=== PATIENT | female | born 1955 | race Caucasian/White ===

== ENCOUNTER → 2016-12-17 | Outpatient (CLI) | payer OTHER ==
[~2016-12-17] MED LIST: ARIP15TA; CLON1TAB3; LMC/150; PARO1TAB9; PSEU30TA20 PO; REVEIWED; RISP1TAB68; TRZUNK
--- NOTE | 2016-12-17 12:57 | MAMMOGRAPHY REPORT ---
BILATERAL DIGITAL SCREENING MAMMOGRAM WITH CAD: 12/17/2016 CLINICAL HISTORY: Routine screening. Patient has no complaints. TECHNIQUE: Current study was also evaluated with a Computer Aided Detection (CAD) system. Bilateral CC and MLO views were obtained. Note that the left MLO view is somewhat suboptimal as the pectorali s muscle is not visualized, as the patient could not tolerate proper positioning due to shoulder issu es. COMPARISON: Comparison is made to exams dated: 12/17/2015 mammogram, 12/13/2014 mammogram, 12/11/2013 m ammogram, 11/29/2012 mammogram, 11/23/2011 mammogram, and 11/17/2010 mammogram - [facility] nter. BREAST COMPOSITION: There are scattered areas of fibroglandular density in both breasts. FINDINGS: No suspicious masses, calcifications, or areas of architectural distortion are noted in ei ther breast. There has been no significant interval change compared to prior exams. Scattered bilater al benign-appearing calcifications are not significantly changed. IMPRESSION: ACR BI-RADS CATEGORY 2: BENIGN There is no mammographic evidence of malignancy. A 1 year screening mammogram is recommended. The pa tient will receive written notification of the results. Approximately 10% of breast cancers are not detected with mammography. A negative mammographic report should not delay biopsy if a clinically suggestive mass is present. Shahnaz Morales M.D. /:12/17/2016 12:03:52 Soldering Machine Setter: Manasa Lee, [facility] letter sent: Normal 1/2 BI-RADS Code: ACR BI-RADS Category 2: Benign
== END | disposition home or self-care (01) ==
LOC: C.MAMM 10:59
PROVIDERS: ATTEND Physician Assistant
DX: Z12.31 Encounter for screening mammogram for malignant neoplasm of breast (principal)

== ENCOUNTER → 2018-01-12 | Outpatient (CLI) | payer OTHER ==
[~2018-01-12] MED LIST changes: +CLON1TAB10; -CLON1TAB3
--- NOTE | 2018-01-13 14:30 | MAMMOGRAPHY REPORT ---
BILATERAL DIGITAL SCREENING MAMMOGRAM TOMOSYNTHESIS WITH CAD: 01/12/2018 CLINICAL HISTORY: Routine screening. TECHNIQUE: Breast tomosynthesis in addition to standard 2D mammography was performed. Current study w as also evaluated with a Computer Aided Detection (CAD) system. COMPARISON: Comparison is made to exams dated: 12/17/2016 mammogram, 12/17/2015 mammogram, 12/13/2014 m ammogram, 12/11/2013 mammogram, 11/29/2012 mammogram, and 11/23/2011 mammogram - [facility] nter. BREAST COMPOSITION: There are scattered areas of fibroglandular density in both breasts. FINDINGS: No suspicious masses, calcifications, or areas of architectural distortion are noted in either breast . There has been no significant interval change compared to prior exams. Bilateral benign-appearing calcifications are not significantly changed. Small nodular asymmetry in the left lateral breast on the cc view is stable compared to prior exams including the 2010 exam. IMPRESSION: ACR BI-RADS CATEGORY 2: BENIGN There is no mammographic evidence of malignancy. A 1 year screening mammogram is recommended.( [id number]) The patient will receive written notification of the results. Some breast cancers are not detected with mammography. A negative mammographic report should not geni y biopsy if a clinically suggestive mass is present. Shahnaz Morales M.D. /:01/12/2018 15:07:02 Short Order Cook: RT Doretha(Mark)(M), [facility] letter sent: Normal 1/2 BI-RADS Code: ACR BI-RADS Category 2: Benign
== END | disposition home or self-care (01) ==
LOC: C.MAMM 13:15
PROVIDERS: ATTEND Physician Assistant
DX: Z12.31 Encounter for screening mammogram for malignant neoplasm of breast (principal)

== ENCOUNTER 2023-10-28 15:10 | Observation (INO) ==
--- NOTE | 2023-10-28 16:29 | Emergency Department Note ---
Impression & Plan Metabolic acidosis, CKD (chronic kidney disease) stage 4, GFR 15-29 ml/min, Blurry vision, bilateral, Weakness ED Provider Note NAME: OLVIN DANGELO AGE: 68 SEX: F : 1955 ARRIVES VIA: Ambulance INFORMANT: Patient, ED PROVIDER(S): Zeb Daniels MD CHIEF COMPLAINT: Blurry vision, back pain MEDICAL DECISION MAKING: Patient presents due to concern for blurry vision and weakness. IV was established and blood work was obtained. Patient did have a CT of the head completed the patient was ordered IV fluids. Blood work shows a normal white count hemoglobin and platelet count. The patient's kidney function shows a creatinine 2.3. No priors for comparison. The patient does have a low bicarb and increased chloride but normal gap. VBG was ordered given her tiredness and pH is 7.17. Patient reportedly takes sodium bicarb based on her medication list but given this an ABG was ordered. ABG confirms acidosis with a pH of 7.2. Lactate is normal. Urinalysis negative for blood or infection. CT head negative. Upon reassessment the patient was looking and feeling improved after fluids and the patient ate and drank. I did speak to the on-call hospital service given the patient's acidosis without prior knowledge of cause and the patient was admitted by Dr. Mckenzie. Discussion w/ other healthcare providers: Dr. Mckenzie inpatient medicine service Prior /Outside records reviewed: None Differential diagnosis: Infection, dehydration, metabolic abnormality, hypo/hyperglycemia, electrolyte imbalance, anemia, UTI, pneumonia, thyroid dysfunction among others were considered. Diagnostics, as interpreted by me: ECG: None Cardiac monitoring: An order was placed for continuous cardiac monitoring. The monitor shows a rate of 88 with sinus rhythm. Patient was placed on pulse oximetry Medical decision rules: None Imaging studies: I informally interpreted the patient's CT head does not show obvious ICH with formal report to follow. HPI: Patient presents due to concern for weakness and fatigue as well as increasing tiredness and sleepiness. Patient also reports blurry vision which started today. Patient was recently discharged from [facility] for UTI. Patient denies any current urinary symptoms no abdominal pain. Patient is accompanied by family member who is one of her caregivers. He states that she seemed to be relatively well this morning but the patient did call home health and when evaluated was referred here for further evaluation and treatment. Patient does wear glasses. Patient has not seen an eye doctor in some time. Patient reports that she does have some low back pain that has been a chronic issue. Triage reported the patient had headache all the patient denies any headache at this time. No nausea or vomiting. Patient denies any urinary symptoms. No recent falls or trauma. The patient denies any recent heavy lifting twisting or turning. No trauma PAST MEDICAL HISTORY: See Below PAST SURGICAL HISTORY: See Below SOCIAL HISTORY: See Below HOME MEDICATIONS: See Below ALLERGIES: See Below VITALS: See Below PHYSICAL EXAMINATION: GENERAL: NAD, non-toxic. Wearing glasses EYE EXAM: Normal conjunctiva. PERRL, no anisocoria and EOM's grossly intact w/o pain. No vision loss, able to finger count. No evidence of entrapment or periorbital edema no hyphema or hypopyon. OROPHARYNX: Moist mucus membranes, grossly normal dentition. NECK: Trachea midline, no stridor. LUNGS: Clear to auscultation. Normal chest wall mechanics. HEART: NSR, no MRG. ABDOMEN: Abdomen soft, non-tender, no masses, no rebound or guarding. BACK: No CVA TTP. SKIN: No rashes and no bruising. UPPER EXTREMITIES: Upper extremities are grossly normal. LOWER EXTREMITIES: Grossly normal, no edema. NEURO EXAM: A&O x3, cranial nerves II-XII grossly intact, normal speech, moves all 4 extremities. Good [id number], no drift and no sensory deficits Past Med/Surg History Problem List (Updated 10/30/23 @ 13:07 by Zeb Daniels MD) Weakness (Acute) Blurry vision, bilateral (Acute) Metabolic acidosis (Acute) CKD (chronic kidney disease) stage 4, GFR 15-29 ml/min (Acute) Headache Social History Smoking Status: Current every day smoker Tobacco Type: Cigarettes Cigarettes Per Day: 20; Second Hand Exposure: No; Do You Dip or Chew Tobacco: No; Tobacco Cessation Education Requested by Patient: No Hx Alcohol Use: No Hx Substance Use: No Preferred Language: Hungarian Communication Ability: Impaired [employer] Required: No Beliefs That Will Affect Care: None Current Living Situation: Family Current Living Situation Comment: grandson lives with patient Other Information That Helps Us Care for You: No Feels Safe at Home: Yes Safety Concerns: Feels Safe At This Time Assistive Devices: None and Glasses Allergies Allergies Allergy/AdvReac Type Severity Reaction Status Date / Time No Known Allergies Allergy Mild Unverified 07/13/11 21:17 Home Meds Home Medications Medication Instructions Recorded Confirmed albuterol sulfate 90 mcg/actuation 2 puff inhalation Q4 PRN Wheezing 10/28/23 10/28/23 aerosol inhaler aripiprazole 20 mg tablet 20 mg PO HS 10/28/23 10/28/23 aripiprazole 5 mg tablet 5 mg PO HS 10/28/23 10/28/23 atorvastatin 40 mg tablet 40 mg PO DAILY 10/28/23 10/28/23 budesonide-formoterol HFA 160 2 puff inhalation BID 10/28/23 10/28/23 mcg-4.5 mcg/actuation aerosol inhaler (Breyna) cetirizine 5 mg tablet 5 mg PO DAILY 10/28/23 10/28/23 clonazepam 0.5 mg tablet 0.5 mg PO HS 10/28/23 10/28/23 gabapentin 600 mg tablet 600 mg PO TID 10/28/23 10/28/23 hydroxyzine pamoate 50 mg capsule 50 mg PO UD 10/28/23 10/28/23 lamotrigine 100 mg tablet 100 mg PO QAM 10/28/23 10/28/23 linaclotide 145 mcg capsule 145 mcg PO DAILYBB 10/28/23 10/28/23 (Linzess) magnesium oxide 400 mg (241.3 mg 400 mg PO DAILY 10/28/23 10/28/23 magnesium) tablet nystatin 100,000 unit/gram topical 1 applic topical BID 10/28/23 10/28/23 powder omeprazole 40 mg capsule,delayed 40 mg PO DAILYBB 10/28/23 10/28/23 release potassium chloride 10 mEq 20 meq PO BID 10/28/23 10/28/23 tablet,extended release pregabalin 50 mg capsule 50 mg PO BID 10/28/23 10/28/23 risperidone 1 mg tablet 1 mg PO HS 10/28/23 10/28/23 sertraline 50 mg tablet 50 mg PO QAM 10/28/23 10/28/23 sodium bicarbonate 650 mg tablet 650 mg PO AMHS 10/28/23 10/28/23 trazodone 100 mg tablet 200 mg PO HS 10/28/23 10/28/23 Results & Data (ED) Vital Signs Vital Signs - 24 hr 10/28/23 15:28 10/28/23 15:43 Temperature 36.7 C Temperature Source Oral Pulse Rate 72 70 Respiratory Rate 16 Blood Pressure 120/86 Blood Pressure Mean 97 Pulse Oximetry 99 Oxygen Delivery Method Room Air Sepsis Recent Fever Within 48 Hours No Sepsis New/Unexplained Change in Mental Status No Sepsis Action Taken by Nursing No Action Required Home Medications Current Medication List: was personally reviewed by me Laboratory Data Attestation: I reviewed the patient's lab results. 10/30/23 10:09 10/30/23 09:10 Lab Results 10/28/23 10/28/23 10/28/23 Range/Units 16:44 16:54 17:53 WBC 9.51 (4.8-10.8) K/ul RBC 4.05 L (4.20-5.40) M/uL Hgb 12.4 (12.0-16.0) g/dl Hct 38.7 (37.0-47.0) % MCV 95.6 (80.0-100.0) fL MCH 30.6 (25.0-34.0) pg MCHC 32.0 (32.0-36.0) g/dL RDW Std Deviation 51.8 H (36.4-46.3) fL RDW Coeff of David 14.8 H (11.5-14.5) % Plt Count 220 (130-400) K/uL MPV 9.2 L (9.4-12.4) fL Immature Gran % (Auto) 0.8 % Neut % (Auto) 58.2 % Lymph % (Auto) 32.0 % [place] % (Auto) 5.6 % Eos % (Auto) 2.7 % Baso % (Auto) 0.7 % Neut # (Auto) 5.53 (1.40-6.50) K/uL Lymph # (Auto) 3.04 (1.20-3.40) K/uL [place] # (Auto) 0.53 (0.11-0.59) K/uL Eos # (Auto) 0.26 (0.00-0.50) K/uL Baso # (Auto) 0.07 (0.00-0.20) K/uL Immature Gran # (Auto) 0.08 (0.01-0.20) K/uL ABG pH (7.35-7.45) ABG pCO2 (35-46) mmHg ABG pO2 (80-95) mmHg ABG HCO3 (19-24) mmol/L ABG O2 Saturation (90-95) % ABG Base Excess (-9-1.8) mEq/L Da Test (Pos) VBG pH 7.17 L (7.36-7.41) VBG pCO2 44 (38-50) mmHg VBG pO2 33 mmHg VBG HCO3 16 mmol/L VBG O2 Saturation 62.2 % VBG Base Excess -12.2 mEq/L Oxygen Given Sodium 142 (136-145) mmol/L Potassium 3.6 (3.5-5.1) mmol/L Chloride 116 H (98-107) mmol/L Carbon Dioxide 18 L (21-32) mmol/L Anion Gap 8 (3-11) BUN 26 H (6-23) mg/dl Creatinine 2.37 H (0.6-1.2) mg/dl Est Cr Clr Drug Dosing 23.6 ml/min Est GFR ( Amer) 23.8 ml/min Est GFR (Non-Af Amer) 20.5 ml/min BUN/Creatinine Ratio 11.0 (10-20) Glucose 89 (70-99(Fasting)) mg/dl POC Glucose 87 (70-99) mg/dl Lactate (0.4-2.0) mmol/L Calcium 10.1 (8.6-10.3) mg/dl Total Bilirubin 0.4 (0.2-1.0) mg/dl AST 35 (13-39) U/L ALT 19 (7-52) U/L Alkaline Phosphatase 167 H (34-104) U/L Total Protein 8.2 (6.0-8.3) gm/dl Albumin 4.7 (3.4-5.0) gm/dl Globulin 3.5 (2.5-4.0) gm/dl Albumin/Globulin Ratio 1.3 (0.9-2) Procalcitonin 0.04 (0-0.5) ng/ml Urine Color Urine Appearance (Clear) Urine pH (4.5-7.5) Ur Specific Cade (1.000-1.030) Urine Protein (Negative) Urine Glucose (UA) (Negative) Urine Ketones (Negative) Urine Blood (Negative) Urine Nitrite (Negative) Urine Bilirubin (Negative) Urine Urobilinogen (Negative) Ur Leukocyte Esterase (Negative) Urine WBC (Auto) (0-5) /hpf Urine RBC (Auto) (0-2) /hpf U Hyaline Cast (Auto) (0-2) /lpf U Epithel Cells (Auto) (0-2) /hpf Urine Bacteria (Auto) (None Seen) SARS-CoV-2 (PCR) NEGATIVE (Negative) Influenza Type A (PCR) Negative (Neg) Influenza Type B (PCR) Negative (Neg) RSV (RT-PCR) Negative (Neg) 10/28/23 10/28/23 10/28/23 Range/Units 18:32 18:55 18:56 WBC (4.8-10.8) K/ul RBC (4.20-5.40) M/uL Hgb (12.0-16.0) g/dl Hct (37.0-47.0) % MCV (80.0-100.0) fL MCH (25.0-34.0) pg MCHC (32.0-36.0) g/dL RDW Std Deviation (36.4-46.3) fL RDW Coeff of David (11.5-14.5) % Plt Count (130-400) K/uL MPV (9.4-12.4) fL Immature Gran % (Auto) % Neut % (Auto) % Lymph % (Auto) % [place] % (Auto) % Eos % (Auto) % Baso % (Auto) % Neut # (Auto) (1.40-6.50) K/uL Lymph # (Auto) (1.20-3.40) K/uL [place] # (Auto) (0.11-0.59) K/uL Eos # (Auto) (0.00-0.50) K/uL Baso # (Auto) (0.00-0.20) K/uL Immature Gran # (Auto) (0.01-0.20) K/uL ABG pH 7.21 L (7.35-7.45) ABG pCO2 29 L (35-46) mmHg ABG pO2 138 H (80-95) mmHg ABG HCO3 12 L (19-24) mmol/L ABG O2 Saturation 99.2 H (90-95) % ABG Base Excess -14.9 L (-9-1.8) mEq/L Da Test Pos (Pos) VBG pH (7.36-7.41) VBG pCO2 (38-50) mmHg VBG pO2 mmHg VBG HCO3 mmol/L VBG O2 Saturation % VBG Base Excess mEq/L Oxygen Given ROOM AIR Sodium (136-145) mmol/L Potassium (3.5-5.1) mmol/L Chloride (98-107) mmol/L Carbon Dioxide (21-32) mmol/L Anion Gap (3-11) BUN (6-23) mg/dl Creatinine (0.6-1.2) mg/dl Est Cr Clr Drug Dosing ml/min Est GFR ( Amer) ml/min Est GFR (Non-Af Amer) ml/min BUN/Creatinine Ratio (10-20) Glucose (70-99(Fasting)) mg/dl POC Glucose (70-99) mg/dl Lactate 1.6 (0.4-2.0) mmol/L Calcium (8.6-10.3) mg/dl Total Bilirubin (0.2-1.0) mg/dl AST (13-39) U/L ALT (7-52) U/L Alkaline Phosphatase (34-104) U/L Total Protein (6.0-8.3) gm/dl Albumin (3.4-5.0) gm/dl Globulin (2.5-4.0) gm/dl Albumin/Globulin Ratio (0.9-2) Procalcitonin (0-0.5) ng/ml Urine Color Yellow Urine Appearance Clear (Clear) Urine pH 7.0 (4.5-7.5) Ur Specific Cade 1.007 (1.000-1.030) Urine Protein 1+ H (Negative) Urine Glucose (UA) Negative (Negative) Urine Ketones Negative (Negative) Urine Blood Negative (Negative) Urine Nitrite Negative (Negative) Urine Bilirubin Negative (Negative) Urine Urobilinogen Negative (Negative) Ur Leukocyte Esterase Trace H (Negative) Urine WBC (Auto) 0-5 (0-5) /hpf Urine RBC (Auto) 0-2 (0-2) /hpf U Hyaline Cast (Auto) 0-2 (0-2) /lpf U Epithel Cells (Auto) 0-2 (0-2) /hpf Urine Bacteria (Auto) None Seen (None Seen) SARS-CoV-2 (PCR) (Negative) Influenza Type A (PCR) (Neg) Influenza Type B (PCR) (Neg) RSV (RT-PCR) (Neg) 10/28/23 Range/Units 20:47 WBC (4.8-10.8) K/ul RBC (4.20-5.40) M/uL Hgb (12.0-16.0) g/dl Hct (37.0-47.0) % MCV (80.0-100.0) fL MCH (25.0-34.0) pg MCHC (32.0-36.0) g/dL RDW Std Deviation (36.4-46.3) fL RDW Coeff of David (11.5-14.5) % Plt Count (130-400) K/uL MPV (9.4-12.4) fL Immature Gran % (Auto) % Neut % (Auto) % Lymph % (Auto) % [place] % (Auto) % Eos % (Auto) % Baso % (Auto) % Neut # (Auto) (1.40-6.50) K/uL Lymph # (Auto) (1.20-3.40) K/uL [place] # (Auto) (0.11-0.59) K/uL Eos # (Auto) (0.00-0.50) K/uL Baso # (Auto) (0.00-0.20) K/uL Immature Gran # (Auto) (0.01-0.20) K/uL ABG pH (7.35-7.45) ABG pCO2 (35-46) mmHg ABG pO2 (80-95) mmHg ABG HCO3 (19-24) mmol/L ABG O2 Saturation (90-95) % ABG Base Excess (-9-1.8) mEq/L Da Test (Pos) VBG pH (7.36-7.41) VBG pCO2 (38-50) mmHg VBG pO2 mmHg VBG HCO3 mmol/L VBG O2 Saturation % VBG Base Excess mEq/L Oxygen Given Sodium (136-145) mmol/L Potassium (3.5-5.1) mmol/L Chloride (98-107) mmol/L Carbon Dioxide (21-32) mmol/L Anion Gap (3-11) BUN (6-23) mg/dl Creatinine (0.6-1.2) mg/dl Est Cr Clr Drug Dosing ml/min Est GFR ( Amer) ml/min Est GFR (Non-Af Amer) ml/min BUN/Creatinine Ratio (10-20) Glucose (70-99(Fasting)) mg/dl POC Glucose 109 H (70-99) mg/dl Lactate (0.4-2.0) mmol/L Calcium (8.6-10.3) mg/dl Total Bilirubin (0.2-1.0) mg/dl AST (13-39) U/L ALT (7-52) U/L Alkaline Phosphatase (34-104) U/L Total Protein (6.0-8.3) gm/dl Albumin (3.4-5.0) gm/dl Globulin (2.5-4.0) gm/dl Albumin/Globulin Ratio (0.9-2) Procalcitonin (0-0.5) ng/ml Urine Color Urine Appearance (Clear) Urine pH (4.5-7.5) Ur Specific Cade (1.000-1.030) Urine Protein (Negative) Urine Glucose (UA) (Negative) Urine Ketones (Negative) Urine Blood (Negative) Urine Nitrite (Negative) Urine Bilirubin (Negative) Urine Urobilinogen (Negative) Ur Leukocyte Esterase (Negative) Urine WBC (Auto) (0-5) /hpf Urine RBC (Auto) (0-2) /hpf U Hyaline Cast (Auto) (0-2) /lpf U Epithel Cells (Auto) (0-2) /hpf Urine Bacteria (Auto) (None Seen) SARS-CoV-2 (PCR) (Negative) Influenza Type A (PCR) (Neg) Influenza Type B (PCR) (Neg) RSV (RT-PCR) (Neg) Administered Medications Acetaminophen (Acetaminophen 325 Mg Tab) 650 mg PO Q4H PRN PRN Reason: Pain or Fever Stop: 11/27/23 23:29 Last Admin: 10/29/23 05:46 Dose: 650 mg Documented By: LL Aripiprazole (Aripiprazole 10 Mg Tab) 20 mg PO HS [facility] Stop: 11/28/23 20:59 Last Admin: 10/29/23 21:04 Dose: 20 mg Documented By: SHEA Aripiprazole (Aripiprazole 5 Mg Tab) 5 mg PO HS [facility] Stop: 11/28/23 20:59 Last Admin: 10/29/23 21:07 Dose: 5 mg Documented By: SHEA Atorvastatin Calcium (Atorvastatin 40 Mg Tab) 40 mg PO DAILY [facility] Stop: 11/28/23 08:59 Last Admin: 10/30/23 08:47 Dose: 40 mg Documented By: Admin: 10/29/23 09:05 Dose: 40 mg Documented By: SIDNEY Cetirizine HCl (Cetirizine Hcl 10 Mg Tablet) 5 mg PO DAILY [facility] Stop: 11/28/23 08:59 Last Admin: 10/30/23 08:47 Dose: 5 mg Documented By: Admin: 10/29/23 09:05 Dose: 5 mg Documented By: SIDNEY Clonazepam (Clonazepam 0.5 Mg Tab) 0.5 mg PO [facility] Stop: 11/28/23 20:59 Last Admin: 10/29/23 21:03 Dose: 0.5 mg Documented By: SHEA Famotidine (Famotidine 20 Mg Tab) 20 mg PO BID [facility] Stop: 11/28/23 08:59 Last Admin: 10/30/23 08:46 Dose: 20 mg Documented By: Admin: 10/29/23 21:05 Dose: 20 mg Documented By: Admin: 10/29/23 09:06 Dose: 20 mg Documented By: SIDNEY Fluticasone/Vilanterol (Fluticasone/Vilanterol 200/25mcg 14 Puffs/Inhaler) 1 puffs INH DAILY [facility] Stop: 11/28/23 08:59 Last Admin: 10/30/23 08:48 Dose: 1 puffs Documented By: Admin: 10/29/23 09:06 Dose: 1 puffs Documented By: SIDNEY Gabapentin (Gabapentin 600 Mg Tab) 600 mg PO TID [facility] Stop: 11/28/23 08:59 Last Admin: 10/30/23 08:46 Dose: 600 mg Documented By: Admin: 10/29/23 21:05 Dose: 600 mg Documented By: Admin: 10/29/23 14:22 Dose: 600 mg Documented By: Admin: 10/29/23 09:06 Dose: 600 mg Documented By: SIDNEY Heparin Sodium (Porcine) (Heparin Sod 5,000 Unit/0.5 Ml Vial) 5,000 units SQ Q12 [facility] Stop: 11/28/23 08:59 Last Admin: 10/29/23 09:07 Dose: Not Given Documented By: SIDNEY Hydroxyzine HCl (Hydroxyzine Hcl 25 Mg Tab) 50 mg PO AMHS [facility] Stop: 11/28/23 08:59 Last Admin: 10/30/23 08:47 Dose: 50 mg Documented By: Admin: 10/29/23 21:04 Dose: 50 mg Documented By: Admin: 10/29/23 09:07 Dose: 50 mg Documented By: SIDNEY [facility]otrigine ([facility] 100 Mg Tab) [facility] [place] Stop: 11/28/23 08:59 Last Admin: 10/30/23 08:47 Dose: 100 mg Documented By: Admin: 10/29/23 09:07 Dose: 100 mg Documented By: SIDNEY Linaclotide (Linaclotide 145 Mcg Capsule) 145 mcg PO DAILYBB [facility] Stop: 11/28/23 06:29 Last Admin: 10/29/23 21:03 Dose: 145 mcg Documented By: Admin: 10/29/23 05:47 Dose: 145 mcg Documented By: SABIHA Magnesium Oxide (Magnesium Oxide 400 Mg Tab) 400 mg PO BID [facility] Stop: 11/28/23 08:59 Last Admin: 10/30/23 08:46 Dose: 400 mg Documented By: Admin: 10/29/23 21:06 Dose: 400 mg Documented By: Admin: 10/29/23 09:05 Dose: 400 mg Documented By: SIDNEY Nystatin (Nystatin Powder 15gm Btl) 1 appln EXT BID [facility] Stop: 11/28/23 08:59 Last Admin: 10/30/23 08:46 Dose: 1 appln Documented By: Admin: 10/29/23 21:07 Dose: 1 appln Documented By: Admin: 10/29/23 09:08 Dose: 1 appln Documented By: SIDNEY Polyethylene Glycol (Polyethylene (Miralax) 17 Gm Pack) 17 gm PO DAILY [facility] Stop: 11/29/23 08:59 Last Admin: 10/30/23 08:48 Dose: 17 gm Documented By: SIDNEY Potassium Chloride (Potassium Chloride Crtab 20 Meq Tabcr) 20 meq PO BID [facility] Stop: 11/28/23 08:59 Last Admin: 10/30/23 08:48 Dose: 20 meq Documented By: Admin: 10/29/23 21:06 Dose: 20 meq Documented By: Admin: 10/29/23 09:05 Dose: 20 meq Documented By: SIDNEY Pregabalin (Pregabalin 50 Mg Cap) 50 mg PO BID [facility] Stop: 11/28/23 08:59 Last Admin: 10/30/23 08:55 Dose: 50 mg Documented By: Admin: 10/29/23 21:03 Dose: 50 mg Documented By: Admin: 10/29/23 09:09 Dose: 50 mg Documented By: SIDNEY Risperidone (Risperidone 1 Mg Tablet) 1 mg PO [facility] Stop: 11/27/23 23:29 Last Admin: 10/29/23 21:08 Dose: 1 mg Documented By: Admin: 10/28/23 23:59 Dose: 1 mg Documented By: SABIHA Sennosides (Senna 8.6 Mg Tab) [facility] [place]: 11/28/23 12:29 Last Admin: 10/30/23 08:47 Dose: 8.6 mg Documented By: Admin: 10/29/23 13:36 Dose: Not Given Documented By: SIDNEY Sertraline HCl (Sertraline Hcl 50 Mg Tablet) 50 mg PO QAM [facility] Stop: 11/28/23 08:59 Last Admin: 10/30/23 08:47 Dose: 50 mg Documented By: Admin: 10/29/23 09:05 Dose: 50 mg Documented By: SIDNEY Sodium Bicarbonate (Sodium Bicarbonate 650 Mg Tab) 650 mg PO TID [facility] Stop: 11/28/23 13:59 Last Admin: 10/30/23 08:46 Dose: 650 mg Documented By: Admin: 10/29/23 21:07 Dose: 650 mg Documented By: Admin: 10/29/23 14:22 Dose: 650 mg Documented By: SIDNEY Trazodone HCl (Trazodone Hcl 100 Mg Tab) 200 mg PO [facility] Stop: 11/28/23 20:59 Last Admin: 10/29/23 21:05 Dose: 200 mg Documented By: SHEA Discontinued Medications Acetaminophen (Acetaminophen 500 Mg Tab) 1,000 mg PO NOW STA Stop: 10/28/23 19:40 Last Admin: 10/28/23 19:57 Dose: 1,000 mg Documented By: LAY Bisacodyl (Bisacodyl 10 Mg Supp) 10 mg MO NOW STA Stop: 10/30/23 11:00 Last Admin: 10/30/23 11:44 Dose: Not Given Documented By: SIDNEY Sodium Chloride (Nss) 1,000 mls @ 999 mls/hr IV .Q1H1M ONE Stop: 10/28/23 19:32 Last Infusion: 10/28/23 22:13 Dose: Infused Documented By: Admin: 10/28/23 19:00 Dose: 999 mls/hr Documented By: LAY Sodium Chloride (Nss) 1,000 mls @ 75 mls/hr IV .[id number] [facility] Last Infusion: 10/29/23 08:05 Dose: Infused Documented By: Infusion: 10/29/23 08:05 Dose: 0 mls/hr Documented By: Admin: 10/28/23 23:59 Dose: 75 mls/hr Documented By: SABIHA Sodium Bicarbonate 75 meq/ (Sodium Chloride) 1,075 mls @ 125 mls/hr IV .[id number] [facility] Stop: 11/28/23 13:59 Last Infusion: 10/30/23 11:14 Dose: Infused Documented By: Infusion: 10/30/23 07:48 Dose: 125 mls/hr Documented By: Admin: 10/30/23 07:48 Dose: 180 mls/hr Documented By: Infusion: 10/30/23 05:22 Dose: Infused Documented By: Admin: 10/29/23 23:23 Dose: 180 mls/hr Documented By: Infusion: 10/29/23 21:29 Dose: Infused Documented By: Infusion: 10/29/23 17:46 Dose: 180 mls/hr Documented By: Admin: 10/29/23 14:31 Dose: 125 mls/hr Documented By: SIDNEY Ioversol (Optiray 320 150ml) 120 ml IV ONCE ONE Stop: 10/29/23 20:16 Last Admin: 10/29/23 20:16 Dose: 120 ml Documented By: OBDULIA Lidocaine (Lidocaine 5% 1 Patch) 1 patch TD NOW STA Stop: 10/28/23 19:40 Last Admin: 10/28/23 19:57 Dose: 1 patch Documented By: LAY Lorazepam (Lorazepam 0.5 Mg Tab) 0.5 mg PO NOW STA Stop: 10/29/23 10:01 Last Admin: 10/29/23 10:11 Dose: 0.5 mg Documented By: CM Miscellaneous (Remove Lidoderm Patch) 1 each N/A ONE ONE Stop: 10/29/23 08:01 Last Admin: 10/29/23 09:04 Dose: 1 each Documented By: CM Potassium Chloride (Potassium Chloride Crtab 20 Meq Tabcr) 20 meq PO NOW STA Stop: 10/29/23 07:07 Last Admin: 10/29/23 09:05 Dose: 20 meq Documented By: CM Potassium Chloride (Potassium Chloride Crtab 20 Meq Tabcr) 20 meq PO NOW STA Stop: 10/30/23 10:35 Last Admin: 10/30/23 11:28 Dose: 20 meq Documented By: CM Sodium Bicarbonate (Sodium Bicarb 8.4% Inj 50 Meq/50 Ml Syr) 50 meq IV NOW STA Stop: 10/28/23 23:31 Last Admin: 10/28/23 23:59 Dose: 50 meq Documented By: LL Sodium Bicarbonate (Sodium Bicarbonate 650 Mg Tab) 650 mg PO AMHS [facility] Stop: 11/28/23 08:59 Last Admin: 10/29/23 09:05 Dose: 650 mg Documented By: CM Imaging Data Radiologist's Impression: Head CT 10/28/23 17:[address] DOSE: 547.75 mGy.cm HISTORY: lethargy TECHNIQUE: Multiaxial CT images of the head were performed without the use of intravenous contrast. Automated exposure control was utilized for this study. A dose lowering technique was utilized adhering to the principles of ALARA. Comparison: None. Findings: The paranasal sinuses and mastoid air cells are clear. The calvarium and skull base are intact. The ventricles and sulci are within normal limits. There is no mass, hematoma, midline shift, or acute infarct. Impression: No acute intracranial abnormality. ACT 112: Negative or not required by law. Electronically signed by: Anthony Dotson M.D. 10/28/2023 6:00 PM Discharge Plan Visit Data Chief Complaint: Head Pain ED Provider: Zeb Daniels Discharge Problem: Metabolic acidosis, CKD (chronic kidney disease) stage 4, GFR 15-29 ml/min, Blurry vision, bilateral, Weakness Patient Disposition: Admitted As Inpatient Discharge Instructions Interventions: ED Discharge Assessment Last Done: 10/28/23 23:31
[2023-10-28 17:02] LABS: Basophils # (auto) 0.07 K/uL (0.00-0.20); Basophils % (auto) 0.7 %; Eosinophils # (auto) 0.26 K/uL (0.00-0.50); Eosinophils % (auto) 2.7 %; Hematocrit (blood only) 38.7 % (37.0-47.0); Hemoglobin 12.4 g/dl (12.0-16.0); Immature Granulocytes # (auto) 0.08 K/uL (0.01-0.20); Immature Granulocytes % (auto) 0.8 %; Lymphocytes # (auto) 3.04 K/uL (1.20-3.40); Mean Corpuscular Hemoglobin 30.6 pg (25.0-34.0); Mean Corpuscular Volume 95.6 fL (80.0-100.0); Mean Platelet Volume 9.2 fL (9.4-12.4); Monocytes # (auto) 0.53 K/uL (0.11-0.59); Monocytes % (auto) 5.6 %; Neutrophils # (auto) 5.53 K/uL (1.40-6.50); Neutrophils % (auto) 58.2 %; Platelet Count 220 K/uL (130-400); RDW Coefficient of Variation 14.8 % (11.5-14.5); RDW Standard Deviation 51.8 fL (36.4-46.3); Red Blood Count 4.05 M/uL (4.20-5.40); White Blood Count 9.51 K/ul (4.8-10.8)
[2023-10-28 17:18] LABS: Albumin Globulin Ratio 1.3 (0.9-2); Albumin Level 4.7 gm/dl (3.4-5.0); Bilirubin,Total 0.4 mg/dl (0.2-1.0); Calcium 10.1 mg/dl (8.6-10.3); Creatinine Clr Calc Pharmacy 23.6 ml/min; Est GFR (African American) 23.8 ml/min; Est GFR (Non-African American) 20.5 ml/min; Globulin 3.5 gm/dl (2.5-4.0); Potassium 3.6 mmol/L (3.5-5.1); Total Protein 8.2 gm/dl (6.0-8.3)
[2023-10-28 17:53] LABS: Influenza A virus by PCR Negative (Neg); Influenza B virus by PCR Negative (Neg); RSV by PCR Negative (Neg); SARS CoV2 RNA(COVID-19) Ceph NEGATIVE (Negative)
[2023-10-28 18:01] LABS: Base Excess VBG -12.2 mEq/L; HCO3 VBG 16 mmol/L; Oxygen Saturation VBG 62.2 %; PCO2 VBG 44 mmHg (38-50); PO2 VBG 33 mmHg; pH VBG 7.17 (7.36-7.41)
--- NOTE | 2023-10-28 18:02 | CT Scan Report ---
HEAD CT NONCONTRAST CT DOSE: 547.75 mGy.cm HISTORY: lethargy TECHNIQUE: Multiaxial CT images of the head were performed without the use of intravenous contrast. A utomated exposure control was utilized for this study. A dose lowering technique was utilized adheri ng to the principles of ALARA. Comparison: None. Findings: The paranasal sinuses and mastoid air cells are clear. The calvarium and skull base are int act. The ventricles and sulci are within normal limits. There is no mass, hematoma, midline shift, or acute infarct. Impression: No acute intracranial abnormality. ACT 112: Negative or not required by law. Electronically signed by: Anthony Dotson M.D. 10/28/2023 6:00 PM
[2023-10-28 18:46] LABS: Appearance Urine Clear (Clear); Bacteria Urine Automated None Seen (None Seen); Bilirubin Urine Negative (Negative); Blood Urine Negative (Negative); Cast Urine Automated 0-2 /lpf (0-2); Color Urine Yellow; Epithelial Cell Urine Auto 0-2 /hpf (0-2); Glucose Urine UA Negative (Negative); Ketones Urine Negative (Negative); Leukocyte Esterase Urine Trace (Negative); Nitrite Urine Negative (Negative); Protein Urine 1+ (Negative); RBC Urine Automated 0-2 /hpf (0-2); Specific Gravity Urine 1.007 (1.000-1.030); Urobilinogen Urine Negative (Negative); WBC Urine Automated 0-5 /hpf (0-5)
[2023-10-28] MEDS: SODIUM CHLORIDE 0.9% 1,000 ML IV ONE (19:00)
[2023-10-28 19:07] LABS: Base Excess ABG -14.9 mEq/L (-9-1.8); HCO3 ABG 12 mmol/L (19-24); Oxygen Saturation ABG 99.2 % (90-95); PCO2 ABG 29 mmHg (35-46); PO2 ABG 138 mmHg (80-95); pH ABG 7.21 (7.35-7.45)
[2023-10-28 19:17] LABS: Allen Test Pos (Pos)
[2023-10-28] MEDS: LIDOCAINE 5% 1 PATCH TD STA (19:57)
[2023-10-28] MEDS: ACETAMINOPHEN 500 MG TAB PO STA (19:57)
--- NOTE | 2023-10-28 22:15 | History & Physical Report ---
Date of Service October 28, 2023 Assessment & Plan (1) Headache: Plan: 68-year-old female with past medical history significant for COPD, granulomatous lung disease, nocturnal hypoxemia on home oxygen, history of dysphagia, history of TONY, CKD stage IIIb, lumbosacral disc disease, bipolar affective disorder, anxiety state, mixed incontinence, tobacco use disorder presents with headache and blurred vision starting today. Patient still has a headache all over the head and also blurred vision. She has chronic back pain radiating to both legs. She says can ambulate without support. She lives with her grandson. She states she can eat regular food. States recently she was [facility] looks like she was admitted on September 27. States stayed in the hospital for 3 weeks. As per discharge paperwork she was admitted for acute UTI and back pain and weakness and TONY. Patient hemodynamics currently okay. Denies any runny nose or sore throat. Denies chest pain. She says she is always short of breath because of COPD. No nausea. No abdominal pain. Did not move bowels for last 4 days. Micturating okay. She is following with nephrology for chronic renal disease. Looks like in May 2023 Lasix metformin Neurontin stop because of worsening GFR. Chronic kidney disease was thought from possible use of [place] in the past and possible NSAIDs. nephrology advised to stop omeprazole and take Pepcid twice daily. In July 2023 patient was started on sodium bicarbonate 650 mg 1 tab twice daily as her bicarb was low and also to slow down the kidney function decline. Headache blurred vision CT head is okay pain control will follow MRI scan recent UTI and was admitted in [facility] UA shows trace leukocyte esterase but negative for bacteria TONY on CKD stage III/IV and metabolic acidosis outpatient labs shows baseline creatinine around 2.4 and CO2 13-15 range was started on bicarb tabs today's creatinine is 2.3 and CO2 is 18 ABG shows pH of .7.21 and bicarb of 12 will do 1 amp of sodium bicarb continue home bicarb tablets gentle fluids follow repeat labs and ABG nephro consult in a.m. nocturnal hypoxemia on oxygen 4 L during nighttime history of COPD continue home inhalers bipolar affective disorder anxiety continue home medications constipation on Linzess GERD placed on Pepcid DVT prophylaxis heparin subcu disposition telemetry full code Addendum: Am labs showing hb 9.0. Ordered stool hemeoccult History of Present Illness Chief Complaint: Headache and blurred vision Primary Care Provider: Milli Martin PA-C 68-year-old female with past medical history significant for COPD, granulomatous lung disease, nocturnal hypoxemia on home oxygen, history of dysphagia, history of TONY, CKD stage IIIb, lumbosacral disc disease, bipolar affective disorder, anxiety state, mixed incontinence, tobacco use disorder presents with headache and blurred vision starting today. Patient still has a headache all over the head and also blurred vision. She has chronic back pain radiating to both legs. She says can ambulate without support. She lives with her grandson. She states she can eat regular food. States recently she was [facility] looks like she was admitted on September 27. [facility] stayed in the hospital for 3 weeks. As per discharge paperwork she was admitted for acute UTI and back pain and weakness and TONY. Patient hemodynamics currently okay. Denies any runny nose or sore throat. Denies chest pain. She says she is always short of breath because of COPD. No nausea. No abdominal pain. Did not move bowels for last 4 days. Micturating okay. She is following with neph rology for chronic renal disease. Looks like in May 2023 Lasix metformin Neurontin stop because of worsening GFR. Chronic kidney disease was thought from possible use of [place] in the past and possible NSAIDs. nephrology advised to stop omeprazole and take Pepcid twice daily. In July 2023 patient was started on sodium bicarbonate 650 mg 1 tab twice daily as her bicarb was low and also to slow down the kidney function decline. Past medical history. As mentioned above Past surgical history. Left total knee replacement. Cystoscopy. EGD. Injection of lumbosacral spine. [place] appendectomy. Removal of ovaries. Cholecystectomy. Right revision of ulnar nerve at elbow. Total hysterectomy. Social history. . Smokes 1 pack a day For 47 years. No alcohol use. No drug use. Family history. Father has alcoholism. Lung cancer. Mother had stomach cancer. Maternal grandmother had bone cancer. Sister had dementia. Allergies Allergy/AdvReac Type Severity Reaction Status Date / Time No Known Allergies Allergy Mild Unverified 07/13/11 21:17 Home Medications Medication Instructions Recorded Confirmed Type albuterol sulfate 90 mcg/actuation 2 puff inhalation Q4 PRN Wheezing 10/28/23 10/28/23 History aerosol inhaler aripiprazole 20 mg tablet 20 mg PO HS 10/28/23 10/28/23 History aripiprazole 5 mg tablet 5 mg PO HS 10/28/23 10/28/23 History atorvastatin 40 mg tablet 40 mg PO DAILY 10/28/23 10/28/23 History budesonide-formoterol HFA 160 2 puff inhalation BID 10/28/23 10/28/23 History mcg-4.5 mcg/actuation aerosol inhaler (Breyna) cetirizine 5 mg tablet 5 mg PO DAILY 10/28/23 10/28/23 History clonazepam 0.5 mg tablet 0.5 mg PO HS 10/28/23 10/28/23 History gabapentin 600 mg tablet 600 mg PO TID 10/28/23 10/28/23 History hydroxyzine pamoate 50 mg capsule 50 mg PO UD 10/28/23 10/28/23 History lamotrigine 100 mg tablet 100 mg PO QAM 10/28/23 10/28/23 History linaclotide 145 mcg capsule 145 mcg PO DAILYBB 10/28/23 10/28/23 History (Linzess) magnesium oxide 400 mg (241.3 mg 400 mg PO DAILY 10/28/23 10/28/23 History magnesium) tablet nystatin 100,000 unit/gram topical 1 applic topical BID 10/28/23 10/28/23 History powder omeprazole 40 mg capsule,delayed 40 mg PO DAILYBB 10/28/23 10/28/23 History release potassium chloride 10 mEq 20 meq PO BID 10/28/23 10/28/23 History tablet,extended release pregabalin 50 mg capsule 50 mg PO BID 10/28/23 10/28/23 History risperidone 1 mg tablet 1 mg PO HS 10/28/23 10/28/23 History sertraline 50 mg tablet 50 mg PO QAM 10/28/23 10/28/23 History sodium bicarbonate 650 mg tablet 650 mg PO AMHS 10/28/23 10/28/23 History trazodone 100 mg tablet 200 mg PO HS 10/28/23 10/28/23 History Past Med/Surg History Problem List (Updated 10/28/23 @ 22:23 by Marino Mckenzie MD) Headache Social History Smoking Status: Current every day smoker Tobacco Type: Cigarettes Cigarettes Per Day: 20; Second Hand Exposure: No; Do You Dip or Chew Tobacco: No; Tobacco Cessation Education Requested by Patient: No Hx Alcohol Use: No Hx Substance Use: No Preferred Language: Mongolian Communication Ability: Impaired Television News Reporter Required: No Beliefs That Will Affect Care: None Current Living Situation: Family Current Living Situation Comment: grandson lives with patient Other Information That Helps Us Care for You: No Feels Safe at Home: Yes Safety Concerns: Feels Safe At This Time Assistive Devices: None and Glasses Review of Systems Review of Systems: All systems reviewed & are unremarkable except as noted in HPI & below Physical Exam Physical Exam: General- Not in distress Head- atraumatic Eyes- PERRL. ENT- oropharynx clear Neck- supple, no JVD. Lungs- clear to auscultation no wheezing or crackles. Heart- regular rhythm; no murmur, no gallop. Abdomen- normal bowel sounds, soft, nontender, no distension Extremities- no pretibial edema, no erythema seen Neuro- alert, oriented PERRL, no facial palsy; no dysarthria; motor 3/5 bilaterally; obeys simple commands Results & Data Results & Data Vital Signs (Past 12 Hours) Vital Signs Temp Pulse Resp BP Pulse Ox O2 Del Method 10/28/23 19:30 73 26 H 104/55 L 94 10/28/23 19:16 77 10/28/23 18:09 79 14 92 Room Air 10/28/23 17:54 72 18 117/65 97 10/28/23 17:06 75 22 98 10/28/23 16:39 71 13 99 10/28/23 16:12 69 15 106/54 L 96 10/28/23 15:43 70 10/28/23 15:33 69 18 10/28/23 15:28 36.7 C 72 16 120/86 99 Room Air Diagnostic Findings Laboratory Results WBC 9.51 K/ul (4.8-10.8) 10/28/23 16:44 RBC 4.05 M/uL (4.20-5.40) L 10/28/23 16:44 Hgb 12.4 g/dl (12.0-16.0) 10/28/23 16:44 Hct 38.7 % (37.0-47.0) 10/28/23 16:44 MCV 95.6 fL (80.0-100.0) 10/28/23 16:44 MCH 30.6 pg (25.0-34.0) 10/28/23 16:44 MCHC 32.0 g/dL (32.0-36.0) 10/28/23 16:44 RDW Std Deviation 51.8 fL (36.4-46.3) H 10/28/23 16:44 RDW Coeff of David 14.8 % (11.5-14.5) H 10/28/23 16:44 Plt Count 220 K/uL (130-400) 10/28/23 16:44 MPV 9.2 fL (9.4-12.4) L 10/28/23 16:44 Immature Gran % (Auto) 0.8 % 10/28/23 16:44 Neut % (Auto) 58.2 % 10/28/23 16:44 Lymph % (Auto) 32.0 % 10/28/23 16:44 [place] % (Auto) 5.6 % 10/28/23 16:44 Eos % (Auto) 2.7 % 10/28/23 16:44 Baso % (Auto) 0.7 % 10/28/23 16:44 Neut # (Auto) 5.53 K/uL (1.40-6.50) 10/28/23 16:44 Lymph # (Auto) 3.04 K/uL (1.20-3.40) 10/28/23 16:44 [place] # (Auto) 0.53 K/uL (0.11-0.59) 10/28/23 16:44 Eos # (Auto) 0.26 K/uL (0.00-0.50) 10/28/23 16:44 Baso # (Auto) 0.07 K/uL (0.00-0.20) 10/28/23 16:44 Immature Gran # (Auto) 0.08 K/uL (0.01-0.20) 10/28/23 16:44 ABG pH 7.21 (7.35-7.45) L 10/28/23 18:55 ABG pCO2 29 mmHg (35-46) L 10/28/23 18:55 ABG pO2 138 mmHg (80-95) H 10/28/23 18:55 ABG HCO3 12 mmol/L (19-24) L 10/28/23 18:55 ABG O2 Saturation 99.2 % (90-95) H 10/28/23 18:55 ABG Base Excess -14.9 mEq/L (-9-1.8) L 10/28/23 18:55 Da Test Pos (Pos) 10/28/23 18:55 VBG pH 7.17 (7.36-7.41) L 10/28/23 17:53 VBG pCO2 44 mmHg (38-50) 10/28/23 17:53 VBG pO2 33 mmHg 10/28/23 17:53 VBG HCO3 16 mmol/L 10/28/23 17:53 VBG O2 Saturation 62.2 % 10/28/23 17:53 VBG Base Excess -12.2 mEq/L 10/28/23 17:53 Oxygen Given ROOM AIR 10/28/23 18:55 Sodium 142 mmol/L (136-145) 10/28/23 16:44 Potassium 3.6 mmol/L (3.5-5.1) 10/28/23 16:44 Chloride 116 mmol/L (98-107) H 10/28/23 16:44 Carbon Dioxide 18 mmol/L (21-32) L 10/28/23 16:44 Anion Gap 8 (3-11) 10/28/23 16:44 BUN 26 mg/dl (6-23) H 10/28/23 16:44 Creatinine 2.37 mg/dl (0.6-1.2) H 10/28/23 16:44 Est Cr Clr Drug Dosing 23.6 ml/min 10/28/23 16:44 Est GFR ( Amer) 23.8 ml/min 10/28/23 16:44 Est GFR (Non-Af Amer) 20.5 ml/min 10/28/23 16:44 BUN/Creatinine Ratio 11.0 (10-20) 10/28/23 16:44 Glucose 89 mg/dl (70-99(Fasting)) 10/28/23 16:44 POC Glucose 109 mg/dl (70-99) H 10/28/23 20:47 Lactate 1.6 mmol/L (0.4-2.0) 10/28/23 18:56 Calcium 10.1 mg/dl (8.6-10.3) 10/28/23 16:44 Total Bilirubin 0.4 mg/dl (0.2-1.0) 10/28/23 16:44 AST 35 U/L (13-39) 10/28/23 16:44 ALT 19 U/L (7-52) 10/28/23 16:44 Alkaline Phosphatase 167 U/L (34-104) H 10/28/23 16:44 Total Protein 8.2 gm/dl (6.0-8.3) 10/28/23 16:44 Albumin 4.7 gm/dl (3.4-5.0) 10/28/23 16:44 Globulin 3.5 gm/dl (2.5-4.0) 10/28/23 16:44 Albumin/Globulin Ratio 1.3 (0.9-2) 10/28/23 16:44 Procalcitonin 0.04 ng/ml (0-0.5) 10/28/23 16:44 Urine Color Yellow 10/28/23 18:32 Urine Appearance Clear (Clear) 10/28/23 18:32 Urine pH 7.0 (4.5-7.5) 10/28/23 18:32 Ur Specific [place] 1.007 (1.000-1.030) 10/28/23 18:32 Urine Protein 1+ (Negative) H 10/28/23 18:32 Urine Glucose (UA) Negative (Negative) 10/28/23 18:32 Urine Ketones Negative (Negative) 10/28/23 18:32 Urine Blood Negative (Negative) 10/28/23 18:32 Urine Nitrite Negative (Negative) 10/28/23 18:32 Urine Bilirubin Negative (Negative) 10/28/23 18:32 Urine Urobilinogen Negative (Negative) 10/28/23 18:32 Ur Leukocyte Esterase Trace (Negative) H 10/28/23 18:32 Urine WBC (Auto) 0-5 /hpf (0-5) 10/28/23 18:32 Urine RBC (Auto) 0-2 /hpf (0-2) 10/28/23 18:32 U Hyaline Cast (Auto) 0-2 /lpf (0-2) 10/28/23 18:32 U Epithel Cells (Auto) 0-2 /hpf (0-2) 10/28/23 18:32 Urine Bacteria (Auto) None Seen (None Seen) 10/28/23 18:32 SARS-CoV-2 (PCR) NEGATIVE (Negative) 10/28/23 16:44 Influenza Type A (PCR) Negative (Neg) 10/28/23 16:44 Influenza Type B (PCR) Negative (Neg) 10/28/23 16:44 RSV (RT-PCR) Negative (Neg) 10/28/23 16:[address] 10/28/23 17:[address] DOSE: 547.75 mGy.cm HISTORY: lethargy TECHNIQUE: Multiaxial CT images of the head were performed without the use of intravenous contrast. Automated exposure control was utilized for this study. A dose lowering technique was utilized adhering to the principles of ALARA. Comparison: None. Findings: The paranasal sinuses and mastoid air cells are clear. The calvarium and skull base are intact. The ventricles and sulci are within normal limits. There is no mass, hematoma, midline shift, or acute infarct. Impression: No acute intracranial abnormality. ACT 112: Negative or not required by law. Electronically signed by: Anthony Dotson M.D. 10/28/2023 6:00 PM Code Status & VTE Plan VTE Prophylaxis Plan VTE Prophylaxis will be ordered: Yes
[2023-10-28] MEDS ORDERED: ALBUTEROL HFA 8 GM INHALER INH PRN (23:30)
[2023-10-28] MEDS ORDERED: POLYETHYLENE (MIRALAX) 17 GM PACK PO PRN (23:30)
[2023-10-28] MEDS ORDERED: NITROGLYCERIN SL 0.4 MG/TAB TAB SL PRN (23:30)
[2023-10-28] MEDS: risperiDONE 1 MG TABLET PO SCH (23:59)
[2023-10-28] MEDS: SODIUM CHLORIDE 0.9% 1,000 ML IV SCH (23:59)
[2023-10-28] MEDS: SODIUM BICARB 8.4% INJ 50 MEQ/50 ML SYR IV STA (23:59)
[2023-10-29 05:37] LABS: Base Excess ABG -9.8 mEq/L (-9-1.8); HCO3 ABG 17 mmol/L (19-24); Oxygen Saturation ABG 98.5 % (90-95); PCO2 ABG 40 mmHg (35-46); PO2 ABG 104 mmHg (80-95); pH ABG 7.24 (7.35-7.45)
[2023-10-29] MEDS: ACETAMINOPHEN 325 MG TAB PO PRN (05:46)
[2023-10-29] MEDS: LINACLOTIDE 145 MCG CAPSULE PO SCH (05:47)
[2023-10-29 05:52] LABS: Allen Test Pos (Pos)
[2023-10-29 05:58] LABS: Anion Gap 7 (3-11); BUN Creatinine Ratio 11.3 (10-20); Blood Urea Nitrogen 26 mg/dl (6-23); Calcium 8.3 mg/dl (8.6-10.3); Carbon Dioxide 17 mmol/L (21-32); Chloride 121 mmol/L (98-107); Creatinine Clr Calc Pharmacy 22.9 ml/min; Est GFR (African American) 24.5 ml/min; Est GFR (Non-African American) 21.2 ml/min; Glucose 122 mg/dl (70-99(Fasting)); Magnesium 2.2 mg/dl (1.7-2.4); Potassium 3.3 mmol/L (3.5-5.1); Sodium 145 mmol/L (136-145)
[2023-10-29 06:47] LABS: Basophils # (auto) 0.08 K/uL (0.00-0.20); Basophils % (auto) 1.1 %; Eosinophils # (auto) 0.24 K/uL (0.00-0.50); Eosinophils % (auto) 3.3 %; Hematocrit (blood only) 28.4 % (37.0-47.0); Immature Granulocytes # (auto) 0.04 K/uL (0.01-0.20); Immature Granulocytes % (auto) 0.6 %; Lymphocytes # (auto) 3.05 K/uL (1.20-3.40); Lymphocytes % (auto) 42.2 %; Mean Corpuscular Hemoglobin 30.3 pg (25.0-34.0); Mean Corpuscular Hgb Conc 31.7 g/dL (32.0-36.0); Mean Corpuscular Volume 95.6 fL (80.0-100.0); Mean Platelet Volume 9.5 fL (9.4-12.4); Monocytes # (auto) 0.49 K/uL (0.11-0.59); Monocytes % (auto) 6.8 %; Neutrophils # (auto) 3.32 K/uL (1.40-6.50); Nucleated RBC # (auto) 0.03 K/uL (0.00-0.12); Nucleated RBC % (auto) 0.4 %; Platelet Count 176 K/uL (130-400); RDW Coefficient of Variation 14.8 % (11.5-14.5); RDW Standard Deviation 52.1 fL (36.4-46.3); Red Blood Count 2.97 M/uL (4.20-5.40); White Blood Count 7.22 K/ul (4.8-10.8)
[2023-10-29 07:05] LABS: Estimated Average Glucose 111 mg/dl; Hemoglobin A1C 5.5 % (4.5-5.6)
[2023-10-29] MEDS ORDERED: POTASSIUM CHLORIDE CRTAB 20 MEQ TABCR PO STA (07:40)
--- NOTE | 2023-10-29 07:42 | Hospitalist Progress Note ---
Date of Service October 29, 2023 Assessment & Plan (1) Headache: Plan: 68 yo F COPD, granulomatous lung disease, nocturnal hypoxemia on home oxygen, history of dysphagia, history of TONY, CKD stage IIIb, lumbosacral disc disease, bipolar affective disorder, anxiety state, mixed incontinence, tobacco use disorder presents with headache and blurred vision. Patient still has a headache and also blurred vision. She has chronic back pain radiating to both legs. She says can ambulate without support. She lives with her grandson. She states she can eat regular food. States recently she was [facility] looks like she was admitted on September 27. States stayed in the hospital for 3 weeks. As per discharge paperwork she was admitted for acute UTI and back pain and weakness and TONY. Patient hemodynamics currently okay. Denies any runny nose or sore throat. Denies chest pain. She says she is always short of breath because of COPD. No nausea. No abdominal pain. Did not move bowels for last 4 days. Micturating okay. She is following with nephrology for chronic renal disease. Looks like in May 2023 Lasix metformin Neurontin stop because of worsening GFR. Chronic kidney disease was thought from possible use of [place] in the past and possible NSAIDs. nephrology advised to stop omeprazole and take Pepcid twice daily. In July 2023 patient was started on sodium bicarbonate 650 mg 1 tab twice daily as her bicarb was low and also to slow down the kidney function decline. Headache blurred vision CT head - negative pain control MRI brain - No acute intracranial abnormality. Pt reports hx of migraine PICHARDO w/ blurry vision in the past - but not recently Will consult w/ neurology Recent UTI and was admitted in [facility] UA shows trace leukocyte esterase but negative for bacteria TONY on CKD stage III/IV and metabolic acidosis outpatient labs shows baseline creatinine around 2.4 and CO2 13-15 range was started on bicarb tabs creatinine on admission is 2.3 and CO2 is 18 ABG shows pH of .7.21 and bicarb of 12 received 1 amp of sodium bicarb on admission continue home bicarb tablets gentle fluids follow repeat labs and ABG Nephrology consulted - appreciate their input Nocturnal hypoxemia on oxygen 4 L during nighttime Hx of COPD continue home inhalers Anemia - AM labs showing Hgb 9.0. Ordered stool hemeoccult - Repeat H&H 9.8 - cont. to closely monitor - no signs of bleeding Bipolar affective disorder anxiety continue home medications constipation on Linzess GERD placed on Pepcid DVT prophylaxis - SCDs Disposition - telemetry Full code Admission and Anticipated Discharge Date Admission Date: October 28, 2023 Subjective Pt seen in follow up of PICHARDO, blurry vision Recent hospitalization MRI brain ordered H&H repeat Nephrology consulted Pt currently sitting up in chair, in no acute distress, waiting for brain MRI. Says she still has a headache, and blurry vision. Reports history of migraine headaches, with some blurry vision in the past but not for a very long time. Currently does not follow with neurology. Denies fevers chills chest pain shortness of breath, denies abdominal pain nausea vomiting. Review of Systems Review of Systems: All systems reviewed & are unremarkable except as noted in Subjective Physical Exam Physical Exam: General- WD/WN F in NAD Neck - soft collar applied Head- atraumatic Eyes- PERRL. Lungs- clear to auscultation no wheezing or crackles. Heart- regular rhythm; no murmur Abdomen- normal bowel sounds, soft, nontender, no distension Extremities- no pretibial edema, no erythema seen, moves extremities Neuro- alert, oriented PERRL, no facial palsy; no dysarthria; motor 3/5 bilaterally; moves extremities Results & Data Results & Data Vital Signs (Past 12 Hours) Vital Signs Temp Pulse Pulse Resp BP BP Pulse Ox 10/29/23 07:33 36.5 C 83 18 103/65 96 10/29/23 07:28 85 10/29/23 07:28 10/29/23 03:03 36.8 C 69 18 106/63 95 10/29/23 00:23 69 10/28/23 23:48 10/28/23 23:38 36.4 C L 76 18 121/76 96 10/28/23 21:45 76 18 113/62 96 10/28/23 20:30 66 13 106/73 92 10/28/23 20:06 69 16 93 O2 Del Method O2 Flow Rate 10/29/23 07:33 Nasal Cannula 2 10/29/23 07:28 10/29/23 07:28 Nasal Cannula 2 10/29/23 03:03 Nasal Cannula 2 10/29/23 00:23 10/28/23 23:48 Nasal Cannula 2 10/28/23 23:38 Room Air 10/28/23 21:45 10/28/23 20:30 10/28/23 20:06 Laboratory Results 10/29/23 10/28/23 10/28/23 Range/Units 05:26 20:47 18:56 WBC 7.22 (4.8-10.8) K/ul RBC 2.97 L (4.20-5.40) M/uL Hgb 9.0 L D (12.0-16.0) g/dl Hct 28.4 L (37.0-47.0) % MCV 95.6 (80.0-100.0) fL MCH 30.3 (25.0-34.0) pg MCHC 31.7 L (32.0-36.0) g/dL RDW Std Deviation 52.1 H (36.4-46.3) fL RDW Coeff of David 14.8 H (11.5-14.5) % Plt Count 176 (130-400) K/uL MPV 9.5 (9.4-12.4) fL Immature Gran % (Auto) 0.6 % Neut % (Auto) 46.0 % Lymph % (Auto) 42.2 % [place] % (Auto) 6.8 % Eos % (Auto) 3.3 % Baso % (Auto) 1.1 % Neut # (Auto) 3.32 (1.40-6.50) K/uL Lymph # (Auto) 3.05 (1.20-3.40) K/uL [place] # (Auto) 0.49 (0.11-0.59) K/uL Eos # (Auto) 0.24 (0.00-0.50) K/uL Baso # (Auto) 0.08 (0.00-0.20) K/uL Immature Gran # (Auto) 0.04 (0.01-0.20) K/uL Absolute Nucleated RBC 0.03 (0.00-0.12) K/uL Nucleated RBC % (auto) 0.4 % ABG pH 7.24 L (7.35-7.45) ABG pCO2 40 (35-46) mmHg ABG pO2 104 H (80-95) mmHg ABG HCO3 17 L (19-24) mmol/L ABG O2 Saturation 98.5 H (90-95) % ABG Base Excess -9.8 L (-9-1.8) mEq/L Da Test Pos (Pos) VBG pH (7.36-7.41) VBG pCO2 (38-50) mmHg VBG pO2 mmHg VBG HCO3 mmol/L VBG O2 Saturation % VBG Base Excess mEq/L Oxygen Given 2L Sodium 145 (136-145) mmol/L Potassium 3.3 L (3.5-5.1) mmol/L Chloride 121 H (98-107) mmol/L Carbon Dioxide 17 L (21-32) mmol/L Anion Gap 7 (3-11) BUN 26 H (6-23) mg/dl Creatinine 2.31 H (0.6-1.2) mg/dl Est Cr Clr Drug Dosing 22.9 ml/min Est GFR ( Amer) 24.5 ml/min Est GFR (Non-Af Amer) 21.2 ml/min BUN/Creatinine Ratio 11.3 (10-20) Glucose 122 H (70-99(Fasting)) mg/dl POC Glucose 109 H (70-99) mg/dl Estimat Average Glucose 111 mg/dl Hemoglobin A1c 5.5 (4.5-5.6) % Lactate 1.6 (0.4-2.0) mmol/L Calcium 8.3 L (8.6-10.3) mg/dl Magnesium 2.2 (1.7-2.4) mg/dl Total Bilirubin (0.2-1.0) mg/dl AST (13-39) U/L ALT (7-52) U/L Alkaline Phosphatase (34-104) U/L Total Protein (6.0-8.3) gm/dl Albumin (3.4-5.0) gm/dl Globulin (2.5-4.0) gm/dl Albumin/Globulin Ratio (0.9-2) Procalcitonin (0-0.5) ng/ml Urine Color Urine Appearance (Clear) Urine pH (4.5-7.5) Ur Specific [place] (1.000-1.030) Urine Protein (Negative) Urine Glucose (UA) (Negative) Urine Ketones (Negative) Urine Blood (Negative) Urine Nitrite (Negative) Urine Bilirubin (Negative) Urine Urobilinogen (Negative) Ur Leukocyte Esterase (Negative) Urine WBC (Auto) (0-5) /hpf Urine RBC (Auto) (0-2) /hpf U Hyaline Cast (Auto) (0-2) /lpf U Epithel Cells (Auto) (0-2) /hpf Urine Bacteria (Auto) (None Seen) SARS-CoV-2 (PCR) (Negative) Influenza Type A (PCR) (Neg) Influenza Type B (PCR) (Neg) RSV (RT-PCR) (Neg) 10/28/23 10/28/23 10/28/23 Range/Units 18:55 18:32 17:53 WBC (4.8-10.8) K/ul RBC (4.20-5.40) M/uL Hgb (12.0-16.0) g/dl Hct (37.0-47.0) % MCV (80.0-100.0) fL MCH (25.0-34.0) pg MCHC (32.0-36.0) g/dL RDW Std Deviation (36.4-46.3) fL RDW Coeff of David (11.5-14.5) % Plt Count (130-400) K/uL MPV (9.4-12.4) fL Immature Gran % (Auto) % Neut % (Auto) % Lymph % (Auto) % [place] % (Auto) % Eos % (Auto) % Baso % (Auto) % Neut # (Auto) (1.40-6.50) K/uL Lymph # (Auto) (1.20-3.40) K/uL [place] # (Auto) (0.11-0.59) K/uL Eos # (Auto) (0.00-0.50) K/uL Baso # (Auto) (0.00-0.20) K/uL Immature Gran # (Auto) (0.01-0.20) K/uL Absolute Nucleated RBC (0.00-0.12) K/uL Nucleated RBC % (auto) % ABG pH 7.21 L (7.35-7.45) ABG pCO2 29 L (35-46) mmHg ABG pO2 138 H (80-95) mmHg ABG HCO3 12 L (19-24) mmol/L ABG O2 Saturation 99.2 H (90-95) % ABG Base Excess -14.9 L (-9-1.8) mEq/L Da Test Pos (Pos) VBG pH 7.17 L (7.36-7.41) VBG pCO2 44 (38-50) mmHg VBG pO2 33 mmHg VBG HCO3 16 mmol/L VBG O2 Saturation 62.2 % VBG Base Excess -12.2 mEq/L Oxygen Given ROOM AIR Sodium (136-145) mmol/L Potassium (3.5-5.1) mmol/L Chloride (98-107) mmol/L Carbon Dioxide (21-32) mmol/L Anion Gap (3-11) BUN (6-23) mg/dl Creatinine (0.6-1.2) mg/dl Est Cr Clr Drug Dosing ml/min Est GFR ( Amer) ml/min Est GFR (Non-Af Amer) ml/min BUN/Creatinine Ratio (10-20) Glucose (70-99(Fasting)) mg/dl POC Glucose (70-99) mg/dl Estimat Average Glucose mg/dl Hemoglobin A1c (4.5-5.6) % Lactate (0.4-2.0) mmol/L Calcium (8.6-10.3) mg/dl Magnesium (1.7-2.4) mg/dl Total Bilirubin (0.2-1.0) mg/dl AST (13-39) U/L ALT (7-52) U/L Alkaline Phosphatase (34-104) U/L Total Protein (6.0-8.3) gm/dl Albumin (3.4-5.0) gm/dl Globulin (2.5-4.0) gm/dl Albumin/Globulin Ratio (0.9-2) Procalcitonin (0-0.5) ng/ml Urine Color Yellow Urine Appearance Clear (Clear) Urine pH 7.0 (4.5-7.5) Ur Specific [place] 1.007 (1.000-1.030) Urine Protein 1+ H (Negative) Urine Glucose (UA) Negative (Negative) Urine Ketones Negative (Negative) Urine Blood Negative (Negative) Urine Nitrite Negative (Negative) Urine Bilirubin Negative (Negative) Urine Urobilinogen Negative (Negative) Ur Leukocyte Esterase Trace H (Negative) Urine WBC (Auto) 0-5 (0-5) /hpf Urine RBC (Auto) 0-2 (0-2) /hpf U Hyaline Cast (Auto) 0-2 (0-2) /lpf U Epithel Cells (Auto) 0-2 (0-2) /hpf Urine Bacteria (Auto) None Seen (None Seen) SARS-CoV-2 (PCR) (Negative) Influenza Type A (PCR) (Neg) Influenza Type B (PCR) (Neg) RSV (RT-PCR) (Neg) 10/28/23 10/28/23 Range/Units 16:54 16:44 WBC 9.51 (4.8-10.8) K/ul RBC 4.05 L (4.20-5.40) M/uL Hgb 12.4 (12.0-16.0) g/dl Hct 38.7 (37.0-47.0) % MCV 95.6 (80.0-100.0) fL MCH 30.6 (25.0-34.0) pg MCHC 32.0 (32.0-36.0) g/dL RDW Std Deviation 51.8 H (36.4-46.3) fL RDW Coeff of David 14.8 H (11.5-14.5) % Plt Count 220 (130-400) K/uL MPV 9.2 L (9.4-12.4) fL Immature Gran % (Auto) 0.8 % Neut % (Auto) 58.2 % Lymph % (Auto) 32.0 % [place] % (Auto) 5.6 % Eos % (Auto) 2.7 % Baso % (Auto) 0.7 % Neut # (Auto) 5.53 (1.40-6.50) K/uL Lymph # (Auto) 3.04 (1.20-3.40) K/uL [place] # (Auto) 0.53 (0.11-0.59) K/uL Eos # (Auto) 0.26 (0.00-0.50) K/uL Baso # (Auto) 0.07 (0.00-0.20) K/uL Immature Gran # (Auto) 0.08 (0.01-0.20) K/uL Absolute Nucleated RBC (0.00-0.12) K/uL Nucleated RBC % (auto) % ABG pH (7.35-7.45) ABG pCO2 (35-46) mmHg ABG pO2 (80-95) mmHg ABG HCO3 (19-24) mmol/L ABG O2 Saturation (90-95) % ABG Base Excess (-9-1.8) mEq/L Da Test (Pos) VBG pH (7.36-7.41) VBG pCO2 (38-50) mmHg VBG pO2 mmHg VBG HCO3 mmol/L VBG O2 Saturation % VBG Base Excess mEq/L Oxygen Given Sodium 142 (136-145) mmol/L Potassium 3.6 (3.5-5.1) mmol/L Chloride 116 H (98-107) mmol/L Carbon Dioxide 18 L (21-32) mmol/L Anion Gap 8 (3-11) BUN 26 H (6-23) mg/dl Creatinine 2.37 H (0.6-1.2) mg/dl Est Cr Clr Drug Dosing 23.6 ml/min Est GFR ( Amer) 23.8 ml/min Est GFR (Non-Af Amer) 20.5 ml/min BUN/Creatinine Ratio 11.0 (10-20) Glucose 89 (70-99(Fasting)) mg/dl POC Glucose 87 (70-99) mg/dl Estimat Average Glucose mg/dl Hemoglobin A1c (4.5-5.6) % Lactate (0.4-2.0) mmol/L Calcium 10.1 (8.6-10.3) mg/dl Magnesium (1.7-2.4) mg/dl Total Bilirubin 0.4 (0.2-1.0) mg/dl AST 35 (13-39) U/L ALT 19 (7-52) U/L Alkaline Phosphatase 167 H (34-104) U/L Total Protein 8.2 (6.0-8.3) gm/dl Albumin 4.7 (3.4-5.0) gm/dl Globulin 3.5 (2.5-4.0) gm/dl Albumin/Globulin Ratio 1.3 (0.9-2) Procalcitonin 0.04 (0-0.5) ng/ml Urine Color Urine Appearance (Clear) Urine pH (4.5-7.5) Ur Specific [place] (1.000-1.030) Urine Protein (Negative) Urine Glucose (UA) (Negative) Urine Ketones (Negative) Urine Blood (Negative) Urine Nitrite (Negative) Urine Bilirubin (Negative) Urine Urobilinogen (Negative) Ur Leukocyte Esterase (Negative) Urine WBC (Auto) (0-5) /hpf Urine RBC (Auto) (0-2) /hpf U Hyaline Cast (Auto) (0-2) /lpf U Epithel Cells (Auto) (0-2) /hpf Urine Bacteria (Auto) (None Seen) SARS-CoV-2 (PCR) NEGATIVE (Negative) Influenza Type A (PCR) Negative (Neg) Influenza Type B (PCR) Negative (Neg) RSV (RT-PCR) Negative (Neg) Medications Administered Current Inpatient Medications Acetaminophen (Acetaminophen 325 Mg Tab) 650 mg PO Q4H PRN PRN Reason: Pain or Fever Stop: 11/27/23 23:29 Last Admin: 10/29/23 05:46 Dose: 650 mg Albuterol (Albuterol Hfa 8 Gm Inhaler) 2 puffs INH Q4 PRN PRN Reason: Wheezing Stop: 11/27/23 23:29 Aripiprazole (Aripiprazole 10 Mg Tab) 20 mg PO HS [facility] Stop: 11/28/23 20:59 Aripiprazole (Aripiprazole 5 Mg Tab) 5 mg PO HS [facility] Stop: 11/28/23 20:59 Atorvastatin Calcium (Atorvastatin 40 Mg Tab) 40 mg PO DAILY [facility] Stop: 11/28/23 08:59 Cetirizine HCl (Cetirizine Hcl 10 Mg Tablet) 5 mg PO DAILY [facility] Stop: 11/28/23 08:59 Clonazepam (Clonazepam 0.5 Mg Tab) 0.5 mg PO HS [facility] Stop: 11/28/23 20:59 Fluticasone/Vilanterol (Fluticasone/Vilanterol 200/25mcg 14 Puffs/Inhaler) 1 puffs INH DAILY [facility] Stop: 11/28/23 08:59 Gabapentin (Gabapentin 600 Mg Tab) 600 mg PO TID [facility] Stop: 11/28/23 08:59 Heparin Sodium (Porcine) (Heparin Sod 5,000 Unit/0.5 Ml Vial) 5,000 units SQ Q12 [facility] Stop: 11/28/23 08:59 Hydroxyzine HCl (Hydroxyzine Hcl 25 Mg Tab) 50 mg PO AMHS [facility] Stop: 11/28/23 08:59 Sodium Chloride (Nss) 1,000 mls @ 75 mls/hr IV .[id number] [facility] Last Admin: 10/28/23 23:59 Dose: 75 mls/hr Lamotrigine (Lamotrigine 100 Mg Tab) 100 mg PO QAM [facility]; Protocol Stop: 11/28/23 08:59 Linaclotide (Linaclotide 145 Mcg Capsule) 145 mcg PO DAILYBB [facility] Stop: 11/28/23 06:29 Last Admin: 10/29/23 05:47 Dose: 145 mcg Magnesium Oxide (Magnesium Oxide 400 Mg Tab) 400 mg PO BID [facility] Stop: 11/28/23 08:59 Miscellaneous (Remove Lidoderm Patch) 1 each N/A ONE ONE Stop: 10/29/23 08:01 Nitroglycerin (Nitroglycerin Sl 0.4 Mg/Tab Tab) 0.4 mg SL Q5M PRN PRN Reason: Chest Pain Stop: 11/27/23 23:29 Nystatin (Nystatin Powder 15gm Btl) 1 appln EXT BID [facility] Stop: 11/28/23 08:59 Pneumococcal 20-Valent Conj Vacc (Pneumococcal Vaccine (Pcv20) 20-Alida Conj-Dip Crm/Pf 0.5 Ml Syr) 0.5 ml IM .ONCE ONE Stop: 10/29/23 09:01 Polyethylene Glycol (Polyethylene (Miralax) 17 Gm Pack) 17 gm PO DAILY PRN PRN Reason: Constipation Stop: 11/27/23 23:29 Potassium Chloride (Potassium Chloride Crtab 20 Meq Tabcr) 20 meq PO BID [facility] Stop: 11/28/23 08:59 Potassium Chloride (Potassium Chloride Crtab 20 Meq Tabcr) 20 meq PO NOW STA Stop: 10/29/23 07:41 Pregabalin (Pregabalin 50 Mg Cap) 50 mg PO BID [facility] Stop: 11/28/23 08:59 Risperidone (Risperidone 1 Mg Tablet) 1 mg PO HS [facility] Stop: 11/27/23 23:29 Last Admin: 10/28/23 23:59 Dose: 1 mg Sertraline HCl (Sertraline Hcl 50 Mg Tablet) 50 mg PO QAM [facility] Stop: 11/28/23 08:59 Sodium Bicarbonate (Sodium Bicarbonate 650 Mg Tab) 650 mg PO AMHS [facility] Stop: 11/28/23 08:59 Trazodone HCl (Trazodone Hcl 100 Mg Tab) 200 mg PO HS [facility] Stop: 11/28/23 20:59
[2023-10-29 08:23] LABS: Hematocrit (blood only) 30.4 % (37.0-47.0); Hemoglobin 9.8 g/dl (12.0-16.0)
[2023-10-29] MEDS: POTASSIUM CHLORIDE CRTAB 20 MEQ TABCR PO STA (09:05)
[2023-10-29] MEDS: POTASSIUM CHLORIDE CRTAB 20 MEQ TABCR PO SCH (09:05)
[2023-10-29] MEDS: CETIRIZINE HCL 10 MG TABLET PO SCH (09:05)
[2023-10-29] MEDS: MAGNESIUM OXIDE 400 MG TAB PO SCH (09:05)
[2023-10-29] MEDS: SODIUM BICARBONATE 650 MG TAB PO SCH ×2 (09:05→14:22)
[2023-10-29] MEDS: SERTRALINE HCL 50 MG TABLET PO SCH (09:05)
[2023-10-29] MEDS: ATORVASTATIN 40 MG TAB PO SCH (09:05)
[2023-10-29] MEDS: FLUTICASONE/VILANTEROL 200/25MCG 14 PUFFS/INHALER INH SCH (09:06)
[2023-10-29] MEDS: FAMOTIDINE 20 MG TAB PO SCH (09:06)
[2023-10-29] MEDS: GABAPENTIN 600 MG TAB PO SCH (09:06)
[2023-10-29] MEDS: HEPARIN SOD 5,000 UNIT/0.5 ML VIAL SQ SCH (09:07)
[2023-10-29] MEDS: hydrOXYzine HCl 25 MG TAB PO SCH (09:07)
[2023-10-29] MEDS: lamoTRIgine 100 MG TAB PO SCH (09:07)
[2023-10-29] MEDS: NYSTATIN POWDER 15GM BTL EXT SCH (09:08)
[2023-10-29] MEDS: PREGABALIN 50 MG CAP PO SCH (09:09)
[2023-10-29] MEDS: LORazepam 0.5 MG TAB PO STA (10:11)
--- NOTE | 2023-10-29 11:12 | Magnetic Resonance Report ---
MRI OF THE BRAIN WITHOUT IV CONTRAST CLINICAL HISTORY: Headache. Blurry vision. COMPARISON STUDY: CT of the brain dated 10/28/2023. TECHNIQUE: MRI of the brain was performed utilizing various T1 and T2-weighted sequences in the axial , sagittal, and coronal planes. IV contrast was not administered for this examination. FINDINGS: Brain parenchyma: There is minimal microangiopathic change. There is no hemorrhage or mass effect. Th ere is no restricted diffusion to suggest acute ischemia. Montaño-white matter differentiation is preser alis. No extra-axial fluid collection is seen. The cerebellar tonsils are normal in configuration. Ventricles, sulci, and cisterns: Normal in configuration. Pituitary and sella: Unremarkable. Intracranial vasculature: Normal flow voids are maintained at the skull base. Orbits: The bony orbits are grossly intact. Orbital contents are normal in appearance. Sinuses and mastoids: Clear. Calvarium: Unremarkable. Cervical cord: Partially visualized cervical spinal cord is normal in morphology and signal intensity . IMPRESSION: No acute intracranial abnormality. ACT 112: Negative or not required by law. Electronically signed by: Adonay Eng M.D. 10/29/2023 11:10 AM
--- NOTE | 2023-10-29 12:35 | Nephrology Consultation ---
Date of Consultation October 29, 2023 Assessment & Plan (1) CKD (chronic kidney disease) stage 4, GFR 15-29 ml/min: Current creat is similar to her baseline for last 6 months. ( baseline creat got worse Abruptly in after Acute Pyelonephritis and has not improved since then and running in the 2.1 to 2.7 range since then). Cause of CKD attributed to combination of lithium use in the 1970s, Chronic NSAID/Celebrex as well as partial recovery of ATN ( after Acute Pyelonephritis). urine Looks bland. No UTI. Normal Vital signs. No need of iv fluids. No e/o Obstruction. (2) Headache: As per primary team (3) Metabolic acidosis: Current Anion gap is normal. Slightly low Bicarb is related with CKD 4. Also partially related with giving NS making Cl go higher.. Continue Bicarb tabs. raise it to 650 tid No need of Bicarb drip. Acidosis with pH of 7.2 in someone with Advanced COPD as well as CKD 4 is to be expected. Cannot and should not try to make the pH normal. History of Present Illness Reason for Consultation: CKD 4 and met acidosis Attending Physician: Pierre Padilla MD History of Present Illness 68/F with CKD 4 ( baseline creat got worse Abruptly in after Acute Pyelnopnehirits and has not improved since then and running in the 2.1 to 2.7 range since then). Cause of CKD attributed to combination of lithium use in the 1970s, Chronic NSAID/celberex as well as partial recovery of ATN ( after Acute Pyelonephritis). She Has h/o Bipolar disorder, COPD with active Smoking. She was admitted yesterday after she presents with headache and blurred vision x 1 day. very poor historian. She has chronic back pain radiating to both legs. She says can ambulate without support. She lives with her grandson. States recently she was [facility] looks like she was admitted on September 27. States stayed in the hospital for 3 weeks. As per discharge paperwork she was admitted for acute UTI and back pain and weakness and TONY. Denies any runny nose or sore throat. Denies chest pain. She says she is always short of breath because of COPD. No nausea. No abdominal pain. Current creat is about 2.3 which is her baseline for the last 6 months. ROS---hard to obtain. See HPI. 12 systems reviewed and negative. Physical Exam Physical Exam: General- Not in distress Head- atraumatic Neck- supple, no JVD. Lungs- clear to auscultation no wheezing or crackles. Heart- regular rhythm; no murmur, no gallop. Abdomen- normal bowel sounds, soft, nontender, no distension Extremities- no pretibial edema, no erythema seen Neuro- alert, oriented Allergies Allergy/AdvReac Type Severity Reaction Status Date / Time No Known Allergies Allergy Mild Unverified 07/13/11 21:17 Home Medications Medication Instructions Recorded Confirmed Type albuterol sulfate 90 mcg/actuation 2 puff inhalation Q4 PRN Wheezing 10/28/23 10/28/23 History aerosol inhaler aripiprazole 20 mg tablet 20 mg PO HS 10/28/23 10/28/23 History aripiprazole 5 mg tablet 5 mg PO HS 10/28/23 10/28/23 History atorvastatin 40 mg tablet 40 mg PO DAILY 10/28/23 10/28/23 History budesonide-formoterol HFA 160 2 puff inhalation BID 10/28/23 10/28/23 History mcg-4.5 mcg/actuation aerosol inhaler (Breyna) cetirizine 5 mg tablet 5 mg PO DAILY 10/28/23 10/28/23 History clonazepam 0.5 mg tablet 0.5 mg PO HS 10/28/23 10/28/23 History gabapentin 600 mg tablet 600 mg PO TID 10/28/23 10/28/23 History hydroxyzine pamoate 50 mg capsule 50 mg PO UD 10/28/23 10/28/23 History lamotrigine 100 mg tablet 100 mg PO QAM 10/28/23 10/28/23 History linaclotide 145 mcg capsule 145 mcg PO DAILYBB 10/28/23 10/28/23 History (Linzess) magnesium oxide 400 mg (241.3 mg 400 mg PO DAILY 10/28/23 10/28/23 History magnesium) tablet nystatin 100,000 unit/gram topical 1 applic topical BID 10/28/23 10/28/23 History powder omeprazole 40 mg capsule,delayed 40 mg PO DAILYBB 10/28/23 10/28/23 History release potassium chloride 10 mEq 20 meq PO BID 10/28/23 10/28/23 History tablet,extended release pregabalin 50 mg capsule 50 mg PO BID 10/28/23 10/28/23 History risperidone 1 mg tablet 1 mg PO HS 10/28/23 10/28/23 History sertraline 50 mg tablet 50 mg PO QAM 10/28/23 10/28/23 History sodium bicarbonate 650 mg tablet 650 mg PO AMHS 10/28/23 10/28/23 History trazodone 100 mg tablet 200 mg PO HS 10/28/23 10/28/23 History Patient History Social History Smoking Status: Current every day smoker Tobacco Type: Cigarettes Cigarettes Per Day: 20; Second Hand Exposure: No; Do You Dip or Chew Tobacco: No; Tobacco Cessation Education Requested by Patient: No Hx Alcohol Use: No Hx Substance Use: No Preferred Language: Green[place]ic Communication Ability: Impaired Senior Scrum Master Required: No Beliefs That Will Affect Care: None Current Living Situation: Family Current Living Situation Comment: grandson lives with patient Other Information That Helps Us Care for You: No Feels Safe at Home: Yes Safety Concerns: Feels Safe At This Time Assistive Devices: None and Glasses Results & Data Vital Signs (Past 12 Hours) Vital Signs Temp Pulse Pulse Resp BP Pulse Ox O2 Del Method 10/29/23 11:55 36.3 C L 78 18 123/72 99 Nasal Cannula 10/29/23 07:33 36.5 C 83 18 103/65 96 Nasal Cannula 10/29/23 07:28 85 10/29/23 07:28 Nasal Cannula 10/29/23 03:03 36.8 C 69 18 106/63 95 Nasal Cannula O2 Flow Rate 10/29/23 11:55 2 10/29/23 07:33 2 10/29/23 07:28 10/29/23 07:28 2 10/29/23 03:03 2 Laboratory Results Reviewed Diagnostic Findings reviewed
--- OUTSIDE RECORDS SUMMARY | 2023-10-29 13:11 | External Medical Summary ---
Author Name Unknown Address Unknown Organization [id number]:[facility] [place] [address] [place] [address] Laboratory Report Ordering Provider Test Date Status PHUONG HAYES 08/24/2023 11:57:08 Final Observation Date Value Abnormality Reference (Units ) Status BUN 08/24/2023 11:57:08 17 6-20 (mg/dL) Final Creatinine 08/24/2023 11:57:08 2.1 Above high normal 0.5-1.0 (mg/dL) Final Glomerular filtration rate/1.73 sq M.predicted [Volume Rate/Area] in Serum, Plasma or Blood by Creatinine-based formula (CKD-EPI) 08/24/2023 11:57:08 25 Below low normal >=60 (mL/min) Final eGFR is calculated based on the CKD-EPI 2020 equation Sodium 08/24/2023 11:57:08 142 135-146 (m mol/L) Final Potassium 08/24/2023 11:57:08 4.2 3.5-5.1 (m mol/L) Final Cl 08/24/2023 11:57:08 114 Above high normal 98 -107 (mmol/L) Final CO2 08/24/2023 11:57:08 15 Below low normal 22- 32 (mmol/L) Final Anion gap 08/24/2023 11:57:08 13 7-15 (mmol /L) Final Glucose 08/24/2023 11:57:08 136 Above high normal 70 -120 (mg/dL) Final Calcium 08/24/2023 11:57:08 9.3 8.4-10.2 ( mg/dL) Final Albumin 08/24/2023 11:57:08 4.4 3.8-5.0 (g /dL) Final Phosphate 08/24/2023 11:57:08 3.7 2.5-4.8 (m g/dL) Final Performing Location [facility] - [address] [place] [address]
--- OUTSIDE RECORDS SUMMARY | 2023-10-29 13:11 | External Medical Summary | Summary of Care ---
Author Name Unknown Organization [facility] Address [address] [place] [address] Phone [phone] Care Team Providers Care Diesel Truck Driver Name Role Phone Milli Martin PA-C Primary Care Pro vider Reason for Referral * Precert (Within 10 days (routine)) - Pending Review Specialty Diagnoses / Procedures Referred By Contac t Referred To Contact Radiology Diagnoses Dyspnea on exertion COPD, severity to be determined (HCC) Procedures CT CHEST WO CONTRAST Milli Martin PA-C [address] [facility] [address] [place] [address] Referral ID Status Reason Start Date Expiration Date V isits Requested Visits Authorized [id number] Pending Review 08/17/[phone] Encounter Details Date Type Department Care Team (Late st Contact Info) Description 08/17/2023 Orders Only Access [facility] [address] [place] [address] Requisition, External Radiology [address] [place] [address] Dyspnea on exertion*; COPD, severity to be determined (HCC) Allergies Active Allergy Reactions Criticality Noted Date Comments Dust 08/11/2018 Gramineae Pollens 08/11/2018 Adhesive Tape Rash 09/22/2018 Paper tape and bandaids documented as of this encounter (statuses as of 08/17/2023) Medications Medication Sig Dispensed Refills Start Date End Date Status RISPERDAL 1 MG PO TABS Take 1 Tablet by mouth in the morning. 0 Active PAROXETINE HCL 40 MG PO TABS Take 1 Tablet by mouth in the morning. 0 Active ABILIFY 20 MG PO TABS Take 1 Tablet by mouth in the morning. 0 Active LAMOTRIGINE 100 MG PO TABS Take 1 Tablet by mouth at bedtime. 0 Active traZODone (DESYREL) 150 MG Tablet Take 1 Tablet by mouth at bedtime. 0 11/03/2018 Active clonazePAM (KLONOPIN) 0.5 MG Tablet Take 1 Tablet by mouth in the morning. 0 03/02/2019 Active Atorvastatin Calcium 20 MG Oral Tablet (Lipitor)Indications :Dyslipidemia, goal LDL below 100 Take 1 Tab by mouth daily. 90 Tab 3 10/16/2020 Active Cetirizine HCl 5 MG Oral TabletIndications:Se asonal allergies Take 1 Tab by mouth daily. 90 Tab 3 10/16/2020 Active Omeprazole 20 MG Oral Capsule Delayed Release (PriLOSEC)Indication s:Periumbilical abdominal pain Take 1 Cap by mouth daily. 1 hour before the first meal of the day 90 Cap 3 10/16/2020 Active hydrOXYzine Pamoate 50 MG Oral Capsule (Vistaril) Take 1 Capsule by mouth in the morning. 0 10/11/2020 Active Ondansetron HCl 4 MG Oral Tablet (Zofran) Take 1 Tab by mouth every 8 hours as needed for Nausea. 15 Tab 3 11/19/2020 Active Linzess 145 MCG Oral Capsule (linaCLOtide)Indicat ions:Chronic idiopathic constipation Take 1 Cap by mouth daily before breakfast. 30 Cap 2 12/12/2020 Active Albuterol Sulfate HFA 108 (90 Base) MCG/ACT Inhalation Aerosol SolutionIndications: COPD, 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 18 g 3 10/21/2021 Active Ipratropium [place] HFA 17 MCG/ACT Inhalation Aerosol Solution (Atrovent Hfa) Inhale by mouth 2 Puffs every 6 hours . 12.9 g 12 10/23/2021 Active oxygen IN GASIndications:Noctu rnal hypoxemia Use as directed 4 L/min(Oxygen) at bedtime . 1 Each 0 10/30/2021 Active Sodium Bicarbonate 650 MG Oral Tablet Take 1 Tablet by mouth in the morning and 1 Tablet before bedtime. 180 Tablet 3 08/02/2023 Active documented as of this encounter (statuses as of 08/17/2023) Active Problems Problem Noted Date Diagnosed Date Granulomatous lung disease 10/21/2021 Nocturnal hypoxemia 10/21/2021 Acute renal failure (ARF) 11/10/2020 Chronic kidney disease, stage 3b 11/04/2020 Overview: Per CKD protocol Tobacco use disorder 11/19/2019 COPD, group B, by GOLD 2017 classification 09/02 Overview: Per COPD GOLD Classification Other dysphagia 06/18/2019 Overview: ICD-10 update of inactive term COPD, severity to be determined 01/09/2019 Overview: 03/20/19 In Check dial performed to assess inhaler technique: Name of inhalers Combivent and Albuterol Pass: Yes at 45L/min and Advair Pass: Yes at 40L/min. Encourage to take nice deep breaths, use aero chamber and rinse mouth after steroid inhaler. Test performed by Fátima GLASS CLEANING MACHINE TENDER CPFT Bipolar affective disorder, currently depressed, moderate 01/09/2019 Degeneration of lumbar or lumbosacral interverte bral disc 07/03/2014 Thoracic or lumbosacral neur itis or radiculitis, unspecified 07/03/2014 Lumbago 07/03/2014 MIXED INCONTINENCE, URGE AND STRESS 02/10/2001 Anxiety state DIFFUS CYSTIC MASTOPATHY documented as of this encounter (statuses as of 08/17/2023) Resolved Problems Problem Noted Date Diagnosed Date Resolved Date Chronic kidney disease, stage 3 unspecified 06/30/2020 10/02/2020 Stage 3a chronic kidney disease 03/31/2020 11/06/2020 Overview: Per CKD protocol Prediabetes 03/03/2020 12/04/2020 Overview: Per Prediabetes protocol Other specified disease of esophagus 06/18/2019 10/21/2021 Overview: ICD-10 update of inactive term Kidney disease, chronic, sta ge III (GFR 30-59 ml/min) 07/31/2018 04/03/2020 Overview: Per CKD protocol #1 Patulous eustachian tube 07/22/2011 Asthma with severity to be determined 11/17/2009 01/09/2019 Overview: Per Asthma Taxonomy ICD-10 update of inactive term Premature menopause 03/11/2006 01/10/20 19 ABDOMINAL PAIN, RIGHT LOWER QUADRANT 02/10/2001 05/19/2004 EMPHYSEMA (SUBCUTANEOUS) RES ULTING FROM PROCEDURE 02/10/2001 05/19/2004 Major depressive disorder 02/10/2001 Overview: ICD-10 update of inactive term COPD exacerbation 04/20/2018 Asthma, allergic 11/17/2009 MANIC-DEPRESSIVE NOS 019 documented as of this encounter (statuses as of 08/17/2023) Immunizations Name Administration Dates Next Due COVID-19 mRNA, LNP-s, No Pre serve, 2-Dose Series (Moderna) 06/15/2021,11/10/2020,09/22/2020 H1N1 2009 Influenza, IM 04/23/2009 Pneumococcal Polysaccharide PPV23 (Pneumovax) 07/20/2018 Seasonal Influenza, PF, 6 M & above, IM , (FluLaval or Fluzone) 01/31/2020,02/28/2019,03/07/2018 TDAP (age 10 and older)(Boostrix) 04/20/2018 Zoster Vaccine Recombinant (Shingrix) 02/29/2020 ,06/18/2019 documented as of this encounter Social History Tobacco Use Types Packs/Day Years Used Date Smoking Tobacco: Every Day Cigarettes 1 47 Smokeless Tobacco: Never Alcohol Use Standard Drinks/Week Comments No 0 (1 standard drink = 0.6 oz pur e alcohol) PHQ-2 Answer Date Recorded PHQ Adult Total Score 0 09/15/2020 Hunger Vital Sign Answer Date Recorded Worried About Running Out of Food in the Last Ye ar Never true 11/19/2019 Ran Out of Food in the Last Year Never true 11/19/2019 Sex and Gender Information Value Date Recorded Sex Assigned at Female 06/20/2020 9:49 AM EST Gender Identity Female 06/20/2020 9:49 AM EST Sexual Orientation Straight 06/20/2020 9: 49 AM EST Job Start Date Occupation Industry Not on file Not on file Not on file documented as of this encounter Functional Status Functional Status Response Date of Assess ment Are you deaf or do you have serious difficulty h earing? No 11/10/2020 Are you blind or do you have serious difficulty seeing, even when wearing glasses? No 11/10/2020 Do you have serious difficul ty walking or climbing stairs? (5 years old or older) No 11/11/2020 Do you have difficulty dress ing or bathing? (5 years old or older) No 11/10/2020 Because of a physical, menta l, or emotional condition, do you have difficulty doing errands alone such as visiting a doctor s office or shopping? (15 years old or older) No 11/11/19 Cognitive Status Response Date of Assessm ent Because of a physical, menta l, or emotional condition, do you have serious difficulty concentrating, remembering, or making decisions? (5 years old or older) No 11/10/2020 documented as of this encounter Plan of Treatment Upcoming Encounters Date Type Department Care Team (Late st Contact Info) Description 08/24/2023 12:00 PM EDT Imaging Radiology [address] [facility] [place] [address] 01/30/2024 10:00 AM EDT Office Visit Nephrology [address] [place] [phone] [facility] [address] Scheduled Orders Name Type Priority Associated Diagnoses Orde r Schedule CT CHEST WO CONTRAST Medical Imaging Routine Dyspnea on exertion COPD, severity to be determined (HCC) Expected: 08/17/2023, Expires: 09/16/2024 Health Maintenance Due Date Last Done Comments Cologuard 2001 Fecal Occult Blood Test 2001 Sigmoidoscopy 2001 Pneumococcal Vaccine: 65+ Years (2 of 2 - PCV) 07/20/2019 07/20/2018 Colonoscopy 08/20/2019 08/19/2009 Colorectal Cancer Screening 08/20/2019 Depression Screening 09/15/2021 09/15/2020 DISCUSS TOBACCO CESSATION (REFER TO SMARTSET #3291) 10/21/2022 10/21/2021 COVID-19 Vaccine ( season) 2023 06/15/2021, 11/10/2020, 09/22/2020 Influenza Vaccine (FLU shot) (#1) 2023 01/31/2020, 02/28/2019, 03/07/2018, Additional history exists GFR 02/01/2024 08/01/2023, 06/24, 06/22/2023, Additional history exists Mammogram 06/07/2024 06/07/2023, 06/24, 04/10/2020, Additional history exists Albumin/Creatinine Ratio 06/16/2024 024, 08/12/2020, 09/11/2018 CKD HGB USE SMARTSET 15674 07/13/202407/13, 07/13/2023, 06/22/2023, Additional history exists O2 ASSESSMENT COMPLETED IN PAST YEAR FOR COPD 07/13/2024 07/13/2023 CKD PHOS USE SMARTSET 40150 07/31/202407/21, 07/13/2023, 06/22/2023, Additional history exists Diabetes Screening 07/31/2026 08/01/2023, 0 07/13/2023, 06/22/2023, Additional history exists Lipid Panel 06/23/2027 06/23/2022, 10/21, 10/14/2020, Additional history exists DTaP,Tdap,and Td Vaccines (2 - Td or Tdap) 04/20/2028 04/20/2018 DXA Scan 06/15/2030 06/15/2023, 03/23, 08/14/2003 Zoster Vaccines Completed 02/29/2020, 06/18/2019 Alpha-1 Antitrypsin Completed 10/21/2021 LUNG CANCER SCREENING - USE SMARTSET 83912 Completed 11/18/2021, 07/22/2021, 01/22/2021, Additional history exists GARDASIL-HPV IMMUNIZATION SERIES Aged Out No longer eligible based on patient's age to complete this topic Hepatitis B Aged Out No longer eligi ble based on patient's age to complete this topic MENINGOCOCCAL (MENACTRA/MENVEO) Aged Out No longer eligible based on patient's age to complete this topic documented as of this encounter Medical Devices Not on filedocumented as of this encounter Visit Diagnoses Diagnosis Dyspnea on exertion- Primary Other dyspnea and respiratory abnormality COPD, severity to be determined (HCC) Chronic airway obstruction, not elsewhere classified documented in this encounter Advance Directives Latest Code Status on File Code Status Date Activated Date Inactivated Comments Full Code 11/10/2020 6:16 PM 11/12/2020 5:12 PM This order reflects the patients wishes and were consensually agreed upon. Question Answer Comments Discussion of Advance Directives occurred with: Patient Does the patient have a Living Will? No Does the patient have Health Care Power of Soap Worker? No Code Status History Code Status Date Activated Date Inactivated Comments Full Code 10/19/2018 10:42 AM 10/19/2018 5:02 PM This order reflects the patients wishes and were consensually agreed upon. Care Teams Diesel Truck Driver Relationship Specialty Start Date End Date Milli Martin PA-C [address] [place] [address] PCP - General Physician Non Destructive Evaluation Specialist 07/04/23 documented as of this encounter
--- OUTSIDE RECORDS SUMMARY | 2023-10-29 13:11 | External Medical Summary ---
Author Name Unknown Address Unknown Organization [id number]:LAB[facility]ATORY [facility] [place] - [address] [facility] [place] [address] Laboratory Report Ordering Provider Test Date Status CHELY ALVARADO 10/25/2023 15:33:18 Final Observation Date Value Abnormality Reference (Units ) Status SYNC LEUKOCYTES IN BLOOD BY AUTOMATED COUNT 10/25/2023 15:33:18 9.03 4.00-10.80 (K/uL) Final Segs 10/25/2023 15:33:18 60.1 40.0-75.0 (%) Final Lymphs % 10/25/2023 15:33:18 29.7 18.0-42.0 (%) Final Monos 10/25/2023 15:33:18 6.0 1.0-11.0 (%) Final Eosinophils 10/25/2023 15:33:18 2.4 0.0-6.0 (%) Final Basos 10/25/2023 15:33:18 1.0 0.0-2.0 (%) Final Immature Granulocyte, Percent 10/25/2023 15:33:18 0.8 0.0-2.0 (%) Final Absolute Segs 10/25/2023 15:33:18 5.43 1.80-7.70 (K/uL) Final Lymphs, absolute 10/25/2023 15:33:18 2.68 1.00-4.80 (K/ul) Final Monos, Abs 10/25/2023 15:33:18 0.54 0.00-1.10 (K/uL) Final Eos, Abs 10/25/2023 15:33:18 0.22 0.00-0.70 (K/uL) Final Basos, Abs 10/25/2023 15:33:18 0.09 0.00-0.20 (K/uL) Final Immature Granulocytes, Number 10/25/2023 15:33:18 0.07 0.00-0.20 (K/uL) Final Performing Location LABORATORY [facility] - [address] [facility] [address]
--- OUTSIDE RECORDS SUMMARY | 2023-10-29 13:11 | External Medical Summary ---
Author Name Unknown Address Unknown Organization [id number]:[facility] [place] [address] [facility] [place] [address] Laboratory Report Ordering Provider Test Date Status CHELY ALVARADO 10/25/2023 15:33:18 Final Observation Date Value Abnormality Reference (Units ) Status BUN 10/25/2023 15:33:18 19 6-20 (mg/dL) Final Creatinine 10/25/2023 15:33:18 2.4 Above high normal 0.5-1.0 (mg/dL) Final Glomerular filtration rate/1.73 sq M.predicted [Volume Rate/Area] in Serum, Plasma or Blood by Creatinine-based formula (CKD-EPI) 10/25/2023 15:33:18 21 Below low normal >=60 (mL/min) Final eGFR is calculated based on the CKD-EPI 2020 equation Sodium 10/25/2023 15:33:18 142 135-146 (m mol/L) Final Potassium 10/25/2023 15:33:18 4.0 3.5-5.1 (m mol/L) Final Cl 10/25/2023 15:33:18 116 Above high normal 98 -107 (mmol/L) Final CO2 10/25/2023 15:33:18 13 Below low normal 22- 32 (mmol/L) Final Anion gap 10/25/2023 15:33:18 13 7-15 (mmol /L) Final Glucose 10/25/2023 15:33:18 77 70-120 (mg /dL) Final Albumin 10/25/2023 15:33:18 4.5 3.8-5.0 (g /dL) Final AST (Aspartate aminotransferase) 10/25/2023 15:33:18 28 10-35 (U/L) Fin al Alk Phos 10/25/2023 15:33:18 169 Above high normal 35 -130 (U/L) Final Bilirubin, Total 10/25/2023 15:33:18 0.2 <=1 .2 (mg/dL) Final Calcium 10/25/2023 15:33:18 9.6 8.4-10.2 ( mg/dL) Final Protein 10/25/2023 15:33:18 6.4 6.0-8.3 (g /dL) Final ALT (Alanine aminotransferase) 10/25/2023 15:33:18 19 10-35 (U/L) Obinna bess Performing Location [facility] - [address] [facility] [address]
--- OUTSIDE RECORDS SUMMARY | 2023-10-29 13:11 | External Medical Summary | Summary of Care ---
Author Name Unknown Organization [facility] Address [address] [facility] [place] [address] Phone [phone] Care Team Providers Care Beef Splitter Name Role Phone Milli Martin PA-C Primary Care Pro vider Encounter Details Date Type Department Care Team (Late st Contact Info) Description 10/25/2023 Orders Only Laboratory Patient Service [address] [place] [phone] Milli Martin PA-C [address] [facility] [address] [place] [address] Uremic pericarditis*; DM type 2, not at goal (HCC); Urinary tract infection Allergies Active Allergy Reactions Criticality Noted Date Comments Dust 08/11/2018 Gramineae Pollens 08/11/2018 Adhesive Tape Rash 09/22/2018 Paper tape and bandaids documented as of this encounter (statuses as of 10/25/2023) Medications Medication Sig Dispensed Refills Start Date End Date Status RISPERDAL 1 MG PO TABS Take 1 Tablet by mouth in the morning. Active PAROXETINE HCL 40 MG PO TABS Take 1 Tablet by mouth in the morning. Active ABILIFY 20 MG PO TABS Take 1 Tablet by mouth in the morning. Active LAMOTRIGINE 100 MG PO TABS Take 1 Tablet by mouth at bedtime. Active traZODone (DESYREL) 150 MG Tablet Take 1 Tablet by mouth at bedtime. 11/03/2018 Active clonazePAM (KLONOPIN) 0.5 MG Tablet Take 1 Tablet by mouth in the morning. 03/02/2019 Active Atorvastatin Calcium 20 MG Oral [...] 1 Capsule by mouth in the morning. 10/11/2020 Active Ondansetron HCl 4 MG Oral [...] Wheezing. 18 g 3 10/21/2021 Active Ipratropium [place] HFA 17 MCG/ACT Inhalation Aerosol Solution (Atrovent Hfa) Inhale by mouth 2 Puffs every 6 hours . 12.9 g 12 10/23/2021 Active oxygen IN GASIndications:Noctu rnal hypoxemia Use as directed 4 L/min(Oxygen) at bedtime . 1 Each 10/30/2021 Active Sodium Bicarbonate 650 MG Oral Tablet Take 1 Tablet by mouth in the morning and 1 Tablet before bedtime. 180 Tablet 3 08/02/2023 Active documented as of this encounter (statuses as of 10/25/2023) Active Problems Problem Noted Date Diagnosed Date [...] after steroid inhaler. Test performed by Fátima ROLLER PRESSER OPERATOR CPFT Bipolar affective disorder, currently depressed, moderate 01/09/2019 Degeneration of lumbar or lumbosacral interverte bral disc 07/03/2014 Thoracic or lumbosacral neur itis or radiculitis, unspecified 07/03/2014 Lumbago 07/03/2014 MIXED INCONTINENCE, URGE AND STRESS 02/10/2001 Anxiety state DIFFUS CYSTIC MASTOPATHY documented as of this encounter (statuses as of 10/25/2023) Resolved Problems Problem Noted Date Diagnosed Date [...] as of this encounter (statuses as of 10/25/2023) Immunizations Name Administration Dates Next Due COVID-19 [...] Upcoming Encounters Date Type Department Care Team ([facility] Contact Info) Description 01/19/2024 11:30 AM EDT Office Visit Nephrology [address] [place] [phone] Claudia Vincent PA-C [address] [place] [address] Pending Results Name Type Priority Associated Diagnoses Date /Time CBC WITH WBC DIFFERENTIAL Lab Routine DM type 2, not at goal ([facility]) Urinary tract infection Uremic pericarditis 10/25/2023 3:33 PM EDT COMPREHENSIVE METABOLIC PANEL Lab STAT DM type 2, not at goal ([facility]) Urinary tract infection Uremic pericarditis 10/25/2023 3:33 PM EDT CULTURE, URINE, QUANTITATIVE Lab Routine DM type 2, not at goal ([facility]) Urinary tract infection Uremic pericarditis 10/25/2023 3:33 PM EDT Scheduled Orders Name Type Priority Associated Diagnoses Orde r Schedule CBC WITH WBC DIFFERENTIAL Lab Routine DM type 2, not at goal (HCC) Urinary tract infection Uremic pericarditis Expected: 10/25/2023, Expires: 10/24/2024 COMPREHENSIVE METABOLIC PANEL Lab STAT DM type 2, not at goal (HCC) Urinary tract infection Uremic pericarditis Expected: 10/25/2023, Expires: 10/24/2024 CULTURE, URINE, QUANTITATIVE Lab Routine DM type 2, not at goal (HCC) Urinary tract infection Uremic pericarditis Expected: 10/25/2023, Expires: 10/24/2024 Health Maintenance Due Date Last Done Comments Cologuard 2001 Fecal Occult Blood Test 2001 Sigmoidoscopy 2001 Pneumococcal Vaccine: 65+ Years (2 of 2 - PCV) 07/20/2019 07/20/2018 Colonoscopy 08/20/2019 08/19/2009 Colorectal Cancer Screening 08/20/2019 DISCUSS TOBACCO CESSATION (REFER TO SMARTSET #3291) 10/21/2022 10/21/2021 COVID-19 Vaccine ( season) 2023 06/15/2021, 11/10/2020, 09/22/2020 Influenza Vaccine (FLU shot) (Season Ended) 2024 01/31/2020, 02/28/2019, 03/07/2018, Additional history exists GFR 02/23/2024 08/24/2023, 07/21, 07/13/2023, Additional history exists Mammogram 06/07/2024 06/07/2023, 06/24, 04/10/2020, Additional history exists CKD HGB USE SMARTSET 46180 07/13/202407/13, 07/13/2023, 06/22/2023, Additional history exists O2 ASSESSMENT COMPLETED IN PAST YEAR FOR COPD 07/13/2024 07/13/2023 Albumin/Creatinine Ratio 08/23/2024 024, 06/16/2023, 08/12/2020, Additional history exists CKD PHOS USE SMARTSET 12242 08/23/2024 04/0 07/2023, 08/01/2023, 07/13/2023, Additional history exists Diabetes Screening 08/23/2026 08/24/2023, 0 08/01/2023, 07/13/2023, Additional history exists Lipid Panel 06/23/2027 06/23/2022, 10/21, 10/14/2020, Additional history exists DTaP,Tdap,and Td Vaccines (2 - Td or Tdap) 04/20/2028 04/20/2018 DXA Scan 06/15/2030 06/15/2023, 03/23, 08/14/2003 Zoster Vaccines Completed 02/29/2020, 06/18/2019 Alpha-1 Antitrypsin Completed 10/21/2021 Lung Cancer Screening Completed 08/24/2023 , 11/18/2021, 07/22/2021, Additional history exists GARDASIL-HPV IMMUNIZATION SERIES Aged [...] as of this encounter Visit Diagnoses Diagnosis Uremic pericarditis- Primary Chronic kidney disease, unspecified DM type 2, not at goal (HCC) Type II or unspecified type diabetes mellitus without mention of complication, not stated as uncontrolled Urinary tract infection Urinary tract infection, site not specified documented in this encounter Advance Directives * Full Code (Latest Code Status on File) Date Activated Date Inactivated Comments 11/10/2020 6:16 PM 11/12/2020 5:12 PM This order r eflects the patients wishes and were consensually agreed upon. Question Answer Comments Discussion of Advance Directives occurred with: Patient Does the patient have a Living Will? No Does the patient have Health Care Power of Attor ej? No * Full Code Date Activated Date Inactivated Comments 10/19/2018 10:42 AM 10/19/2018 5:02 PM This order reflects the patients wishes and were consensually agreed upon. Care Teams Beef Splitter Relationship Specialty Start Date End Date Milli Martin PA-C [address] [facility] [address] [place] [address] PCP - General Physician Entry Driver Operator 07/04/23 documented as of this encounter
--- OUTSIDE RECORDS SUMMARY | 2023-10-29 13:11 | External Medical Summary ---
Author Name Unknown Address Unknown Organization K01:[facility]ORY [facility] [place] - [address] [place] [address] Laboratory Report Ordering Provider Test Date Status CHELY ALVARADO 08/24/2023 12:01:58 Final Normal: <30 mg/g creatinine< br/>High: 30-300 mg/g creatinine
Very High: >300 mg/g creatinine
Nephrotic: >2200 mg/g creatinine Observation Date Value Abnormality Reference (Units ) Status Albumin, Urine 08/24/2023 12:01:58 <1.20 (mg/dL) Final Creatinine, Urine 08/24/2023 12:01:58 45 (mg/dL) Final Albumin/Creatinine [Mass Ratio] in Urine 08/24/2023 12:01:58 <27 <30 (mg/g Creat) Final Performing Location [facility] [place] - [address] [place] [address]
--- OUTSIDE RECORDS SUMMARY | 2023-10-29 13:11 | External Medical Summary ---
Author Name Unknown Address Unknown Organization [id number][place] [place] [address] [facility] [address] Laboratory Report Ordering Provider Test Date Status CHELY ALVARADO 10/25/2023 15:33:18 Final Observation Date Value Abnormality Reference (Units) Status Bacteria identified in Specimen by Culture 10/25/2023 15:33:18 No significant growth Final Test: Culture, Urine, Quanti tative
Specimen Source: Urine, Clean Catch
Specimen Type: Urine
Specimen Date: 10/25/2023 1533
Result Date: 10/26/2023 1657
Result Status: Final result
Resulting Lab: [facility]
[address]
[place] [address]

CULTURE

No significant growth

null Performing Location [facility] [address] [facility] [address]
--- OUTSIDE RECORDS SUMMARY | 2023-10-29 13:11 | External Medical Summary | Summary of Care ---
Author Name Unknown Organization [facility] Address [address] [place] [address] Phone [phone] Care Team Providers Care Small Offset Printer Name Role Phone Milli Martin PA-C Primary Care Pro vider Reason for Visit * Reason Onset Date Comments Advice 09/23/2023 Encounter Details Date Type Department Care Team (Late st Contact Info) Description 09/23/2023 Telephone Endocrinology [facility], Lorie Martell [address] [place] [address] [place] [address] Services, Scheduling [address] [place] [address] Advice Allergies Active Allergy Reactions Criticality Noted Date Comments Dust 08/11/2018 Gramineae Pollens 08/11/2018 Adhesive Tape Rash 09/22/2018 Paper tape and bandaids documented as of this encounter (statuses as of 09/23/2023) Medications Medication Sig Dispensed Refills Start Date [...] Wheezing. 18 g 3 10/21/2021 Active Ipratropium [place] HFA 17 MCG/ACT Inhalation Aerosol Solution (Atrovent [...] as of this encounter (statuses as of 09/23/2023) Active Problems Problem Noted Date Diagnosed Date [...] after steroid inhaler. Test performed by Fátima TELEPHONE CLAIMS REPRESENTATIVE CPFT Bipolar affective disorder, currently depressed, moderate 01/09/2019 Degeneration of lumbar or lumbosacral interverte bral disc 07/03/2014 Thoracic or lumbosacral neur itis or radiculitis, unspecified 07/03/2014 Lumbago 07/03/2014 MIXED INCONTINENCE, URGE AND STRESS 02/10/2001 Anxiety state DIFFUS CYSTIC MASTOPATHY documented as of this encounter (statuses as of 09/23/2023) Resolved Problems Problem Noted Date Diagnosed Date [...] as of this encounter (statuses as of 09/23/2023) Immunizations Name Administration Dates Next Due COVID-19 mRNA, LNP-s, No Pre serve, 2-Dose Series (Moderna) 06/15/2021,11/10/2020,09/22/2020 H1N1 2009 Influenza, IM 04/23/2009 Pneumococcal Polysaccharide PPV23 (Pneumovax) 07/20/2018 Seasonal Influenza, PF, 6 M & above, IM , (FluLaval or Fluzone) 01/31/2020,02/28/2019,03/07/2018 Seasonal Influenza, Split, I IV3, With Preserve, Inj 05/19/2004,03/13/2003,03/28/2002,04/18 TDAP (age 10 and older)(Boostrix) 04/20/2018 Zoster [...] No 11/10/2020 documented as of this encounter Miscellaneous Notes * Telephone Encounter - Tae Baird MD - 09/23/2023 2:46 PM EDT Not sure what she meant by kidney pain. If she is having UTI symptoms will do UA and urine culture. She had ultrasound done in May 2023 and was completely unremarkable. What she thinks is kidney pain is most likely musculoskeletal pain in the back/flank area. Would get advice from her PCP. * Telephone Encounter - Heike Talley OSA - 09/23/2023 11:46 AM EDT Pt called she is having kidney discomfort and is asking for advise [phone] documented in this encounter Plan of Treatment Upcoming Encounters Date Type Department Care Team ([facility] st Contact Info) Description 01/19/2024 11:30 AM EDT Office Visit Nephrology [facility], [address] [place] [address] Claudia Vincent PA-C 200 [facility], [place] [address] Health Maintenance Due Date Last Done Comments [...] Additional history exists CKD HGB USE SMARTSET 77987 07/13/202407/13, 07/13/2023, 06/22/2023, Additional history exists O2 ASSESSMENT COMPLETED IN PAST YEAR FOR COPD 07/13/2024 07/13/2023 Albumin/Creatinine Ratio 08/23/2024 024, 06/16/2023, 08/12/2020, Additional history exists CKD PHOS USE SMARTSET 02891 08/23/2024 04/0 07/2023, 08/01/2023, 07/13/2023, Additional history [...] Not on filedocumented as of this encounter Advance Directives Latest Code Status on File Code Status Date Activated Date Inactivated Comments Full Code 11/10/2020 6:16 PM 11/12/2020 5:12 PM This order reflects the patients wishes and were consensually agreed upon. Question Answer Comments Discussion of Advance Directives occurred with: Patient Does the patient have a Living Will? No Does the patient have Health Care Power of Marketing [employer]? No Code Status History Code Status Date Activated Date Inactivated Comments Full Code 10/19/2018 10:42 AM 10/19/2018 5:02 PM This order reflects the patients wishes and were consensually agreed upon. Care Teams Small Offset Printer Relationship Specialty Start Date End Date Milli Martin PA-C [address] [facility] [address] [place] [address] PCP - General Physician Bevel Operator 07/04/23 documented as of this encounter
--- OUTSIDE RECORDS SUMMARY | 2023-10-29 13:11 | External Medical Summary | Summary of Care ---
Author Name Unknown Organization [facility] Address [address] [place] [address] Phone [phone] Care Team Providers Care Agricultural Engineering Technician Name Role Phone Milli Martin PA-C Primary Care Pro vider Reason for Visit * Reason Onset Date Comments Advice 09/23/2023 Encounter Details Date Type Department Care Team (Late st Contact Info) Description 09/23/2023 Telephone Endocrinology [facility], Lorie Martell [address] [place] [address] [place] [address] Services, Scheduling [address] [place] [address] Advice Allergies Active Allergy Reactions Criticality Noted [...] Wheezing. 18 g 3 10/21/2021 Active Ipratropium [place] HFA 17 MCG/ACT Inhalation Aerosol Solution (Atrovent [...] after steroid inhaler. Test performed by Fátima ECOLOGICAL RISK ASSESSOR CPFT Bipolar affective disorder, currently depressed, moderate [...] encounter Miscellaneous Notes * Telephone Encounter - Heike Talley OSA - 09/23/2023 11:46 AM EDT Pt called she is having kidney discomfort and is asking for advise [phone] documented in this encounter Plan of Treatment Upcoming Encounters Date Type Department Care Team ([facility] st Contact Info) Description 01/19/2024 11:30 AM EDT Office Visit Nephrology [facility], [address] [place] [address] Claudia Vincent PA-C [address] [place] [address] Health Maintenance Due Date Last Done Comments [...] Additional history exists CKD HGB USE SMARTSET 77901 07/13/202407/13, 07/13/2023, 06/22/2023, Additional history exists O2 ASSESSMENT COMPLETED IN PAST YEAR FOR COPD 07/13/2024 07/13/2023 Albumin/Creatinine Ratio 08/23/2024 024, 06/16/2023, 08/12/2020, Additional history exists CKD PHOS USE SMARTSET 23486 08/23/2024 04/0 07/2023, 08/01/2023, 07/13/2023, Additional history [...] the patient have Health Care Power of Elevator Pilot? No Code Status History Code Status Date Activated Date Inactivated Comments Full Code 10/19/2018 10:42 AM 10/19/2018 5:02 PM This order reflects the patients wishes and were consensually agreed upon. Care Teams Agricultural Engineering Technician Relationship Specialty Start Date End Date Milli Martin PA-C [address] [facility] [address] [place] [address] PCP - General Physician Retail Loss Prevention Investigator 07/04/23 documented as of this encounter
--- OUTSIDE RECORDS SUMMARY | 2023-10-29 13:11 | External Medical Summary | Summary of Care ---
Author Name Unknown Organization [facility] Address [address] [facility] [place] [address] Phone [phone] Care Team Providers Care Blacktop Spreader Name Role Phone Milli Martin PA-C Primary Care Pro vider Reason for Visit * Reason Onset Date Comments Test Results 08/02/2023 Encounter Details Date Type Department Care Team (Late st Contact Info) Description 08/02/2023 Telephone Nephrology, [facility] [address] [place] [address] Tae Baird MD 200 [facility] [place] [address] Test Results Allergies Active Allergy Reactions Criticality Noted Date Comments Dust 08/11/2018 Gramineae Pollens 08/11/2018 Adhesive Tape Rash 09/22/2018 Paper tape and bandaids documented as of this encounter (statuses as of 08/02/2023) Medications Medication Sig Dispensed Refills Start Date [...] Wheezing. 18 g 3 10/21/2021 Active Ipratropium [place] HFA 17 MCG/ACT Inhalation Aerosol Solution (Atrovent [...] as of this encounter (statuses as of 08/02/2023) Active Problems Problem Noted Date Diagnosed Date [...] after steroid inhaler. Test performed by Fátima OIL WINTERIZER CPFT Bipolar affective disorder, currently depressed, moderate 01/09/2019 Degeneration of lumbar or lumbosacral interverte bral disc 07/03/2014 Thoracic or lumbosacral neur itis or radiculitis, unspecified 07/03/2014 Lumbago 07/03/2014 MIXED INCONTINENCE, URGE AND STRESS 02/10/2001 Anxiety state DIFFUS CYSTIC MASTOPATHY documented as of this encounter (statuses as of 08/02/2023) Resolved Problems Problem Noted Date Diagnosed Date [...] as of this encounter (statuses as of 08/02/2023) Immunizations Name Administration Dates Next Due COVID-19 [...] encounter Miscellaneous Notes * Telephone Encounter - Chuyita Chavez LPN - 08/02/2023 3:21 PM EDT Pt aware States has been vomiting X [address] Baird is made aware of this change Per PO order pt to have Blood work rechecked in 10 days instead of 1 month Pt requests RX to [facility] Lab order placed in [facility] Rx pended sent to for approval * Telephone Encounter - Chuyita Chavez LPN - 08/02/2023 3:21 PM EDT ----- Message from Tae Baird MD sent at 08/02/2023 2:12 PM EDT ----- Kidney function abnormal but slightly better than the previous blood work. Her serum bicarb is low so we will start her on sodium bicarbonate 650 mg 1 tablet twice daily---this slows down the kidney function decline. Ask if she is having any diarrhea. Make sure she has not taking any type of NSAIDs. Repeat renal panel in 1 month. documented in this encounter Plan of Treatment Upcoming Encounters Date Type Department Care Team ([facility] Contact Info) Description 01/30/2024 10:00 AM EDT Office Visit Nephrology [facility] [address] [place] [phone] Claudia Vincent PA-C 200 [facility] [place], [place] [address] Scheduled Orders Name Type Priority Associated Diagnoses Orde r Schedule RENAL FUNCTION PANEL Lab Routine Chronic kidney disease, stage 3b (HCC) Expected: 08/02/2023 (Approximate), Expires: 08/01/2024 Health Maintenance Due Date Last Done Comments [...] 024, 08/12/2020, 09/11/2018 CKD HGB USE SMARTSET 04428 07/13/202407/13, 07/13/2023, 06/22/2023, Additional history exists O2 ASSESSMENT COMPLETED IN PAST YEAR FOR COPD 07/13/2024 07/13/2023 CKD PHOS USE SMARTSET 58075 07/31/2024 0305/2023, 07/13/2023, 06/22/2023, Additional history exists Diabetes Screening 07/31/2026 08/01/2023, 0 07/13/2023, 06/22/2023, Additional history exists Lipid Panel 06/23/2027 06/23/2022, 10/21, 10/14/2020, Additional history exists DTaP,Tdap,and Td Vaccines (2 - Td or Tdap) 04/20/2028 04/20/2018 DXA Scan 06/15/2030 06/15/2023, 03/23, 08/14/2003 Zoster Vaccines Completed 02/29/2020, 06/18/2019 Alpha-1 Antitrypsin Completed 10/21/2021 LUNG CANCER SCREENING - USE SMARTSET 26021 Completed 11/18/2021, 07/22/2021, 01/22/2021, Additional history exists [...] as of this encounter Visit Diagnoses Diagnosis Chronic kidney disease, stage 3b (HCC)- Primary documented in this encounter Advance Directives Latest Code Status on File Code Status Date Activated Date Inactivated Comments Full Code 11/10/2020 6:16 PM 11/12/2020 5:12 PM This order reflects the patients wishes and were consensually agreed upon. Question Answer Comments Discussion of Advance Directives occurred with: Patient Does the patient have a Living Will? No Does the patient have Health Care Power of Coin Machine Operator? No Code Status History Code Status Date Activated Date Inactivated Comments Full Code 10/19/2018 10:42 AM 10/19/2018 5:02 PM This order reflects the patients wishes and were consensually agreed upon. Care Teams Blacktop Spreader Relationship Specialty Start Date End Date Milli Martin PA-C [address] [place] [address] [place] [address] PCP - General Physician Acetylene Plant Operator 07/04/23 documented as of this encounter
--- OUTSIDE RECORDS SUMMARY | 2023-10-29 13:11 | External Medical Summary | Summary of Care ---
Author Name Unknown Organization [facility] Address [address] [facility] [place] [address] Phone [phone] Care Team Providers Care Supervisor Small Appliance Assembly Name Role Phone Milli Martin PA-C Primary Care Pro vider Reason for Visit * Reason Comments Outpatient Testing Encounter Details Date Type Department Care Team (Late st Contact Info) Description 08/24/2023 12:20 PM EDT Laboratory Laboratory, [facility] [address] [facility] [place] [phone] [facility] [address] [place] [address] Chronic kidney disease, stage 3b ([facility]); DM type 2, not at goal ([facility]); Uremic pericarditis; Vitamin D deficiency; Gout; Urinary tract infection Allergies Active Allergy Reactions Criticality Noted Date Comments Dust 08/11/2018 Gramineae Pollens 08/11/2018 Adhesive Tape Rash 09/22/2018 Paper tape and bandaids documented as of this encounter (statuses as of 08/24/2023) Medications Medication Sig Dispensed Refills Start Date [...] Wheezing. 18 g 3 10/21/2021 Active Ipratropium [place] HFA 17 MCG/ACT Inhalation Aerosol Solution (Atrovent [...] as of this encounter (statuses as of 08/24/2023) Active Problems Problem Noted Date Diagnosed Date [...] after steroid inhaler. Test performed by Fátima HAND ICER CPFT Bipolar affective disorder, currently depressed, moderate 01/09/2019 Degeneration of lumbar or lumbosacral interverte bral disc 07/03/2014 Thoracic or lumbosacral neur itis or radiculitis, unspecified 07/03/2014 Lumbago 07/03/2014 MIXED INCONTINENCE, URGE AND STRESS 02/10/2001 Anxiety state DIFFUS CYSTIC MASTOPATHY documented as of this encounter (statuses as of 08/24/2023) Resolved Problems Problem Noted Date Diagnosed Date [...] as of this encounter (statuses as of 08/24/2023) Immunizations Name Administration Dates Next Due COVID-19 [...] Upcoming Encounters Date Type Department Care Team ([facility] st Contact Info) Description 01/30/2024 10:00 AM EDT Office Visit Nephrology [facility], [address] [place] [address] Claudia Vincent PA-C [address] [facility] [address] Pending Results Name Type Priority Associated Diagnoses Date /Time RENAL FUNCTION PANEL Lab Routine Chronic kidney disease, stage 3b (HCC) 08/24/2023 11:57 AM EDT URINALYSIS, REFLEX TO CULTURE (NOT FOR NEUTROPENIC PATIENTS) Lab Routine DM type 2, not at goal (HCC) Uremic pericarditis Vitamin D deficiency Gout Urinary tract infection 08/24/2023 12:01 PM EDT ALBUMIN / CREATININE RATIO, URINE Lab Routine DM type 2, not at goal (HCC) Uremic pericarditis Vitamin D deficiency Gout Urinary tract infection 08/24/2023 12:01 PM EDT URINALYSIS, REFLEX TO CULTURE (CUP ONLY) Lab Routine DM type 2, not at goal (HCC) Uremic pericarditis Vitamin D deficiency Gout Urinary tract infection 08/24/2023 12:01 PM EDT URINALYSIS, REFLEX TO CULTURE Lab Routine DM type 2, not at goal (HCC) Uremic pericarditis Vitamin D deficiency Gout Urinary tract infection 08/24/2023 12:01 PM EDT Health Maintenance Due Date Last Done Comments [...] 024, 08/12/2020, 09/11/2018 CKD HGB USE SMARTSET 53520 07/13/202407/13, 07/13/2023, 06/22/2023, Additional history exists O2 ASSESSMENT COMPLETED IN PAST YEAR FOR COPD 07/13/2024 07/13/2023 CKD PHOS USE SMARTSET 10307 07/31/202407/21, 07/13/2023, 06/22/2023, Additional history exists Diabetes Screening 07/31/2026 08/01/2023, 0 07/13/2023, 06/22/2023, Additional history exists Lipid Panel 06/23/2027 06/23/2022, 10/21, 10/14/2020, Additional history exists DTaP,Tdap,and Td Vaccines (2 - Td or Tdap) 04/20/2028 04/20/2018 DXA Scan 06/15/2030 06/15/2023, 03/23, 08/14/2003 Zoster Vaccines Completed 02/29/2020, 06/18/2019 Alpha-1 Antitrypsin Completed 10/21/2021 LUNG CANCER SCREENING - USE SMARTSET 91393 Completed 11/18/2021, 07/22/2021, 01/22/2021, Additional history exists [...] Diagnoses Diagnosis Chronic kidney disease, stage 3b (HCC) DM type 2, not at goal (HCC) Type II or unspecified type diabetes mellitus without mention of complication, not stated as uncontrolled Uremic pericarditis Chronic kidney disease, unspecified Vitamin D deficiency Unspecified vitamin D deficiency Gout Gout, unspecified Urinary tract infection Urinary tract infection, site not specified documented in this encounter Advance Directives Latest Code Status on File Code Status Date Activated Date Inactivated Comments Full Code 11/10/2020 6:16 PM 11/12/2020 5:12 PM This order reflects the patients wishes and were consensually agreed upon. Question Answer Comments Discussion of Advance Directives occurred with: Patient Does the patient have a Living Will? No Does the patient have Health Care Power of Engineer? No Code Status History Code Status Date Activated Date Inactivated Comments Full Code 10/19/2018 10:42 AM 10/19/2018 5:02 PM This order reflects the patients wishes and were consensually agreed upon. Care Teams Supervisor Small Appliance Assembly Relationship Specialty Start Date End Date Milli Martin PA-C [address] [facility] [address] [place] [address] PCP - General Physician Internal Specialist 07/04/23 documented as of this encounter
--- OUTSIDE RECORDS SUMMARY | 2023-10-29 13:11 | External Medical Summary | Summary of Care ---
Author Name Unknown Organization [facility] Address [address] [place] [address] Phone [phone] Care Team Providers Care Conference Services Manager Name Role Phone Milli Martin PA-C Primary Care Pro vider Reason for Visit * Reason Onset Date Comments Test Results 08/02/2023 Encounter Details Date Type Department Care Team (Late st Contact Info) Description 08/02/2023 Telephone Nephrology, [place] [address] [place] [address] Services, [facility], [facility] [address] [place] [address] Test Results Allergies Active Allergy Reactions Criticality [...] Active Atorvastatin Calcium 20 MG Oral Tablet (Lipitor)Indications:D yslipidemia, goal LDL below 100 Take 1 Tab by mouth daily. 90 Tab 3 10/16/2020 Active Cetirizine HCl 5 MG Oral TabletIndications:Seas onal allergies Take 1 Tab by mouth daily. 90 Tab 3 10/16/2020 Active Omeprazole 20 MG Oral Capsule Delayed Release (PriLOSEC)Indications: Periumbilical abdominal pain Take 1 Cap by mouth [...] 11/19/2020 Active Linzess 145 MCG Oral Capsule (linaCLOtide)Indicatio ns:Chronic idiopathic constipation Take 1 Cap by mouth daily before breakfast. 30 Cap 2 12/12/2020 Active Albuterol Sulfate HFA 108 (90 Base) MCG/ACT Inhalation Aerosol SolutionIndications:CO PD, 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 18 g 3 10/21/2021 Active Ipratropium [place] HFA 17 MCG/ACT Inhalation Aerosol Solution (Atrovent Hfa) Inhale by mouth 2 Puffs every 6 hours . 12.9 g 12 10/23/2021 Active oxygen IN GASIndications:Nocturn al hypoxemia Use as directed 4 L/min(Oxygen) at bedtime . 1 Each 0 10/30/2021 Active documented as of this encounter (statuses [...] after steroid inhaler. Test performed by Fátima MACHINE SETTER CPFT Bipolar affective disorder, currently depressed, moderate [...] Encounter - Chuyita Chavez LPN - 08/02/2023 10:46 AM EDT Will await Dr Baird's review * Telephone Encounter - Heike Talley OSA - 08/02/2023 9:14 AM EDT Please call pt with lab results once they are read [phone] documented in this encounter Plan of Treatment Upcoming Encounters Date Type Department Care Team ([facility] Contact Info) Description 01/30/2024 10:00 AM EDT Office Visit Nephrology [address] [place] [address] Claudia Vincent PA-C 200 [facility] [place] [address] Health Maintenance Due Date Last Done Comments [...] 024, 08/12/2020, 09/11/2018 CKD HGB USE SMARTSET 02384 07/13/202407/13, 07/13/2023, 06/22/2023, Additional history exists O2 ASSESSMENT COMPLETED IN PAST YEAR FOR COPD 07/13/2024 07/13/2023 CKD PHOS USE SMARTSET 80844 07/31/202407/21, 07/13/2023, 06/22/2023, Additional history exists Diabetes Screening 07/31/2026 08/01/2023, 0 07/13/2023, 06/22/2023, Additional history exists Lipid Panel 06/23/2027 06/23/2022, 10/21, 10/14/2020, Additional history exists DTaP,Tdap,and Td Vaccines (2 - Td or Tdap) 04/20/2028 04/20/2018 DXA Scan 06/15/2030 06/15/2023, 03/23, 08/14/2003 Zoster Vaccines Completed 02/29/2020, 06/18/2019 Alpha-1 Antitrypsin Completed 10/21/2021 LUNG CANCER SCREENING - USE SMARTSET 33212 Completed 11/18/2021, 07/22/2021, 01/22/2021, Additional history exists [...] the patient have Health Care Power of Rn Corrections? No Code Status History Code Status Date Activated Date Inactivated Comments Full Code 10/19/2018 10:42 AM 10/19/2018 5:02 PM This order reflects the patients wishes and were consensually agreed upon. Care Teams Conference Services Manager Relationship Specialty Start Date End Date Milli Martin PA-C [address] [facility] [address] [place] [address] PCP - General Physician Broadcast Checker 07/04/23 documented as of this encounter
--- OUTSIDE RECORDS SUMMARY | 2023-10-29 13:11 | External Medical Summary | Summary of Care ---
Author Name Unknown Organization [facility] Address [address] [place] [address] Phone [phone] Care Team Providers Care Park Interpretive Specialist Name Role Phone Milli Martin PA-C Primary Care Pro vider Reason for Visit * Reason Onset Date Comments Advice 09/23/2023 Encounter Details Date Type Department Care Team (Late st Contact Info) Description 09/23/2023 Telephone Endocrinology [facility], Lorie Martell [address] [place] [address] [place] [address] Services, Scheduling [address] [place] [address] Advice Allergies Active Allergy Reactions Criticality Noted [...] Wheezing. 18 g 3 10/21/2021 Active Ipratropium [place] HFA 17 MCG/ACT Inhalation Aerosol Solution (Atrovent [...] after steroid inhaler. Test performed by Fátima MEDICAL HEALTH RESEARCHER CPFT Bipolar affective disorder, currently depressed, moderate [...] encounter Miscellaneous Notes * Telephone Encounter - Marta Garcia RN - 09/23/2023 2:52 PM EDT Pt is not complaining of pain but is requesting that a letter be sent to her with next appointment for Nephrology. This has already been completed. No symptoms voiced with any symptoms of UTI. * Telephone Encounter - Tae Baird MD [...] kidney discomfort and is asking for advise [phone] documented in this encounter Plan of Treatment Upcoming Encounters Date Type Department Care Team ([facility] st Contact Info) Description 01/19/2024 11:30 AM EDT Office Visit Nephrology [facility] [place] [address] [place] [address] [address] [place] [phone] Claudia Vincent PA-C 200 [facility], [place] [address] Health Maintenance Due Date Last Done Comments [...] Additional history exists CKD HGB USE SMARTSET 19757 07/13/202407/13, 07/13/2023, 06/22/2023, Additional history exists O2 ASSESSMENT COMPLETED IN PAST YEAR FOR COPD 07/13/2024 07/13/2023 Albumin/Creatinine Ratio 08/23/20242 024, 06/16/2023, 08/12/2020, Additional history exists CKD PHOS USE SMARTSET 28633 08/23/2024 04/0 07/2023, 08/01/2023, 07/13/2023, Additional history [...] the patient have Health Care Power of Endoscopic Technician? No Code Status History Code Status Date Activated Date Inactivated Comments Full Code 10/19/2018 10:42 AM 10/19/2018 5:02 PM This order reflects the patients wishes and were consensually agreed upon. Care Teams Park Interpretive Specialist Relationship Specialty Start Date End Date Milli Martin PA-C [address] [place] [address] [place] [address] PCP - General Physician Electronic Video Games Servicer 07/04/23 documented as of this encounter
--- OUTSIDE RECORDS SUMMARY | 2023-10-29 13:11 | External Medical Summary | Summary of Care ---
Author Name Unknown Organization [facility] Address [address] [facility] [place] [address] Phone [phone] Care Team Providers Care Museum Assistant Name Role Phone Milli Martin PA-C Primary Care Pro vider Reason for Visit * Reason Onset Date Comments Test Results 08/25/2023 Encounter Details Date Type Department Care Team (Late st Contact Info) Description 08/25/2023 Telephone Nephrology, [facility] [place] [address] [place] [address] Tae Baird MD 200 [facility] [place] [address] Test Results Allergies Active Allergy Reactions Criticality Noted Date Comments Dust 08/11/2018 Gramineae Pollens 08/11/2018 Adhesive Tape Rash 09/22/2018 Paper tape and bandaids documented as of this encounter (statuses as of 10/27/2023) Medications Medication Sig Dispensed Refills Start Date [...] Wheezing. 18 g 3 10/21/2021 Active Ipratropium [place] HFA 17 MCG/ACT Inhalation Aerosol Solution (Atrovent [...] as of this encounter (statuses as of 10/27/2023) Active Problems Problem Noted Date Diagnosed Date [...] after steroid inhaler. Test performed by Fátima CUT OFF SAW OPERATOR CPFT Bipolar affective disorder, currently depressed, moderate 01/09/2019 Degeneration of lumbar or lumbosacral interverte bral disc 07/03/2014 Thoracic or lumbosacral neur itis or radiculitis, unspecified 07/03/2014 Lumbago 07/03/2014 MIXED INCONTINENCE, URGE AND STRESS 02/10/2001 Anxiety state DIFFUS CYSTIC MASTOPATHY documented as of this encounter (statuses as of 10/27/2023) Resolved Problems Problem Noted Date Diagnosed Date [...] as of this encounter (statuses as of 10/27/2023) Immunizations Name Administration Dates Next Due COVID-19 [...] encounter Miscellaneous Notes * Telephone Encounter - Abebe Kirby LPN - 08/29/2023 11:39 AM EDT Pt calling regarding lab results and wanting them faxed to her PCP. tx * Telephone Encounter - Chuyita Chavez LPN - 08/25/2023 12:11 PM EDT Attempted to contact at home phone number No answer without ability to LMM Attempted to contact on cell VM is full * Telephone Encounter - Chuyita Chavez LPN - 08/25/2023 12:10 PM EDT ----- Message from Tae Baird MD sent at 08/25/2023 11:47 AM EDT ----- Kidney function slightly better and Urine does not look like infection this time documented in this encounter Plan of Treatment Upcoming Encounters Date Type Department Care Team ([facility] Contact Info) Description 01/19/2024 11:30 AM EDT [facility] [address] [place] [address] [address] [place] [phone] Claudia Vincent PA-C [address] [facility], [place] [address] Health Maintenance Due Date Last Done Comments [...] 01/31/2020, 02/28/2019, 03/07/2018, Additional history exists GFR 04/25/2024 10/25/2023, 04/0 07/2023, 08/01/2023, Additional history exists Mammogram 06/07/2024 06/07/2023, 06/24, 04/10/2020, Additional history exists O2 ASSESSMENT COMPLETED IN PAST YEAR FOR COPD 07/13/2024 07/13/2023 Albumin/Creatinine Ratio 08/23/2024 024, 06/16/2023, 08/12/2020, Additional history exists CKD PHOS USE SMARTSET 79289 08/23/2024 04/0 07/2023, 08/01/2023, 07/13/2023, Additional history exists CKD HGB USE SMARTSET 29512 10/24/202410/24, 10/25/2023, 07/13/2023, Additional history exists Diabetes Screening 10/24/2026 10/25/2023, 0 08/24/2023, 08/01/2023, Additional history exists Lipid Panel 06/23/2027 06/23/2022, [...] filedocumented as of this encounter Advance Directives * Full Code [...] and were consensually agreed upon. Care Teams Museum Assistant Relationship Specialty Start Date End Date Milli Martin PA-C [address] [place] [address] PCP - General Physician Assistant Office Manager 07/04/23 documented as of this encounter
--- OUTSIDE RECORDS SUMMARY | 2023-10-29 13:11 | External Medical Summary ---
Author Name Unknown Address Unknown Organization K01:[facility] [place] [address] [facility] [place] [address] Laboratory Report Ordering Provider Test Date Status CHELY ALVARADO 08/24/2023 12:01:58 Final Observation Date Value Abnormality Reference (Units ) Status Color of Urine by Auto 08/24/2023 12:01:58 Colorless Colorless, Light Yellow, Yellow, Dark Yellow Final Clarity, Urine 08/24/2023 12:01:58 Clear Clear Final Glucose [Mass/volume] in Urine by Automated test strip 08/24/2023 12:01:58 Negative Negative (mg/dL) Final Bilirubin.total [Presence] in Urine by Automated test strip 08/24/2023 12:01:58 Negative Negative Final Ketones [Mass/volume] in Urine by Automated test strip 08/24/2023 12:01:58 Negative Negative (mg/dL) Final Specific gravity, Urine 08/24/2023 12:01:58 1.008 1.003-1.030 Final Hemoglobin [Presence] in Urine by Automated test strip 08/24/2023 12:01:58 Negative Negative Final pH, Urine 08/24/2023 12:01:58 6.5 5.0-7.5 (Units) Final Protein [Mass/volume] in Urine by Automated test strip 08/24/2023 12:01:58 Trace Abnormal Negative (mg/dL) Final Urobilinogen [Mass/volume] in Urine by Automated test strip 08/24/2023 12:01:58 Normal Normal (mg/dL) Final Nitrite [Presence] in Urine by Automated test strip 08/24/2023 12:01:58 Negative Negative Final Leukocyte esterase [Presence] in Urine by Automated test strip 08/24/2023 12:01:58 Negative Negative Final RBC, Urine 08/24/2023 12:01:58 0-2 0-2 (/HPF) Final WBC, Urine 08/24/2023 12:01:58 0-2 0-2 (/HPF) Final Bacteria [#/area] in Urine sediment by Microscopy high power field 08/24/2023 12:01:58 0-25 0-25 (/HPF) Final CULTURE, URINE - [facility] 08/24/2023 12:01:58 Final Culture not indicated by uri nalysis results\X09\ Performing Location [facility] [place] [facility] [address] [facility] [address]
--- OUTSIDE RECORDS SUMMARY | 2023-10-29 13:11 | External Medical Summary ---
Author Name UNSPECIFIED Address Unknown Organization [facility] History of Encounters Reason for Assessment: Start of care - f urther visits planned Inpatient discharge facility: Past 14 Da ys: Discharged From Short Stay Acute Hospital Most Recent Inpatient Discharge Date: Functional Assessment Patient Living Situation: Patient lives with other person(s) in the home: Regular nighttime When Dyspneic: With moderate exerti on (e.g., while dressing, using commode or bedpan, walking distances less than 20 feet) Bowel Incontinence Frequency: Very rarel y or never has bowel incontinence Cognitive Functioning: Requires promptin g (cueing, repetition, reminders) only under stressful or unfamiliar conditions. When Confused (Reported or Observed): In new or complex situations only Cognitive and Behavioral and Psychiatric Symptoms: None Current Ability: Bathing: able to partic ipate in bathing self in shower or tub, but requires presence of another person throughout the bath for assistance or supervision. Current Ability: Ambulation: Able to wal k only with the supervision or assistance of another person at all times. Current: Management Of Oral Medications: Able to take medication(s) at the correct times if: (a) individual dosages are prepared in advance by another person; OR (b) another person develops a drug diary or chart Procedures Treated for Urinary Tract Infection in P ast 14 Days: Yes Problems Primary Home Care Diagnosis ICD Code: G8 9.29, Other chronic pain Home Care Diagnosis 1: ICD Code: M54.50^ ^ Home Care Diagnosis 1: Severity Ratin Home Care Diagnosis 2: ICD Code: R26.2, Difficulty in walking, not elsewhere classified Home Care Diagnosis 2: Severity Ratin Home Care Diagnosis 3: ICD Code: E11.22, Type 2 diabetes mellitus w diabetic chronic kidney disease Home Care Diagnosis 3: Severity Ratin Home Care Diagnosis 4: ICD Code: N17.9, Acute kidney failure, unspecified Home Care Diagnosis 4: Severity Ratin Home Care Diagnosis 5: ICD Code: N18.30^ ^ Home Care Diagnosis 5: Severity Ratin
--- OUTSIDE RECORDS SUMMARY | 2023-10-29 13:11 | External Medical Summary | Summary of Care ---
Author Name Unknown Organization [facility] Address [address] [place] [address] Phone [phone] Care Team Providers Care Registered Dietician Name Role Phone Milli Martin PA-C Primary Care Pro vider Reason for Visit * Reason Onset Date Comments Test Results 08/02/2023 Encounter Details Date Type Department Care Team (Late st Contact Info) Description 08/02/2023 Telephone Nephrology, [place] [address] [place] [address] Services, [facility] [address] [place] [address] Test Results Allergies Active Allergy Reactions Criticality [...] Wheezing. 18 g 3 10/21/2021 Active Ipratropium [place] HFA 17 MCG/ACT Inhalation Aerosol Solution (Atrovent [...] after steroid inhaler. Test performed by Fátima TANK WAGON OPERATOR CPFT Bipolar affective disorder, currently depressed, [...] Encounter - Chuyita Chavez LPN - 08/02/2023 3:10 PM EDT SEE TE result note encounter * Telephone Encounter - Rosibel Gould OSA - 08/02/2023 2:03 PM EDT Patient calling in to check on the status of previous message. Patient Called within 48 hour timeframe. Reminded patient of 48 hour turn-around time. * Telephone Encounter - Chuyita Chavez LPN - 08/02/2023 10:46 AM EDT Will await Dr Baird's review * Telephone Encounter - Heike Talley OSA - 08/02/2023 9:14 AM EDT Please call pt with lab results once they are read [phone] documented in this encounter Plan of Treatment Upcoming Encounters Date Type Department Care Team ([facility] st Contact Info) Description 01/30/2024 10:00 AM EDT Office Visit Nephrology [address] [phone] Claudia Vincent PA-C 200 [facility] [place], [place] [address] Health Maintenance Due Date Last Done Comments [...] 024, 08/12/2020, 09/11/2018 CKD HGB USE SMARTSET 98407 07/13/202407/13, 07/13/2023, 06/22/2023, Additional history exists O2 ASSESSMENT COMPLETED IN PAST YEAR FOR COPD 07/13/2024 07/13/2023 CKD PHOS USE SMARTSET 08541 07/31/202407/21, 07/13/2023, 06/22/2023, Additional history exists Diabetes Screening 07/31/2026 08/01/2023, 0 07/13/2023, 06/22/2023, Additional history exists Lipid Panel 06/23/2027 06/23/2022, 10/21, 10/14/2020, Additional history exists DTaP,Tdap,and Td Vaccines (2 - Td or Tdap) 04/20/2028 04/20/2018 DXA Scan 06/15/2030 06/15/2023, 03/23, 08/14/2003 Zoster Vaccines Completed 02/29/2020, 06/18/2019 Alpha-1 Antitrypsin Completed 10/21/2021 LUNG CANCER SCREENING - USE SMARTSET 87796 Completed 11/18/2021, 07/22/2021, 01/22/2021, Additional history exists [...] the patient have Health Care Power of Chair Car Attendant? No Code Status History Code Status Date Activated Date Inactivated Comments Full Code 10/19/2018 10:42 AM 10/19/2018 5:02 PM This order reflects the patients wishes and were consensually agreed upon. Care Teams Registered Dietician Relationship Specialty Start Date End Date Milli Martin PA-C [address] [facility] [address] [place] [address] PCP - General Physician Plant Taxonomy Teacher 07/04/23 documented as of this encounter
--- OUTSIDE RECORDS SUMMARY | 2023-10-29 13:11 | External Medical Summary | Summary of Care ---
Author Name Unknown Organization [facility] Address [address] [place] [address] Phone [phone] Care Team Providers Care Kettle Tender Name Role Phone Milli Martin PA-C Primary Care Pro vider Reason for Visit * Reason Onset Date Comments Test Results 08/02/2023 Encounter Details Date Type Department Care Team (Late st Contact Info) Description 08/02/2023 Telephone Nephrology, [place] [address] [place] [address] Services, [facility] [address] [place] [address] Test Results Allergies Active Allergy Reactions Criticality [...] Wheezing. 18 g 3 10/21/2021 Active Ipratropium [place] HFA 17 MCG/ACT Inhalation Aerosol Solution (Atrovent [...] after steroid inhaler. Test performed by Fátima DELI DEPARTMENT MANAGER CPFT Bipolar affective disorder, currently depressed, moderate [...] encounter Miscellaneous Notes * Telephone Encounter - Rosibel Gould OSA [...] with lab results once they are read [phone] documented in this encounter Plan of Treatment Upcoming Encounters Date Type Department Care Team (Late st Contact Info) Description 01/30/2024 10:00 AM EDT Office Visit Nephrology [facility], [address] [place] [phone] Claudia Vincent PA-C [address] [place] [address] Health Maintenance Due Date Last Done Comments Mal[place] 2001 Fecal Occult Blood Test 2001 Sigmoidoscopy [...] 024, 08/12/2020, 09/11/2018 CKD HGB USE SMARTSET 96805 07/13/202407/13, 07/13/2023, 06/22/2023, Additional history exists O2 ASSESSMENT COMPLETED IN PAST YEAR FOR COPD 07/13/2024 07/13/2023 CKD PHOS USE SMARTSET 99080 07/31/202407/21, 07/13/2023, 06/22/2023, Additional history exists Diabetes Screening 07/31/2026 08/01/2023, 0 07/13/2023, 06/22/2023, Additional history exists Lipid Panel 06/23/2027 06/23/2022, 10/21, 10/14/2020, Additional history exists DTaP,Tdap,and Td Vaccines (2 - Td or Tdap) 04/20/2028 04/20/2018 DXA Scan 06/15/2030 06/15/2023, 03/23, 08/14/2003 Zoster Vaccines Completed 02/29/2020, 06/18/2019 Alpha-1 Antitrypsin Completed 10/21/2021 LUNG CANCER SCREENING - USE SMARTSET 62563 Completed 11/18/2021, 07/22/2021, 01/22/2021, Additional history exists [...] the patient have Health Care Power of Fiber Optics Technician? No Code Status History Code Status Date Activated Date Inactivated Comments Full Code 10/19/2018 10:42 AM 10/19/2018 5:02 PM This order reflects the patients wishes and were consensually agreed upon. Care Teams Kettle Tender Relationship Specialty Start Date End Date Milli Martin PA-C [address] [facility] [address] [place] [address] PCP - General Physician Ladle Operator 07/04/23 documented as of this encounter
--- OUTSIDE RECORDS SUMMARY | 2023-10-29 13:11 | External Medical Summary | Summary of Care ---
Author Name Unknown Organization [facility] Address [address] [facility] [place] [address] Phone [phone] Care Team Providers Care Surveillance Manager Name Role Phone Milli Martin PA-C Primary Care Pro vider Reason for Visit * Reason Onset Date Comments Test Results 08/02/2023 Encounter Details Date Type Department Care Team (Late st Contact Info) Description 08/02/2023 Telephone Nephrology, [place] [address] [place] [address] Tae Baird MD 200 [facility] [place] [address] Test Results Allergies Active Allergy Reactions Criticality Noted Date Comments Dust 08/11/2018 Gramineae Pollens 08/11/2018 Adhesive Tape Rash 09/22/2018 Paper tape and bandaids documented as of this encounter (statuses as of 08/05/2023) Medications Medication Sig Dispensed Refills Start Date [...] Wheezing. 18 g 3 10/21/2021 Active Ipratropium [place] HFA 17 MCG/ACT Inhalation Aerosol Solution (Atrovent [...] as of this encounter (statuses as of 08/05/2023) Active Problems Problem Noted Date Diagnosed Date [...] after steroid inhaler. Test performed by Fátima MOTION STUDY ENGINEER CPFT Bipolar affective disorder, currently depressed, moderate 01/09/2019 Degeneration of lumbar or lumbosacral interverte bral disc 07/03/2014 Thoracic or lumbosacral neur itis or radiculitis, unspecified 07/03/2014 Lumbago 07/03/2014 MIXED INCONTINENCE, URGE AND STRESS 02/10/2001 Anxiety state DIFFUS CYSTIC MASTOPATHY documented as of this encounter (statuses as of 08/05/2023) Resolved Problems Problem Noted Date Diagnosed Date [...] as of this encounter (statuses as of 08/05/2023) Immunizations Name Administration Dates Next Due COVID-19 [...] encounter Miscellaneous Notes * Telephone Encounter - Elida Jones OSA - 08/05/2023 9:47 AM EDT Pt calling again stating that she still needs the results from her urine test asking for a call back * Telephone Encounter - Chuyita Chavez LPN - 08/02/2023 3:21 PM EDT Pt aware States has been vomiting X [address] Baird is made aware of this change Per PO order pt to have Blood work rechecked in 10 days instead of 1 month Pt requests RX to [facility] Lab order placed in Like[facility] system Rx pended sent to for approval * [...] Upcoming Encounters Date Type Department Care Team ([facility] st Contact Info) Description 01/30/2024 10:00 AM EDT Office Visit Nephrology [address] [place] [phone] Claudia Vincent PA-C 200 [place] [address] Scheduled Orders Name Type Priority Associated Diagnoses [...] 024, 08/12/2020, 09/11/2018 CKD HGB USE SMARTSET 64546 07/13/202407/13, 07/13/2023, 06/22/2023, Additional history exists O2 ASSESSMENT COMPLETED IN PAST YEAR FOR COPD 07/13/2024 07/13/2023 CKD PHOS USE SMARTSET 07597 07/31/202407/21, 07/13/2023, 06/22/2023, Additional history exists Diabetes Screening 07/31/2026 08/01/2023, 0 07/13/2023, 06/22/2023, Additional history exists Lipid Panel 06/23/2027 06/23/2022, 10/21, 10/14/2020, Additional history exists DTaP,Tdap,and Td Vaccines (2 - Td or Tdap) 04/20/2028 04/20/2018 DXA Scan 06/15/2030 06/15/2023, 03/23, 08/14/2003 Zoster Vaccines Completed 02/29/2020, 06/18/2019 Alpha-1 Antitrypsin Completed 10/21/2021 LUNG CANCER SCREENING - USE SMARTSET 58252 Completed 11/18/2021, 07/22/2021, 01/22/2021, Additional history exists [...] the patient have Health Care Power of Chamber Walker? No Code Status History Code Status Date Activated Date Inactivated Comments Full Code 10/19/2018 10:42 AM 10/19/2018 5:02 PM This order reflects the patients wishes and were consensually agreed upon. Care Teams Surveillance Manager Relationship Specialty Start Date End Date Milli Martin PA-C [address] [facility] [address] [place] [phone] PCP - General Physician Master Sonar Technician 07/04/23 documented as of this encounter
--- OUTSIDE RECORDS SUMMARY | 2023-10-29 13:11 | External Medical Summary | Summary of Care ---
Author Name Unknown Organization [facility] Address [address] [facility] [place] [address] Phone [phone] Care Team Providers Care Data Center Manager Name Role Phone Milli Martin PA-C Primary Care Pro vider Reason for Visit * Reason Comments Outpatient Testing Encounter Details Date Type Department Care Team (Late st Contact Info) Description 10/25/2023 3:30 PM EDT [facility] [phone] Street, Specimen Drop Off [address] [phone] DM type 2, not at goal (HCC); Urinary tract infection; Uremic pericarditis Allergies Active Allergy Reactions Criticality Noted Date [...] Wheezing. 18 g 3 10/21/2021 Active Ipratropium [place] HFA 17 MCG/ACT Inhalation Aerosol Solution (Atrovent [...] after steroid inhaler. Test performed by Fátima CRAB MEAT PROCESSOR CPFT Bipolar affective disorder, currently depressed, moderate [...] Upcoming Encounters Date Type Department Care Team ([facility] Contact Info) Description 01/19/2024 11:30 AM EDT Office Visit Nephrology [address] [place] [phone] Claudia Vincent PA-C [address] [place] [address] Pending Results Name Type Priority Associated Diagnoses Date /Time CBC WITH WBC DIFFERENTIAL Lab Routine DM type 2, not at goal (HCC) Urinary tract infection Uremic pericarditis 10/25/2023 3:33 PM EDT COMPREHENSIVE METABOLIC PANEL Lab STAT DM type 2, not at goal (HCC) Urinary tract infection Uremic pericarditis 10/25/2023 3:33 PM EDT CULTURE, URINE, QUANTITATIVE Lab Routine DM type 2, not at goal (HCC) Urinary tract infection Uremic pericarditis 10/25/2023 3:33 PM EDT CBC Lab Routine DM type 2, not at goal (HCC) Urinary tract infection Uremic pericarditis 10/25/2023 3:33 PM EDT DIFFERENTIAL, AUTOMATED Lab Routine DM type 2, not at goal (HCC) Urinary tract infection Uremic pericarditis 10/25/2023 3:33 PM EDT Health Maintenance Due Date Last [...] Additional history exists CKD HGB USE SMARTSET 26644 07/13/202407/13, 07/13/2023, 06/22/2023, Additional history exists O2 ASSESSMENT COMPLETED IN PAST YEAR FOR COPD 07/13/2024 07/13/2023 Albumin/Creatinine Ratio 08/23/2024 024, 06/16/2023, 08/12/2020, Additional history exists CKD PHOS USE SMARTSET 10724 08/23/2024 04/0 07/2023, 08/01/2023, 07/13/2023, Additional history [...] as of this encounter Visit Diagnoses Diagnosis DM type 2, not at goal (HCC) Type II or unspecified type diabetes mellitus without mention of complication, not stated as uncontrolled Urinary tract infection Urinary tract infection, site not specified Uremic pericarditis Chronic kidney disease, unspecified documented in this encounter Advance Directives * [...] and were consensually agreed upon. Care Teams Data Center Manager Relationship Specialty Start Date End Date Milli Martin PA-C [address] [facility] [address] [place] [address] PCP - General Physician Hose Tender 07/04/23 documented as of this encounter
--- OUTSIDE RECORDS SUMMARY | 2023-10-29 13:12 | External Medical Summary | Summary of Care ---
Author Name Unknown Organization [facility] Address [address] [facility] [place] [address] Phone [phone] Care Team Providers Care Assayer Helper Name Role Phone Milli Martin PA-C Primary Care Pro vider Reason for Visit * Reason Comments Outpatient Testing Encounter Details Date Type Department Care Team (Late st Contact Info) Description 08/01/2023 12:40 PM EDT Laboratory Laboratory Patient Service [address] [phone] [address] [address] Chronic kidney disease, stage 3b (HCC) Allergies Active Allergy Reactions Criticality Noted Date Comments Dust 08/11/2018 Gramineae Pollens 08/11/2018 Adhesive Tape Rash 09/22/2018 Paper tape and bandaids documented as of this encounter (statuses as of 08/01/2023) Medications Medication Sig Dispensed Refills Start Date [...] Wheezing. 18 g 3 10/21/2021 Active Ipratropium [place] HFA 17 MCG/ACT Inhalation Aerosol Solution (Atrovent Hfa) Inhale by mouth 2 Puffs every 6 hours . 12.9 g 12 10/23/2021 Active oxygen IN GASIndications:Nocturn al hypoxemia Use as directed 4 L/min(Oxygen) at bedtime . 1 Each 0 10/30/2021 Active documented as of this encounter (statuses as of 08/01/2023) Active Problems Problem Noted Date Diagnosed Date [...] after steroid inhaler. Test performed by Fátima CORPORATE EVENT PLANNER CPFT Bipolar affective disorder, currently depressed, moderate 01/09/2019 Degeneration of lumbar or lumbosacral interverte bral disc 07/03/2014 Thoracic or lumbosacral neur itis or radiculitis, unspecified 07/03/2014 Lumbago 07/03/2014 MIXED INCONTINENCE, URGE AND STRESS 02/10/2001 Anxiety state DIFFUS CYSTIC MASTOPATHY documented as of this encounter (statuses as of 08/01/2023) Resolved Problems Problem Noted Date Diagnosed Date [...] as of this encounter (statuses as of 08/01/2023) Immunizations Name Administration Dates Next Due COVID-19 [...] Upcoming Encounters Date Type Department Care Team ([facility] st Contact Info) Description 01/30/2024 10:00 AM EDT Office Visit Nephrology [facility], [address] [place] [phone] Claudia Vincent PA-C 200 [place] [address] Pending Results Name Type Priority Associated Diagnoses Date /Time RENAL FUNCTION PANEL Lab Routine Chronic kidney disease, stage 3b (HCC) 08/01/2023 12:42 PM EDT URINALYSIS WITH MICROSCOPIC EXAM Lab Routine Chronic kidney disease, stage 3b (HCC) 08/01/2023 12:42 PM EDT PROTEIN/ CREATININE RATIO, URINE Lab Routine Chronic kidney disease, stage 3b (HCC) 08/01/2023 12:42 PM EDT Health Maintenance Due Date Last [...] 01/31/2020, 02/28/2019, 03/07/2018, Additional history exists GFR 01/11/2024 07/13/2023, 05/25, 06/16/2023, Additional history exists Mammogram 06/07/2024 06/07/2023, 06/24, 04/10/2020, Additional history exists Albumin/Creatinine Ratio 06/16/2024 024, 08/12/2020, 09/11/2018 CKD HGB USE SMARTSET 09556 07/13/202407/13, 07/13/2023, 06/22/2023, Additional history exists CKD PHOS USE SMARTSET 35877 07/13/202406/24, 06/22/2023, 11/10/2020, Additional history exists O2 ASSESSMENT COMPLETED IN PAST YEAR FOR COPD 07/13/2024 07/13/2023 Diabetes Screening 07/13/2026 07/13/2023, 0 06/22/2023, 06/16/2023, Additional history exists Lipid Panel 06/23/2027 06/23/2022, 10/21, 10/14/2020, Additional history exists DTaP,Tdap,and Td Vaccines (2 - Td or Tdap) 04/20/2028 04/20/2018 DXA Scan 06/15/2030 06/15/2023, 03/23, 08/14/2003 Zoster Vaccines Completed 02/29/2020, 06/18/2019 Alpha-1 Antitrypsin Completed 10/21/2021 LUNG CANCER SCREENING - USE SMARTSET 25725 Completed 11/18/2021, 07/22/2021, 01/22/2021, Additional history exists [...] Diagnosis Chronic kidney disease, stage 3b (HCC) documented in this encounter Advance Directives Latest Code Status on File Code Status Date Activated Date Inactivated Comments Full Code 11/10/2020 6:16 PM 11/12/2020 5:12 PM This order reflects the patients wishes and were consensually agreed upon. Question Answer Comments Discussion of Advance Directives occurred with: Patient Does the patient have a Living Will? No Does the patient have Health Care Power of Unionmelt Operator? No Code Status History Code Status Date Activated Date Inactivated Comments Full Code 10/19/2018 10:42 AM 10/19/2018 5:02 PM This order reflects the patients wishes and were consensually agreed upon. Care Teams Assayer Helper Relationship Specialty Start Date End Date Milli Martin PA-C [address] [facility] [address] [place] [address] PCP - General Physician Range Aide 07/04/23 documented as of this encounter
--- OUTSIDE RECORDS SUMMARY | 2023-10-29 13:12 | External Medical Summary ---
Author Name Unknown Address Unknown Organization [id number]:[facility] [address] [place] [address] Laboratory Report Ordering Provider Test Date Status HPUONG HAYES 07/14/2023 14:26:13 Final Normal: <150 mg/ g creatinine
High: 150-500 mg/g creatinine
Very High: >500 mg/g creatinine
Nephrotic: >3000 mg/g creatinine Observation Date Value Abnormality Reference (Units ) Status Protein/Creatinine [Ratio] in Urine 07/14/2023 14:26:13 255 Above high normal <150 (mg/g ) Final Protein, Urine 07/14/2023 14:26:13 12 (mg/dL) Final Creatinine, Urine 07/14/2023 14:26:13 47 (mg/dL) Final Performing Location [facility] [place] [address] [place] [address]
--- OUTSIDE RECORDS SUMMARY | 2023-10-29 13:12 | External Medical Summary | Summary of Care ---
Author Name Unknown Organization [facility] Address [address] [facility] [place] [address] Phone [phone] Care Team Providers Care Canvas Worker Apprentice Name Role Phone Milli Martin PA-C Primary Care Pro vider Reason for Visit * Reason Onset Date Comments Test Results 07/18/2023 Encounter Details Date Type Department Care Team (Late st Contact Info) Description 07/18/2023 Telephone Nephrology, [facility] [address] [place] [address] Tae Baird MD 200 [facility] [place] [address] Test Results Allergies Active Allergy Reactions Criticality Noted Date Comments Dust 08/11/2018 Gramineae Pollens 08/11/2018 Adhesive Tape Rash 09/22/2018 Paper tape and bandaids documented as of this encounter (statuses as of 07/18/2023) Medications Medication Sig Dispensed Refills Start Date [...] Wheezing. 18 g 3 10/21/2021 Active Ipratropium [place] HFA 17 MCG/ACT Inhalation Aerosol Solution (Atrovent Hfa) Inhale by mouth 2 Puffs every 6 hours . 12.9 g 12 10/23/2021 Active oxygen IN GASIndications:Nocturn al hypoxemia Use as directed 4 L/min(Oxygen) at bedtime . 1 Each 0 10/30/2021 Active documented as of this encounter (statuses as of 07/18/2023) Active Problems Problem Noted Date Diagnosed Date [...] after steroid inhaler. Test performed by Fátima ULTIMATE HOOPS TRAINER CPFT Bipolar affective disorder, currently depressed, moderate 01/09/2019 Degeneration of lumbar or lumbosacral interverte bral disc 07/03/2014 Thoracic or lumbosacral neur itis or radiculitis, unspecified 07/03/2014 Lumbago 07/03/2014 MIXED INCONTINENCE, URGE AND STRESS 02/10/2001 Anxiety state DIFFUS CYSTIC MASTOPATHY documented as of this encounter (statuses as of 07/18/2023) Resolved Problems Problem Noted Date Diagnosed Date [...] as of this encounter (statuses as of 07/18/2023) Immunizations Name Administration Dates Next Due COVID-19 [...] Telephone Encounter - Chuyita Chavez LPN - 07/18/2023 12:39 PM EST Pt is aware * Telephone Encounter - Chuyita Chavez LPN - 07/18/2023 12:37 PM EST ----- Message from Tae Baird MD sent at 07/18/2023 11:56 AM EST ----- Urine test unremarkable. No blood and mild proteinuria only . C/c to PCP documented in this encounter Plan of Treatment Upcoming Encounters Date Type Department Care Team ([facility] st Contact Info) Description 01/30/2024 10:00 AM EDT Office Visit Nephrology [address] [place] [address] Claudia Vincent PA-C 200 [place] [address] Health Maintenance Due Date Last Done Comments [...] 024, 08/12/2020, 09/11/2018 CKD HGB USE SMARTSET 72780 07/13/202407/13, 07/13/2023, 06/22/2023, Additional history exists CKD PHOS USE SMARTSET 79272 07/13/202406/24, 06/22/2023, 11/10/2020, Additional history exists O2 [...] 10/21/2021 LUNG CANCER SCREENING - USE SMARTSET 23762 Completed 11/18/2021, 07/22/2021, 01/22/2021, Additional history exists [...] the patient have Health Care Power of Fire Prevention Forester? No Code Status History Code Status Date Activated Date Inactivated Comments Full Code 10/19/2018 10:42 AM 10/19/2018 5:02 PM This order reflects the patients wishes and were consensually agreed upon. Care Teams Canvas Worker Apprentice Relationship Specialty Start Date End Date Milli Martin PA-C [address] [facility] [address] [place] [address] PCP - General Physician Courtesy Booth Cashier 07/04/23 documented as of this encounter
--- OUTSIDE RECORDS SUMMARY | 2023-10-29 13:12 | External Medical Summary | Summary of Care ---
Author Name Unknown Organization [facility] Address [address] [facility] [place] [address] Phone [phone] Care Team Providers Care Inspector Circuitry Negative Name Role Phone Milli Martin PA-C Primary Care Pro vider Reason for Visit * Reason Comments Outpatient Testing Encounter Details Date Type Department Care Team (Late st Contact Info) Description 07/13/2023 12:10 PM [facility] Laboratory Laboratory Patient Service [address] [phone] [address] [address] TONY (acute kidney injury) ([facility]); Stage 3b chronic kidney disease (HCC) Allergies Active Allergy Reactions Criticality Noted Date Comments Dust 08/11/2018 Gramineae Pollens 08/11/2018 Adhesive Tape Rash 09/22/2018 Paper tape and bandaids documented as of this encounter (statuses as of 07/13/2023) Medications Medication Sig Dispensed Refills Start Date [...] Wheezing. 18 g 3 10/21/2021 Active Ipratropium [place] HFA 17 MCG/ACT Inhalation Aerosol Solution (Atrovent Hfa) Inhale by mouth 2 Puffs every 6 hours . 12.9 g 12 10/23/2021 Active oxygen IN GASIndications:Nocturn al hypoxemia Use as directed 4 L/min(Oxygen) at bedtime . 1 Each 0 10/30/2021 Active documented as of this encounter (statuses as of 07/13/2023) Active Problems Problem Noted Date Diagnosed Date [...] after steroid inhaler. Test performed by Fátima WORK CAR OPERATOR CPFT Bipolar affective disorder, currently depressed, moderate 01/09/2019 Degeneration of lumbar or lumbosacral interverte bral disc 07/03/2014 Thoracic or lumbosacral neur itis or radiculitis, unspecified 07/03/2014 Lumbago 07/03/2014 MIXED INCONTINENCE, URGE AND STRESS 02/10/2001 Anxiety state DIFFUS CYSTIC MASTOPATHY documented as of this encounter (statuses as of 07/13/2023) Resolved Problems Problem Noted Date Diagnosed Date [...] as of this encounter (statuses as of 07/13/2023) Immunizations Name Administration Dates Next Due COVID-19 [...] Upcoming Encounters Date Type Department Care Team ([facility] st Contact Info) Description 01/30/2024 10:00 AM EDT Office Visit Nephrology [facility], [address] [place] [address] Claudia Vincent PA-C 200 [place] [address] Pending Results Name Type Priority Associated Diagnoses Date /Time CBC WITH WBC DIFFERENTIAL Lab Routine TONY (acute kidney injury) (HCC) Stage 3b chronic kidney disease (HCC) 07/13/2023 12:05 PM EST HEPATITIS C ANTIBODY SCREEN WITH PROGRESSION TO HEPATITIS C RNA QUANTITATIVE Lab Routine TONY (acute kidney injury) (HCC) Stage 3b chronic kidney disease (HCC) 07/13/2023 12:05 PM EST DOUBLE STRANDED DNA (DSDNA) ANTIBODY, IFA Lab Routine TONY (acute kidney injury) (HCC) Stage 3b chronic kidney disease (HCC) 07/13/2023 12:05 PM EST ANCA REFLEX PANEL Lab Routine TONY (acute kidney injury) (HCC) Stage 3b chronic kidney disease (HCC) 07/13/2023 12:05 PM EST ANTINUCLEAR ANTIBODY (DION) EIA SCREEN WITH REFLEX AB QUANT Lab Routine TONY (acute kidney injury) (HCC) Stage 3b chronic kidney disease (HCC) 07/13/2023 12:05 PM EST COMPLEMENT C3 Lab Routine TONY (acute kidney injury) (HCC) Stage 3b chronic kidney disease (HCC) 07/13/2023 12:05 PM EST COMPLEMENT C4 Lab Routine TONY (acute kidney injury) (HCC) Stage 3b chronic kidney disease (HCC) 07/13/2023 12:05 PM EST PTH Lab Routine TONY (acute kidney injury) (HCC) Stage 3b chronic kidney disease (HCC) 07/13/2023 12:05 PM EST RENAL FUNCTION PANEL Lab Routine TONY (acute kidney injury) (HCC) Stage 3b chronic kidney disease (HCC) 07/13/2023 12:05 PM EST 25-HYDROXY VITAMIN D Lab Routine TONY (acute kidney injury) (HCC) Stage 3b chronic kidney disease (HCC) 07/13/2023 12:05 PM EST MAGNESIUM Lab Routine TONY (acute kidney injury) (HCC) Stage 3b chronic kidney disease (HCC) 07/13/2023 12:05 PM EST IRON SCREEN, INCLUDING TIBC Lab Routine TONY (acute kidney injury) (HCC) Stage 3b chronic kidney disease (HCC) 07/13/2023 12:05 PM EST SERUM IMMUNOFIXATION Lab Routine TONY (acute kidney injury) (HCC) Stage 3b chronic kidney disease (HCC) 07/13/2023 12:05 PM EST CBC Lab Routine TONY (acute kidney injury) (HCC) Stage 3b chronic kidney disease (HCC) 07/13/2023 12:05 PM EST DIFFERENTIAL, AUTOMATED Lab Routine TONY (acute kidney injury) (HCC) Stage 3b chronic kidney disease (HCC) 07/13/2023 12:05 PM EST HEPATITIS C ANTIBODY Lab Routine TONY (acute kidney injury) (HCC) Stage 3b chronic kidney disease (HCC) 07/13/2023 12:05 PM EST HEPATITIS C RNA ADD ON Lab Routine TONY (acute kidney injury) (HCC) Stage 3b chronic kidney disease (HCC) 07/13/2023 12:05 PM EST ANCA, IFA Lab Routine TONY (acute kidney injury) (HCC) Stage 3b chronic kidney disease (HCC) 07/13/2023 12:05 PM EST ANTINUCLEAR ANTIBODY (DION) SCREEN, EVI Lab Routine TONY (acute kidney injury) (HCC) Stage 3b chronic kidney disease (HCC) 07/13/2023 12:05 PM EST ALKALINE PHOSPHATASE Lab Routine TONY (acute kidney injury) (HCC) Stage 3b chronic kidney disease (HCC) 07/13/2023 12:05 PM EST PROTEIN Lab Routine TONY (acute kidney injury) (HCC) Stage 3b chronic kidney disease (HCC) 07/13/2023 12:05 PM EST AST Lab Routine TONY (acute kidney injury) (HCC) Stage 3b chronic kidney disease (HCC) 07/13/2023 12:05 PM EST ALT Lab Routine TONY (acute kidney injury) (HCC) Stage 3b chronic kidney disease (HCC) 07/13/2023 12:05 PM EST BILIRUBIN, DIRECT Lab Routine TONY (acute kidney injury) (HCC) Stage 3b chronic kidney disease (HCC) 07/13/2023 12:05 PM EST BILIRUBIN, TOTAL Lab Routine TONY (acute kidney injury) (HCC) Stage 3b chronic kidney disease (HCC) 07/13/2023 12:05 PM EST Health Maintenance Due Date Last Done Comments [...] 01/31/2020, 02/28/2019, 03/07/2018, Additional history exists GFR 12/21/2023 06/22/2023, 05/24, 06/07/2023, Additional history exists Mammogram 06/07/2024 06/07/2023, 06/24, 04/10/2020, Additional history exists Albumin/Creatinine Ratio 06/16/2024 024, 08/12/2020, 09/11/2018 CKD HGB USE SMARTSET 88024 06/22/202406/22, 06/22/2023, 06/07/2023, Additional history exists CKD PHOS USE SMARTSET 28205 06/22/202405/25, 11/10/2020, 10/31/2020, Additional history exists O2 ASSESSMENT COMPLETED IN PAST YEAR FOR COPD 07/13/2024 07/13/2023 Diabetes Screening 06/22/2026 06/22/2023, 0 06/16/2023, 06/07/2023, Additional history exists Lipid Panel 06/23/2027 06/23/2022, 10/21, 10/14/2020, Additional history exists DTaP,Tdap,and Td Vaccines (2 - Td or Tdap) 04/20/2028 04/20/2018 DXA Scan 06/15/2030 06/15/2023, 03/23, 08/14/2003 Zoster Vaccines Completed 02/29/2020, 06/18/2019 Alpha-1 Antitrypsin Completed 10/21/2021 LUNG CANCER SCREENING - USE SMARTSET 75928 Completed 11/18/2021, 07/22/2021, 01/22/2021, Additional history exists [...] as of this encounter Visit Diagnoses Diagnosis TONY (acute kidney injury) (HCC) Acute kidney failure, unspecified Stage 3b chronic kidney disease (HCC) documented in this encounter Advance Directives [...] the patient have Health Care Power of Manager Nursing Home? No Code Status History Code Status Date Activated Date Inactivated Comments Full Code 10/19/2018 10:42 AM 10/19/2018 5:02 PM This order reflects the patients wishes and were consensually agreed upon. Care Teams Inspector Circuitry Negative Relationship Specialty Start Date End Date Milli Martin PA-C [address] [place] [address] PCP - General Physician Bicycle Rental Clerk 07/04/23 documented as of this encounter
--- OUTSIDE RECORDS SUMMARY | 2023-10-29 13:12 | External Medical Summary ---
Author Name Unknown Address Unknown Organization K01:[facility] [place] [address] [place] [address] Laboratory Report Ordering Provider Test Date Status PHUONG HAYES 08/01/2023 12:42:46 Final Normal: <150 mg/ g creatinine
High: 150-500 mg/g creatinine
Very High: >500 mg/g creatinine
Nephrotic: >3000 mg/g creatinine Observation Date Value Abnormality Reference (Units ) Status Protein/Creatinine [Ratio] in Urine 08/01/2023 12:42:46 229 Above high normal <150 (mg/g ) Final Protein, Urine 08/01/2023 12:42:46 11 (mg/dL) Final Creatinine, Urine 08/01/2023 12:42:46 48 (mg/dL) Final Performing Location [facility] [place] [address] [place] [address]
--- OUTSIDE RECORDS SUMMARY | 2023-10-29 13:12 | External Medical Summary ---
Author Name Unknown Address Unknown Organization K01:[facility] [place] - [address] [place] [address] Laboratory Report Ordering Provider Test Date Status PHUONG HAYES 07/14/2023 14:26:28 Final Observation Date Value Abnormality Reference (Units) Status PARAPROTEIN NORMAL/ABNORMAL 07/14/2023 14:26:28 Normal Normal Final Protein, Urine 07/14/2023 14:26:28 12 (mg/dL) Final Immunofixation for Urine Narrative 07/14/2023 14:26:28 No monoclonal free light chains present (Bence Lundberg protein). Final Performing Location [facility] [place] - [address] [place] [address]
--- OUTSIDE RECORDS SUMMARY | 2023-10-29 13:12 | External Medical Summary | Summary of Care ---
Author Name Unknown Organization [facility] Address [address] [place] [address] Phone [phone] Care Team Providers Care Shot Tube Machine Tender Name Role Phone Milli Martin PA-C Primary Care Pro vider Reason for Visit * Reason Onset Date Comments Test Results 08/02/2023 Encounter Details Date Type Department Care Team (Late st Contact Info) Description 08/02/2023 Telephone Nephrology, [place] [address] [place] [address] Services, [facility] [address] [place] [address] Test Results Allergies Active Allergy Reactions Criticality [...] Wheezing. 18 g 3 10/21/2021 Active Ipratropium [employer] HFA 17 MCG/ACT Inhalation Aerosol Solution (Atrovent [...] after steroid inhaler. Test performed by Fátima SHIRT LINE OPERATOR CPFT Bipolar affective disorder, currently depressed, [...] with lab results once they are read [phone] documented in this encounter Plan of Treatment Upcoming Encounters Date Type Department Care Team ([facility] Contact Info) Description 01/30/2024 10:00 AM EDT Office Visit Nephrology [address] [place] [address] Claudia Vincent PA-C 200 [facility] [place] [address] Health Maintenance Due Date Last Done Comments [...] 024, 08/12/2020, 09/11/2018 CKD HGB USE SMARTSET 74765 07/13/202407/13, 07/13/2023, 06/22/2023, Additional history exists O2 ASSESSMENT COMPLETED IN PAST YEAR FOR COPD 07/13/2024 07/13/2023 CKD PHOS USE SMARTSET 43146 07/31/202407/21, 07/13/2023, 06/22/2023, Additional history exists Diabetes Screening 07/31/2026 08/01/2023, 0 07/13/2023, 06/22/2023, Additional history exists Lipid Panel 06/23/2027 06/23/2022, 10/21, 10/14/2020, Additional history exists DTaP,Tdap,and Td Vaccines (2 - Td or Tdap) 04/20/2028 04/20/2018 DXA Scan 06/15/2030 06/15/2023, 03/23, 08/14/2003 Zoster Vaccines Completed 02/29/2020, 06/18/2019 Alpha-1 Antitrypsin Completed 10/21/2021 LUNG CANCER SCREENING - USE SMARTSET 39346 Completed 11/18/2021, 07/22/2021, 01/22/2021, Additional history exists [...] the patient have Health Care Power of Special Skills Officer? No Code Status History Code Status Date Activated Date Inactivated Comments Full Code 10/19/2018 10:42 AM 10/19/2018 5:02 PM This order reflects the patients wishes and were consensually agreed upon. Care Teams Shot Tube Machine Tender Relationship Specialty Start Date End Date Milli Martin PA-C [address] [facility] [address] [place] [address] PCP - General Physician Oracle R12 Developer 07/04/23 documented as of this encounter
--- OUTSIDE RECORDS SUMMARY | 2023-10-29 13:12 | External Medical Summary | Summary of Care ---
Author Name Unknown Organization [facility] Address [address] [place] [address] Phone [phone] Care Team Providers Care Early Education Teacher Name Role Phone Milli Martin PA-C Primary Care Pro vider Reason for Visit * Reason Onset Date Comments Test Results 07/14/2023 Encounter Details Date Type Department Care Team (Late st Contact Info) Description 07/14/2023 Telephone Nephrology, [place] [address] [place] [address] Services, [facility] [address] [place] [address] Test Results Allergies Active Allergy Reactions Criticality Noted Date Comments Dust 08/11/2018 Gramineae Pollens 08/11/2018 Adhesive Tape Rash 09/22/2018 Paper tape and bandaids documented as of this encounter (statuses as of 07/14/2023) Medications Medication Sig Dispensed Refills Start Date [...] Wheezing. 18 g 3 10/21/2021 Active Ipratropium [place] HFA 17 MCG/ACT Inhalation Aerosol Solution (Atrovent Hfa) Inhale by mouth 2 Puffs every 6 hours . 12.9 g 12 10/23/2021 Active oxygen IN GASIndications:Nocturn al hypoxemia Use as directed 4 L/min(Oxygen) at bedtime . 1 Each 0 10/30/2021 Active documented as of this encounter (statuses as of 07/14/2023) Active Problems Problem Noted Date Diagnosed Date [...] after steroid inhaler. Test performed by Fátima HEADER BOSS CPFT Bipolar affective disorder, currently depressed, moderate 01/09/2019 Degeneration of lumbar or lumbosacral interverte bral disc 07/03/2014 Thoracic or lumbosacral neur itis or radiculitis, unspecified 07/03/2014 Lumbago 07/03/2014 MIXED INCONTINENCE, URGE AND STRESS 02/10/2001 Anxiety state DIFFUS CYSTIC MASTOPATHY documented as of this encounter (statuses as of 07/14/2023) Resolved Problems Problem Noted Date Diagnosed Date [...] as of this encounter (statuses as of 07/14/2023) Immunizations Name Administration Dates Next Due COVID-19 [...] (15 years old or older) No 11/11/19 21 Cognitive Status Response Date of Assessm ent Because of a physical, menta l, or emotional condition, do you have serious difficulty concentrating, remembering, or making decisions? (5 years old or older) No 11/10/2020 documented as of this encounter Miscellaneous Notes * Telephone Encounter - Heike Talley OSA - 07/14/2023 9:02 AM EST Pt called she would like her lab results if someone can please call her [phone] documented in this encounter Plan of Treatment Upcoming Encounters Date Type Department Care Team ([facility] Contact Info) Description 01/30/2024 10:00 AM EDT Office Visit Nephrology [address] [place] [address] Claudia Vincent PA-C [address] [place] [address] Health Maintenance Due Date Last Done Comments [...] 024, 08/12/2020, 09/11/2018 CKD HGB USE SMARTSET 09653 07/13/202407/13, 07/13/2023, 06/22/2023, Additional history exists CKD PHOS USE SMARTSET 18946 07/13/202406/24, 06/22/2023, 11/10/2020, Additional history exists O2 [...] 10/21/2021 LUNG CANCER SCREENING - USE SMARTSET 87125 Completed 11/18/2021, 07/22/2021, 01/22/2021, Additional history exists [...] the patient have Health Care Power of Ply Splicer? No Code Status History Code Status Date Activated Date Inactivated Comments Full Code 10/19/2018 10:42 AM 10/19/2018 5:02 PM This order reflects the patients wishes and were consensually agreed upon. Care Teams Early Education Teacher Relationship Specialty Start Date End Date Milli Martin PA-C [address] [facility] [address] [place] [address] PCP - General Physician Carver Hand 07/04/23 documented as of this encounter
--- OUTSIDE RECORDS SUMMARY | 2023-10-29 13:12 | External Medical Summary ---
Author Name Unknown Address Unknown Organization K01:LABORATORY [facility] [place] - [address] [place] [address] Laboratory Report Ordering Provider Test Date Status PHUONG HAYES 08/01/2023 12:42:46 Final Observation Date Value Abnormality Reference (Units ) Status BUN 08/01/2023 12:42:46 11 6-20 (mg/dL) Final Creatinine 08/01/2023 12:42:46 2.4 Above high normal 0.5-1.0 (mg/dL) Final Glomerular filtration rate/1.73 sq M.predicted [Volume Rate/Area] in Serum, Plasma or Blood by Creatinine-based formula (CKD-EPI) 08/01/2023 12:42:46 22 Below low normal >=60 (mL/min) Final eGFR is calculated based on the CKD-EPI 2020 equation SODIUM 08/01/2023 12:42:46 142 135-146 (m mol/L) Final Potassium 08/01/2023 12:42:46 4.5 3.5-5.1 (m mol/L) Final Cl 08/01/2023 12:42:46 117 Above high normal 98 -107 (mmol/L) Final CO2 08/01/2023 12:42:46 14 Below low normal 22- 32 (mmol/L) Final Anion gap 08/01/2023 12:42:46 11 7-15 (mmol /L) Final Glucose 08/01/2023 12:42:46 102 70-120 (mg /dL) Final Calcium 08/01/2023 12:42:46 8.9 8.4-10.2 ( mg/dL) Final Albumin 08/01/2023 12:42:46 4.2 3.8-5.0 (g /dL) Final Phosphate 08/01/2023 12:42:46 3.7 2.5-4.8 (m g/dL) Final Performing Location LABORATORY C - [address] [place] [address]
--- OUTSIDE RECORDS SUMMARY | 2023-10-29 13:12 | External Medical Summary | Summary of Care ---
Author Name Unknown Organization [facility] Address [address] [facility] [place] [address] Phone [phone] Care Team Providers Care Public Speaker Name Role Phone Milli Martin PA-C Primary Care Pro vider Reason for Visit * Reason Onset Date Comments Other 07/14/2023 Encounter Details Date Type Department Care Team (Late st Contact Info) Description 07/14/2023 Telephone Nephrology, [facility] [address] [place] [address] Tae Baird MD 200 [facility] [place] [id number] Other Allergies Active Allergy Reactions Criticality Noted Date [...] Wheezing. 18 g 3 10/21/2021 Active Ipratropium [place] HFA 17 MCG/ACT Inhalation Aerosol Solution (Atrovent [...] after steroid inhaler. Test performed by Fátima HIGH SCHOOL COORDINATOR CPFT Bipolar affective disorder, currently depressed, moderate [...] Telephone Encounter - Chuyita Chavez LPN - 07/14/2023 10:37 AM EST This is duplicate call Message sent to Dr Lee Pt failed to provide UA specimen at time of lab drawn Pt will try to get done today * Telephone Encounter - Nusrat Serrano OSA - 07/14/2023 10:21 AM EST Pt called in again and was wondering if she can get a phone about her lab results please reach out to pt. * Telephone Encounter - Rosalina Vallecillo CPhT - 07/14/2023 8:43 AM EST Pt calling in asking office to call her regarding her test results Pt can be reached at [phone] Thank you, Rosalina Vallecillo CPhT II Dental Technology Advisor [facility] ([facility]) (Formerly Telepharmacy) 07/14/2023, 8:43 AM documented in this encounter Plan of Treatment Upcoming Encounters Date Type Department Care Team ([facility] Contact Info) Description 01/30/2024 10:00 AM EDT Office Visit Nephrology [address] [place] [address] Claudia Vincent PA-C [address] [facility], [place] [address] Health Maintenance Due Date Last Done Comments [...] 024, 08/12/2020, 09/11/2018 CKD HGB USE SMARTSET 07887 07/13/202407/13, 07/13/2023, 06/22/2023, Additional history exists CKD PHOS USE SMARTSET 88071 07/13/202406/24, 06/22/2023, 11/10/2020, Additional history exists O2 [...] 10/21/2021 LUNG CANCER SCREENING - USE SMARTSET 13183 Completed 11/18/2021, 07/22/2021, 01/22/2021, Additional history exists [...] the patient have Health Care Power of Remote Advisor? No Code Status History Code Status Date Activated Date Inactivated Comments Full Code 10/19/2018 10:42 AM 10/19/2018 5:02 PM This order reflects the patients wishes and were consensually agreed upon. Care Teams Public Speaker Relationship Specialty Start Date End Date Milli Martin PA-C [address] [facility] [address] [place] [address] PCP - General Physician Model Dresser 07/04/23 documented as of this encounter
--- OUTSIDE RECORDS SUMMARY | 2023-10-29 13:12 | External Medical Summary | Summary of Care ---
Author Name Unknown Organization [facility] Address [address] [place] [address] Phone [phone] Care Team Providers Care Welding Machine Operator Helper Gas Name Role Phone Milli Martin PA-C Primary Care Pro vider Reason for Visit * Reason Onset Date Comments Test Results 08/02/2023 Encounter Details Date Type Department Care Team (Late st Contact Info) Description 08/02/2023 Telephone Nephrology, [place] [address] [place] [address] Services, [facility] [address] [place] [address] Test Results Allergies Active Allergy Reactions Criticality [...] Wheezing. 18 g 3 10/21/2021 Active Ipratropium [place] HFA 17 MCG/ACT Inhalation Aerosol Solution (Atrovent [...] after steroid inhaler. Test performed by Fátima MIRROR FABRICATION SUPERVISOR CPFT Bipolar affective disorder, currently depressed, moderate [...] with lab results once they are read [phone] documented in this encounter Plan of Treatment Upcoming Encounters Date Type Department Care Team ([facility] Contact Info) Description 01/30/2024 10:00 AM EDT Office Visit Nephrology [address] [place] [address] Claudia Vincent PA-C [address] [place] [address] Health Maintenance Due Date Last Done Comments [...] 024, 08/12/2020, 09/11/2018 CKD HGB USE SMARTSET 69388 07/13/202407/13, 07/13/2023, 06/22/2023, Additional history exists O2 ASSESSMENT COMPLETED IN PAST YEAR FOR COPD 07/13/2024 07/13/2023 CKD PHOS USE SMARTSET 12701 07/31/202407/21, 07/13/2023, 06/22/2023, Additional history exists Diabetes Screening 07/31/2026 08/01/2023, 0 07/13/2023, 06/22/2023, Additional history exists Lipid Panel 06/23/2027 06/23/2022, 10/21, 10/14/2020, Additional history exists DTaP,Tdap,and Td Vaccines (2 - Td or Tdap) 04/20/2028 04/20/2018 DXA Scan 06/15/2030 06/15/2023, 03/23, 08/14/2003 Zoster Vaccines Completed 02/29/2020, 06/18/2019 Alpha-1 Antitrypsin Completed 10/21/2021 LUNG CANCER SCREENING - USE SMARTSET 71609 Completed 11/18/2021, 07/22/2021, 01/22/2021, Additional history exists [...] the patient have Health Care Power of Tool Maker Bench? No Code Status History Code Status Date Activated Date Inactivated Comments Full Code 10/19/2018 10:42 AM 10/19/2018 5:02 PM This order reflects the patients wishes and were consensually agreed upon. Care Teams Welding Machine Operator Helper Gas Relationship Specialty Start Date End Date Milli Martin PA-C [address] [facility] [address] [place] [address] PCP - General Physician Can Capper 07/04/23 documented as of this encounter
--- OUTSIDE RECORDS SUMMARY | 2023-10-29 13:12 | External Medical Summary ---
Author Name Unknown Address Unknown Organization K01:LABORATORY [facility] [place] [facility] - [address] [facility] [place] [address] Laboratory Report Ordering Provider Test Date Status PHUONG HAYES 08/01/2023 12:42:46 Final Observation Date Value Abnormality Reference (Units ) Status Color of Urine by Auto 08/01/2023 12:42:46 Colorless Colorless, Light Yellow, Yellow, Dark Yellow Final Clarity, Urine 08/01/2023 12:42:46 Clear Clear Final Glucose [Mass/volume] in Urine by Automated test strip 08/01/2023 12:42:46 Negative Negative (mg/dL) Final Bilirubin.total [Presence] in Urine by Automated test strip 08/01/2023 12:42:46 Negative Negative Final Ketones [Mass/volume] in Urine by Automated test strip 08/01/2023 12:42:46 Negative Negative (mg/dL) Final Specific gravity, Urine 08/01/2023 12:42:46 1.007 1.003-1.030 Final Hemoglobin [Presence] in Urine by Automated test strip 08/01/2023 12:42:46 Negative Negative Final pH, Urine 08/01/2023 12:42:46 6.5 5.0-7.5 (Units) Final Protein [Mass/volume] in Urine by Automated test strip 08/01/2023 12:42:46 Trace Abnormal Negative (mg/dL) Final Urobilinogen [Mass/volume] in Urine by Automated test strip 08/01/2023 12:42:46 Normal Normal (mg/dL) Final Nitrite [Presence] in Urine by Automated test strip 08/01/2023 12:42:46 Negative Negative Final Leukocyte esterase [Presence] in Urine by Automated test strip 08/01/2023 12:42:46 Negative Negative Final RBC, Urine 08/01/2023 12:42:46 0-2 0-2 (/HPF) Final WBC, Urine 08/01/2023 12:42:46 0-2 0-2 (/HPF) Final Bacteria [#/area] in Urine sediment by Microscopy high power field 08/01/2023 12:42:46 0-25 0-25 (/HPF) Final Performing Location LABORATORY [facility] - [facility] [address] [facility] [address]
--- OUTSIDE RECORDS SUMMARY | 2023-10-29 13:12 | External Medical Summary | Summary of Care ---
Author Name Unknown Organization [facility] Address [address] [facility] [place] [address] Phone [phone] Care Team Providers Care Filter Screen Cleaner Name Role Phone Milli Martin PA-C Primary Care Pro vider Reason for Visit * Reason Onset Date Comments Other 07/14/2023 Encounter Details Date Type Department Care Team (Late st Contact Info) Description 07/14/2023 Telephone Nephrology, [place] [address] [place] [address] [address] Tae Baird MD 200 [facility] [place] [address] Other Allergies Active Allergy Reactions Criticality Noted [...] Wheezing. 18 g 3 10/21/2021 Active Ipratropium [place] HFA 17 MCG/ACT Inhalation Aerosol Solution (Atrovent [...] after steroid inhaler. Test performed by Fátima DIRECTOR MEDICAL SCIENCE CPFT Bipolar affective disorder, currently depressed, moderate [...] test results Pt can be reached at [phone] Thank you, Rosalina Vallecillo CPhT II Performance Test Engineer [facility] ([facility]) (Formerly Telepharmacy) 07/14/2023, 8:43 AM documented in this encounter Plan of Treatment Upcoming Encounters Date Type Department Care Team ([facility] Contact Info) Description 01/30/2024 10:00 AM EDT Office Visit Nephrology [address] [place] [address] Claudia Vincent PA-C 200 [facility], [place] [address] Health Maintenance Due Date Last Done Comments [...] 024, 08/12/2020, 09/11/2018 CKD HGB USE SMARTSET 06208 07/13/202407/13, 07/13/2023, 06/22/2023, Additional history exists CKD PHOS USE SMARTSET 79087 07/13/202406/24, 06/22/2023, 11/10/2020, Additional history exists O2 [...] 10/21/2021 LUNG CANCER SCREENING - USE SMARTSET 13476 Completed 11/18/2021, 07/22/2021, 01/22/2021, Additional history exists [...] the patient have Health Care Power of Corrugated Sheet Material Sheeter? No Code Status History Code Status Date Activated Date Inactivated Comments Full Code 10/19/2018 10:42 AM 10/19/2018 5:02 PM This order reflects the patients wishes and were consensually agreed upon. Care Teams Filter Screen Cleaner Relationship Specialty Start Date End Date Milli Martin PA-C [address] [facility] [[email or web address] [address] [place] [address] PCP - General Physician 07/04/23 documented as of this encounter
--- OUTSIDE RECORDS SUMMARY | 2023-10-29 13:12 | External Medical Summary | Summary of Care ---
Author Name Unknown Organization [facility] Address [address] [facility] [place] [address] Phone [phone] Care Team Providers Care Finance Analyst Name Role Phone Milli Martin PA-C Primary Care Pro vider Reason for Visit * Reason Comments Chronic Kidney Disease (CKD) * Evaluate & Treat - Unlimited Visits (Within 10 days (routine)) - Pending Review Specialty Diagnoses / Procedures Referred By Denny lam Referred To Contact Nephrology Diagnoses Chronic kidney disease (CKD) Randall Malik MD [address] [facility] [address] [place] [address] Referral ID Status Reason Start Date Expiration Date Visits Requested Visits Authorized [id number] Pending Review Specialty Services Required 07/06/[phone] Encounter Details Date Type Department Care Team ([facility] Contact Info) Description 07/13/2023 11:40 AM EST Office Visit Nephrology [address] [place] [id number] Tae Baird MD [address] [facility] [place] [place] [address] TONY (acute kidney injury) (HCC)*; Stage 3b chronic kidney disease (HCC) Allergies [...] Wheezing. 18 g 3 10/21/2021 Active Ipratropium [place] HFA 17 MCG/ACT Inhalation Aerosol Solution (Atrovent Hfa) Inhale by mouth 2 Puffs every 6 hours . 12.9 g 12 10/23/2021 Active oxygen IN GASIndications:Noctu rnal hypoxemia Use as directed 4 L/min(Oxygen) at bedtime . 1 Each 0 10/30/2021 Active Gabapentin 600 MG Oral Tablet (Neurontin)Indicatio ns:Chronic midline low back pain, unspecified whether sciatica present,Degeneration of lumbar or lumbosacral intervertebral disc,Spinal stenosis of lumbar region with neurogenic claudication Take 1 Tab by mouth 2 times a day as needed for Pain. 90 Tab 5 10/16/2020 07/13/2023 Discontinue d(Patient preference/ discontinua tion) documented as of this encounter (statuses as [...] after steroid inhaler. Test performed by Fátima ASSISTANT PROFESSOR OF DIETETICS CPFT Bipolar affective disorder, currently depressed, moderate [...] on file documented as of this encounter Last Filed Vital Signs Vital Sign Reading Time Taken Comments Blood Pressure 115/70 07/13/2023 11:38 AM EST Pulse 88 07/13/2023 11:38 AM EST Temperature - - Respiratory Rate 18 07/13/2023 11:38 AM EST Oxygen Saturation 99% 07/13/2023 11:38 AM EST Inhaled Oxygen Concentration - - Weight 78.9 kg (174 lb) 07/13/2023 11:38 AM EST Height - - Body Mass Index 30.64 06/23/2022 10:12 AM EST documented in this encounter Functional Status Functional Status Response [...] No 11/10/2020 documented as of this encounter Progress Notes * Tae Baird MD - 07/13/2023 11:45 AM EST Chief Complaint Patient presents with Chronic Kidney Disease (CKD) HPI: 68/F with h/o Bipolar disorder, COPD with active Smoking. Here for CKD 3. And recent worsening. Feels fine. Was in ED and admitted for few days with Dx of UTi/Pyelonephritis. CT abd--kidneys looked fine. Still c/o rt Abd pain. No DM no Childhood renal Dz. Back after 3 years now---Recent worsening in GFR 1,224--Lasix, metformin and Neurontin stopped after that. Renal US done and is fine. She was sick with URI/Sinus/Bronchitis Symptoms and was on Abx in when labs got worse. Now back to baseline. NSAID Yes, celebrex daily in past but not now., Renal Stone No Herbal Medication No Urinary Complaints Yes, Has pessary for urge/Stress Incontinence Current Outpatient Medications Medication Sig Dispense Refill RISPERDAL 1 MG PO TABS Take 1 Tablet by mouth in the morning. PAROXETINE HCL 40 MG PO TABS Take 1 Tablet by mouth in the morning. ABILIFY 20 MG PO TABS Take 1 Tablet by mouth in the morning. LAMOTRIGINE 100 MG PO TABS Take 1 Tablet by mouth at bedtime. traZODone (DESYREL) 150 MG Tablet Take 1 Tablet by mouth at bedtime. clonazePAM (KLONOPIN) 0.5 MG Tablet Take 1 Tablet by mouth in the morning. Atorvastatin Calcium 20 MG Oral Tablet (Lipitor) Take 1 Tab by mouth daily. 90 Tab 3 Cetirizine HCl 5 MG Oral Tablet Take 1 Tab by mouth daily. 90 Tab 3 Omeprazole 20 MG Oral Capsule Delayed Release (PriLOSEC) Take 1 Cap by mouth daily. 1 hour before the first meal of the day 90 Cap 3 hydrOXYzine Pamoate 50 MG Oral Capsule (Vistaril) Take 1 Capsule by mouth in the morning. Ondansetron HCl 4 MG Oral Tablet (Zofran) Take 1 Tab by mouth every 8 hours as needed for Nausea. 15 Tab 3 Linzess 145 MCG Oral Capsule (linaCLOtide) Take 1 Cap by mouth daily before breakfast. 30 Cap 2 Ipratropium [place] HFA 17 MCG/ACT Inhalation Aerosol Solution (Atrovent Hfa) Inhale by mouth 2 Puffs every 6 hours . 12.9 g 12 oxygen IN GAS Use as directed 4 L/min(Oxygen) at bedtime . 1 Each 0 Albuterol Sulfate HFA 108 (90 Base) MCG/ACT Inhalation Aerosol Solution Inhale by mouth 2 Puffs every 4 hours as needed for Cough, Shortness of Breath or Wheezing. 18 g 3 No current facility-administered medications for this visit. Past Medical History: Diagnosis Date Anxiety state Asthma, allergic Bipolar affective disorder (HCC) COPD exacerbation (HCC) Diffuse cystic mastopathy MENOPAUSE 02/10/2001 MIXED INCONTINENCE, URGE AND STRESS 02/10/2001 Past Surgical History: Procedure Laterality Date ANESTH, TOTAL KNEE REPLACEMENT Left ARTHROCENT ASP &/OR INJ INTERMEDIATE JX/BURSA W/O US wrist sx L COLORECTAL CANCER SCREEN; NOT AT RISK 08/19/2009 wnl, repeat in 10 yrs CYSTOSCOPY 07/29/2009 EGD, FLEXIBLE, DIAGNOSTIC N/A 06/08/2018 ESOPHAGOGASTRODUODENOSCOPY (EGD), FLEXIBLE, TRANSORAL, DIAGNOSTIC performed by Troy Gould [facility] ENDOSCOPY [facility] EXPLORE PENETRATING WND, ABDMN/BACK HEMORRHOIDECTOMY, SIMPLE, 1 COLUMN INJECT DX/THER SUBSTANCE INTERLAMINAR LUMBAR/SACRAL W IMAGE GUIDE 03/31/2020 INJECTION SPINE LUMBAR OR SACRAL performed by Rafat Champagne DO at OR [facility] INJECT DX/THER SUBSTANCE INTERLAMINAR LUMBAR/SACRAL W IMAGE GUIDE 05/05/2020 INJECTION SPINE LUMBAR OR SACRAL performed by Rafat Champagne DO at OR [facility] APPENDECTOMY REMOVAL OF OVARY(S) REMOVE GALLBLADDER REVISION OF ULNAR NERVE AT ELBOW Right 10/19/2018 NEUROPLASTY AND OR TRANSPOSITION ULNAR NERVE ELBOW performed by Jose Hoff MD at OR [facility] TOTAL HYSTERECTOMY [address] Review of patient's allergies indicates: Allergen Reactions Dust Grass Extracts [Gramineae Pollens] Tape [Adhesive Tape] Rash Paper tape and bandaids Family History Problem Relation Age of Onset Cancer Mother Stomach, age 74 Lung cancer Father Alcohol and Other Disorders Associated Father Alcoholism Cancer Grandmother (Maternal) bone Dementia Sister Family History of Renal Disease No Social History Socioeconomic History Marital status: Spouse name: Not on file Number of children: 1 Years of education: Not on file Highest education level: Not on file Occupational History Occupation: retired vivi Social Needs Financial resource strain: Not on file Food insecurity Worry: Never true Inability: Never true Transportation needs Medical: Not on file Non-medical: Not on file Tobacco Use Smoking status: Current Every Day Smoker Packs/day: 1.00 Years: 30.00 Pack years: 30.00 Types: Cigarettes Smokeless tobacco: Never Used Substance and Sexual Activity Alcohol use: No Drug use: No Sexual activity: Not Currently Partners: Male control/protection: Surgical Comment: M x 33y, husb interest issues Lifestyle Physical activity Days per week: Not on file Minutes per session: Not on file Stress: Not on file Relationships Social connections Talks on phone: Not on file Gets together: Not on file Attends restoration service: Not on file Active member of club or organization: Not on file Attends meetings of clubs or organizations: Not on file Relationship status: Not on file Intimate partner violence Fear of current or ex partner: Not on file Emotionally abused: Not on file Physically abused: Not on file Forced sexual activity: Not on file Other Topics Concern Not on file Social History Narrative PE:05/09/01 05/31/02 LABS: 09/20 wbc 11.9 glu 89 tsh 0.94 07/21 chol 201 103 56 124 04/22 ast 21 alt 16 valp 78.5 CXR: EK PAP:07/21tah MAMMO:07/21 HEMMO: DEXA: COLONOSCOPY: SOCIAL HX: Marital status: _1_ time(s) in the past BM:1qd with softner Coffee: 1qd tea: occ soda:1 case a week Exercise:no BSE:+ Vaping/E-Cigarette Use Vaping/E-Cigarette Use Never User Vaping/E-Cigarette Substances Vaping/E-Cigarette Devices Ambulation: No assisted device Review of Systems: 12 systems reviewed and negative OBJECTIVE: PHYSICAL EXAM: BP 115/70 (BP Site: Left Arm) | Pulse 88 | Resp 18 | Wt 78.9 kg (174 lb) | SpO2 99% | BMI 30.64 kg/m | BSA 1.88 m General: alert, healthy and no distress Head: Normocephalic, No masses, lesions, tenderness or abnormalities Nose: no mucosal erythema Neck: supple, no JVD Heart: regular rate & rhythm, no murmurs and no gallops Lungs: normal respiratory rate and rhythm, lungs clear to auscultation Abdomen: abdomen soft and non-tender Back: no costovertebral angle tenderness Extremities: no edema Neuro Exam: alert & oriented x 3 with fluent speech, no focal motor/sensory deficits Skin: skin color, texture, turgor are normal, no rashes or significant lesions BP Readings from Last 4 Encounters: 07/13/23 115/70 11/18/21 110/64 10/21/21 112/64 07/16/21 114/68 Wt Readings from Last 4 Encounters: 07/13/23 78.9 kg (174 lb) 06/23/22 86.6 kg (190 lb 14.7 oz) 11/18/21 83.4 kg (183 lb 13.8 oz) 10/21/21 84 kg (185 lb 1.3 oz) Estimated body mass index is 30.64 kg/m as calculated from the following: Height as of 06/23/22: 1.605 m (5' 3.19"). Weight as of this encounter: 78.9 kg (174 lb). NEPH-FLOW Latest Ref Rng & Units 09/22/2018 01/09/2019 06/18/2019 Bun 6 - 20 mg/dL 8 11 23 (H) Cr 0.5 - 1.0 mg/dL 1.0 1.2 (H) 1.3 (H) eGFR >60 59.6 (L) 50.4 (L) 45.6 (L) K 3.5 - 5.1 mmol/L 3.4 (L) 4.2 3.6 POTASSIUM 3.5 - 5.1 mmol/L Hb 12.0 - 15.3 g/dL 13.7 14.3 14.9 Microalb/cr ratio <30 mg/g creat NEPH-FLOW Latest Ref Rng & Units 07/11/2019 11/19/2019 02/28/2020 Bun 6 - 20 mg/dL 18 10 13 Cr 0.5 - 1.0 mg/dL 1.3 (H) 1.1 (H) 1.2 (H) eGFR >60 44.5 (L) 52.2 (L) 49.0 (L) K 3.5 - 5.1 mmol/L 4.1 4.1 3.0 (L) POTASSIUM 3.5 - 5.1 mmol/L Hb 12.0 - 15.3 g/dL 14.2 14.2 14.3 Microalb/cr ratio <30 mg/g creat ASSESSMENT: Stage 3a chronic kidney disease (Primary) TONY (acute kidney injury) (HCC) (Primary) From baseline creat 1.4 went up suddenly to 2.6 -so does qualify as TONY and will also Investigate like that. Renal US done and normal. Nothing to suggest pre renal cause now but was sick last month when labs got worse. Since then lasix, metformin and Neurontin stopped. Was also on Abx last month Will do full workup today - CBC WITH WBC DIFFERENTIAL; Future; Expected date: 07/13/2023 - URINE IMMUNOFIXATION, BENCE LUNDBERG PROTEIN, RANDOM URINE; Future; Expected date: 07/13/2023 - HEPATIC FUNCTION PANEL; Future; Expected date: 07/13/2023 - HEPATITIS C ANTIBODY SCREEN WITH PROGRESSION TO HEPATITIS C RNA QUANTITATIVE; Future; Expected date: 07/13/2023 - DOUBLE STRANDED DNA (DSDNA) ANTIBODY, IFA; Future; Expected date: 07/13/2023 - ANCA REFLEX PANEL; Future; Expected date: 07/13/2023 - ANTINUCLEAR ANTIBODY (DION) EIA SCREEN WITH REFLEX AB QUANT; Future; Expected date: 07/13/2023 - COMPLEMENT C3; Future; Expected date: 07/13/2023 - COMPLEMENT C4; Future; Expected date: 07/13/2023 - PTH; Future; Expected date: 07/13/2023 - RENAL FUNCTION PANEL; Future; Expected date: 07/13/2023 - PROTEIN/ CREATININE RATIO, URINE; Future; Expected date: 07/13/2023 - URINALYSIS WITH MICROSCOPIC EXAM; Future; Expected date: 07/13/2023 - 25-HYDROXY VITAMIN D; Future; Expected date: 07/13/2023 - MAGNESIUM; Future; Expected date: 07/13/2023 - IRON SCREEN, INCLUDING TIBC; Future; Expected date: 07/13/2023 - SERUM IMMUNOFIXATION; Future; Expected date: 07/13/2023 Stage 3b chronic kidney disease (HCC) Even prior to recent worsening had CKD Creat 1,4 and GFR 41. CKD stage 3 A likely sec to prior use of lithium. She has been on Meds for bipolar since 1970s so definitely would have been on [place] at some point in the remote past. Was Also on daily celebrex but not now. Says no NSAIDS also. However I do havesome suspicion that maybe she is taking it. Labs as below today. - CBC WITH WBC DIFFERENTIAL; Future; Expected date: 07/13/2023 - URINE IMMUNOFIXATION, BENCE LUNDBERG PROTEIN, RANDOM URINE; Future; Expected date: 07/13/2023 - HEPATIC FUNCTION PANEL; Future; Expected date: 07/13/2023 - HEPATITIS C ANTIBODY SCREEN WITH PROGRESSION TO HEPATITIS C RNA QUANTITATIVE; Future; Expected date: 07/13/2023 - DOUBLE STRANDED DNA (DSDNA) ANTIBODY, IFA; Future; Expected date: 07/13/2023 - ANCA REFLEX PANEL; Future; Expected date: 07/13/2023 - ANTINUCLEAR ANTIBODY (DION) EIA SCREEN WITH REFLEX AB QUANT; Future; Expected date: 07/13/2023 - COMPLEMENT C3; Future; Expected date: 07/13/2023 - COMPLEMENT C4; Future; Expected date: 07/13/2023 - PTH; Future; Expected date: 07/13/2023 - RENAL FUNCTION PANEL; Future; Expected date: 07/13/2023 - PROTEIN/ CREATININE RATIO, URINE; Future; Expected date: 07/13/2023 - URINALYSIS WITH MICROSCOPIC EXAM; Future; Expected date: 07/13/2023 - 25-HYDROXY VITAMIN D; Future; Expected date: 07/13/2023 - MAGNESIUM; Future; Expected date: 07/13/2023 - IRON SCREEN, INCLUDING TIBC; Future; Expected date: 07/13/2023 - SERUM IMMUNOFIXATION; Future; Expected date: 07/13/2023 - IRON SCREEN, INCLUDING TIBC; Future; Expected date: 07/13/2023 - SERUM IMMUNOFIXATION; Future; Expected date: 07/13/2023 Follow Up: Return in about 4 months (around 11/11/2023) for Clinic Visit. | For: Clinic Visit Tae Baird MD documented in this encounter Nursing Notes * Marta Garcia RN - 07/13/2023 11:40 AM EST Follow up visit today. Friend with her for visit today. documented in this encounter Plan of Treatment Upcoming Encounters Date Type Department Care Team (Late st Contact Info) Description 01/30/2024 10:00 AM EDT Office Visit Nephrology [address] [place] [phone] Claudia Vincent PA-C [address] [place] [address] Pending Results Name Type Priority Associated Diagnoses [...] kidney disease (HCC) 07/13/2023 12:05 PM EST Scheduled Orders Name Type Priority Associated Diagnoses Orde r Schedule CBC WITH WBC DIFFERENTIAL Lab Routine TONY (acute kidney injury) (HCC) Stage 3b chronic kidney disease (HCC) Expected: 07/13/2023 (Approximate), Expires: 01/09/2024 URINE IMMUNOFIXATION, BENCE LUNDBERG PROTEIN, RANDOM URINE Lab Routine TONY (acute kidney injury) (HCC) Stage 3b chronic kidney disease (HCC) Expected: 07/13/2023 (Approximate), Expires: 01/09/2024 HEPATITIS C ANTIBODY SCREEN WITH PROGRESSION TO HEPATITIS C RNA QUANTITATIVE Lab Routine TONY (acute kidney injury) (HCC) Stage 3b chronic kidney disease (HCC) Expected: 07/13/2023 (Approximate), Expires: 01/09/2024 DOUBLE STRANDED DNA (DSDNA) ANTIBODY, IFA Lab Routine TONY (acute kidney injury) (HCC) Stage 3b chronic kidney disease (HCC) Expected: 07/13/2023 (Approximate), Expires: 01/09/2024 ANCA REFLEX PANEL Lab Routine TONY (acute kidney injury) (HCC) Stage 3b chronic kidney disease (HCC) Expected: 07/13/2023 (Approximate), Expires: 01/09/2024 ANTINUCLEAR ANTIBODY (DION) EIA SCREEN WITH REFLEX AB QUANT Lab Routine TONY (acute kidney injury) (HCC) Stage 3b chronic kidney disease (HCC) Expected: 07/13/2023 (Approximate), Expires: 01/09/2024 COMPLEMENT C3 Lab Routine TONY (acute kidney injury) (HCC) Stage 3b chronic kidney disease (HCC) Expected: 07/13/2023 (Approximate), Expires: 01/09/2024 COMPLEMENT C4 Lab Routine TONY (acute kidney injury) (HCC) Stage 3b chronic kidney disease (HCC) Expected: 07/13/2023 (Approximate), Expires: 01/09/2024 PTH Lab Routine TONY (acute kidney injury) (HCC) Stage 3b chronic kidney disease (HCC) Expected: 07/13/2023 (Approximate), Expires: 01/09/2024 RENAL FUNCTION PANEL Lab Routine TONY (acute kidney injury) (HCC) Stage 3b chronic kidney disease (HCC) Expected: 07/13/2023 (Approximate), Expires: 01/09/2024 PROTEIN/ CREATININE RATIO, URINE Lab Routine TONY (acute kidney injury) (HCC) Stage 3b chronic kidney disease (HCC) Expected: 07/13/2023 (Approximate), Expires: 01/09/2024 URINALYSIS WITH MICROSCOPIC EXAM Lab Routine TONY (acute kidney injury) (HCC) Stage 3b chronic kidney disease (HCC) Expected: 07/13/2023 (Approximate), Expires: 01/09/2024 25-HYDROXY VITAMIN D Lab Routine TONY (acute kidney injury) (HCC) Stage 3b chronic kidney disease (HCC) Expected: 07/13/2023 (Approximate), Expires: 01/09/2024 MAGNESIUM Lab Routine TONY (acute kidney injury) (HCC) Stage 3b chronic kidney disease (HCC) Expected: 07/13/2023 (Approximate), Expires: 01/09/2024 IRON SCREEN, INCLUDING TIBC Lab Routine TONY (acute kidney injury) (HCC) Stage 3b chronic kidney disease (HCC) Expected: 07/13/2023 (Approximate), Expires: 01/09/2024 SERUM IMMUNOFIXATION Lab Routine TONY (acute kidney injury) (HCC) Stage 3b chronic kidney disease (HCC) Expected: 07/13/2023 (Approximate), Expires: 01/09/2024 Health Maintenance Due Date Last Done Comments [...] 024, 08/12/2020, 09/11/2018 CKD HGB USE SMARTSET 10369 06/22/202406/22, 06/22/2023, 06/07/2023, Additional history exists CKD PHOS USE SMARTSET 95789 06/22/202405/25, 11/10/2020, 10/31/2020, Additional history exists O2 [...] 10/21/2021 LUNG CANCER SCREENING - USE SMARTSET 03177 Completed 11/18/2021, 07/22/2021, 01/22/2021, Additional history exists [...] Visit Diagnoses Diagnosis TONY (acute kidney injury) (HCC)- Primary Acute kidney failure, unspecified Stage 3b chronic [...] the patient have Health Care Power of Cut Out Marker? No Code Status History Code Status Date Activated Date Inactivated Comments Full Code 10/19/2018 10:42 AM 10/19/2018 5:02 PM This order reflects the patients wishes and were consensually agreed upon. Care Teams Finance Analyst Relationship Specialty Start Date End Date Milli Martin PA-C [address] [place] [address] PCP - General Physician Spanish Professor 07/04/23 documented as of this encounter
--- OUTSIDE RECORDS SUMMARY | 2023-10-29 13:12 | External Medical Summary ---
Author Name Unknown Address Unknown Organization [id number]:[facility] [place] [address] [facility] [place] [address] Laboratory Report Ordering Provider Test Date Status PHUONG HAYES 07/14/2023 14:26:00 Final Observation Date Value Abnormality Reference (Units ) Status Color of Urine by Auto 07/14/2023 14:26:00 Colorless Colorless, Light Yellow, Yellow, Dark Yellow Final Clarity, Urine 07/14/2023 14:26:00 Clear Clear Final Glucose [Mass/volume] in Urine by Automated test strip 07/14/2023 14:26:00 Negative Negative (mg/dL) Final Bilirubin.total [Presence] in Urine by Automated test strip 07/14/2023 14:26:00 Negative Negative Final Ketones [Mass/volume] in Urine by Automated test strip 07/14/2023 14:26:00 Negative Negative (mg/dL) Final Specific gravity, Urine 07/14/2023 14:26:00 1.009 1.003-1.030 Final Hemoglobin [Presence] in Urine by Automated test strip 07/14/2023 14:26:00 Negative Negative Final pH, Urine 07/14/2023 14:26:00 6.5 5.0-7.5 (Units) Final Protein [Mass/volume] in Urine by Automated test strip 07/14/2023 14:26:00 Trace Abnormal Negative (mg/dL) Final Urobilinogen [Mass/volume] in Urine by Automated test strip 07/14/2023 14:26:00 Normal Normal (mg/dL) Final Nitrite [Presence] in Urine by Automated test strip 07/14/2023 14:26:00 Negative Negative Final Leukocyte esterase [Presence] in Urine by Automated test strip 07/14/2023 14:26:00 Moderate Abnormal Negative Final RBC, Urine 07/14/2023 14:26:00 0-2 0-2 (/HPF) Final WBC, Urine 07/14/2023 14:26:00 0-2 0-2 (/HPF) Final Bacteria [#/area] in Urine sediment by Microscopy high power field 07/14/2023 14:26:00 0-25 0-25 (/HPF) Final Performing Location [facility] [place] [facility] [address] [facility] [address]
--- OUTSIDE RECORDS SUMMARY | 2023-10-29 13:12 | External Medical Summary | Summary of Care ---
Author Name Unknown Organization [facility] Address [address] [facility] [place] [address] Phone [phone] Care Team Providers Care Rock Wool Insulator Name Role Phone Milli Martin PA-C Primary Care Pro vider Reason for Visit * Reason Onset Date Comments Test Results 07/15/2023 Encounter Details Date Type Department Care Team (Late st Contact Info) Description 07/15/2023 Telephone Nephrology, [facility] [place] [place] [address] Tae Baird MD 200 [facility] [place] [address] Test Results Allergies Active Allergy Reactions Criticality Noted Date Comments Dust 08/11/2018 Gramineae Pollens 08/11/2018 Adhesive Tape Rash 09/22/2018 Paper tape and bandaids documented as of this encounter (statuses as of 07/15/2023) Medications Medication Sig Dispensed Refills Start Date [...] Wheezing. 18 g 3 10/21/2021 Active Ipratropium [place] HFA 17 MCG/ACT Inhalation Aerosol Solution (Atrovent Hfa) Inhale by mouth 2 Puffs every 6 hours . 12.9 g 12 10/23/2021 Active oxygen IN GASIndications:Nocturn al hypoxemia Use as directed 4 L/min(Oxygen) at bedtime . 1 Each 0 10/30/2021 Active documented as of this encounter (statuses as of 07/15/2023) Active Problems Problem Noted Date Diagnosed Date [...] steroid inhaler. Test performed by Fátima DIRECTOR NEWS CPFT Bipolar affective disorder, currently depressed, moderate 01/09/2019 Degeneration of lumbar or lumbosacral interverte bral disc 07/03/2014 Thoracic or lumbosacral neur itis or radiculitis, unspecified 07/03/2014 Lumbago 07/03/2014 MIXED INCONTINENCE, URGE AND STRESS 02/10/2001 Anxiety state DIFFUS CYSTIC MASTOPATHY documented as of this encounter (statuses as of 07/15/2023) Resolved Problems Problem Noted Date Diagnosed Date [...] as of this encounter (statuses as of 07/15/2023) Immunizations Name Administration Dates Next Due COVID-19 [...] Telephone Encounter - Marta Garcia RN - 07/15/2023 9:42 AM EST Letter sent out via [employer]. * Telephone Encounter - Marta Garcia RN - 07/15/2023 9:19 AM EST Te with pt regarding lab results. She is aware that she needs testing done again in 2 weeks. She requests that this information being sent via letter to her home so that her daughter can read the information and help her with understanding . * Telephone Encounter - Marta Garcia RN - 07/15/2023 9:03 AM EST ----- Message from Tae Baird MD sent at 07/15/2023 8:51 AM EST ----- Kidney function Slightly better than last tests. Urine test shows Mild proteinuria but not super high to need renal biopsy. Tests for rare renal Dz are all normal/negative. Make sure to drink plenty of water and avoid all NSAIDS. If currently taking any Supplements/herbal/exotic meds would stop those too. Also Stop Omeprazole and take pepcid twice daily instead. NO renal biopsy for now. Continue to hold meds currently on hold. Repeat renal panel and UA, prot/creat in 2 weeks to see the trend. C/c to PCP office * Telephone Encounter - Chuyita Chavez LPN - 07/15/2023 8:35 AM EST New results ready for review * Telephone Encounter - Rebecca Noel OSA - 07/15/2023 8:08 AM EST Sara called scheduling line on 07/15/23 at 8:09 AM. She would like a call back today from somebody to go over the results of her urine testing she had done yesterday (07/14/23). She said she was told to call today to find out what the results are. documented in this encounter Plan of Treatment Upcoming Encounters Date Type Department Care Team ([facility] Contact Info) Description 01/30/2024 10:00 AM EDT Office Visit Nephrology [address] [place] [phone] Claudia Vincent [facility]C [facility] [address] Scheduled Orders Name Type Priority Associated Diagnoses Orde r Schedule RENAL FUNCTION PANEL Lab Routine Chronic kidney disease, stage 3b (HCC) Expected: 07/25/2023 (Approximate), Expires: 07/15/2024 URINALYSIS WITH MICROSCOPIC EXAM Lab Routine Chronic kidney disease, stage 3b (HCC) Expected: 07/25/2023 (Approximate), Expires: 07/15/2024 PROTEIN/ CREATININE RATIO, URINE Lab Routine Chronic kidney disease, stage 3b (HCC) Expected: 07/25/2023 (Approximate), Expires: 07/15/2024 Health Maintenance Due Date Last Done Comments [...] 024, 08/12/2020, 09/11/2018 CKD HGB USE SMARTSET 95900 07/13/202407/13, 07/13/2023, 06/22/2023, Additional history exists CKD PHOS USE SMARTSET 74728 07/13/202406/24, 06/22/2023, 11/10/2020, Additional history exists O2 [...] 10/21/2021 LUNG CANCER SCREENING - USE SMARTSET 12154 Completed 11/18/2021, 07/22/2021, 01/22/2021, Additional history exists [...] patient have Health Care Power of Rn Trauma? No Code Status History Code Status Date Activated Date Inactivated Comments Full Code 10/19/2018 10:42 AM 10/19/2018 5:02 PM This order reflects the patients wishes and were consensually agreed upon. Care Teams Rock Wool Insulator Relationship Specialty Start Date End Date Milli Martin PA-C [address] [place] [address] PCP - General Physician Leather Goods Ii Assembler 07/04/23 documented as of this encounter
--- OUTSIDE RECORDS SUMMARY | 2023-10-29 13:12 | External Medical Summary | Summary of Care ---
Author Name Unknown Organization [facility] Address [address] [facility] [place] [address] Phone [phone] Care Team Providers Care Frame Opener Name Role Phone Milli Martin PA-C Primary Care Pro vider Encounter Details Date Type Department Care Team (Late st Contact Info) Description 07/14/2023 Orders Only PATIENT PORTAL DO NOT DELETE THIS DEPT USED BY [place] [id number] Allergies Active Allergy Reactions Criticality Noted Date [...] Wheezing. 18 g 3 10/21/2021 Active Ipratropium [place] HFA 17 MCG/ACT Inhalation Aerosol Solution (Atrovent [...] after steroid inhaler. Test performed by Fátima CRINKLING MACHINE OPERATOR CPFT Bipolar affective disorder, currently depressed, [...] Upcoming Encounters Date Type Department Care Team ([facility] st Contact Info) Description 01/30/2024 10:00 AM EDT [facility] [address] [place] [address] [address] [place] [phone] Claudia Vincent PA-C 200 [place] [address] Health Maintenance Due Date Last Done Comments [...] 024, 08/12/2020, 09/11/2018 CKD HGB USE SMARTSET 98538 07/13/202407/13, 07/13/2023, 06/22/2023, Additional history exists CKD PHOS USE SMARTSET 21434 07/13/202405/2023, 06/22/2023, 11/10/2020, Additional history exists O2 ASSESSMENT [...] 10/21/2021 LUNG CANCER SCREENING - USE SMARTSET 70841 Completed 11/18/2021, 07/22/2021, 01/22/2021, Additional history exists [...] patient have Health Care Power of Elevator Installer? No Code Status History Code Status Date Activated Date Inactivated Comments Full Code 10/19/2018 10:42 AM 10/19/2018 5:02 PM This order reflects the patients wishes and were consensually agreed upon. Care Teams Frame Opener Relationship Specialty Start Date End Date Milli Martin PA-C [address] [facility] [address] [place] [address] PCP - General Physician Professor Of Biochemistry 07/04/23 documented as of this encounter
--- OUTSIDE RECORDS SUMMARY | 2023-10-29 13:12 | External Medical Summary | Summary of Care ---
Author Name Unknown Organization [facility] Address [address] [place] [address] Phone [phone] Care Team Providers Care Tomato Pulper Operator Name Role Phone Milli Martin PA-C Primary Care Pro vider Reason for Visit * Reason Onset Date Comments Test Results 07/14/2023 Encounter Details Date Type Department Care Team (Late st Contact Info) Description 07/14/2023 Telephone Nephrology, [place] [address] [place] [address] Services, [facility] [address] [place] [address] Test Results Allergies Active Allergy Reactions Criticality [...] Wheezing. 18 g 3 10/21/2021 Active Ipratropium [place] HFA 17 MCG/ACT Inhalation Aerosol Solution (Atrovent [...] after steroid inhaler. Test performed by Fátima TIER LIFT OPERATOR CPFT Bipolar affective disorder, currently depressed, [...] Encounter - Chuyita Chavez LPN - 07/14/2023 10:29 AM EST Per Pt unable to give urine portion at time of blood draw Pt will try to get down to [facility] lab today Pt is advised with blood work that is back Dr Baird has reviewed and kidney test is a little betterbut needs the UA portion done to complete analysis * Telephone Encounter - Chuyita Chavez LPN - 07/14/2023 10:28 AM EST Please review * Telephone Encounter - Heike Talley OSA - 07/14/2023 9:02 AM EST Pt called she would like her lab results if someone can please call her [phone] documented in this encounter Plan of Treatment Upcoming Encounters Date Type Department Care Team ([facility] st Contact Info) Description 01/30/2024 10:00 AM EDT Office Visit Nephrology [address] [place] [phone] Claudia Vincent PA-C 200 [facility] [address] Health Maintenance Due Date Last Done Comments [...] 024, 08/12/2020, 09/11/2018 CKD HGB USE SMARTSET 42638 07/13/202407/13, 07/13/2023, 06/22/2023, Additional history exists CKD PHOS USE SMARTSET 63183 07/13/202406/24, 06/22/2023, 11/10/2020, Additional history exists O2 [...] 10/21/2021 LUNG CANCER SCREENING - USE SMARTSET 30787 Completed 11/18/2021, 07/22/2021, 01/22/2021, Additional history exists [...] the patient have Health Care Power of Building Engineer? No Code Status History Code Status Date Activated Date Inactivated Comments Full Code 10/19/2018 10:42 AM 10/19/2018 5:02 PM This order reflects the patients wishes and were consensually agreed upon. Care Teams Tomato Pulper Operator Relationship Specialty Start Date End Date Milli Martin PA-C [address] [facility] [address] [place] [address] PCP - General Physician Canvas Goods Supervisor 07/04/23 documented as of this encounter
--- OUTSIDE RECORDS SUMMARY | 2023-10-29 13:12 | External Medical Summary | Summary of Care ---
Author Name Unknown Organization [facility] Address [address] [facility] [place] [address] Phone [phone] Care Team Providers Care Quiller Hand Name Role Phone Milli Martin PA-C Primary Care Pro vider Reason for Visit * Reason Comments Outpatient Testing Encounter Details Date Type Department Care Team (Late st Contact Info) Description 07/14/2023 2:30 PM [facility] Laboratory Laboratory Patient Service [address] [phone] [address] TONY (acute kidney injury) ([facility]); Stage 3b chronic kidney disease [...] Wheezing. 18 g 3 10/21/2021 Active Ipratropium [place] HFA 17 MCG/ACT Inhalation Aerosol Solution (Atrovent [...] after steroid inhaler. Test performed by Fátima AIR HOLE DRILLER CPFT Bipolar affective disorder, currently depressed, moderate [...] Upcoming Encounters Date Type Department Care Team ([facility] st Contact Info) Description 01/30/2024 10:00 AM EDT Office Visit Nephrology [facility], [address] [place] [phone] Claudia Vincent PA-C 200 [place] [address] Pending Results Name Type Priority Associated Diagnoses Date /Time PROTEIN/ CREATININE RATIO, URINE Lab Routine TONY (acute kidney injury) (HCC) Stage 3b chronic kidney disease (HCC) 07/14/2023 2:26 PM EST URINALYSIS WITH MICROSCOPIC EXAM Lab Routine TONY (acute kidney injury) (HCC) Stage 3b chronic kidney disease (HCC) 07/14/2023 2:26 PM EST Health Maintenance Due Date Last [...] 024, 08/12/2020, 09/11/2018 CKD HGB USE SMARTSET 09347 07/13/202407/13, 07/13/2023, 06/22/2023, Additional history exists CKD PHOS USE SMARTSET 00173 07/13/202406/24, 06/22/2023, 11/10/2020, Additional history exists O2 [...] 10/21/2021 LUNG CANCER SCREENING - USE SMARTSET 56460 Completed 11/18/2021, 07/22/2021, 01/22/2021, Additional history exists [...] the patient have Health Care Power of Professor Of Geology? No Code Status History Code Status Date Activated Date Inactivated Comments Full Code 10/19/2018 10:42 AM 10/19/2018 5:02 PM This order reflects the patients wishes and were consensually agreed upon. Care Teams Quiller Hand Relationship Specialty Start Date End Date Milli Martin PA-C [address] [facility] [address] [place] [address] PCP - General Physician Nurse Sane 07/04/23 documented as of this encounter
--- OUTSIDE RECORDS SUMMARY | 2023-10-29 13:13 | External Medical Summary | Summary of Care ---
Author Name Unknown Organization [facility] Address [address] [facility] [place] [address] Phone [phone] Care Team Providers Care Label Machine Operator Name Role Phone Milli Martin PA-C Primary Care Pro vider Reason for Visit * Reason Comments Outpatient Testing Encounter Details Date Type Department Care Team (Late st Contact Info) Description 07/13/2023 12:10 PM [facility] Laboratory Laboratory Patient Service [address] [phone] [address] [address] TONY (acute kidney injury) ([facility]); Stage 3b chronic kidney disease (HCC) Allergies [...] Wheezing. 18 g 3 10/21/2021 Active Ipratropium [place] HFA 17 MCG/ACT Inhalation Aerosol Solution (Atrovent [...] after steroid inhaler. Test performed by Fátima JOURNEYMAN PIPEFITTER CPFT Bipolar affective disorder, currently depressed, moderate [...] Upcoming Encounters Date Type Department Care Team ([facility] st Contact Info) Description 01/30/2024 10:00 AM EDT Office Visit Nephrology [facility], [address] [place] [address] Claudia Vincent PA-C 200 [place] [address] Pending Results Name Type Priority [...] 024, 08/12/2020, 09/11/2018 CKD HGB USE SMARTSET 16844 06/22/202406/22, 06/22/2023, 06/07/2023, Additional history exists CKD PHOS USE SMARTSET 81945 06/22/202405/25, 11/10/2020, 10/31/2020, Additional history exists O2 [...] 10/21/2021 LUNG CANCER SCREENING - USE SMARTSET 75971 Completed 11/18/2021, 07/22/2021, 01/22/2021, Additional history exists [...] the patient have Health Care Power of Milk House Worker? No Code Status History Code Status Date Activated Date Inactivated Comments Full Code 10/19/2018 10:42 AM 10/19/2018 5:02 PM This order reflects the patients wishes and were consensually agreed upon. Care Teams Label Machine Operator Relationship Specialty Start Date End Date Milli Martin PA-C [address] [place] [address] PCP - General Physician Rubber Tire And Tubes Supervisor 07/04/23 documented as of this encounter
--- OUTSIDE RECORDS SUMMARY | 2023-10-29 13:13 | External Medical Summary ---
Author Name Unknown Address Unknown Organization K01:LABORATORY [facility] - [address] [place] [address] Laboratory Report Ordering Provider Test Date Status PHUONG HAYES 07/13/2023 12:05:15 Final Deficient: <20 ng/mL
Ins ufficient: 20-29 ng/mL
Recommended/Optimum:30-50 ng/mL

Vitamin D intoxication is rare. If suspicious of Vitamin D toxicity, evaluation of serum Calcium and PTH is recommended. Observation Date Value Abnormality Reference (Units ) Status 25-OH Vitamin D total 07/13/2023 12:05:15 20 >19 (ng/mL) Final Performing Location [facility] - [address] [place] [address]
--- OUTSIDE RECORDS SUMMARY | 2023-10-29 13:13 | External Medical Summary | Summary of Care ---
Author Name Unknown Organization [facility] Address [address] [facility] [place] [address] Phone [phone] Care Team Providers Care Tool Checker Name Role Phone Milli Martin PA-C Primary Care Pro vider Reason for Visit * Reason Comments Outpatient Testing Encounter Details Date Type Department Care Team (Late st Contact Info) Description 07/13/2023 12:10 PM [facility] Laboratory Laboratory Patient Service [address] [phone] [address] [address] TONY (acute kidney injury) ([facility]); Stage 3b chronic kidney disease (HCC) [...] Wheezing. 18 g 3 10/21/2021 Active Ipratropium [place] HFA 17 MCG/ACT Inhalation Aerosol Solution (Atrovent [...] after steroid inhaler. Test performed by Fátima MAIL DISTRIBUTION SCHEME EXAMINER CPFT Bipolar affective disorder, currently depressed, moderate [...] Upcoming Encounters Date Type Department Care Team ([facility] st Contact Info) Description 01/30/2024 10:00 AM EDT Office Visit Nephrology [facility], [address] [place] [address] Claudia Vincent PA-C 200 [place] [address] Pending Results Name Type Priority [...] 024, 08/12/2020, 09/11/2018 CKD HGB USE SMARTSET 94439 06/22/202406/22, 06/22/2023, 06/07/2023, Additional history exists CKD PHOS USE SMARTSET 68544 06/22/202405/25, 11/10/2020, 10/31/2020, Additional history exists O2 [...] 10/21/2021 LUNG CANCER SCREENING - USE SMARTSET 86653 Completed 11/18/2021, 07/22/2021, 01/22/2021, Additional history exists [...] the patient have Health Care Power of Community Association Manager? No Code Status History Code Status Date Activated Date Inactivated Comments Full Code 10/19/2018 10:42 AM 10/19/2018 5:02 PM This order reflects the patients wishes and were consensually agreed upon. Care Teams Tool Checker Relationship Specialty Start Date End Date Milli Martin PA-C [address] [place] [address] PCP - General Physician Eligibility Supervisor 07/04/23 documented as of this encounter
--- OUTSIDE RECORDS SUMMARY | 2023-10-29 13:13 | External Medical Summary ---
Author Name Unknown Address Unknown Organization K01:LAB[facility]ORY [facility] - [address] [place] [address] Laboratory Report Ordering Provider Test Date Status ASIA HAYESJEANETTE 07/13/2023 12:05:15 Final Observation Date Value Abnormality Reference (Units ) Status Hep C Ab 07/13/2023 12:05:15 Negative Negative Final Further HCV quantitative daniel ting not performed per protocol. Performing Location [facility] - [address] [place] [address]
--- OUTSIDE RECORDS SUMMARY | 2023-10-29 13:13 | External Medical Summary | Summary of Care ---
Author Name Unknown Organization [facility] Address [address] [facility] [place] [address] Phone [phone] Care Team Providers Care Hydraulic Jack Operator Name Role Phone Milli Martin PA-C Primary Care Pro vider Reason for Visit * Reason Comments Outpatient Testing Encounter Details Date Type Department Care Team (Late st Contact Info) Description 07/13/2023 12:10 PM [facility] Laboratory Laboratory Patient Service [address] [phone] [address] [address] TONY (acute kidney injury) ([facility]); Stage 3b chronic kidney disease (HCC) Allergies [...] Wheezing. 18 g 3 10/21/2021 Active Ipratropium [place] HFA 17 MCG/ACT Inhalation Aerosol Solution (Atrovent [...] after steroid inhaler. Test performed by Fátima COMMUNICATIONS SENIOR ASSOCIATE CPFT Bipolar affective disorder, currently depressed, moderate [...] Upcoming Encounters Date Type Department Care Team ([facility] st Contact Info) Description 01/30/2024 10:00 AM EDT Office Visit Nephrology [facility], [address] [place] [address] Claudia Vincent PA-C 200 [place] [address] Pending Results Name Type Priority [...] 024, 08/12/2020, 09/11/2018 CKD HGB USE SMARTSET 36805 06/22/202406/22, 06/22/2023, 06/07/2023, Additional history exists CKD PHOS USE SMARTSET 86171 06/22/202405/25, 11/10/2020, 10/31/2020, Additional history exists O2 [...] 10/21/2021 LUNG CANCER SCREENING - USE SMARTSET 41633 Completed 11/18/2021, 07/22/2021, 01/22/2021, Additional history exists [...] the patient have Health Care Power of Senior Sales Operations Manager? No Code Status History Code Status Date Activated Date Inactivated Comments Full Code 10/19/2018 10:42 AM 10/19/2018 5:02 PM This order reflects the patients wishes and were consensually agreed upon. Care Teams Hydraulic Jack Operator Relationship Specialty Start Date End Date Milli Martin PA-C [address] [place] [address] PCP - General Physician Asbestos Worker Helper 07/04/23 documented as of this encounter
--- OUTSIDE RECORDS SUMMARY | 2023-10-29 13:13 | External Medical Summary ---
Author Name Unknown Address Unknown Organization K01:LABORATORY [facility] - [address] [place] [address] Laboratory Report Ordering Provider Test Date Status PHUONG HAYES 07/13/2023 12:05:15 Final Observation Date Value Abnormality Reference (Units ) Status Complement C3c [Mass/volume] in Serum or Plasma 07/13/2023 12:05:15 121 90-180 (mg/dL) Final Performing Location LABORATORY C - [address] [place] [address]
--- OUTSIDE RECORDS SUMMARY | 2023-10-29 13:13 | External Medical Summary ---
Author Name Unknown Address Unknown Organization K01:LABORATORY [facility] - [address] [place] [address] Laboratory Report Ordering Provider Test Date Status PHUONG HAYES 07/13/2023 12:05:15 Final Observation Date Value Abnormality Reference (Units) Status PARAPROTEIN NORMAL/ABNORMAL 07/13/2023 12:05:15 Normal Normal Final Immunofixation for Serum or Plasma 07/13/2023 12:05:15 There is a small abnormality in the gamma fraction. Recommend repeat testing in 3 to 6 months, if clinically necessary. Final Performing Location LABORATORY [facility] - [address] [place] [address]
--- OUTSIDE RECORDS SUMMARY | 2023-10-29 13:13 | External Medical Summary | Summary of Care ---
Author Name Unknown Organization [facility] Address [address] [facility] [place] [address] Phone [phone] Care Team Providers Care Security Vehicle Patrol Officer Name Role Phone Milli Martin PA-C Primary Care Pro vider Reason for Visit * Reason Comments Outpatient Testing Encounter Details Date Type Department Care Team (Late st Contact Info) Description 07/13/2023 12:10 PM [facility] Laboratory Laboratory Patient Service [address] [phone] [address] [address] TONY (acute kidney injury) ([facility]); Stage 3b chronic kidney disease (HCC) Allergies [...] Wheezing. 18 g 3 10/21/2021 Active Ipratropium [place] HFA 17 MCG/ACT Inhalation Aerosol Solution (Atrovent [...] after steroid inhaler. Test performed by Fátima PRODUCTION CLOTH CUTTER CPFT Bipolar affective disorder, currently depressed, moderate [...] Upcoming Encounters Date Type Department Care Team ([facility] st Contact Info) Description 01/30/2024 10:00 AM EDT Office Visit Nephrology [facility], [address] [place] [address] Claudia Vincent PA-C 200 [place] [address] Pending Results Name Type Priority [...] 024, 08/12/2020, 09/11/2018 CKD HGB USE SMARTSET 44454 06/22/202406/22, 06/22/2023, 06/07/2023, Additional history exists CKD PHOS USE SMARTSET 33506 06/22/202405/25, 11/10/2020, 10/31/2020, Additional history exists O2 [...] 10/21/2021 LUNG CANCER SCREENING - USE SMARTSET 32150 Completed 11/18/2021, 07/22/2021, 01/22/2021, Additional history exists [...] the patient have Health Care Power of Drivability Technician? No Code Status History Code Status Date Activated Date Inactivated Comments Full Code 10/19/2018 10:42 AM 10/19/2018 5:02 PM This order reflects the patients wishes and were consensually agreed upon. Care Teams Security Vehicle Patrol Officer Relationship Specialty Start Date End Date Milli Martin PA-C [address] [place] [address] PCP - General Physician Roller Inspector And Mender 07/04/23 documented as of this encounter
--- OUTSIDE RECORDS SUMMARY | 2023-10-29 13:13 | External Medical Summary ---
Author Name Unknown Address Unknown Organization K01:LABORATORY [facility] - [address] [place] [address] Laboratory Report Ordering Provider Test Date Status PHUONG HAYES 07/13/2023 12:05:15 Final Observation Date Value Abnormality Reference (Units ) Status Bilirubin, Direct 07/13/2023 12:05:15 <0.2 0. 0-0.3 (mg/dL) Final Performing Location LABORATORY C - [address] [place] [address]
--- OUTSIDE RECORDS SUMMARY | 2023-10-29 13:13 | External Medical Summary ---
Author Name Unknown Address Unknown Organization K01:[facility] [address] [place] [address] Laboratory Report Ordering Provider Test Date Status ASIA HAYESJEANETTE 07/13/2023 12:05:15 Final Observation Date Value Abnormality Reference (Units ) Status Protein 07/13/2023 12:05:15 7.0 6.0-8.3 (g /dL) Final Performing Location [facility] - [address] [place] [address]
--- OUTSIDE RECORDS SUMMARY | 2023-10-29 13:13 | External Medical Summary ---
Author Name Unknown Address Unknown Organization K01:[facility] [address] [place] [address] Laboratory Report Ordering Provider Test Date Status ABIGAILASIAJEANETTE 07/13/2023 12:05:15 Final Observation Date Value Abnormality Reference (Units ) Status Alk Phos 07/13/2023 12:05:15 163 Above high normal 35 -130 (U/L) Final Performing Location [facility] - [address] [place] [address]
--- OUTSIDE RECORDS SUMMARY | 2023-10-29 13:13 | External Medical Summary ---
Author Name Unknown Address Unknown Organization [id number]:LAB[facility]ATORY [facility] [place] - [address] [place] [address] Laboratory Report Ordering Provider Test Date Status PHUONG HAYES 07/13/2023 12:05:15 Final Observation Date Value Abnormality Reference (Units ) Status DNA double strand Ab [Presence] in Serum 07/13/2023 12:05:15 Negative Negative Final DNA double strand Ab [Titer] in Serum by Immunofluorescence (IF) Luis Alberto bennett 07/13/2023 12:05:15 <1:10 <1:10 (Titer) Final Performing Location LABORATORY [facility] [place] - [address] [place] [address]
--- OUTSIDE RECORDS SUMMARY | 2023-10-29 13:13 | External Medical Summary ---
Author Name Unknown Address Unknown Organization [id number]:[facility] - [address] [place] [address] Laboratory Report Ordering Provider Test Date Status ASIA HAYESJEANETTE 07/13/2023 12:05:15 Final Observation Date Value Abnormality Reference (Units ) Status C4 07/13/2023 12:05:15 25 10-40 (mg/ dL) Final Performing Location [facility] - [address] [place] [address]
--- OUTSIDE RECORDS SUMMARY | 2023-10-29 13:13 | External Medical Summary ---
Author Name Unknown Address Unknown Organization [id number]:LAB[facility]ATORY [facility] [place] - [address] [place] [address] Laboratory Report Ordering Provider Test Date Status PHUONG HAYES 07/13/2023 12:05:15 Final Observation Date Value Abnormality Reference (Units ) Status Iron 07/13/2023 12:05:15 86 33-151 (ug /dL) Final Iron-binding capacity 07/13/2023 12:05:15 301 250-425 (ug/dL) Final Transferrin Sat % 07/13/2023 12:05:15 29 15 -55 (%) Final Performing Location [facility]ORY [facility] [place] - [address] [place] [address]
--- OUTSIDE RECORDS SUMMARY | 2023-10-29 13:13 | External Medical Summary ---
Author Name Unknown Address Unknown Organization [id number]:[facility] [place] - [address] [facility] [address] [place] [address] Laboratory Report Ordering Provider Test Date Status PHUONG HAYES 07/13/2023 12:05:15 Final Observation Date Value Abnormality Reference (Units ) Status SYNC LEUKOCYTES IN BLOOD BY AUTOMATED COUNT 07/13/2023 12:05:15 9.02 4.00-10.80 (K/uL) Final Segs 07/13/2023 12:05:15 57.4 40.0-75.0 (%) Final Lymphs % 07/13/2023 12:05:15 31.5 18.0-42.0 (%) Final Monos 07/13/2023 12:05:15 6.1 1.0-11.0 (%) Final Eosinophils 07/13/2023 12:05:15 2.7 0.0-6.0 (%) Final Basos 07/13/2023 12:05:15 1.3 0.0-2.0 (%) Final Immature Granulocyte, Percent 07/13/2023 12:05:15 1.0 0.0-2.0 (%) Final Absolute Segs 07/13/2023 12:05:15 5.18 1.80-7.70 (K/uL) Final Lymphs, absolute 07/13/2023 12:05:15 2.84 1.00-4.80 (K/ul) Final Monos, Abs 07/13/2023 12:05:15 0.55 0.00-1.10 (K/uL) Final Eos, Abs 07/13/2023 12:05:15 0.24 0.00-0.70 (K/uL) Final Basos, Abs 07/13/2023 12:05:15 0.12 0.00-0.20 (K/uL) Final Immature Granulocytes, Number 07/13/2023 12:05:15 0.09 0.00-0.20 (K/uL) Final Performing Location [facility] - [address] [facility] [address]
--- OUTSIDE RECORDS SUMMARY | 2023-10-29 13:13 | External Medical Summary | Summary of Care ---
Author Name Unknown Organization [facility] Address [address] [facility] [place] [address] Phone [phone] Care Team Providers Care Relief Mate Name Role Phone Milli Martin PA-C Primary Care Pro vider Reason for Visit * Reason Comments Outpatient Testing Encounter Details Date Type Department Care Team (Late st Contact Info) Description 07/13/2023 12:10 PM [facility] Laboratory Laboratory Patient Service [address] [phone] [address] [address] TONY (acute kidney injury) ([facility]); Stage 3b chronic kidney disease (HCC) Allergies [...] Wheezing. 18 g 3 10/21/2021 Active Ipratropium [place] HFA 17 MCG/ACT Inhalation Aerosol Solution (Atrovent [...] after steroid inhaler. Test performed by Fátima GEOTHERMAL SHEET METAL WORKER CPFT Bipolar affective disorder, currently depressed, moderate [...] Upcoming Encounters Date Type Department Care Team ([facility] st Contact Info) Description 01/30/2024 10:00 AM EDT Office Visit Nephrology [facility], [address] [place] [address] Claudia Vincent PA-C [address] [place] [address] Pending Results Name Type Priority [...] 024, 08/12/2020, 09/11/2018 CKD HGB USE SMARTSET 07284 06/22/202406/22, 06/22/2023, 06/07/2023, Additional history exists CKD PHOS USE SMARTSET 45232 06/22/202405/25, 11/10/2020, 10/31/2020, Additional history exists O2 [...] 10/21/2021 LUNG CANCER SCREENING - USE SMARTSET 13414 Completed 11/18/2021, 07/22/2021, 01/22/2021, Additional history exists [...] the patient have Health Care Power of Caster Investment Casting? No Code Status History Code Status Date Activated Date Inactivated Comments Full Code 10/19/2018 10:42 AM 10/19/2018 5:02 PM This order reflects the patients wishes and were consensually agreed upon. Care Teams Relief Mate Relationship Specialty Start Date End Date Milli Martin PA-C [address] [place] [address] PCP - General Physician Affirmative Action Specialist 07/04/23 documented as of this encounter
--- OUTSIDE RECORDS SUMMARY | 2023-10-29 13:13 | External Medical Summary ---
Author Name Unknown Address Unknown Organization K01[facility] - [address] [place] [address] Laboratory Report Ordering Provider Test Date Status ASIA HAYESJEANETTE 07/13/2023 12:05:15 Final Observation Date Value Abnormality Reference (Units ) Status Magnesium 07/13/2023 12:05:15 2.0 1.5-2.6 (m g/dL) Final Performing Location [facility] - [address] [place] [address]
--- OUTSIDE RECORDS SUMMARY | 2023-10-29 13:13 | External Medical Summary ---
Author Name Unknown Address Unknown Organization K01:[facility] [place] [address] [place] [address] Laboratory Report Ordering Provider Test Date Status PHUONG HAYES 07/13/2023 12:05:15 Final Observation Date Value Abnormality Reference (Units ) Status ALT (Alanine aminotransferase) 07/13/2023 12:05:15 11 10-35 (U/L) Final Performing Location [facility] - [address] [place] [address]
--- OUTSIDE RECORDS SUMMARY | 2023-10-29 13:13 | External Medical Summary ---
Author Name Unknown Address Unknown Organization K01:[facility] - [address] [place] [address] Laboratory Report Ordering Provider Test Date Status PHUONG HAYES 07/13/2023 12:05:15 Final Observation Date Value Abnormality Reference (Units ) Status Neutrophil cytoplasmic Ab [Presence] in Serum by Immunofluorescence 07/13/2023 12:05:15 Negative Negative Final Neutrophil cytoplasmic Ab [Presence] in Serum by Immunofluorescence 07/13/2023 12:05:15 Negative Negative Final Negative for ANCA. Performing Location [facility] - [address] [place] [address]
--- OUTSIDE RECORDS SUMMARY | 2023-10-29 13:13 | External Medical Summary | Summary of Care ---
Author Name Unknown Organization [facility] Address [address] [facility] [place] [address] Phone [phone] Care Team Providers Care Percussion Welding Machine Operator Name Role Phone Milli Martin PA-C Primary Care Pro vider Reason for Visit * Reason Comments Outpatient Testing Encounter Details Date Type Department Care Team (Late st Contact Info) Description 07/13/2023 12:10 PM [facility] Laboratory Laboratory Patient Service [address] [phone] [address] [address] TONY (acute kidney injury) ([facility]); Stage 3b chronic kidney disease (HCC) Allergies [...] Wheezing. 18 g 3 10/21/2021 Active Ipratropium [place] HFA 17 MCG/ACT Inhalation Aerosol Solution (Atrovent [...] after steroid inhaler. Test performed by Fátima INTERNET SECURITY SPECIALIST CPFT Bipolar affective disorder, currently depressed, moderate [...] Upcoming Encounters Date Type Department Care Team ([facility] st Contact Info) Description 01/30/2024 10:00 AM EDT Office Visit Nephrology [facility], [address] [place] [address] Claudia Vincent PA-C [address] [place] [address] Pending Results Name Type Priority [...] 024, 08/12/2020, 09/11/2018 CKD HGB USE SMARTSET 24894 06/22/202406/22, 06/22/2023, 06/07/2023, Additional history exists CKD PHOS USE SMARTSET 27505 06/22/202405/25, 11/10/2020, 10/31/2020, Additional history exists O2 [...] 10/21/2021 LUNG CANCER SCREENING - USE SMARTSET 35675 Completed 11/18/2021, 07/22/2021, 01/22/2021, Additional history exists [...] the patient have Health Care Power of Legal Administrative Secretary? No Code Status History Code Status Date Activated Date Inactivated Comments Full Code 10/19/2018 10:42 AM 10/19/2018 5:02 PM This order reflects the patients wishes and were consensually agreed upon. Care Teams Percussion Welding Machine Operator Relationship Specialty Start Date End Date Milli Martin PA-C [address] [place] [address] PCP - General Physician Small Wind Energy Installer 07/04/23 documented as of this encounter
--- OUTSIDE RECORDS SUMMARY | 2023-10-29 13:13 | External Medical Summary ---
Author Name Unknown Address Unknown Organization K01:LABORATORY [facility] [place] - [address] [place] [address] Laboratory Report Ordering Provider Test Date Status PHUONG HAYES 07/13/2023 12:05:15 Final Observation Date Value Abnormality Reference (Units ) Status Parathyrin.intact [Mass/volume] in Serum or Plasma 07/13/2023 12:05:15 29 15-65 (pg/mL) Final Performing Location LABORATORY [facility] - [address] [place] [address]
--- OUTSIDE RECORDS SUMMARY | 2023-10-29 13:13 | External Medical Summary | Summary of Care ---
Author Name Unknown Organization [facility] Address [address] [facility] [place] [address] Phone [phone] Care Team Providers Care Exhibit Preparator Name Role Phone Milli Martin PA-C Primary Care Pro vider Reason for Visit * Reason Comments Outpatient Testing Encounter Details Date Type Department Care Team (Late st Contact Info) Description 07/13/2023 12:10 PM [facility] Laboratory Laboratory Patient Service [address] [phone] [address] [address] TONY (acute kidney injury) ([facility]); Stage 3b chronic kidney disease (HCC) Allergies [...] Wheezing. 18 g 3 10/21/2021 Active Ipratropium [place] HFA 17 MCG/ACT Inhalation Aerosol Solution (Atrovent [...] after steroid inhaler. Test performed by Fátima SHIP BOAT OR BARGE MATE CPFT Bipolar affective disorder, currently depressed, moderate [...] Upcoming Encounters Date Type Department Care Team ([facility] st Contact Info) Description 01/30/2024 10:00 AM EDT Office Visit Nephrology [facility], [address] [place] [address] Claudia Vincent PA-C [address] [place] [address] Pending Results Name Type Priority [...] 024, 08/12/2020, 09/11/2018 CKD HGB USE SMARTSET 14716 06/22/202406/22, 06/22/2023, 06/07/2023, Additional history exists CKD PHOS USE SMARTSET 23947 06/22/202405/25, 11/10/2020, 10/31/2020, Additional history exists O2 [...] 10/21/2021 LUNG CANCER SCREENING - USE SMARTSET 66226 Completed 11/18/2021, 07/22/2021, 01/22/2021, Additional history exists [...] the patient have Health Care Power of Retail Training Manager? No Code Status History Code Status Date Activated Date Inactivated Comments Full Code 10/19/2018 10:42 AM 10/19/2018 5:02 PM This order reflects the patients wishes and were consensually agreed upon. Care Teams Exhibit Preparator Relationship Specialty Start Date End Date Milli Martin PA-C [address] [place] [address] PCP - General Physician [place] 07/04/23 documented as of this encounter
--- OUTSIDE RECORDS SUMMARY | 2023-10-29 13:13 | External Medical Summary | Summary of Care ---
Author Name Unknown Organization [facility] Address [address] [facility] [place] [address] Phone [phone] Care Team Providers Care Strategy Consultant Name Role Phone Milli Martin PA-C Primary Care Pro vider Reason for Visit * Reason Comments Outpatient Testing Encounter Details Date Type Department Care Team (Late st Contact Info) Description 07/13/2023 12:10 PM [facility] Laboratory Laboratory Patient Service [address] [phone] [address] [address] TONY (acute kidney injury) ([facility]); Stage 3b chronic kidney disease [...] Wheezing. 18 g 3 10/21/2021 Active Ipratropium [place] HFA 17 MCG/ACT Inhalation Aerosol Solution (Atrovent [...] after steroid inhaler. Test performed by Fátima DIGITAL PHOTO PRINTER CPFT Bipolar affective disorder, currently depressed, moderate [...] Encounters Date Type Department Care Team ([facility] st Contact Info) Description 01/30/2024 10:00 AM EDT Office Visit Nephrology [facility], [address] [place] [address] Claudia Vincent PA-C [address] [place] [address] Pending Results Name Type Priority [...] 024, 08/12/2020, 09/11/2018 CKD HGB USE SMARTSET 90706 06/22/202406/22, 06/22/2023, 06/07/2023, Additional history exists CKD PHOS USE SMARTSET 200[address] 06/22/202405/25, 11/10/2020, 10/31/2020, Additional history exists O2 [...] 10/21/2021 LUNG CANCER SCREENING - USE SMARTSET 90126 Completed 11/18/2021, 07/22/2021, 01/22/2021, Additional history exists [...] the patient have Health Care Power of Soccer Commentator? No Code Status History Code Status Date Activated Date Inactivated Comments Full Code 10/19/2018 10:42 AM 10/19/2018 5:02 PM This order reflects the patients wishes and were consensually agreed upon. Care Teams Strategy Consultant Relationship Specialty Start Date End Date Milli Martin PA-C [address] [place] [address] PCP - General Physician Party Supply Specialist 07/04/23 documented as of this encounter
--- OUTSIDE RECORDS SUMMARY | 2023-10-29 13:13 | External Medical Summary ---
Author Name Unknown Address Unknown Organization K01:[facility] [place] [address] [place] [address] Laboratory Report Ordering Provider Test Date Status ASIA HAYESJEANETTE 07/13/2023 12:05:15 Final Observation Date Value Abnormality Reference (Units ) Status AST (Aspartate aminotransferase) 07/13/2023 12:05:15 16 10-35 (U/L) Final Performing Location [facility] - [address] [place] [address]
--- OUTSIDE RECORDS SUMMARY | 2023-10-29 13:13 | External Medical Summary ---
Author Name Unknown Address Unknown Organization K01:[facility]ORY [facility] - [address] [place] [address] Laboratory Report Ordering Provider Test Date Status PHUONG HAYES 07/13/2023 12:05:15 Final Observation Date Value Abnormality Reference (Units ) Status Bilirubin, Total 07/13/2023 12:05:15 0.2 <=1 .2 (mg/dL) Final Performing Location [facility] - [address] [place] [address]
--- OUTSIDE RECORDS SUMMARY | 2023-10-29 13:13 | External Medical Summary ---
Author Name Unknown Address Unknown Organization K01:LABORATORY [place] [address] [facility] [address] [facility] [address] Laboratory Report Ordering Provider Test Date Status PHUONG HAYES 07/13/2023 12:05:15 Final Observation Date Value Abnormality Reference (Units ) Status Nuclear IgG Ab [Ratio] in Serum by Immunoassay 07/13/2023 12:05:15 Negative Negative Final DNA double strand Ab [Presence] in Serum 07/13/2023 12:05:15 Negative Negative Final DOUBLE STRANDED DNA VALUE - [facility] 07/13/2023 12:05:15 <0.6 <20 (IU/mL) Final Extractable nuclear Ab [Presence] in Serum 07/13/2023 12:05:15 Negative Negative Final Nuclear IgG Ab [Ratio] in Serum by Immunoassay 07/13/2023 12:05:15 0.1 <0.7 (Ratio) Final Screening is based on detect ion of the following antibodies: dsDNA, U1-PRINT BUYER (RNP70, A, C), SS-A/Ro, SS-B / La, Chrissy-1, Scl-70, Centromere B proteins and Sm proteins. In conjunction with clinical findings, this can aid in the diagnosis of systemic lupus erythematosous (SLE), mixed connective tissue disease (MCTD), Sjogren's syndrome, scleroderma and polymyositis/dermatomyositis.
However, a negative result does not rule out systemic rheumatic or other autoimmune disease. If clinically suspected, further evaluation and testing may be necessary. Please consult with Rheumatology Department.
Methodology: Fluorescent Enzyme Immunoassay. Performing Location LABORATORY [address] [facility] [address]
--- OUTSIDE RECORDS SUMMARY | 2023-10-29 13:13 | External Medical Summary ---
Author Name Unknown Address Unknown Organization K01:LABORATORY [facility] [place] - [address] [place] [address] Laboratory Report Ordering Provider Test Date Status PHUONG HAYES 07/13/2023 12:05:15 Final Observation Date Value Abnormality Reference (Units ) Status WBC, Total 07/13/2023 12:05:15 9.02 4.00-10.80 (K/uL) Final RBC 07/13/2023 12:05:15 3.53 3.85-5.15 (M/uL) Final Hemoglobin 07/13/2023 12:05:15 11.0 Below low normal 12.0-15.3 (g/dL) Final HCT 07/13/2023 12:05:15 34.3 Below low normal 36.0-45.2 (%) Final MCV 07/13/2023 12:05:15 97.2 81.5-97.5 (fL) Final MCH 07/13/2023 12:05:15 31.2 27.0-34.0 (pg) Final MCHC 07/13/2023 12:05:15 32.1 32.0-36.0 (g/dL) Final RDW 07/13/2023 12:05:15 15.4 11.5-15.5 (%) Final Platelets 07/13/2023 12:05:15 265 140-400 (K/uL) Final MPV 07/13/2023 12:05:15 9.0 6.6-11.1 (fL) Final Nucleated erythrocytes/100 leukocytes [Ratio] in Blood by Automated count 07/13/2023 12:05:15 0 <=0 (/100 WBCs) Final Performing Location LABORATORY [facility] - [address] [place] [address]
--- NOTE | 2023-10-29 13:14 | Neurology Consultation ---
Date of Consultation October 29, 2023 Assessment & Plan (1) Headache: 68yo female with cephalgia and blurred vision CT and MRI brain without contrast negative Recommend Ophthalmology consultation Recommend treat/optimize renal function Recommend obtain CTA head & neck Check inflammatory markers, ESR, CRP Recommend treat with steroids for concern of Giant Cell Arteritis Communicated directly with primary/hospitalist team Dr. Padilla Recommend treat painless vision loss/concern for GCA VTE prophylaxis Telehealth Consultation Telehealth Information Telehealth Information: I performed this visit using a real-time telehealth connection between my location and the patients location ([facility]). After connecting through interactive tele-video, patient was identified by name and date of and/or wristband check.Patient (or authorized healthcare merchandising representative) was informed that this was a telemedicine visit and it was being conducted confidentially over secure lines. My office door was closed and no one else was present in the room with me.Patient (or authorized healthcare merchandising representative) provided consent to proceed with the visit, expressed an understanding of privacy and security of the telemedicine visit, and gave permission to have a hospital merchandising representative in the room in order to assist with the visit and to conduct portions of the visit, as needed. I informed the pa tient (or authorized healthcare merchandising representative) that I reviewed their record and presented the opportunity for them to ask any questions regarding the visit today. The patient agreed to participate. History of Present Illness Reason for Consultation: Blurred vision Requesting Physician: Dr. Padilla Attending Physician: Pierre Padilla MD History of Present Illness 68yo female presented with headache and reported blurred vision upon awakening yesterday. She has undergone a CT brain without contrast as well as an MRI brain without contrast revealing no overt evidence of acute intracranial pathology. I have performed televideo consultation. She is alert & oriented; able to answer all questions appropriately. She cannot see televideo screen to name objects. Sitting OOB bedside. Cannot sit up straight. States she is able to walk and move extremities without difficulty. Reports only complaint of headache, blurred vision and constipation. Difficult to determine of there is pain at temporal regions. She reports 3-4/10 pain states she received pain medicine. She denies eye pain, continues to only endorse headache/holocephalic. She reports no change in vision with one eye closed. Pupils reportedly equal and reactive bilaterally. Allergies Allergy/AdvReac Type Severity Reaction Status Date / Time No Known Allergies Allergy Mild Unverified 07/13/11 21:17 Home Medications Medication Instructions Recorded Confirmed Type albuterol sulfate 90 mcg/actuation 2 puff inhalation Q4 PRN Wheezing 10/28/23 10/28/23 History aerosol inhaler aripiprazole 20 mg tablet 20 mg PO HS 10/28/23 10/28/23 History aripiprazole 5 mg tablet 5 mg PO HS 10/28/23 10/28/23 History atorvastatin 40 mg tablet 40 mg PO DAILY 10/28/23 10/28/23 History budesonide-formoterol HFA 160 2 puff inhalation BID 10/28/23 10/28/23 History mcg-4.5 mcg/actuation aerosol inhaler (Breyna) cetirizine 5 mg tablet 5 mg PO DAILY 10/28/23 10/28/23 History clonazepam 0.5 mg tablet 0.5 mg PO HS 10/28/23 10/28/23 History gabapentin 600 mg tablet 600 mg PO TID 10/28/23 10/28/23 History hydroxyzine pamoate 50 mg capsule 50 mg PO UD 10/28/23 10/28/23 History lamotrigine 100 mg tablet 100 mg PO QAM 10/28/23 10/28/23 History linaclotide 145 mcg capsule 145 mcg PO DAILYBB 10/28/23 10/28/23 History (Linzess) magnesium oxide 400 mg (241.3 mg 400 mg PO DAILY 10/28/23 10/28/23 History magnesium) tablet nystatin 100,000 unit/gram topical 1 applic topical BID 10/28/23 10/28/23 History powder omeprazole 40 mg capsule,delayed 40 mg PO DAILYBB 10/28/23 10/28/23 History release potassium chloride 10 mEq 20 meq PO BID 10/28/23 10/28/23 History tablet,extended release pregabalin 50 mg capsule 50 mg PO BID 10/28/23 10/28/23 History risperidone 1 mg tablet 1 mg PO HS 10/28/23 10/28/23 History sertraline 50 mg tablet 50 mg PO QAM 10/28/23 10/28/23 History sodium bicarbonate 650 mg tablet 650 mg PO AMHS 10/28/23 10/28/23 History trazodone 100 mg tablet 200 mg PO HS 10/28/23 10/28/23 History Patient History Social History Smoking Status: Current every day smoker Tobacco Type: Cigarettes Cigarettes Per Day: 20; Second Hand Exposure: No; Do You Dip or Chew Tobacco: No; Tobacco Cessation Education Requested by Patient: No Hx Alcohol Use: No Hx Substance Use: No Preferred Language: Syriac Communication Ability: Impaired Gauge Machine Operator Required: No Beliefs That Will Affect Care: None Current Living Situation: Family Current Living Situation Comment: grandson lives with patient Other Information That Helps Us Care for You: No Feels Safe at Home: Yes Safety Concerns: Feels Safe At This Time Assistive Devices: None and Glasses Physical Exam Neurological Examination: Mental Status: Awake and alert. Oriented to person, place, and time. CN testing: I: Denies changes in ability to smell II:Reports significant blurred vision bilaterally III/IV/: No evidence of gaze preference, hippus, nystagmus or roving eye movements V: Facial sensation reportedly grossly intact to light touch bilaterally VII: Facial movements appear without evidence of asymmetry VIII: Hearing appears grossly intact to loud voice bilaterally IX/X: Palate is difficult to accurately visualize XI: Shoulder shrug appears symmetric/ grossly intact bilaterally XII: Difficult to accurately assess Motor exam: Strength appears grossly intact/symmetric in all extremities Sensory: Sensation is reportedly grossly intact throughout Coordination: Deferred Reflexes: Deferred Gait: Deferred Results & Data Vital Signs (Past 12 Hours) Vital Signs Temp Pulse Pulse Resp BP Pulse Ox O2 Del Method 10/29/23 11:55 36.3 C L 78 18 123/72 99 Nasal Cannula 10/29/23 07:33 36.5 C 83 18 103/65 96 Nasal Cannula 10/29/23 07:28 85 10/29/23 07:28 Nasal Cannula 10/29/23 03:03 36.8 C 69 18 106/63 95 Nasal Cannula O2 Flow Rate 10/29/23 11:55 2 10/29/23 07:33 2 10/29/23 07:28 10/29/23 07:28 2 10/29/23 03:03 2 Laboratory Results Abnormal lab results 10/28/23 10/28/23 10/28/23 Range/Units 16:44 17:53 18:32 RBC 4.05 L (4.20-5.40) M/uL Hgb (12.0-16.0) g/dl Hct (37.0-47.0) % MCHC (32.0-36.0) g/dL RDW Std Deviation 51.8 H (36.4-46.3) fL RDW Coeff of David 14.8 H (11.5-14.5) % MPV 9.2 L (9.4-12.4) fL ABG pH (7.35-7.45) ABG pCO2 (35-46) mmHg ABG pO2 (80-95) mmHg ABG HCO3 (19-24) mmol/L ABG O2 Saturation (90-95) % ABG Base Excess (-9-1.8) mEq/L VBG pH 7.17 L (7.36-7.41) Potassium (3.5-5.1) mmol/L Chloride 116 H (98-107) mmol/L Carbon Dioxide 18 L (21-32) mmol/L BUN 26 H (6-23) mg/dl Creatinine 2.37 H (0.6-1.2) mg/dl Glucose (70-99(Fasting)) mg/dl POC Glucose (70-99) mg/dl Calcium (8.6-10.3) mg/dl Alkaline Phosphatase 167 H (34-104) U/L Urine Protein 1+ H (Negative) Ur Leukocyte Esterase Trace H (Negative) 10/28/23 10/28/23 10/29/23 Range/Units 18:55 20:47 05:26 RBC 2.97 L (4.20-5.40) M/uL Hgb 9.0 L D (12.0-16.0) g/dl Hct 28.4 L (37.0-47.0) % MCHC 31.7 L (32.0-36.0) g/dL RDW Std Deviation 52.1 H (36.4-46.3) fL RDW Coeff of David 14.8 H (11.5-14.5) % MPV (9.4-12.4) fL ABG pH 7.21 L 7.24 L (7.35-7.45) ABG pCO2 29 L (35-46) mmHg ABG pO2 138 H 104 H (80-95) mmHg ABG HCO3 12 L 17 L (19-24) mmol/L ABG O2 Saturation 99.2 H 98.5 H (90-95) % ABG Base Excess -14.9 L -9.8 L (-9-1.8) mEq/L VBG pH (7.36-7.41) Potassium 3.3 L (3.5-5.1) mmol/L Chloride 121 H (98-107) mmol/L Carbon Dioxide 17 L (21-32) mmol/L BUN 26 H (6-23) mg/dl Creatinine 2.31 H (0.6-1.2) mg/dl Glucose 122 H (70-99(Fasting)) mg/dl POC Glucose 109 H (70-99) mg/dl Calcium 8.3 L (8.6-10.3) mg/dl Alkaline Phosphatase (34-104) U/L Urine Protein (Negative) Ur Leukocyte Esterase (Negative) 10/29/23 Range/Units 07:57 RBC (4.20-5.40) M/uL Hgb 9.8 L (12.0-16.0) g/dl Hct 30.4 L (37.0-47.0) % MCHC (32.0-36.0) g/dL RDW Std Deviation (36.4-46.3) fL RDW Coeff of David (11.5-14.5) % MPV (9.4-12.4) fL ABG pH (7.35-7.45) ABG pCO2 (35-46) mmHg ABG pO2 (80-95) mmHg ABG HCO3 (19-24) mmol/L ABG O2 Saturation (90-95) % ABG Base Excess (-9-1.8) mEq/L VBG pH (7.36-7.41) Potassium (3.5-5.1) mmol/L Chloride (98-107) mmol/L Carbon Dioxide (21-32) mmol/L BUN (6-23) mg/dl Creatinine (0.6-1.2) mg/dl Glucose (70-99(Fasting)) mg/dl POC Glucose (70-99) mg/dl Calcium (8.6-10.3) mg/dl Alkaline Phosphatase (34-104) U/L Urine Protein (Negative) Ur Leukocyte Esterase (Negative) Diagnostic Findings Head CT 10/28/23 17:[address] DOSE: 547.75 mGy.cm HISTORY: lethargy TECHNIQUE: Multiaxial CT images of the head were performed without the use of intravenous contrast. Automated exposure control was utilized for this study. A dose lowering technique was utilized adhering to the principles of ALARA. Comparison: None. Findings: The paranasal sinuses and mastoid air cells are clear. The calvarium and skull base are intact. The ventricles and sulci are within normal limits. There is no mass, hematoma, midline shift, or acute infarct. Impression: No acute intracranial abnormality. ACT 112: Negative or not required by law. Electronically signed by: Anthony Dotson M.D. 10/28/2023 6:00 PM Brain MRI 10/29/23 23:30 MRI OF THE BRAIN WITHOUT IV CONTRAST CLINICAL HISTORY: Headache. Blurry vision. COMPARISON STUDY: CT of the brain dated 10/28/2023. TECHNIQUE: MRI of the brain was performed utilizing various T1 and T2-weighted sequences in the axial, sagittal, and coronal planes. IV contrast was not administered for this examination. FINDINGS: Brain parenchyma: There is minimal microangiopathic change. There is no hemorrhage or mass effect. There is no restricted diffusion to suggest acute ischemia. Montaño-white matter differentiation is preserved. No extra-axial fluid collection is seen. The cerebellar tonsils are normal in configuration. Ventricles, sulci, and cisterns: Normal in configuration. Pituitary and sella: Unremarkable. Intracranial vasculature: Normal flow voids are maintained at the skull base. Orbits: The bony orbits are grossly intact. Orbital contents are normal in appearance. Sinuses and mastoids: Clear. Calvarium: Unremarkable. Cervical cord: Partially visualized cervical spinal cord is normal in morphology and signal intensity. IMPRESSION: No acute intracranial abnormality. ACT 112: Negative or not required by law. Electronically signed by: Adonay Eng M.D. 10/29/2023 11:10 AM Medications Administered Home Medications Medication Instructions Recorded Confirmed Last Taken albuterol sulfate 90 mcg/actuation 2 puff inhalation Q4 PRN Wheezing 10/28/23 10/28/23 Unknown aerosol inhaler aripiprazole 20 mg tablet 20 mg PO HS 10/28/23 10/28/23 Unknown aripiprazole 5 mg tablet 5 mg PO HS 10/28/23 10/28/23 Unknown atorvastatin 40 mg tablet 40 mg PO DAILY 10/28/23 10/28/23 Unknown budesonide-formoterol HFA 160 2 puff inhalation BID 10/28/23 10/28/23 Unknown mcg-4.5 mcg/actuation aerosol inhaler (Breyna) cetirizine 5 mg tablet 5 mg PO DAILY 10/28/23 10/28/23 Unknown clonazepam 0.5 mg tablet 0.5 mg PO HS 10/28/23 10/28/23 Unknown gabapentin 600 mg tablet 600 mg PO TID 10/28/23 10/28/23 Unknown hydroxyzine pamoate 50 mg capsule 50 mg PO UD 10/28/23 10/28/23 Unknown lamotrigine 100 mg tablet 100 mg PO QAM 10/28/23 10/28/23 Unknown linaclotide 145 mcg capsule 145 mcg PO DAILYBB 10/28/23 10/28/23 Unknown (Linzess) magnesium oxide 400 mg (241.3 mg 400 mg PO DAILY 10/28/23 10/28/23 Unknown magnesium) tablet nystatin 100,000 unit/gram topical 1 applic topical BID 10/28/23 10/28/23 Unknown powder omeprazole 40 mg capsule,delayed 40 mg PO DAILYBB 10/28/23 10/28/23 Unknown release potassium chloride 10 mEq 20 meq PO BID 10/28/23 10/28/23 Unknown tablet,extended release pregabalin 50 mg capsule 50 mg PO BID 10/28/23 10/28/23 Unknown risperidone 1 mg tablet 1 mg PO HS 10/28/23 10/28/23 Unknown sertraline 50 mg tablet 50 mg PO M 10/28/23 10/28/23 Unknown sodium bicarbonate 650 mg tablet 650 mg PO [facility] 10/28/23 10/28/23 Unknown trazodone 100 mg tablet 200 mg PO HS 10/28/23 10/28/23 Unknown Active Medications Generic Name Dose Route Start Last Admin Trade Name Fre PRN Reason Stop Dose Admin Acetaminophen 650 mg 10/28/23 23:30 10/29/23 05:46 Acetaminophen 325 Mg Tab PO 11/27/23 23:29 650 mg Q4H PRN Administration Pain or Fever Atorvastatin Calcium 40 mg 10/29/23 09:00 10/29/23 09:05 Atorvastatin 40 Mg Tab PO 11/28/23 08:59 40 mg DAILY [facility] Administration Cetirizine HCl 5 mg 10/29/23 09:00 10/29/23 09:05 Cetirizine Hcl 10 Mg Tablet PO 11/28/23 08:59 5 mg DAILY [facility] Administration Famotidine 20 mg 10/29/23 09:00 10/29/23 09:06 Famotidine 20 Mg Tab PO 11/28/23 08:59 20 mg BID [facility] Administration Fluticasone/Vilanterol 1 puffs 10/29/23 09:00 10/29/23 09:06 Fluticasone/Vilanterol 200/25mcg 14 Puffs/Inhaler INH 11/28/23 08:59 1 puffs DAILY [facility] Administration Gabapentin 600 mg 10/29/23 09:00 10/29/23 09:06 Gabapentin 600 Mg Tab PO 11/28/23 08:59 600 mg TID [facility] Administration Heparin Sodium (Porcine) 5,000 units 10/29/23 09:00 10/29/23 09:07 Heparin Sod 5,000 Unit/0.5 Ml Vial SQ 11/28/23 08:59 Not Given Q12 [facility] Hydroxyzine HCl 50 mg 10/29/23 09:00 10/29/23 09:07 Hydroxyzine Hcl 25 Mg Tab PO 11/28/23 08:59 50 mg AMHS [facility] Administration Lamotrigine 100 mg 10/29/23 09:00 10/29/23 09:07 Lamotrigine 100 Mg Tab PO 11/28/23 08:59 100 mg QAM [facility] Administration Protocol Linaclotide 145 mcg 10/29/23 06:30 10/29/23 05:47 Linaclotide 145 Mcg Capsule PO 11/28/23 06:29 145 mcg DAILYBB [facility] Administration Magnesium Oxide 400 mg 10/29/23 09:00 10/29/23 09:05 Magnesium Oxide 400 Mg Tab PO 11/28/23 08:59 400 mg BID [facility] Administration Nystatin 1 appln 10/29/23 09:00 10/29/23 09:08 Nystatin Powder 15gm Btl EXT 11/28/23 08:59 1 appln BID [facility] Administration Potassium Chloride 20 meq 10/29/23 09:00 10/29/23 09:05 Potassium Chloride Crtab 20 Meq Tabcr PO 11/28/23 08:59 20 meq BID [facility] Administration Pregabalin 50 mg 10/29/23 09:00 10/29/23 09:09 Pregabalin 50 Mg Cap PO 11/28/23 08:59 50 mg BID [facility] Administration Risperidone 1 mg 10/28/23 23:30 10/28/23 23:59 Risperidone 1 Mg Tablet PO 11/27/23 23:29 1 mg HS [facility] Administration Sertraline HCl 50 mg 10/29/23 09:00 10/29/23 09:05 Sertraline Hcl 50 Mg Tablet PO 11/28/23 08:59 50 mg QAM [facility] Administration
--- OUTSIDE RECORDS SUMMARY | 2023-10-29 13:14 | External Medical Summary ---
Author Name Unknown Address Unknown Organization K01:[facility] - [address] [place] [address] Laboratory Report Ordering Provider Test Date Status CHELY ALVARADO 06/07/2023 10:15:19 Final Observation Date Value Abnormality Reference (Units ) Status Magnesium 06/07/2023 10:15:19 1.8 1.5-2.6 (m g/dL) Final Performing Location [facility] - [address] [place] [address]
--- OUTSIDE RECORDS SUMMARY | 2023-10-29 13:14 | External Medical Summary ---
Author Name Unknown Address Unknown Organization K01:LABORATORY [facility] [place] - [address] [place] [address] Laboratory Report Ordering Provider Test Date Status CHELY ALVARADO 06/22/2023 13:51:46 Final Observation Date Value Abnormality Reference (Units ) Status Uric Acid 06/22/2023 13:51:46 3.7 2.4-5.7 (m g/dL) Final Performing Location [facility] - [address] [place] [address]
--- OUTSIDE RECORDS SUMMARY | 2023-10-29 13:14 | External Medical Summary | Summary of Care ---
Author Name Unknown Organization [facility] Address [address] [facility] [place] [address] Phone [phone] Care Team Providers Care Batt Packer Name Role Phone Randall Malik MD Primary Care Provider [phone] Encounter Details Date Type Department Care Team (Late st Contact Info) Description 06/15/2023 Orders Only Laboratory, [facility] [address] [place] [id number] Milli Martin PA-Fransisco [address] [facility] [address] [place] [address] Chronic renal insufficiency* Allergies Active Allergy Reactions Criticality Noted Date Comments Dust 08/11/2018 Gramineae Pollens 08/11/2018 Adhesive Tape Rash 09/22/2018 Paper tape and bandaids documented as of this encounter (statuses as of 06/15/2023) Medications Medication Sig Dispensed Refills Start Date End Date Status RISPERDAL 1 MG PO TABS Take 1 mg by mouth daily. 0 Active PAROXETINE HCL 40 MG PO TABS Take 40 mg by mouth daily. 0 Active ABILIFY 20 MG PO TABS Take 20 mg by mouth daily. 0 Active LAMOTRIGINE 100 MG PO TABS Take 100 mg by mouth at bedtime. 0 Active traZODone (DESYREL) 150 MG Tablet Take 150 mg by mouth at bedtime. 0 11/03/2018 Active clonazePAM (KLONOPIN) 0.5 MG Tablet Take 0.5 mg by mouth daily. 0 03/02/2019 Active Atorvastatin Calcium 20 MG Oral Tablet (Lipitor)Indications:Dy slipidemia, goal LDL below 100 Take 1 Tab by mouth daily. 90 Tab 3 10/16/2020 Active Gabapentin 600 MG Oral Tablet (Neurontin)Indications: Chronic midline low back pain, unspecified whether sciatica present,Degeneration of lumbar or lumbosacral intervertebral disc,Spinal stenosis of lumbar region with neurogenic claudication Take 1 Tab by mouth 2 times a day as needed for Pain. 90 Tab 5 10/16/2020 Active Cetirizine HCl 5 MG Oral TabletIndications:Seaso nal allergies Take 1 Tab by mouth daily. 90 Tab 3 10/16/2020 Active Omeprazole 20 MG Oral Capsule Delayed Release (PriLOSEC)Indications:P eriumbilical abdominal pain Take 1 Cap by mouth daily. 1 hour before the first meal of the day 90 Cap 3 10/16/2020 Active hydrOXYzine Pamoate 50 MG Oral Capsule (Vistaril) Take 50 mg by mouth daily. 0 10/11/2020 Active Ondansetron HCl 4 MG Oral Tablet (Zofran) Take 1 Tab by mouth every 8 hours as needed for Nausea. 15 Tab 3 11/19/2020 Active Linzess 145 MCG Oral Capsule (linaCLOtide)Indication s:Chronic idiopathic constipation Take 1 Cap by mouth daily before breakfast. 30 Cap 2 12/12/2020 Active Albuterol Sulfate HFA 108 (90 Base) MCG/ACT Inhalation Aerosol SolutionIndications:COMMUNICATION LECTURER D, 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 18 g 3 10/21/2021 Active Ipratropium [place] HFA 17 MCG/ACT Inhalation Aerosol Solution (Atrovent Hfa) Inhale by mouth 2 Puffs every 6 hours . 12.9 g 12 10/23/2021 Active oxygen IN GASIndications:Nocturna l hypoxemia Use as directed 4 L/min(Oxygen) at bedtime . 1 Each 0 10/30/2021 Active documented as of this encounter (statuses as of 06/15/2023) Active Problems Problem Noted Date Diagnosed Date [...] after steroid inhaler. Test performed by Fátima FIRST AID NURSE CPFT Bipolar affective disorder, currently depressed, moderate 01/09/2019 Degeneration of lumbar or lumbosacral interverte bral disc 07/03/2014 Thoracic or lumbosacral neur itis or radiculitis, unspecified 07/03/2014 Lumbago 07/03/2014 MIXED INCONTINENCE, URGE AND STRESS 02/10/2001 Anxiety state DIFFUS CYSTIC MASTOPATHY documented as of this encounter (statuses as of 06/15/2023) Resolved Problems Problem Noted Date Diagnosed Date [...] as of this encounter (statuses as of 06/15/2023) Immunizations Name Administration Dates Next Due COVID-19 [...] as of this encounter Plan of Treatment Scheduled Orders Name Type Priority Associated Diagnoses Orde r Schedule BASIC METABOLIC PANEL Lab Routine Chronic renal insufficiency Expected: 06/15/2023, Expires: 06/15/2024 Health Maintenance Due Date Last Done Comments O2 ASSESSMENT COMPLETED IN PAST YEAR FOR COPD 1974 Cologuard 2001 Fecal Occult Blood Test 2001 Sigmoidoscopy 2001 Hepatitis B (1 of 3 - Risk 3-dose series) 2016 Pneumococcal Vaccine: 65+ Years (2 - PCV) 07/20/2019 07/20/2018 Colonoscopy 08/20/2019 08/19/2009 Colorectal Cancer Screening 08/20/2019 Albumin/Creatinine Ratio 08/12/2021 08/12/2020, 08/22 Depression Screening 09/15/2021 09/15/2020 CKD PHOS USE SMARTSET 79000 11/10/202110/22, 10/31/2020, 08/12/2020, Additional history exists DISCUSS TOBACCO CESSATION (REFER TO SMARTSET #3291) 10/21/2022 10/21/2021 COVID-19 Vaccine ( season) 2023 06/15/2021, 11/10/2020, 09/22/2020 Influenza Vaccine (FLU shot) (#1) 2023 01/31/2020, 02/28/2019, 03/07/2018, Additional history exists GFR 12/06/2023 06/07/2023, 02/05/2022, 06/20/2022, Additional history exists CKD HGB USE SMARTSET 14034 06/07/202406/07, 06/07/2023, 06/23/2022, Additional history exists Mammogram 06/07/2024 06/07/2023, 02/09/2021, 04/10/2020, Additional history exists Diabetes Screening 06/07/2026 06/07/2023, 0 06/07/2023, 06/23/2022, Additional history exists DXA Scan 04/10/2027 04/10/2020, 08/14/2003 Lipid Panel 06/23/2027 06/23/2022, 10/21, 10/14/2020, Additional history exists DTaP,Tdap,and Td Vaccines (2 - Td or Tdap) 04/20/2028 04/20/2018 Zoster Vaccines Completed 02/29/2020, 06/18/2019 Alpha-1 Antitrypsin Completed 10/21/2021 LUNG CANCER SCREENING - USE SMARTSET 00729 Completed 11/18/2021, 07/22/2021, 01/22/2021, Additional history exists GARDASIL-HPV IMMUNIZATION SERIES Aged Out No longer eligible based on patient's age to complete this topic MENINGOCOCCAL (MENACTRA/MENVEO) Aged Out No longer eligible based on patient's age to complete this topic documented as of this encounter Medical Devices Not on filedocumented as of this encounter Visit Diagnoses Diagnosis Chronic renal insufficiency- Primary Chronic kidney disease, unspecified documented in this encounter Advance Directives Latest Code Status on File Code Status Date Activated Date Inactivated Comments Full Code 11/10/2020 6:16 PM 11/12/2020 5:12 PM This order reflects the patients wishes and were consensually agreed upon. Question Answer Comments Discussion of Advance Directives occurred with: Patient Does the patient have a Living Will? No Does the patient have Health Care Power of Civil Manager? No Code Status History Code Status Date Activated Date Inactivated Comments Full Code 10/19/2018 10:42 AM 10/19/2018 5:02 PM This order reflects the patients wishes and were consensually agreed upon. Care Teams Batt Packer Relationship Specialty Start Date End Date Randall Malik MD [address] [facility] [address] [place] [address] PCP - General Internal Medicine 02/07/21 documented as of this encounter
--- OUTSIDE RECORDS SUMMARY | 2023-10-29 13:14 | External Medical Summary | Summary of Care ---
Author Name Unknown Organization [facility] Address [address] [place] [address] Phone [phone] Care Team Providers Care Supervisor Securities Vault Name Role Phone Randall Malik MD Primary Care Provider [phone] Encounter Details Date Type Department Care Team (Late st Contact Info) Description 06/16/2023 Orders Only Access Center, [address] Ext *DO NOT REMOVE THIS DEPARTMENT* [place] [address] Requisition, External Radiology [address] [place] [address] Chronic kidney disease* Allergies Active Allergy Reactions Criticality Noted Date Comments Dust 08/11/2018 Gramineae Pollens 08/11/2018 Adhesive Tape Rash 09/22/2018 Paper tape and bandaids documented as of this encounter (statuses as of 06/16/2023) Medications Medication Sig Dispensed Refills Start Date [...] HFA 108 (90 Base) MCG/ACT Inhalation Aerosol SolutionIndications:WALLPAPER INSPECTOR D, 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 18 g 3 10/21/2021 Active Ipratropium [place] HFA 17 MCG/ACT Inhalation Aerosol Solution (Atrovent Hfa) Inhale by mouth 2 Puffs every 6 hours . 12.9 g 12 10/23/2021 Active oxygen IN GASIndications:Nocturna l hypoxemia Use as directed 4 L/min(Oxygen) at bedtime . 1 Each 0 10/30/2021 Active documented as of this encounter (statuses as of 06/16/2023) Active Problems Problem Noted Date Diagnosed Date [...] after steroid inhaler. Test performed by Fátima ORDER ENTRY CPFT Bipolar affective disorder, currently depressed, moderate 01/09/2019 Degeneration of lumbar or lumbosacral interverte bral disc 07/03/2014 Thoracic or lumbosacral neur itis or radiculitis, unspecified 07/03/2014 Lumbago 07/03/2014 MIXED INCONTINENCE, URGE AND STRESS 02/10/2001 Anxiety state DIFFUS CYSTIC MASTOPATHY documented as of this encounter (statuses as of 06/16/2023) Resolved Problems Problem Noted Date Diagnosed Date [...] update of inactive term Premature menopause 03/11/2006 08/20/20 19 ABDOMINAL PAIN, RIGHT LOWER QUADRANT 02/10/2001 05/19/2004 EMPHYSEMA (SUBCUTANEOUS) RES ULTING FROM PROCEDURE 02/10/2001 05/19/2004 Major depressive disorder 02/10/2001 Overview: ICD-10 update of inactive term COPD exacerbation 04/20/2018 Asthma, allergic 11/17/2009 MANIC-DEPRESSIVE NOS 019 documented as of this encounter (statuses as of 06/16/2023) Immunizations Name Administration Dates Next Due COVID-19 [...] Care Team (Late st Contact Info) Description 06/22/2023 2:00 PM EST Imaging Radiology [facility] [address] [facility] [place] [address] Scheduled Orders Name Type Priority Associated Diagnoses Orde r Schedule US RENAL Medical Imaging Routine Chronic kidney disease Expected: 06/16/2023, Expires: 07/17/2024 Health Maintenance Due Date Last Done Comments O2 ASSESSMENT COMPLETED IN PAST YEAR FOR COPD 1974 Cologuard 2001 Fecal Occult Blood Test 2001 Sigmoidoscopy 2001 Hepatitis B (1 of 3 - Risk 3-dose series) 2016 Pneumococcal Vaccine: 65+ Years (2 - PCV) 07/20/2019 07/20/2018 Colonoscopy 08/20/2019 08/19/2009 Colorectal Cancer Screening 08/20/2019 Depression Screening 09/15/2021 09/15/2020 CKD PHOS USE SMARTSET 01241 11/10/2021 06/2 05/2020, 10/31/2020, 08/12/2020, Additional history exists DISCUSS TOBACCO CESSATION (REFER TO SMARTSET #3291) 10/21/2022 10/21/2021 COVID-19 Vaccine ( season) 2023 06/15/2021, 11/10/2020, 09/22/2020 Influenza Vaccine (FLU shot) (#1) 2023 01/31/2020, 02/28/2019, 03/07/2018, Additional history exists GFR 12/15/2023 06/16/2023, 05/23, 06/23/2022, Additional history exists CKD HGB USE SMARTSET 48679 06/07/202406/07, 06/07/2023, 06/23/2022, Additional history exists Mammogram 06/07/2024 06/07/2023, 06/24, 04/10/2020, Additional history exists Albumin/Creatinine Ratio 06/16/2024 024, 08/12/2020, 09/11/2018 Diabetes Screening 06/16/2026 06/16/2023, 0 06/07/2023, 06/07/2023, Additional history exists Lipid Panel 06/23/2027 06/23/2022, 10/21, 10/14/2020, Additional history exists DTaP,Tdap,and Td Vaccines (2 - Td or Tdap) 04/20/2028 04/20/2018 DXA Scan 06/15/2030 06/15/2023, 03/23, 08/14/2003 Zoster Vaccines Completed 02/29/2020, 06/18/2019 Alpha-1 Antitrypsin Completed 10/21/2021 LUNG CANCER SCREENING - USE SMARTSET 81577 Completed 11/18/2021, 07/22/2021, 01/22/2021, Additional history exists GARDASIL-HPV IMMUNIZATION SERIES Aged Out No longer eligible based on patient's age to complete this topic MENINGOCOCCAL (MENACTRA/MENVEO) Aged Out No longer eligible based on patient's age to complete this topic documented as of this encounter Medical Devices Not on filedocumented as of this encounter Visit Diagnoses Diagnosis Chronic kidney disease- Primary Chronic kidney disease, unspecified documented in [...] the patient have Health Care Power of Racecourse Barrier Attendant? No Code Status History Code Status Date Activated Date Inactivated Comments Full Code 10/19/2018 10:42 AM 10/19/2018 5:02 PM This order reflects the patients wishes and were consensually agreed upon. Care Teams Supervisor Securities Vault Relationship Specialty Start Date End Date Randall Malik MD [address] [facility] [address] [place] [address] PCP - General Internal Medicine 02/07/21 documented as of this encounter
--- OUTSIDE RECORDS SUMMARY | 2023-10-29 13:14 | External Medical Summary | Summary of Care ---
Author Name Unknown Organization [facility] Address [address] [place] [address] Phone [phone] Care Team Providers Care Dairy Bar Manager Name Role Phone Randall Malik MD Primary Care Provider [phone] Reason for Visit * Reason Onset Date Comments Test Results 11/18/2021 CT chest and 6MW Encounter Details Date Type Department Care Team (Late st Contact Info) Description 11/18/2021 Telephone Pulmonary Medicine, [facility] [address] [facility] [place] [address] Services, Scheduling [address] [place] [address] Test Results (CT chest and 6MW) Allergies Active Allergy Reactions Criticality Noted Date Comments Dust 08/11/2018 Gramineae Pollens 08/11/2018 Adhesive Tape Rash 09/22/2018 Paper tape and bandaids documented as of this encounter (statuses as of 05/25/2023) Medications Medication Sig Dispensed Refills Start Date [...] HFA 108 (90 Base) MCG/ACT Inhalation Aerosol SolutionIndications:VISUAL DESIGN LEAD D, 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 18 g 3 10/21/2021 Active Ipratropium [place] HFA 17 MCG/ACT Inhalation Aerosol Solution (Atrovent Hfa) Inhale by mouth 2 Puffs every 6 hours . 12.9 g 12 10/23/2021 Active oxygen IN GASIndications:Nocturna l hypoxemia Use as directed 4 L/min(Oxygen) at bedtime . 1 Each 0 10/30/2021 Active Hospital, Clinic, or Other Facility Administered Medication Ordered Dose Route Frequency Start Date End Date Status Albuterol Sulfate (Proventil) (2.5 MG/3ML) 0.083% inhalation solution 2.5 mgIndications:SOB (shortness of breath),COPD, severity to be determined (HCC),Restrictive lung disease 2.5 mg NEBULIZER PRN 11/17/2021 11/17/2022 Ended Albuterol Sulfate (Proventil) (5 MG/ML) 0.5% *conc* inhalation solution 2.5 mgIndications:SOB (shortness of breath),COPD, severity to be determined (HCC),Restrictive lung disease 2.5 mg NEBULIZER PRN 11/17/2021 11/17/2022 Ended documented as of this encounter (statuses as of 05/25/2023) Active Problems Problem Noted Date Diagnosed Date [...] after steroid inhaler. Test performed by Fátima ECONOMIC MANAGER CPFT Bipolar affective disorder, currently depressed, moderate 01/09/2019 Degeneration of lumbar or lumbosacral interverte bral disc 07/03/2014 Thoracic or lumbosacral neur itis or radiculitis, unspecified 07/03/2014 Lumbago 07/03/2014 MIXED INCONTINENCE, URGE AND STRESS 02/10/2001 Anxiety state DIFFUS CYSTIC MASTOPATHY documented as of this encounter (statuses as of 05/25/2023) Resolved Problems Problem Noted Date Diagnosed Date [...] as of this encounter (statuses as of 05/25/2023) Immunizations Name Administration Dates Next Due COVID-19 [...] encounter Miscellaneous Notes * Telephone Encounter - Hayley Jerome OSA - 05/25/2023 5:53 PM EST Letter was sent to pt on 11/25/22 to schedule. * Telephone Encounter - Ashley Hale LPN - 11/27/2021 2:15 PM EDT Pt aware. Please set up CT in 1 year * Telephone Encounter - Adam Schwab MD - 11/26/2021 4:18 PM EDT Walked 900 feet on room air. No need for oxygen supplementation at rest or with exertion. Ct with no significant nodules and changes of COPD. Agree formerly [facility], [facility] lung cancer screening teams plan of ct in 1 year * Telephone Encounter - Ashley Baca CMA - 11/24/2021 1:29 PM EDT Patient calling asking for test results for the second time today. She was told that they would be ready for Tuesday I explained that due to the iday that these results for walk test and CT Scan to be addressed. Please advise * Telephone Encounter - Vaishali Gasca OSA - 11/19/2021 10:36 AM EDT Patient called in Today looking for the Results of the CT and the walk, I advised her it will take some time to get both the results back and when they are resulted that someone will reach out to her. Thank you! * Telephone Encounter - Hayley Mackey LPN - 11/18/2021 1:39 PM EDT She didn't have PFT, she had 6MW and CT Chest today. Pt was told again that we will call her when the provider reviews the results and advises. * Telephone Encounter - Nusrat Serrano OSA - 11/18/2021 12:46 PM EDT Pt had PFt and Ct scan today and she called to get the results of the tests. She was told that she did not need the O2 and she said she does. documented in this encounter Plan of Treatment Upcoming Encounters Date Type Department Care Team (Late st Contact Info) Description 06/07/2023 10:30 AM EST Imaging Radiology [address] [place] [address] 06/15/2023 11:00 AM EST Imaging Radiology, [address] [place] [address] Health Maintenance Due Date Last Done Comments [...] Screening 09/15/2021 09/15/2020 CKD PHOS USE SMARTSET 61986 11/10/202110/22, 10/31/2020, 08/12/2020, Additional history exists Mammogram 07/17/2022 07/17/2021, 03/23, 02/21/2019, Additional history exists DISCUSS TOBACCO CESSATION (REFER TO SMARTSET #3291) 10/21/2022 10/21/2021 GFR 12/21/2022 06/23/2022, 05/24, 04/27/2022, Additional history exists COVID-19 Vaccine ( season) 2023 06/15/2021, 11/10/2020, 09/22/2020 Influenza Vaccine (FLU shot) (#1) 2023 01/31/2020, 02/28/2019, 03/07/2018, Additional history exists CKD HGB USE SMARTSET 61620 06/23/202306/23, 06/23/2022, 06/20/2022, Additional history exists Diabetes Screening 06/23/2025 06/23/2022, 1 06/28/2021, 02/24/2022, Additional history exists DXA Scan 04/10/2027 04/10/2020, 08/14/2003 Lipid Panel 06/23/2027 06/23/2022, 10/21, 10/14/2020, Additional history exists DTaP,Tdap,and Td Vaccines (2 - Td or Tdap) 04/20/2028 04/20/2018 Zoster Vaccines Completed 02/29/2020, 06/18/2019 Alpha-1 Antitrypsin Completed 10/21/2021 LUNG CANCER SCREENING - USE SMARTSET 20088 Completed 11/18/2021, 07/22/2021, 01/22/2021, Additional history exists [...] the patient have Health Care Power of Fuel Buyer? No Code Status History Code Status Date Activated Date Inactivated Comments Full Code 10/19/2018 10:42 AM 10/19/2018 5:02 PM This order reflects the patients wishes and were consensually agreed upon. Care Teams Dairy Bar Manager Relationship Specialty Start Date End Date Randall Malik MD [address] [address] [place] [address] [place] [address] PCP - General Internal Medicine 02/07/21 documented as of this encounter
--- OUTSIDE RECORDS SUMMARY | 2023-10-29 13:14 | External Medical Summary | Summary of Care ---
Author Name Unknown Organization [facility] Address [address] [facility] [place] [address] Phone [phone] Care Team Providers Care Electronic Systems Technician Name Role Phone Milli Martin PA-C Primary Care Pro vider Reason for Referral * Evaluate & Treat - Unlimited Visits (Within 10 days (routine)) - Pending Review Specialty Diagnoses / Procedures Referred By Denny t Referred To Contact Nephrology Diagnoses Chronic kidney disease (CKD) Randall Malik MD [address] [facility] [address] [place] [address] Referral ID Status Reason Start Date Expiration Date Visits Requested Visits Authorized [id number] Pending Review Specialty Services Required 07/06/[phone] Question Answer Referral Priority Within 10 days (routine) Where should this appointment be scheduled? [facility] What condition is this patient being seen for? Chronic kidney disease Comments Worsening CKD Encounter Details Date Type Department Care Team (Late st Contact Info) Description 07/06/2023 Orders Only Access [place], [place] [address] [place] [address] Ext *DO NOT REMOVE THIS DEPARTMENT* [place] [id number] Request, External Referral Chronic kidney disease (CKD)* Allergies Active Allergy Reactions Criticality Noted Date Comments Dust 08/11/2018 Gramineae Pollens 08/11/2018 Adhesive Tape Rash 09/22/2018 Paper tape and bandaids documented as of this encounter (statuses as of 07/06/2023) Medications Medication Sig Dispensed Refills Start Date [...] HFA 108 (90 Base) MCG/ACT Inhalation Aerosol SolutionIndications:FOUNDRY MOLDER D, 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 18 g 3 10/21/2021 Active Ipratropium [place] HFA 17 MCG/ACT Inhalation Aerosol Solution (Atrovent Hfa) Inhale by mouth 2 Puffs every 6 hours . 12.9 g 12 10/23/2021 Active oxygen IN GASIndications:Nocturna l hypoxemia Use as directed 4 L/min(Oxygen) at bedtime . 1 Each 0 10/30/2021 Active documented as of this encounter (statuses as of 07/06/2023) Active Problems Problem Noted Date Diagnosed Date [...] after steroid inhaler. Test performed by Fátima SNUFF GRINDER AND SCREENER CPFT Bipolar affective disorder, currently depressed, moderate 01/09/2019 Degeneration of lumbar or lumbosacral interverte bral disc 07/03/2014 Thoracic or lumbosacral neur itis or radiculitis, unspecified 07/03/2014 Lumbago 07/03/2014 MIXED INCONTINENCE, URGE AND STRESS 02/10/2001 Anxiety state DIFFUS CYSTIC MASTOPATHY documented as of this encounter (statuses as of 07/06/2023) Resolved Problems Problem Noted Date Diagnosed Date [...] as of this encounter (statuses as of 07/06/2023) Immunizations Name Administration Dates Next Due COVID-19 [...] Upcoming Encounters Date Type Department Care Team ([facility] Contact Info) Description 07/13/2023 11:40 AM EST Office Visit Nephrology [address] [place] [address] Tae Baird MD [address] [place], [place] [address] Scheduled Referrals Name Type Priority Associated Diagnoses Orde r Schedule NEPHROLOGY REFERRAL OP Referral Within 10 days (routine) Chronic kidney disease (CKD) Ordered: 07/06/2023 Health Maintenance Due Date Last Done Comments [...] 024, 08/12/2020, 09/11/2018 CKD HGB USE SMARTSET 73333 06/22/202406/22, 06/22/2023, 06/07/2023, Additional history exists CKD PHOS USE SMARTSET 60610 06/22/202405/25, 11/10/2020, 10/31/2020, Additional history exists Diabetes Screening 06/22/2026 06/22/2023, 0 06/16/2023, 06/07/2023, Additional history exists Lipid Panel 06/23/2027 06/23/2022, 10/21, 10/14/2020, Additional history exists DTaP,Tdap,and Td Vaccines (2 - Td or Tdap) 04/20/2028 04/20/2018 DXA Scan 06/15/2030 06/15/2023, 03/23, 08/14/2003 Zoster Vaccines Completed 02/29/2020, 06/18/2019 Alpha-1 Antitrypsin Completed 10/21/2021 LUNG CANCER SCREENING - USE SMARTSET 02656 Completed 11/18/2021, 07/22/2021, 01/22/2021, Additional history exists GARDASIL-HPV IMMUNIZATION SERIES Aged Out No longer eligible based on patient's age to complete this topic MENINGOCOCCAL (MENACTRA/MENVEO) Aged Out No longer eligible based on patient's age to complete this topic documented as of this encounter Medical Devices Not on filedocumented as of this encounter Visit Diagnoses Diagnosis Chronic kidney disease (CKD)- Primary Chronic kidney disease, unspecified documented in [...] the patient have Health Care Power of Black Mill Operator? No Code Status History Code Status Date Activated Date Inactivated Comments Full Code 10/19/2018 10:42 AM 10/19/2018 5:02 PM This order reflects the patients wishes and were consensually agreed upon. Care Teams Electronic Systems Technician Relationship Specialty Start Date End Date Milli Martin PA-C [address] [facility] [address] [place] [address] PCP - General Physician Chief Load Dispatcher 07/04/23 documented as of this encounter
--- OUTSIDE RECORDS SUMMARY | 2023-10-29 13:14 | External Medical Summary | Summary of Care ---
Author Name Unknown Organization [facility] Address [address] [facility] [place] [address] Phone [phone] Care Team Providers Care Solutions Architect Consultant Name Role Phone Randall Malik MD Primary Care Provider [phone] Reason for Visit * Reason Comments Outpatient Testing Encounter Details Date Type Department Care Team (Late st Contact Info) Description 06/16/2023 9:40 AM EST Laboratory Laboratory, [facility] [address] [place] [id number] [facility] [address] [place] [address] Chronic renal insufficiency; Bronchitis; COPD, severity to be determined ([facility]); DM type 2, not at goal ([facility]); Dyslipidemia, goal LDL below 160 Allergies Active Allergy Reactions Criticality Noted Date [...] HFA 108 (90 Base) MCG/ACT Inhalation Aerosol SolutionIndications:INSPECTOR INSULATION D, 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 18 g 3 10/21/2021 Active Ipratropium [place] HFA 17 MCG/ACT Inhalation Aerosol Solution (Atrovent [...] after steroid inhaler. Test performed by Fátima ENGINE CLEANER CPFT Bipolar affective disorder, currently depressed, moderate [...] as of this encounter Plan of Treatment Pending Results Name Type Priority Associated Diagnoses Date /Time BASIC METABOLIC PANEL Lab Routine Chronic renal insufficiency 06/16/2023 9:37 AM EST ALBUMIN / CREATININE RATIO, URINE Lab Routine Bronchitis COPD, severity to be determined (HCC) DM type 2, not at goal (HCC) Dyslipidemia, goal LDL below 160 06/16/2023 9:41 AM EST Health Maintenance Due Date Last Done [...] Screening 09/15/2021 09/15/2020 CKD PHOS USE SMARTSET 34971 11/10/202110/22, 10/31/2020, 08/12/2020, Additional history exists DISCUSS TOBACCO CESSATION (REFER TO SMARTSET #3291) 10/21/2022 10/21/2021 COVID-19 Vaccine ( season) 2023 06/15/2021, 11/10/2020, 09/22/2020 Influenza Vaccine (FLU shot) (#1) 2023 01/31/2020, 02/28/2019, 03/07/2018, Additional history exists GFR 12/06/2023 06/07/2023, 02/0 05/2022, 06/20/2022, Additional history exists CKD HGB USE SMARTSET 52348 06/07/202406/07, 06/07/2023, 06/23/2022, Additional history exists Mammogram 06/07/2024 06/07/2023, /09/2021, 04/10/2020, Additional history exists Diabetes Screening 06/07/2026 06/07/2023, 0 06/07/2023, 06/23/2022, Additional history exists Lipid Panel 06/23/2027 06/23/2022, 10/21, 10/14/2020, Additional history exists DTaP,Tdap,and Td Vaccines (2 - Td or Tdap) 04/20/2028 04/20/2018 DXA Scan 06/15/2030 06/15/2023, 03/23, 08/14/2003 Zoster Vaccines Completed 02/29/2020, 06/18/2019 Alpha-1 Antitrypsin Completed 10/21/2021 LUNG CANCER SCREENING - USE SMARTSET 31117 Completed 11/18/2021, 07/22/2021, 01/22/2021, Additional history exists GARDASIL-HPV IMMUNIZATION SERIES Aged Out No longer eligible based on patient's age to complete this topic MENINGOCOCCAL (MENACTRA/MENVEO) Aged Out No longer eligible based on patient's age to complete this topic documented as of this encounter Medical Devices Not on filedocumented as of this encounter Visit Diagnoses Diagnosis Chronic renal insufficiency Chronic kidney disease, unspecified Bronchitis Bronchitis, not specified as acute or chronic COPD, severity to be determined (HCC) Chronic airway obstruction, not elsewhere classified DM type 2, not at goal (HCC) Type II or unspecified type diabetes mellitus without mention of complication, not stated as uncontrolled Dyslipidemia, goal LDL below 160 Other and unspecified hyperlipidemia documented in this encounter Advance Directives Latest Code Status on File Code Status Date Activated Date Inactivated Comments Full Code 11/10/2020 6:16 PM 11/12/2020 5:12 PM This order reflects the patients wishes and were consensually agreed upon. Question Answer Comments Discussion of Advance Directives occurred with: Patient Does the patient have a Living Will? No Does the patient have Health Care Power of Boiling Tub Operator? No Code Status History Code Status Date Activated Date Inactivated Comments Full Code 10/19/2018 10:42 AM 10/19/2018 5:02 PM This order reflects the patients wishes and were consensually agreed upon. Care Teams Solutions Architect Consultant Relationship Specialty Start Date End Date Randall Malik MD [address] [facility] [address] [place] [address] PCP - General Internal Medicine 02/07/21 documented as of this encounter
--- OUTSIDE RECORDS SUMMARY | 2023-10-29 13:14 | External Medical Summary ---
Author Name Unknown Address Unknown Organization [facility] [address] [place] [id number] Laboratory Report Ordering Provider Test Date Status CHELY ALVARADO 06/22/2023 13:51:46 Final Observation Date Value Abnormality Reference (Units ) Status SYNC LEUKOCYTES IN BLOOD BY AUTOMATED COUNT 06/22/2023 13:51:46 8.23 4.00-10.80 (K/uL) Final Segs 06/22/2023 13:51:46 56.7 40.0-75.0 (%) Final Lymphs % 06/22/2023 13:51:46 32.2 18.0-42.0 (%) Final Monos 06/22/2023 13:51:46 7.3 1.0-11.0 (%) Final Eosinophils 06/22/2023 13:51:46 2.8 0.0-6.0 (%) Final Basos 06/22/2023 13:51:46 1.0 0.0-2.0 (%) Final Absolute Segs 06/22/2023 13:51:46 4.67 1.80-7.70 (K/uL) Final Lymphs, absolute 06/22/2023 13:51:46 2.65 1.00-4.80 (K/ul) Final Monos, Abs 06/22/2023 13:51:46 0.60 0.00-1.10 (K/uL) Final Eos, Abs 06/22/2023 13:51:46 0.23 0.00-0.70 (K/uL) Final Basos, Abs 06/22/2023 13:51:46 0.08 0.00-0.20 (K/uL) Final Performing Location [facility] [address] [place] [id number]
--- OUTSIDE RECORDS SUMMARY | 2023-10-29 13:14 | External Medical Summary ---
Author Name Unknown Address Unknown Organization [facility] [address] [place] [id number] Laboratory Report Ordering Provider Test Date Status CHELY ALVARADO 06/22/2023 13:51:46 Final Observation Date Value Abnormality Reference (Units ) Status WBC, Total 06/22/2023 13:51:46 8.23 4.00-10.8 0 (K/uL) Final RBC 06/22/2023 13:51:46 3.63 3.85-5.15 (M/uL) Final Hemoglobin 06/22/2023 13:51:46 11.3 Below low normal 12 .0-15.3 (g/dL) Final HCT 06/22/2023 13:51:46 34.6 Below low normal 36. 0-45.2 (%) Final MCV 06/22/2023 13:51:46 95.3 81.5-97.5 (fL) Final MCH 06/22/2023 13:51:46 31.1 27.0-34.0 (pg) Final MCHC 06/22/2023 13:51:46 32.7 32.0-36.0 (g/dL) Final RDW 06/22/2023 13:51:46 14.3 11.5-15.5 (%) Final Platelets 06/22/2023 13:51:46 277 140-400 (K /uL) Final MPV 06/22/2023 13:51:46 8.5 6.6-11.1 ( fL) Final Performing Location [facility] [address] [place] [id number]
--- OUTSIDE RECORDS SUMMARY | 2023-10-29 13:14 | External Medical Summary | Summary of Care ---
Author Name Unknown Organization [facility] Address [address] [facility] [address] Phone [phone] Care Team Providers Care Appellate Court Judge Name Role Phone Randall Malik MD Primary Care Provider [phone] Reason for Visit * Reason Onset Date Comments Advice 06/28/2023 Encounter Details Date Type Department Care Team ([facility] st Contact Info) Description 06/28/[address] [place] [address] Randall Malik MD [address] [facility] [address] [facility] [facility] [place] [address] Advice Allergies Active Allergy Reactions Criticality Noted Date Comments Dust 08/11/2018 Gramineae Pollens 08/11/2018 Adhesive Tape Rash 09/22/2018 Paper tape and bandaids documented as of this encounter (statuses as of 06/28/2023) Medications Medication Sig Dispensed Refills Start Date [...] HFA 108 (90 Base) MCG/ACT Inhalation Aerosol SolutionIndications:RN MDS D, 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 18 g 3 10/21/2021 Active Ipratropium [place] HFA 17 MCG/ACT Inhalation Aerosol Solution (Atrovent Hfa) Inhale by mouth 2 Puffs every 6 hours . 12.9 g 12 10/23/2021 Active oxygen IN GASIndications:Nocturna l hypoxemia Use as directed 4 L/min(Oxygen) at bedtime . 1 Each 0 10/30/2021 Active documented as of this encounter (statuses as of 06/28/2023) Active Problems Problem Noted Date Diagnosed Date [...] after steroid inhaler. Test performed by Fátima CAR RENTAL AGENT CPFT Bipolar affective disorder, currently depressed, moderate 01/09/2019 Degeneration of lumbar or lumbosacral interverte bral disc 07/03/2014 Thoracic or lumbosacral neur itis or radiculitis, unspecified 07/03/2014 Lumbago 07/03/2014 MIXED INCONTINENCE, URGE AND STRESS 02/10/2001 Anxiety state DIFFUS CYSTIC MASTOPATHY documented as of this encounter (statuses as of 06/28/2023) Resolved Problems Problem Noted Date Diagnosed Date [...] as of this encounter (statuses as of 06/28/2023) Immunizations Name Administration Dates Next Due COVID-19 [...] 9:49 AM EST Sexual Orientation Straight 06/20/2020 9 :49 AM EST Job Start Date Occupation Industry [...] encounter Miscellaneous Notes * Telephone Encounter - Jackelyn Martin OSA - 06/28/2023 10:44 AM EST faxed * Telephone Encounter - Angela Lomax OSA - 06/28/2023 10:14 AM EST Mental Health provider called to have pt labs from May faxed over to [phone]. documented in this encounter Plan of Treatment Health Maintenance Due Date Last Done Comments [...] 024, 08/12/2020, 09/11/2018 CKD HGB USE SMARTSET 33344 06/22/202406/22, 06/22/2023, 06/07/2023, Additional history exists CKD PHOS USE SMARTSET 35722 06/22/202405/25, 11/10/2020, 10/31/2020, Additional history exists Diabetes Screening 06/22/2026 06/22/2023, 0 06/16/2023, 06/07/2023, Additional history exists Lipid Panel 06/23/2027 06/23/2022, 10/21, 10/14/2020, Additional history exists DTaP,Tdap,and Td Vaccines (2 - Td or Tdap) 04/20/2028 04/20/2018 DXA Scan 06/15/2030 06/15/2023, 03/23, 08/14/2003 Zoster Vaccines Completed 02/29/2020, 06/18/2019 Alpha-1 Antitrypsin Completed 10/21/2021 LUNG CANCER SCREENING - USE SMARTSET 43189 Completed 11/18/2021, 07/22/2021, 01/22/2021, Additional history exists [...] the patient have Health Care Power of Academic Success Coordinator? No Code Status History Code Status Date Activated Date Inactivated Comments Full Code 10/19/2018 10:42 AM 10/19/2018 5:02 PM This order reflects the patients wishes and were consensually agreed upon. Care Teams Appellate Court Judge Relationship Specialty Start Date End Date Randall Malik MD [address] [facility] [address] [place] [address] PCP - General Internal Medicine 02/07/21 documented as of this encounter
--- OUTSIDE RECORDS SUMMARY | 2023-10-29 13:14 | External Medical Summary ---
Author Name Unknown Address Unknown Organization [id number]:[facility] [place] - [address] [place] [address] Laboratory Report Ordering Provider Test Date Status HERNAN SCHREIBER 06/07/2023 10:15:19 Final Observation Date Value Abnormality Reference (Units ) Status WBC, Total 06/07/2023 10:15:19 10.96 Above high normal 4.00-10.80 (K/uL) Final RBC 06/07/2023 10:15:19 4.12 3.85-5.15 (M/uL) Final Hemoglobin 06/07/2023 10:15:19 12.7 12.0-15.3 (g/dL) Final HCT 06/07/2023 10:15:19 40.1 36.0-45.2 (%) Final MCV 06/07/2023 10:15:19 97.3 81.5-97.5 (fL) Final MCH 06/07/2023 10:15:19 30.8 27.0-34.0 (pg) Final MCHC 06/07/2023 10:15:19 31.7 32.0-36.0 (g/dL) Final RDW 06/07/2023 10:15:19 13.0 11.5-15.5 (%) Final Platelets 06/07/2023 10:15:19 288 140-400 (K/uL) Final MPV 06/07/2023 10:15:19 8.9 6.6-11.1 (fL) Final Nucleated erythrocytes/100 leukocytes [Ratio] in Blood by Automated count 06/07/2023 10:15:19 0 <=0 (/100 WBCs) Final Performing Location LABORATORY C - [address] [place] [address]
--- OUTSIDE RECORDS SUMMARY | 2023-10-29 13:14 | External Medical Summary ---
Author Name Unknown Address Unknown Organization [id number]:[facility] [place] [address] [place] [address] [place] [address] Laboratory Report Ordering Provider Test Date Status CANDIESHEY CONRADHARSHA 06/07/2023 10:15:19 Final Observation Date Value Abnormality Reference (Units ) Status HbA1C 06/07/2023 10:15:19 6.3 Above high normal 4. 0-5.6 (%) Final The use of HbA1c to monitor glycemic status is based on normal hemoglobin and HbA composition. This test should not be used in patients with abnormal hemoglobin that affects the half life of the red blood cell or the in vivo glycation rates. Glucose, estimated average 06/07/2023 10:15:19 134 Above high normal <126 (mg/dL) Obinna bess Performing Location [facility] [place] - [address] [facility] [address]
--- OUTSIDE RECORDS SUMMARY | 2023-10-29 13:14 | External Medical Summary | Summary of Care ---
Author Name Unknown Organization [facility] Address [address] [facility] [place] [address] Phone [phone] Care Team Providers Care Die Designer Apprentice Name Role Phone Randall Malik MD Primary Care Provider [phone] Reason for Visit * Reason Comments Outpatient Testing Encounter Details Date Type Department Care Team (Late st Contact Info) Description 06/07/2023 10:50 AM EST Laboratory Laboratory, [facility] [address] [facility] [place] [id number] [facility] [address] [facility] [address] Bronchitis; COPD, severity to be determined ([facility]); DM type 2, not at goal ([facility]); Dyslipidemia, goal LDL below 160; Chronic renal insufficiency; HTN, goal to be determined Allergies Active Allergy Reactions Criticality Noted Date Comments Dust 08/11/2018 Gramineae Pollens 08/11/2018 Adhesive Tape Rash 09/22/2018 Paper tape and bandaids documented as of this encounter (statuses as of 06/07/2023) Medications Medication Sig Dispensed Refills Start Date [...] HFA 108 (90 Base) MCG/ACT Inhalation Aerosol SolutionIndications:SPECIAL EVENTS MANAGER D, 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 18 g 3 10/21/2021 Active Ipratropium [place] HFA 17 MCG/ACT Inhalation Aerosol Solution (Atrovent Hfa) Inhale by mouth 2 Puffs every 6 hours . 12.9 g 12 10/23/2021 Active oxygen IN GASIndications:Nocturna l hypoxemia Use as directed 4 L/min(Oxygen) at bedtime . 1 Each 0 10/30/2021 Active documented as of this encounter (statuses as of 06/07/2023) Active Problems Problem Noted Date Diagnosed Date [...] after steroid inhaler. Test performed by Fátima VIROLOGY TEACHER CPFT Bipolar affective disorder, currently depressed, moderate 01/09/2019 Degeneration of lumbar or lumbosacral interverte bral disc 07/03/2014 Thoracic or lumbosacral neur itis or radiculitis, unspecified 07/03/2014 Lumbago 07/03/2014 MIXED INCONTINENCE, URGE AND STRESS 02/10/2001 Anxiety state DIFFUS CYSTIC MASTOPATHY documented as of this encounter (statuses as of 06/07/2023) Resolved Problems Problem Noted Date Diagnosed Date [...] as of this encounter (statuses as of 06/07/2023) Immunizations Name Administration Dates Next Due COVID-19 [...] Team (Late st Contact Info) Description 06/15/2023 11:00 AM EST Imaging Radiology, [address] [place] [address] Pending Results Name Type Priority Associated Diagnoses Date /Time CBC WITH WBC DIFFERENTIAL Lab Routine Bronchitis COPD, severity to be determined (HCC) DM type 2, not at goal ([facility]) Dyslipidemia, goal LDL below 160 06/07/2023 10:15 AM EST COMPREHENSIVE METABOLIC PANEL Lab Routine Bronchitis COPD, severity to be determined (HCC) DM type 2, not at goal (HCC) Dyslipidemia, goal LDL below 160 06/07/2023 10:15 AM EST VITAMIN B12 Lab Routine Bronchitis COPD, severity to be determined (HCC) DM type 2, not at goal (HCC) Dyslipidemia, goal LDL below 160 06/07/2023 10:15 AM EST 25-HYDROXY VITAMIN D Lab Routine Bronchitis COPD, severity to be determined (HCC) DM type 2, not at goal (HCC) Dyslipidemia, goal LDL below 160 06/07/2023 10:15 AM EST HEMOGLOBIN A1C Lab Routine Bronchitis COPD, severity to be determined (HCC) DM type 2, not at goal (HCC) Dyslipidemia, goal LDL below 160 06/07/2023 10:15 AM EST PROCALCITONIN Lab Routine Bronchitis COPD, severity to be determined (HCC) DM type 2, not at goal (HCC) Dyslipidemia, goal LDL below 160 06/07/2023 10:15 AM EST BNP, NT-PRO Lab Routine Chronic renal insufficiency HTN, goal to be determined DM type 2, not at goal (HCC) 06/07/2023 10:15 AM EST MAGNESIUM Lab Routine Chronic renal insufficiency HTN, goal to be determined DM type 2, not at goal (HCC) 06/07/2023 10:15 AM EST CBC Lab Routine Bronchitis COPD, severity to be determined (HCC) DM type 2, not at goal (HCC) Dyslipidemia, goal LDL below 160 06/07/2023 10:15 AM EST DIFFERENTIAL, AUTOMATED Lab Routine Bronchitis COPD, severity to be determined (HCC) DM type 2, not at goal (HCC) Dyslipidemia, goal LDL below 160 06/07/2023 10:15 AM EST Health Maintenance Due Date Last [...] Screening 09/15/2021 09/15/2020 CKD PHOS USE SMARTSET 93741 11/10/202110/22, 10/31/2020, 08/12/2020, Additional history exists Mammogram 07/17/2022 07/17/2021, 03/23, 02/21/2019, Additional history exists DISCUSS TOBACCO CESSATION (REFER TO SMARTSET #3291) 10/21/2022 10/21/2021 GFR 12/21/2022 06/23/2022, 05/24, 04/27/2022, Additional history exists COVID-19 Vaccine ( season) 2023 06/15/2021, 11/10/2020, 09/22/2020 Influenza Vaccine (FLU shot) (#1) 2023 01/31/2020, 02/28/2019, 03/07/2018, Additional history exists CKD HGB USE SMARTSET 25819 06/23/202306/23, 06/23/2022, 06/20/2022, Additional history exists Diabetes Screening 06/23/2025 06/23/2022, 1 06/28/2021, 02/24/2022, Additional history exists DXA Scan 04/10/2027 04/10/2020, 08/14/2003 Lipid Panel 06/23/2027 06/23/2022, 10/21, 10/14/2020, Additional history exists DTaP,Tdap,and Td Vaccines (2 - Td or Tdap) 04/20/2028 04/20/2018 Zoster Vaccines Completed 02/29/2020, 06/18/2019 Alpha-1 Antitrypsin Completed 10/21/2021 LUNG CANCER SCREENING - USE SMARTSET 83608 Completed 11/18/2021, 07/22/2021, 01/22/2021, Additional history exists GARDASIL-HPV IMMUNIZATION SERIES Aged Out No longer eligible based on patient's age to complete this topic MENINGOCOCCAL (MENACTRA/MENVEO) Aged Out No longer eligible based on patient's age to complete this topic documented as of this encounter Medical Devices Not on filedocumented as of this encounter Visit Diagnoses Diagnosis Bronchitis Bronchitis, not specified as acute or chronic COPD, severity to be determined (HCC) Chronic airway obstruction, not elsewhere classified DM type 2, not at goal (HCC) Type II or unspecified type diabetes mellitus without mention of complication, not stated as uncontrolled Dyslipidemia, goal LDL below 160 Other and unspecified hyperlipidemia Chronic renal insufficiency Chronic kidney disease, unspecified HTN, goal to be determined Unspecified essential hypertension documented in this encounter Advance Directives Latest Code Status on File Code Status Date Activated Date Inactivated Comments Full Code 11/10/2020 6:16 PM 11/12/2020 5:12 PM This order reflects the patients wishes and were consensually agreed upon. Question Answer Comments Discussion of Advance Directives occurred with: Patient Does the patient have a Living Will? No Does the patient have Health Care Power of Maintenance Mechanic? No Code Status History Code Status Date Activated Date Inactivated Comments Full Code 10/19/2018 10:42 AM 10/19/2018 5:02 PM This order reflects the patients wishes and were consensually agreed upon. Care Teams Die Designer Apprentice Relationship Specialty Start Date End Date Randall Malik MD [address] [facility] [address] [place] [address] PCP - General Internal Medicine 02/07/21 documented as of this encounter
--- OUTSIDE RECORDS SUMMARY | 2023-10-29 13:14 | External Medical Summary ---
Author Name Unknown Address Unknown Organization K01:LABORATORY [facility] [place] - [address] [place] [address] Laboratory Report Ordering Provider Test Date Status JULIA BARRON 06/22/2023 13:51:46 Final Observation Date Value Abnormality Reference (Units ) Status MYCODE SPECIMEN-SST 06/22/2023 13:51:46 Freezing of extracted DNA, whole blood and/or serum. Final Performing Location LABORATORY [facility] [place] - [address] [place] [address]
--- OUTSIDE RECORDS SUMMARY | 2023-10-29 13:14 | External Medical Summary ---
Author Name Unknown Address Unknown Organization K01:LABORATORY [facility] [place] - [address] [place] [address] Laboratory Report Ordering Provider Test Date Status JULIA BARRON 06/22/2023 13:51:46 Final Observation Date Value Abnormality Reference (Units ) Status MYCODE SPECIMEN-SST 06/22/2023 13:51:46 Freezing of extracted DNA, whole blood and/or serum. Final Performing Location LABORATORY [facility] [place] - [address] [place] [address]
--- OUTSIDE RECORDS SUMMARY | 2023-10-29 13:14 | External Medical Summary ---
Author Name Unknown Address Unknown Organization K0G:LABORATORY [place] [address] - [address] [place] [address] Laboratory Report Ordering Provider Test Date Status HERNAN SCHREIBER 06/07/2023 10:15:19 Final Observation Date Value Abnormality Reference (Units ) Status BUN 06/07/2023 10:15:19 27 Above high normal 6-20 (mg/dL) Final Creatinine 06/07/2023 10:15:19 2.6 Above high normal 0.5-1.0 (mg/dL) Final Glomerular filtration rate/1.73 sq M.predicted [Volume Rate/Area] in Serum, Plasma or Blood by Creatinine-based formula (CKD-EPI) 06/07/2023 10:15:19 20 Below low normal >=60 (mL/min) Final eGFR is calculated based on the CKD-EPI 2020 equation SODIUM 06/07/2023 10:15:19 141 135-146 (m mol/L) Final Potassium 06/07/2023 10:15:19 4.5 3.5-5.1 (m mol/L) Final Cl 06/07/2023 10:15:19 104 98-107 (mm ol/L) Final CO2 06/07/2023 10:15:19 24 22-32 (mmo l/L) Final Anion gap 06/07/2023 10:15:19 13 7-15 (mmol /L) Final Glucose 06/07/2023 10:15:19 104 70-120 (mg /dL) Final Albumin 06/07/2023 10:15:19 4.0 3.8-5.0 (g /dL) Final AST (Aspartate aminotransferase) 06/07/2023 10:15:19 12 10-35 (U/L) Fin al Alk Phos 06/07/2023 10:15:19 166 Above high normal 35 -130 (U/L) Final Bilirubin, Total 06/07/2023 10:15:19 0.3 <=1 .2 (mg/dL) Final Calcium 06/07/2023 10:15:19 9.3 8.4-10.2 ( mg/dL) Final Protein 06/07/2023 10:15:19 6.6 6.0-8.3 (g /dL) Final ALT (Alanine aminotransferase) 06/07/2023 10:15:19 11 10-35 (U/L) Obinna bess Performing Location LABORATORY [facility] [address] - [address] [facility] [address]
--- OUTSIDE RECORDS SUMMARY | 2023-10-29 13:14 | External Medical Summary ---
Author Name Unknown Address Unknown Organization K0G:LABORATORY [place] [address] - [address] [place] [address] Laboratory Report Ordering Provider Test Date Status CHELY ALVARADO 06/16/2023 09:37:51 Final Observation Date Value Abnormality Reference (Units ) Status BUN 06/16/2023 09:37:51 14 6-20 (mg/dL) Final Creatinine 06/16/2023 09:37:51 2.7 Above high normal 0.5-1.0 (mg/dL) Final Glomerular filtration rate/1.73 sq M.predicted [Volume Rate/Area] in Serum, Plasma or Blood by Creatinine-based formula (CKD-EPI) 06/16/2023 09:37:51 19 Below low normal >=60 (mL/min) Final eGFR is calculated based on the CKD-EPI 2020 equation SODIUM 06/16/2023 09:37:51 142 135-146 (m mol/L) Final Potassium 06/16/2023 09:37:51 5.1 3.5-5.1 (m mol/L) Final Cl 06/16/2023 09:37:51 113 Above high normal 98 -107 (mmol/L) Final CO2 06/16/2023 09:37:51 20 Below low normal 22- 32 (mmol/L) Final Anion gap 06/16/2023 09:37:51 9 7-15 (mmol /L) Final Glucose 06/16/2023 09:37:51 89 70-120 (mg /dL) Final Calcium 06/16/2023 09:37:51 9.4 8.4-10.2 ( mg/dL) Final Performing Location LABORATORY [place] [address] - [address] [place] [address]
--- OUTSIDE RECORDS SUMMARY | 2023-10-29 13:14 | External Medical Summary ---
Author Name Unknown Address Unknown Organization K01:[facility] [place] [address] [place] [address] Laboratory Report Ordering Provider Test Date Status HERNAN SCHREIBER 06/07/2023 10:15:19 Final Less than 0.5 ng/mL: Low ris k for progression to sepsis. Review patients condition for localized infections.

0.5 to 2.0 ng/mL: Intermediate risk for progresion to sepsis. Review underlying conditions. Recommend repeat PCT after 6 hours has elapsed.

Greater than 2.0 ng/mL: high risk for progression to sepsis unless other causes are known. Observation Date Value Abnormality Reference (Units ) Status Procalcitonin [Mass/volume] in Serum or Plasma by Immunoassay 06/07/2023 10:15:19 0.08 <0.10 (ng/mL) Final Performing Location [facility] [place] [facility] [address] [place] [address]
--- OUTSIDE RECORDS SUMMARY | 2023-10-29 13:14 | External Medical Summary ---
Author Name Unknown Address Unknown Organization K01:[facility] [place] [address] [place] [address] Laboratory Report Ordering Provider Test Date Status SHEY SCHREIBERHARSHA 06/07/2023 10:15:19 Final Deficient: <20 ng/mL
Ins ufficient: 20-29 ng/mL
Recommended/Optimum:30-50 ng/mL

Vitamin D intoxication is rare. If suspicious of Vitamin D toxicity, evaluation of serum Calcium and PTH is recommended. Observation Date Value Abnormality Reference (Units ) Status 25-OH Vitamin D total 06/07/2023 10:15:19 24 >19 (ng/mL) Final Performing Location [facility] [place] [address] [place] [address]
--- OUTSIDE RECORDS SUMMARY | 2023-10-29 13:14 | External Medical Summary ---
Author Name Unknown Address Unknown Organization K01:LABORATORY [facility] [place] - [address] [place] [address] Laboratory Report Ordering Provider Test Date Status CHELY ALVARADO 06/22/2023 13:51:46 Final Deficient: <20 ng/mL
Ins ufficient: 20-29 ng/mL
Recommended/Optimum:30-50 ng/mL

Vitamin D intoxication is rare. If suspicious of Vitamin D toxicity, evaluation of serum Calcium and PTH is recommended. Observation Date Value Abnormality Reference (Units ) Status 25-OH Vitamin D total 06/22/2023 13:51:46 23 >19 (ng/mL) Final Performing Location LABORATORY [facility] [place] - [address] [place] [address]
--- OUTSIDE RECORDS SUMMARY | 2023-10-29 13:14 | External Medical Summary | Summary of Care ---
Author Name Unknown Organization [facility] Address [address] [facility] [place] [address] Phone [phone] Care Team Providers Care Calculator Operator Name Role Phone Randall Malik MD Primary Care Provider [phone] Encounter Details Date Type Department Care Team (Late st Contact Info) Description 06/02/2023 Orders Only Laboratory, [facility] [address] [facility] [place] [id number] Milli Martin PA-C 93 [facility] [address] [place] [address] Chronic renal insufficiency*; HTN, goal to be determined; DM type 2, not at goal (HCC) Allergies Active Allergy Reactions Criticality Noted Date Comments Dust 08/11/2018 Gramineae Pollens 08/11/2018 Adhesive Tape Rash 09/22/2018 Paper tape and bandaids documented as of this encounter (statuses as of 06/02/2023) Medications Medication Sig Dispensed Refills Start Date [...] HFA 108 (90 Base) MCG/ACT Inhalation Aerosol SolutionIndications:VACCINE CUSTOMER REPRESENTATIVE D, 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 18 g 3 10/21/2021 Active Ipratropium [place] HFA 17 MCG/ACT Inhalation Aerosol Solution (Atrovent Hfa) Inhale by mouth 2 Puffs every 6 hours . 12.9 g 12 10/23/2021 Active oxygen IN GASIndications:Nocturna l hypoxemia Use as directed 4 L/min(Oxygen) at bedtime . 1 Each 0 10/30/2021 Active documented as of this encounter (statuses as of 06/02/2023) Active Problems Problem Noted Date Diagnosed Date [...] after steroid inhaler. Test performed by Fátima DENTAL HYGIENE PROFESSOR CPFT Bipolar affective disorder, currently depressed, moderate 01/09/2019 Degeneration of lumbar or lumbosacral interverte bral disc 07/03/2014 Thoracic or lumbosacral neur itis or radiculitis, unspecified 07/03/2014 Lumbago 07/03/2014 MIXED INCONTINENCE, URGE AND STRESS 02/10/2001 Anxiety state DIFFUS CYSTIC MASTOPATHY documented as of this encounter (statuses as of 06/02/2023) Resolved Problems Problem Noted Date Diagnosed Date [...] as of this encounter (statuses as of 06/02/2023) Immunizations Name Administration Dates Next Due COVID-19 [...] Description 06/07/2023 10:30 AM EST Imaging Radiology [address] 132 [facility] [place] [address] 06/15/2023 11:00 AM EST [facility] [address] [facility] [address] Scheduled Orders Name Type Priority Associated Diagnoses Orde r Schedule BASIC METABOLIC PANEL Lab Routine Chronic renal insufficiency HTN, goal to be determined DM type 2, not at goal (HCC) Expected: 06/03/2023, Expires: 06/02/2024 BNP, NT-PRO Lab Routine Chronic renal insufficiency HTN, goal to be determined DM type 2, not at goal (HCC) Expected: 06/03/2023, Expires: 06/02/2024 MAGNESIUM Lab Routine Chronic renal insufficiency HTN, goal to be determined DM type 2, not at goal (HCC) Expected: 06/03/2023, Expires: 06/02/2024 Health Maintenance Due Date Last Done Comments [...] Screening 09/15/2021 09/15/2020 CKD PHOS USE SMARTSET 45066 11/10/202110/22, 10/31/2020, 08/12/2020, Additional history exists Mammogram 07/17/2022 07/17/2021, 03/23, 02/21/2019, Additional history exists DISCUSS TOBACCO CESSATION (REFER TO SMARTSET #9279) 10/21/2022 10/21/2021 GFR 12/21/2022 06/23/2022, 05/24, 04/27/2022, Additional history exists COVID-19 Vaccine ( season) 2023 06/15/2021, 11/10/2020, 09/22/2020 Influenza Vaccine (FLU shot) (#1) 2023 01/31/2020, 02/28/2019, 03/07/2018, Additional history exists CKD HGB USE SMARTSET 17231 06/23/202306/23, 06/23/2022, 06/20/2022, Additional history exists Diabetes Screening 06/23/2025 06/23/2022, 1 06/28/2021, 02/24/2022, Additional history exists DXA Scan 04/10/2027 04/10/2020, 08/14/2003 Lipid Panel 06/23/2027 06/23/2022, 10/21, 10/14/2020, Additional history exists DTaP,Tdap,and Td Vaccines (2 - Td or Tdap) 04/20/2028 04/20/2018 Zoster Vaccines Completed 02/29/2020, 06/18/2019 Alpha-1 Antitrypsin Completed 10/21/2021 LUNG CANCER SCREENING - USE SMARTSET 74542 Completed 11/18/2021, 07/22/2021, 01/22/2021, Additional history exists GARDASIL-HPV IMMUNIZATION SERIES Aged Out No longer eligible based on patient's age to complete this topic MENINGOCOCCAL (MENACTRA/MENVEO) Aged Out No longer eligible based on patient's age to complete this topic documented as of this encounter Medical Devices Not on filedocumented as of this encounter Visit Diagnoses Diagnosis Chronic renal insufficiency- Primary Chronic kidney disease, unspecified HTN, goal to be determined Unspecified essential hypertension DM type 2, not at goal (HCC) Type II or unspecified type diabetes mellitus without mention of complication, not stated as uncontrolled documented in this encounter Advance Directives Latest Code Status on File Code Status Date Activated Date Inactivated Comments Full Code 11/10/2020 6:16 PM 11/12/2020 5:12 PM This order reflects the patients wishes and were consensually agreed upon. Question Answer Comments Discussion of Advance Directives occurred with: Patient Does the patient have a Living Will? No Does the patient have Health Care Power of Manufacturing Teacher? No Code Status History Code Status Date Activated Date Inactivated Comments Full Code 10/19/2018 10:42 AM 10/19/2018 5:02 PM This order reflects the patients wishes and were consensually agreed upon. Care Teams Calculator Operator Relationship Specialty Start Date End Date Randall Malik MD [address] [facility] [address] [place] [address] PCP - General Internal Medicine 02/07/21 documented as of this encounter
--- OUTSIDE RECORDS SUMMARY | 2023-10-29 13:14 | External Medical Summary | Summary of Care ---
Author Name Unknown Organization [facility] Address [address] [facility] [place] [address] Phone [phone] Care Team Providers Care Commercial Subcontractor Name Role Phone Randall Malik MD Primary Care Provider [phone] Reason for Visit * Reason Comments Outpatient Testing Encounter Details Date Type Department Care Team (Late st Contact Info) Description 06/22/2023 1:50 PM EST Laboratory Laboratory, [facility] 132 [facility] [place] [id number] [facility] [address] [employer] Other*[id number]; DM type 2, not at goal (HCC); Uremic pericarditis; Vitamin D deficiency; Gout; Urinary tract infection Allergies Active Allergy Reactions Criticality Noted Date Comments Dust 08/11/2018 Gramineae Pollens 08/11/2018 Adhesive Tape Rash 09/22/2018 Paper tape and bandaids documented as of this encounter (statuses as of 06/22/2023) Medications Medication Sig Dispensed Refills Start Date [...] HFA 108 (90 Base) MCG/ACT Inhalation Aerosol SolutionIndications:MOVEMENT EDUCATION SPECIALIST D, 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 18 g 3 10/21/2021 Active Ipratropium [place] HFA 17 MCG/ACT Inhalation Aerosol Solution (Atrovent Hfa) Inhale by mouth 2 Puffs every 6 hours . 12.9 g 12 10/23/2021 Active oxygen IN GASIndications:Nocturna l hypoxemia Use as directed 4 L/min(Oxygen) at bedtime . 1 Each 0 10/30/2021 Active documented as of this encounter (statuses as of 06/22/2023) Active Problems Problem Noted Date Diagnosed Date [...] after steroid inhaler. Test performed by Fátima HSE ADVISOR CPFT Bipolar affective disorder, currently depressed, moderate 01/09/2019 Degeneration of lumbar or lumbosacral interverte bral disc 07/03/2014 Thoracic or lumbosacral neur itis or radiculitis, unspecified 07/03/2014 Lumbago 07/03/2014 MIXED INCONTINENCE, URGE AND STRESS 02/10/2001 Anxiety state DIFFUS CYSTIC MASTOPATHY documented as of this encounter (statuses as of 06/22/2023) Resolved Problems Problem Noted Date Diagnosed Date [...] as of this encounter (statuses as of 06/22/2023) Immunizations Name Administration Dates Next Due COVID-19 [...] Name Type Priority Associated Diagnoses Date /Time MYCODE SUBSEQUENT ADULT Lab Routine MyCode Research Other*[id number] 06/22/2023 1:51 PM EST COMPREHENSIVE METABOLIC PANEL Lab Routine DM type 2, not at goal (HCC) Uremic pericarditis Vitamin D deficiency Gout Urinary tract infection 06/22/2023 1:51 PM EST PHOSPHORUS Lab Routine DM type 2, not at goal (HCC) Uremic pericarditis Vitamin D deficiency Gout Urinary tract infection 06/22/2023 1:51 PM EST PTH Lab Routine DM type 2, not at goal (HCC) Uremic pericarditis Vitamin D deficiency Gout Urinary tract infection 06/22/2023 1:51 PM EST 25-HYDROXY VITAMIN D Lab Routine DM type 2, not at goal (HCC) Uremic pericarditis Vitamin D deficiency Gout Urinary tract infection 06/22/2023 1:51 PM EST URIC ACID Lab Routine DM type 2, not at goal (HCC) Uremic pericarditis Vitamin D deficiency Gout Urinary tract infection 06/22/2023 1:51 PM EST MYCODE SST1 Lab Routine [employer] Other*[id number] 06/22/2023 1:51 PM EST MYCODE SST2 Lab Routine [employer] Other*[id number] 06/22/2023 1:51 PM EST Health Maintenance Due Date Last Done Comments O2 ASSESSMENT COMPLETED IN PAST YEAR FOR COPD 1974 Cologuard 2001 Fecal Occult Blood Test 2001 Sigmoidoscopy 2001 Hepatitis B (1 of 3 - Risk 3-dose series) 2016 Pneumococcal Vaccine: 65+ Years (2 - PCV) 07/20/2019 07/20/2018 Colonoscopy 08/20/2019 08/19/2009 Colorectal Cancer Screening 08/20/2019 Depression Screening 09/15/2021 09/15/2020 CKD PHOS USE SMARTSET 17079 11/10/202110/22, 10/31/2020, 08/12/2020, Additional history exists DISCUSS TOBACCO CESSATION (REFER TO SMARTSET #5111) 10/21/2022 10/21/2021 COVID-19 Vaccine ( season) 2023 06/15/2021, 11/10/2020, 09/22/2020 Influenza Vaccine (FLU shot) (#1) 2023 01/31/2020, 02/28/2019, 03/07/2018, Additional history exists GFR 12/15/2023 06/16/2023, 05/23, 06/23/2022, Additional history exists Mammogram 06/07/2024 06/07/2023, 06/24, 04/10/2020, Additional history exists Albumin/Creatinine Ratio 06/16/2024 024, 08/12/2020, 09/11/2018 CKD HGB USE SMARTSET 57183 06/22/202406/22, 06/22/2023, 06/07/2023, Additional history exists Diabetes Screening 06/16/2026 06/16/2023, 0 06/07/2023, 06/07/2023, Additional history exists Lipid Panel 06/23/2027 06/23/2022, 10/21, 10/14/2020, Additional history exists DTaP,Tdap,and Td Vaccines (2 - Td or Tdap) 04/20/2028 04/20/2018 DXA Scan 06/15/2030 06/15/2023, 03/23, 08/14/2003 Zoster Vaccines Completed 02/29/2020, 06/18/2019 Alpha-1 Antitrypsin Completed 10/21/2021 LUNG CANCER SCREENING - USE SMARTSET 67261 Completed 11/18/2021, 07/22/2021, 01/22/2021, Additional history exists GARDASIL-HPV IMMUNIZATION SERIES Aged Out No longer eligible based on patient's age to complete this topic MENINGOCOCCAL (MENACTRA/MENVEO) Aged Out No longer eligible based on patient's age to complete this topic documented as of this encounter Medical Devices Not on filedocumented as of this encounter Procedures Procedure Name Priority Date/Time Associated Diagnosis Comments DIFFERENTIAL, AUTOMATED Routine 06/22/2023 1:51 PM EST DM type 2, not at goal (HCC) Uremic pericarditis Vitamin D deficiency Gout Urinary tract infection CBC Routine 06/22/2023 1:51 PM EST DM type 2, not at goal (HCC) Uremic pericarditis Vitamin D deficiency Gout Urinary tract infection CBC Routine 06/22/2023 1:51 PM EST DM type 2, not at goal (HCC) Uremic pericarditis Vitamin D deficiency Gout Urinary tract infection documented in this encounter Results * DIFFERENTIAL, AUTOMATED (06/22/2023 1:51 PM EST) WBC 8.23 4.00 - 10.80 K/uL 06/22/2023 2:06 PM EST LAB[facility] [place] 57-10 Neutrophils % 56.7 40.0 - 75.0 % 06/22/2023 2:06 PM EST [facility] [place] 57-10 Lymphocytes % 32.2 18.0 - 42.0 % 06/22/2023 2:06 PM EST [facility] [place] 57-10 Monocytes % 7.3 1.0 - 11.0 % 06/22/2023 2:06 PM EST [facility] [place] 57-10 Eosinophils % 2.8 0.0 - 6.0 % 06/22/2023 2:06 PM EST [facility] [place] 57-10 Basophils % 1.0 0.0 - 2.0 % 06/22/2023 2:06 PM EST [facility] [place] 57-10 Absolute Neutrophils 4.67 1.80 - 7.70 K/uL 06/22/2023 2:06 PM EST LAB[facility]ATORY [place] 57-10 Absolute Lymphocytes 2.65 1.00 - 4.80 K/ul 06/22/2023 2:06 PM EST [facility]ORY [place] 57-10 Absolute Monocytes 0.60 0.00 - 1.10 K/uL 06/22/2023 2:06 PM EST [facility] [place] 57-10 Absolute Eosinophils 0.23 0.00 - 0.70 K/uL 06/22/2023 2:06 PM EST [facility] [place] 57-10 Absolute Basophils 0.08 0.00 - 0.20 K/uL 06/22/2023 2:06 PM EST [facility] 57-10 Blood Venous blood specimen / Unknown Venipuncture / Unknown 06/22/2023 1:51 PM EST 06/22/2023 1:51 PM EST Milli Martin PA-C LAB BLOOD ORDERABLES Performing Organization Address City/State/[facility] Co de Phone Number [place] [address] [address] [place] [address] * (ABNORMAL) CBC (06/22/2023 1:51 PM EST) WBC 8.23 4.00 - 10.80 K/uL 06/22/2023 2:06 PM EST [facility] [place] 57-10 RBC 3.63 3.85 - 5.15 M/uL 06/22/2023 2:06 PM EST [facility] [place] 57-10 HGB 11.3(L) 12.0 - 15.3 g/dL 06/22/2023 2:06 PM EST [facility] [place] 57-10 HCT 34.6(L) 36.0 - 45.2 % 06/22/2023 2:06 PM EST [facility] 57-10 MCV 95.3 81.5 - 97.5 fL 06/22/2023 2:06 PM EST [facility] 57-10 MCH 31.1 27.0 - 34.0 pg 06/22/2023 2:06 PM EST [facility] [place] 57-10 MCHC 32.7 32.0 - 36.0 g/dL 06/22/2023 2:06 PM EST [facility] [place] 57-10 RDW 14.3 11.5 - 15.5 % 06/22/2023 2:06 PM EST [facility] [place] 57-10 PLT 277 140 - 400 K/uL 06/22/2023 2:06 PM EST [facility] [place] 57-10 MPV 8.5 6.6 - 11.1 fL 06/22/2023 2:06 PM EST [facility] [place] 57-10 Blood Venous blood specimen / Unknown Venipuncture / Unknown 06/22/2023 1:51 PM EST 06/22/2023 1:51 PM EST Milli Martin PA-C LAB BLOOD ORDERABLES [facility] 57-10 [address] [facility] [place] [address] documented in this encounter Visit Diagnoses Diagnosis MyCode Research Other*[id number] DM type 2, not at goal (HCC) [...] the patient have Health Care Power of Clinical Dietician? No Code Status History Code Status Date Activated Date Inactivated Comments Full Code 10/19/2018 10:42 AM 10/19/2018 5:02 PM This order reflects the patients wishes and were consensually agreed upon. Care Teams Commercial Subcontractor Relationship Specialty Start Date End Date Randall Malik MD [address] [place] [address] [place] [address] PCP - General Internal Medicine 02/07/21 documented as of this encounter
--- OUTSIDE RECORDS SUMMARY | 2023-10-29 13:14 | External Medical Summary ---
Author Name Unknown Address Unknown Organization K01:[facility] [place] [address] [place] [address] [place] [address] Laboratory Report Ordering Provider Test Date Status CHELY ALVARADO 06/22/2023 13:51:46 Final Observation Date Value Abnormality Reference (Units ) Status Parathyrin.intact [Mass/volume] in Serum or Plasma 06/22/2023 13:51:46 37 15-65 (pg/mL) Final Performing Location [facility] [place] [address] [place] [address]
--- OUTSIDE RECORDS SUMMARY | 2023-10-29 13:14 | External Medical Summary ---
Author Name Unknown Address Unknown Organization K01:[facility]ATORY [facility] - [address] [place] [address] Laboratory Report Ordering Provider Test Date Status JENNYCHELY 06/22/2023 13:51:46 Final Observation Date Value Abnormality Reference (Units ) Status Phosphate 06/22/2023 13:51:46 3.2 2.5-4.8 (m g/dL) Final Performing Location LAB[facility]ATORY [facility] - [address] [place] [address]
--- OUTSIDE RECORDS SUMMARY | 2023-10-29 13:14 | External Medical Summary ---
Author Name Unknown Address Unknown Organization K01:LAB[facility]ATORY [facility] [place] [address] [place] [address] Laboratory Report Ordering Provider Test Date Status HERNAN SCHREIBER 06/16/2023 09:41:21 Final Normal: <30 mg/g creatinine< br/>High: 30-300 mg/g creatinine
Very High: >300 mg/g creatinine
Nephrotic: >2200 mg/g creatinine Observation Date Value Abnormality Reference (Units ) Status Albumin, Urine 06/16/2023 09:41:21 1.25 (mg/dL) Final Creatinine, Urine 06/16/2023 09:41:21 46 (mg/dL) Final Albumin/Creatinine [Mass Ratio] in Urine 06/16/2023 09:41:21 27 <30 (mg/g Creat) Final Performing Location LABORATORY [facility] [place] - [address] [place] [address]
--- OUTSIDE RECORDS SUMMARY | 2023-10-29 13:15 | External Medical Summary | Summary of Care ---
Author Name Unknown Organization [facility] Address [address] [facility] [place] [address] Phone [phone] Care Team Providers Care Sales Representative Jewelry Name Role Phone Randall Malik MD Primary Care Provider [phone] Encounter Details Date Type Department Care Team (Latest Contact Info) Description 07/17/2021 10:00 AM EST - 07/17/2021 11:59 PM EST Hospital Encounter Radiology Film File [address] [place] [address] Discharge Disposition: Home - Self Care Allergies Active Allergy Reactions Criticality Noted Date Comments Dust 08/11/2018 Gramineae Pollens 08/11/2018 Adhesive Tape Rash 09/22/2018 Paper tape and bandaids documented as of this encounter (statuses as of 05/21/2023) Medications Medication Sig Dispensed Refills Start Date [...] Active Atorvastatin Calcium 20 MG Oral Tablet (Lipitor)Indications:Dys lipidemia, goal LDL below 100 Take 1 Tab by mouth daily. 90 Tab 3 10/16/2020 Active Gabapentin 600 MG Oral Tablet (Neurontin)Indications:C hronic midline low back pain, unspecified whether sciatica present,Degeneration of lumbar or lumbosacral intervertebral disc,Spinal stenosis of lumbar region with neurogenic claudication Take 1 Tab by mouth 2 times a day as needed for Pain. 90 Tab 5 10/16/2020 Active Cetirizine HCl 5 MG Oral TabletIndications:Season al allergies Take 1 Tab by mouth daily. 90 Tab 3 10/16/2020 Active Omeprazole 20 MG Oral Capsule Delayed Release (PriLOSEC)Indications:Pe riumbilical abdominal pain Take 1 Cap by mouth [...] 11/19/2020 Active Linzess 145 MCG Oral Capsule (linaCLOtide)Indications :Chronic idiopathic constipation Take 1 Cap by mouth daily before breakfast. 30 Cap 2 12/12/2020 Active documented as of this encounter (statuses as of 05/21/2023) Active Problems Problem Noted Date Diagnosed Date [...] after steroid inhaler. Test performed by Fátima TRUCK TERMINAL MANAGER CPFT Bipolar affective disorder, currently depressed, moderate 01/09/2019 Degeneration of lumbar or lumbosacral interverte bral disc 07/03/2014 Thoracic or lumbosacral neur itis or radiculitis, unspecified 07/03/2014 Lumbago 07/03/2014 MIXED INCONTINENCE, URGE AND STRESS 02/10/2001 Anxiety state DIFFUS CYSTIC MASTOPATHY documented as of this encounter (statuses as of 05/21/2023) Resolved Problems Problem Noted Date Diagnosed Date [...] as of this encounter (statuses as of 05/21/2023) Immunizations Name Administration Dates Next Due COVID-19 [...] Date Smoking Tobacco: Every Day Cigarettes 1 30 Smokeless Tobacco: Never Alcohol Use Standard Drinks/Week [...] Description 06/07/2023 10:30 AM EST Imaging Radiology [address] [place] [address] 06/15/2023 11:00 AM EST Imaging Radiology, [facility] [address] [facility] [place] [address] Health Maintenance Due Date Last Done Comments [...] Screening 09/15/2021 09/15/2020 CKD PHOS USE SMARTSET 38708 11/10/202110/22, 10/31/2020, 08/12/2020, Additional history exists Mammogram 07/17/2022 07/17/2021, 03/23, 02/21/2019, Additional history exists DISCUSS TOBACCO CESSATION (REFER TO SMARTSET #3291) 10/21/2022 10/21/2021 GFR 12/21/2022 06/23/2022, 05/24, 04/27/2022, Additional history exists COVID-19 Vaccine ( season) 2023 06/15/2021, 11/10/2020, 09/22/2020 Influenza Vaccine (FLU shot) (#1) 2023 01/31/2020, 02/28/2019, 03/07/2018, Additional history exists CKD HGB USE SMARTSET 81674 06/23/202306/23, 06/23/2022, 06/20/2022, Additional history exists Diabetes Screening 06/23/2025 06/23/2022, 1 06/28/2021, 02/24/2022, Additional history exists DXA Scan 04/10/2027 04/10/2020, 08/14/2003 Lipid Panel 06/23/2027 06/23/2022, 10/21, 10/14/2020, Additional history exists DTaP,Tdap,and Td Vaccines (2 - Td or Tdap) 04/20/2028 04/20/2018 Zoster Vaccines Completed 02/29/2020, 06/18/2019 Alpha-1 Antitrypsin Completed 10/21/2021 LUNG CANCER SCREENING - USE SMARTSET 91829 Completed 11/18/2021, 07/22/2021, 01/22/2021, Additional history exists GARDASIL-HPV IMMUNIZATION SERIES Aged Out No longer eligible based on patient's age to complete this topic MENINGOCOCCAL (MENACTRA/MENVEO) Aged Out No longer eligible based on patient's age to complete this topic documented as of this encounter Medical Devices Not on filedocumented as of this encounter Procedures Procedure Name Priority Date/Time Associated Diagnosis Comments RADIOLOGY EXAM - MAMMOGRAPHY (IMAGES ONLY, NO REPORT) Routine 07/17/2021 10:00 AM EST documented in this encounter Results * RADIOLOGY EXAM - MAMMOGRAPHY (IMAGES ONLY, NO REPORT) (07/17/2021 10:00 AM EST) 07/17/2021 9:58 AM EST Narrative Scheduling, Silent - 05/20/2023 10:14 AM EST This is an imaging study not interpreted or resulted by a [facility] contracted radiologist. Milli Martin PA-C RAD MAMMO GRAPHY documented in this encounter Advance Directives Latest Code Status on File Code Status Date Activated Date Inactivated Comments Full Code 11/10/2020 6:16 PM 11/12/2020 5:12 PM This order reflects the patients wishes and were consensually agreed upon. Question Answer Comments Discussion of Advance Directives occurred with: Patient Does the patient have a Living Will? No Does the patient have Health Care Power of Paper Hanger? No Code Status History Code Status Date Activated Date Inactivated Comments Full Code 10/19/2018 10:42 AM 10/19/2018 5:02 PM This order reflects the patients wishes and were consensually agreed upon. Care Teams Sales Representative Jewelry Relationship Specialty Start Date End Date Randall Malik MD [address] [facility] [address] [place] [address] PCP - General Internal Medicine 02/07/21 documented as of this encounter
[2023-10-29] MEDS: SENNA 8.6 MG TAB PO SCH (13:36)
[2023-10-29 14:18] LABS: C Reactive Protein < 0.50 mg/dl (0-0.5)
[2023-10-29] MEDS: SODIUM BICARBONATE 8.4% 75 MEQ in SODIUM CHLORIDE 0.45 % 1,000 ML IV SCH (14:31)
--- NOTE | 2023-10-29 14:45 | Communication Note ---
Date of Service: October 29, 2023 Communicated directly with primary/hospitalist team Dr. Padilla Inflammatory markers unremarkable Ophthalmology to evaluate patient today Recommend await ophtho eval prior to undergoing CTA If there is no concern for GCA-and no explanation for acute blurred vision/vision loss then recommend Lp to eval opening pressure, as well as CSF studies, as there is concern for IIH
--- NOTE | 2023-10-29 16:54 | Ophthalmology Consultation ---
Date of Consultation October 29, 2023 Assessment & Plan (1) Blurry vision, bilateral: The patient has a basically unremarkable eye exam. Her acuity is almost normal at near with the reading glasses I loaned her. That combined with normal imaging and labs likely rules out any acute ophthalmologic issue that would need further work up as an inpatient. Given the normal labs, normal optic nerves, good acuity, and simultaneous bilateral onset I feel comfortable ruling out GCA as a possibility. However the bedside exam is fundamentally limited due to the lack of equipment needed to do a thorough exam. Her glasses look quite old and probably need to be updated. Her acute change is vision may be related to her headache syndrome and would be typical with migraine. Alternatively, it could be dry eyes and she may benefit from artificial tears prn. If her vision continues to bother her after discharge than a more complete exam in the office can be scheduled. History of Present Illness Reason for Consultation: Blurry vision Attending Physician: Pierre Padilla MD History of Present Illness The exact history is difficult to obtain. The patient reports a 1 - 2 day history of bilateral blurry vision with headache. The vision is bright but blurry. Both eyes seem about the same. She denies any prior ocular history however she cannot recall her last eye exam and does not know when she got her glasses. She states that her eyes occasionally water and she uses over the counter drops on occasion. At the time of my exam she states the headache is improving but she has some back pain. So far her work up including head imaging and blood work for giant cell arteritis is normal. Allergies Allergy/AdvReac Type Severity Reaction Status Date / Time No Known Allergies Allergy Mild Unverified 07/13/11 21:17 Home Medications Medication Instructions Recorded Confirmed Type albuterol sulfate 90 mcg/actuation 2 puff inhalation Q4 PRN Wheezing 10/28/23 10/28/23 History aerosol inhaler aripiprazole 20 mg tablet 20 mg PO HS 10/28/23 10/28/23 History aripiprazole 5 mg tablet 5 mg PO HS 10/28/23 10/28/23 History atorvastatin 40 mg tablet 40 mg PO DAILY 10/28/23 10/28/23 History budesonide-formoterol HFA 160 2 puff inhalation BID 10/28/23 10/28/23 History mcg-4.5 mcg/actuation aerosol inhaler (Breyna) cetirizine 5 mg tablet 5 mg PO DAILY 10/28/23 10/28/23 History clonazepam 0.5 mg tablet 0.5 mg PO HS 10/28/23 10/28/23 History gabapentin 600 mg tablet 600 mg PO TID 10/28/23 10/28/23 History hydroxyzine pamoate 50 mg capsule 50 mg PO UD 10/28/23 10/28/23 History lamotrigine 100 mg tablet 100 mg PO QAM 10/28/23 10/28/23 History linaclotide 145 mcg capsule 145 mcg PO DAILYBB 10/28/23 10/28/23 History (Linzess) magnesium oxide 400 mg (241.3 mg 400 mg PO DAILY 10/28/23 10/28/23 History magnesium) tablet nystatin 100,000 unit/gram topical 1 applic topical BID 10/28/23 10/28/23 History powder omeprazole 40 mg capsule,delayed 40 mg PO DAILYBB 10/28/23 10/28/23 History release potassium chloride 10 mEq 20 meq PO BID 10/28/23 10/28/23 History tablet,extended release pregabalin 50 mg capsule 50 mg PO BID 10/28/23 10/28/23 History risperidone 1 mg tablet 1 mg PO HS 10/28/23 10/28/23 History sertraline 50 mg tablet 50 mg PO QAM 10/28/23 10/28/23 History sodium bicarbonate 650 mg tablet 650 mg PO AMHS 10/28/23 10/28/23 History trazodone 100 mg tablet 200 mg PO HS 10/28/23 10/28/23 History Patient History Social History Smoking Status: Current every day smoker Tobacco Type: Cigarettes Cigarettes Per Day: 20; Second Hand Exposure: No; Do You Dip or Chew Tobacco: No; Tobacco Cessation Education Requested by Patient: No Hx Alcohol Use: No Hx Substance Use: No Preferred Language: Israeli Communication Ability: Impaired Clerical Secretary Required: No Beliefs That Will Affect Care: None Current Living Situation: Family Current Living Situation Comment: grandson lives with patient Other Information That Helps Us Care for You: No Feels Safe at Home: Yes Safety Concerns: Feels Safe At This Time Assistive Devices: None and Glasses Physical Exam Eyes: Visual acuity measured on a near card using a pair of over the counter reading glasses I loaned her was 20/30 right eye and 20/25 left eye. Pupils were equally reactive with no afferent defect. Confrontation visual islas was normal. Ocular motility was normal. The pen light exam was unremarkable with normal lids, conjunctiva, sclera, cornea, iris, anterior chamber, and lens bilaterally. The fundus examination shows normal retinal vessels and optic nerves. The optic nerve margins were sharp with no papilledema or pallor of the optic nerves. The cup to disk ratio was approximately 0.5. Results & Data Vital Signs (Past 12 Hours) Vital Signs Temp Pulse Pulse Resp BP Pulse Ox O2 Del Method 10/29/23 15:40 36.9 C 82 18 117/73 97 Room Air 10/29/23 11:55 36.3 C L 78 18 123/72 99 Nasal Cannula 10/29/23 07:33 36.5 C 83 18 103/65 96 Nasal Cannula 10/29/23 07:28 85 10/29/23 07:28 Nasal Cannula O2 Flow Rate 10/29/23 15:40 10/29/23 11:55 2 10/29/23 07:33 2 10/29/23 07:28 10/29/23 07:28 2 Laboratory Results ESR 6 CRP <0.[address] and MRI brain
[2023-10-29] MEDS: OPTIRAY 320 150ml IV ONE (20:16)
[2023-10-29] MEDS: clonazePAM 0.5 MG TAB PO SCH (21:03)
[2023-10-29] MEDS: ARIPiprazole 10 MG TAB PO SCH (21:04)
[2023-10-29] MEDS: traZODone HCL 100 MG TAB PO SCH (21:05)
[2023-10-29] MEDS: ARIPiprazole 5 MG TAB PO SCH (21:07)
[2023-10-29] MEDS ORDERED: Nursing to Pharmacy Communication SCH (23:00)
--- NOTE | 2023-10-29 23:29 | CT Scan Report ---
Exam(s): CTA HEAD With Contrast IV Amt: OPTIRAY 320 120ML EXAM: CT Angiography Head With Intravenous Contrast CLINICAL HISTORY: Reason for exam: blury vision. TECHNIQUE: Axial computed tomographic angiography images of the head with intravenous contrast. CTDI is 16.61 mGy and DLP is 8.3 mGy-cm. Automated exposure control was utilized for the study. A dose lowering technique was utilized adhering to the principles of ALARA. MIP reconstructed images were created and reviewed. CONTRAST: Patient received OPTIRAY 320 120ML of IV contrast COMPARISON: No relevant prior studies available. FINDINGS: The dural venous sinuses are patent. Right internal carotid artery: No acute findings. Intracranial segment is patent with no significant stenosis. No aneurysm. Right anterior cerebral artery: Unremarkable. No occlusion or significant stenosis. No aneurysm. Right middle cerebral artery: Unremarkable. No occlusion or significant stenosis. No aneurysm. Right posterior cerebral artery: Unremarkable. No occlusion or significant stenosis. No aneurysm. Right vertebral artery: Unremarkable as visualized. Left internal carotid artery: No acute findings. Intracranial segment is patent with no significant stenosis. No aneurysm. Left anterior cerebral artery: Unremarkable. No occlusion or significant stenosis. No aneurysm. Left middle cerebral artery: Unremarkable. No occlusion or significant stenosis. No aneurysm. Left posterior cerebral artery: Unremarkable. No occlusion or significant stenosis. No aneurysm. Left vertebral artery: Unremarkable as visualized. Basilar artery: Unremarkable. No occlusion or significant stenosis. No aneurysm. IMPRESSION: Negative CT angiogram of the head. Electronically signed by: Delaney Hudson MD 10/29/23 23:28 PM
--- NOTE | 2023-10-29 23:31 | CT Scan Report ---
Exam(s): CTA NECK With Contrast IV Amt: OPTIRAY 320 120ML EXAM: CT Angiography Neck With Intravenous Contrast CLINICAL HISTORY: Reason for exam: blurry vision. TECHNIQUE: Routine carotid CT angiography protocol was performed with intravenous contrast. NASCET criteria using the distal ICAs for comparison were used for evaluation of stenoses. CTDI is 15.59 mGy and DLP is 483.99 mGy-cm. Automated exposure control was utilized for the study. A dose lowering technique was utilized adhering to the principles of ALARA. MIP reconstructed images were created and reviewed. CONTRAST: Patient received OPTIRAY 320 120ML of IV contrast COMPARISON: None. FINDINGS: VASCULATURE: Right common carotid artery: Unremarkable. No occlusion or significant stenosis. No dissection. Right internal carotid artery: Unremarkable. Extracranial segment is patent with no occlusion or significant stenosis. No dissection. Right external carotid artery: Unremarkable. No occlusion. Right vertebral artery: Unremarkable. No occlusion or significant stenosis. No dissection. Left common carotid artery: Unremarkable. No occlusion or significant stenosis. No dissection. Left internal carotid artery: Unremarkable. Extracranial segment is patent with no occlusion or significant stenosis. No dissection. Left external carotid artery: Unremarkable. No occlusion. Left vertebral artery: Unremarkable. No occlusion or significant stenosis. No dissection. NECK: Bones/joints: Unremarkable. No acute fracture. Soft tissues: Unremarkable. Lung apices: Clear. CAROTID STENOSIS REFERENCE USING NASCET CRITERIA: % ICA stenosis = (1 - narrowest ICA diameter/diameter of distal cervical ICA) x 100. Mild - <50% stenosis. Moderate - 50-69% stenosis. Severe - 70-94% stenosis. Near occlusion - 95-99% stenosis. Occluded - 100% stenosis. IMPRESSION: Negative CTA neck. Electronically signed by: Delaney Hudson MD 10/29/23 23:31 PM
[2023-10-30] MEDS: POLYETHYLENE (MIRALAX) 17 GM PACK PO SCH (08:48)
[2023-10-30 09:51] LABS: Anion Gap 8 (3-11); Calcium 8.7 mg/dl (8.6-10.3); Carbon Dioxide 18 mmol/L (21-32); Chloride 116 mmol/L (98-107); Magnesium 2.1 mg/dl (1.7-2.4); Potassium 3.2 mmol/L (3.5-5.1); Sodium 142 mmol/L (136-145)
[2023-10-30 09:56] LABS: BUN Creatinine Ratio 10.4 (10-20); Blood Urea Nitrogen 22 mg/dl (6-23); Creatinine Clr Calc Pharmacy 25.1 ml/min; Est GFR (African American) 27.4 ml/min; Est GFR (Non-African American) 23.6 ml/min; Glucose 180 mg/dl (70-99(Fasting)); Phosphorus 2.4 mg/dl (2.5-4.9)
[2023-10-30 10:36] LABS: Hematocrit (blood only) 31.9 % (37.0-47.0); Hemoglobin 10.2 g/dl (12.0-16.0); Mean Corpuscular Hemoglobin 30.2 pg (25.0-34.0); Mean Corpuscular Volume 94.4 fL (80.0-100.0); Mean Platelet Volume 9.5 fL (9.4-12.4); Nucleated RBC # (auto) 0.03 K/uL (0.00-0.12); Nucleated RBC % (auto) 0.4 %; Platelet Count 180 K/uL (130-400); RDW Coefficient of Variation 15.1 % (11.5-14.5); RDW Standard Deviation 51.7 fL (36.4-46.3); Red Blood Count 3.38 M/uL (4.20-5.40); White Blood Count 7.95 K/ul (4.8-10.8)
--- NOTE | 2023-10-30 10:50 | Hospitalist Progress Note ---
Date of Service October 30, 2023 Assessment & Plan (1) Headache: Plan: 68 yo F COPD, granulomatous lung disease, nocturnal hypoxemia on home oxygen, history of dysphagia, history of TOYN, CKD stage IIIb, lumbosacral disc disease, bipolar affective disorder, anxiety state, mixed incontinence, tobacco use disorder presents with headache and blurred vision. Patient still has a headache and also blurred vision. She has chronic back pain radiating to both legs. She says can ambulate without support. She lives with her grandson. She states she can eat regular food. States recently she was [facility] looks like she was admitted on September 27. States stayed in the hospital for 3 weeks. As per discharge paperwork she was admitted for acute UTI and back pain and weakness and TONY. Patient hemodynamics currently okay. Denies any runny nose or sore throat. Denies chest pain. She says she is always short of breath because of COPD. No nausea. No abdominal pain. Did not move bowels for last 4 days. Micturating okay. She is following with nephrology for chronic renal disease. Looks like in May 2023 Lasix metformin Neurontin stop because of worsening GFR. Chronic kidney disease was thought from possible use of [place] in the past and possible NSAIDs. nephrology advised to stop omeprazole and take Pepcid twice daily. In July 2023 patient was started on sodium bicarbonate 650 mg 1 tab twice daily as her bicarb was low and also to slow down the kidney function decline. Headache blurred vision CT head - negative pain control MRI brain - No acute intracranial abnormality. Pt reports hx of migraine PICHARDO w/ blurry vision in the past - but not recently Neurology consulted - CTA head and neck obtained - Negative CT angiogram of the head. Negative CTA neck. Ophthalmology consulted - The patient has a basically unremarkable eye exam. Her acuity is almost normal at near with the reading glasses I loaned her. That combined with normal imaging and labs likely rules out any acute ophthalmologic issue that would need further work up as an inpatient. Given the normal labs, normal optic nerves, good acuity, and simultaneous bilateral onset I feel comfortable ruling out GCA as a possibility. However the bedside exam is fundamentally limited due to the lack of equipment needed to do a thorough exam. Her glasses look quite old and probably need to be updated. Her acute change in vision may be related to her headache syndrome and would be typical with migraine. Alternatively, it could be dry eyes and she may benefit from artificial tears prn. If her vision continues to bother her after discharge than a more complete exam in the office can be scheduled. Discussed with neurology - plan for LP - pt is understanding and in agreement. Radiology contacted yesterday regarding poss. LP. Recent UTI and was admitted in [facility] UA shows trace leukocyte esterase but negative for bacteria TONY on CKD stage III/IV and metabolic acidosis outpatient labs shows baseline creatinine around 2.4 and CO2 13-15 range was started on bicarb tabs creatinine on admission is 2.3 and CO2 is 18 ABG shows pH of .7.21 and bicarb of 12 received 1 amp of sodium bicarb on admission continue home bicarb tablets gentle fluids follow repeat labs and ABG Nephrology consulted - and discussed with - gave 1/2 NS with bicarb prior to CTA and after Nocturnal hypoxemia on oxygen 4 L during nighttime Hx of COPD continue home inhalers Anemia - 6/8 AM labs showing Hgb 9.0. Ordered stool hemeoccult- not collected - Repeat H&H same morning 9.8 - cont. to closely monitor - no signs of bleeding - current Hgb 10.2 Bipolar affective disorder anxiety continue home medications constipation on Linzess GERD placed on Pepcid DVT prophylaxis - SCDs Disposition - telemetry Full code Admission and Anticipated Discharge Date Admission Date: October 28, 2023 Subjective Pt seen in follow up of PICHARDO, blurry vision Recent hospitalization ([facility] for UTI, etc.) MRI brain negative Yesterday reported history of migraine headaches, with some blurry vision in the past but not for a very long time. Currently does not follow with neurology. Nephrology, neurology, ophthalmology consulted and discussed with - obtained CTA head and neck yesterday (negative) - had optho exam in the hospital (does not explain blurry vision). Pt still complains of blurry vision - will plan for LP - pt is in understanding and agreement. Discussed w/ radiology yesterday as poss. need for LP. Pt currently sitting up in chair, in no acute distress Denies fevers chills chest pain shortness of breath, denies abdominal pain nausea vomiting. Review of Systems Review of Systems: All systems reviewed & are unremarkable except as noted in Subjective Physical Exam Physical Exam: General- WD/WN F in NAD Neck - soft collar applied Head- atraumatic Eyes- PERRL. Lungs- clear to auscultation no wheezing or crackles. Heart- regular rhythm; no murmur Abdomen- normal bowel sounds, soft, nontender, no distension Extremities- no pretibial edema, no erythema seen, moves extremities Neuro- alert, oriented PERRL, no facial palsy; no dysarthria; motor 3/5 bilaterally; moves extremities Results & Data Results & Data Vital Signs (Past 12 Hours) Vital Signs Temp Pulse Pulse Resp BP Pulse Ox O2 Del Method 10/30/23 08:00 65 10/30/23 08:00 Room Air 10/30/23 07:27 36.4 C L 71 18 102/64 98 Room Air 10/30/23 03:19 36.6 C 78 18 130/79 94 Room Air 10/29/23 23:18 79 Laboratory Results 10/30/23 10/30/23 10/29/23 Range/Units 10:09 09:10 07:57 WBC 7.95 Cancelled RBC 3.38 L Cancelled Hgb 10.2 L Cancelled Hct 31.9 L Cancelled MCV 94.4 Cancelled MCH 30.2 Cancelled MCHC 32.0 Cancelled RDW Std Deviation 51.7 H Cancelled RDW Coeff of David 15.1 H Cancelled Plt Count 180 Cancelled MPV 9.5 Cancelled Absolute Nucleated RBC 0.03 Cancelled Nucleated RBC % (auto) 0.4 Cancelled Platelet Estimate Cancelled ESR 6 (0-30) mm/hr Sodium 142 (136-145) mmol/L Potassium 3.2 L (3.5-5.1) mmol/L Chloride 116 H (98-107) mmol/L Carbon Dioxide 18 L (21-32) mmol/L Anion Gap 8 (3-11) BUN 22 (6-23) mg/dl Creatinine 2.11 H (0.6-1.2) mg/dl Est Cr Clr Drug Dosing 25.1 ml/min Est GFR ( Amer) 27.4 ml/min Est GFR (Non-Af Amer) 23.6 ml/min BUN/Creatinine Ratio 10.4 (10-20) Glucose 180 H (70-99(Fasting)) mg/dl Calcium 8.7 (8.6-10.3) mg/dl Phosphorus 2.4 L (2.5-4.9) mg/dl Magnesium 2.1 (1.7-2.4) mg/dl C-Reactive Protein (0-0.5) mg/dl 10/29/23 Range/Units 05:26 WBC RBC Hgb Hct MCV MCH MCHC RDW Std Deviation RDW Coeff of David Plt Count MPV Absolute Nucleated RBC Nucleated RBC % (auto) Platelet Estimate ESR (0-30) mm/hr Sodium (136-145) mmol/L Potassium (3.5-5.1) mmol/L Chloride (98-107) mmol/L Carbon Dioxide (21-32) mmol/L Anion Gap (3-11) BUN (6-23) mg/dl Creatinine (0.6-1.2) mg/dl Est Cr Clr Drug Dosing ml/min Est GFR ( Amer) ml/min Est GFR (Non-Af Amer) ml/min BUN/Creatinine Ratio (10-20) Glucose (70-99(Fasting)) mg/dl Calcium (8.6-10.3) mg/dl Phosphorus (2.5-4.9) mg/dl Magnesium (1.7-2.4) mg/dl C-Reactive Protein < 0.50 (0-0.5) mg/dl Medications Administered Current Inpatient Medications Acetaminophen (Acetaminophen 325 Mg Tab) 650 mg PO Q4H PRN PRN Reason: Pain or Fever Stop: 11/27/23 23:29 Last Admin: 10/29/23 05:46 Dose: 650 mg Albuterol (Albuterol Hfa 8 Gm Inhaler) 2 puffs INH Q4 PRN PRN Reason: Wheezing Stop: 11/27/23 23:29 Aripiprazole (Aripiprazole 10 Mg Tab) 20 mg PO HS [facility] Stop: 11/28/23 20:59 Last Admin: 10/29/23 21:04 Dose: 20 mg Aripiprazole (Aripiprazole 5 Mg Tab) 5 mg PO HS [facility] Stop: 11/28/23 20:59 Last Admin: 10/29/23 21:07 Dose: 5 mg Atorvastatin Calcium (Atorvastatin 40 Mg Tab) 40 mg PO DAILY [facility] Stop: 11/28/23 08:59 Last Admin: 10/30/23 08:47 Dose: 40 mg Cetirizine HCl (Cetirizine Hcl 10 Mg Tablet) 5 mg PO DAILY [facility] Stop: 11/28/23 08:59 Last Admin: 10/30/23 08:47 Dose: 5 mg Clonazepam (Clonazepam 0.5 Mg Tab) 0.5 mg PO HS [facility] Stop: 11/28/23 20:59 Last Admin: 10/29/23 21:03 Dose: 0.5 mg Famotidine (Famotidine 20 Mg Tab) 20 mg PO BID [facility] Stop: 11/28/23 08:59 Last Admin: 10/30/23 08:46 Dose: 20 mg Fluticasone/Vilanterol (Fluticasone/Vilanterol 200/25mcg 14 Puffs/Inhaler) 1 puffs INH DAILY [facility] Stop: 11/28/23 08:59 Last Admin: 10/30/23 08:48 Dose: 1 puffs Gabapentin (Gabapentin 600 Mg Tab) 600 mg PO TID [facility] Stop: 11/28/23 08:59 Last Admin: 10/30/23 08:46 Dose: 600 mg Heparin Sodium (Porcine) (Heparin Sod 5,000 Unit/0.5 Ml Vial) 5,000 units SQ Q 12 [facility] Stop: 11/28/23 08:59 Last Admin: 10/29/23 09:07 Dose: Not Given Hydroxyzine HCl (Hydroxyzine Hcl 25 Mg Tab) 50 mg PO AMHS [facility] Stop: 11/28/23 08:59 Last Admin: 10/30/23 08:47 Dose: 50 mg Lamotrigine (Lamotrigine 100 Mg Tab) 100 mg PO QAM [facility]; Protocol Stop: 11/28/23 08:59 Last Admin: 10/30/23 08:47 Dose: 100 mg Linaclotide (Linaclotide 145 Mcg Capsule) 145 mcg PO DAILYBB [facility] Stop: 11/28/23 06:29 Last Admin: 10/29/23 21:03 Dose: 145 mcg Magnesium Oxide (Magnesium Oxide 400 Mg Tab) 400 mg PO BID [facility] Stop: 11/28/23 08:59 Last Admin: 10/30/23 08:46 Dose: 400 mg Nitroglycerin (Nitroglycerin Sl 0.4 Mg/Tab Tab) 0.4 mg SL Q5M PRN PRN Reason: Chest Pain Stop: 11/27/23 23:29 Nystatin (Nystatin Powder 15gm Btl) 1 appln EXT BID [facility] Stop: 11/28/23 08:59 Last Admin: 10/30/23 08:46 Dose: 1 appln Polyethylene Glycol (Polyethylene (Miralax) 17 Gm Pack) 17 gm PO DAILY [facility] Stop: 11/29/23 08:59 Last Admin: 10/30/23 08:48 Dose: 17 gm Potassium Chloride (Potassium Chloride Crtab 20 Meq Tabcr) 20 meq PO BID [facility] Stop: 11/28/23 08:59 Last Admin: 10/30/23 08:48 Dose: 20 meq Pregabalin (Pregabalin 50 Mg Cap) 50 mg PO BID [facility] Stop: 11/28/23 08:59 Last Admin: 10/30/23 08:55 Dose: 50 mg Risperidone (Risperidone 1 Mg Tablet) 1 mg PO [facility] Stop: 11/27/23 23:29 Last Admin: 10/29/23 21:08 Dose: 1 mg Sennosides (Senna 8.6 Mg Tab) 8.6 mg PO QAM [facility] Stop: 11/28/23 12:29 Last Admin: 10/30/23 08:47 Dose: 8.6 mg Sertraline HCl (Sertraline Hcl 50 Mg Tablet) 50 mg PO QAM [facility] Stop: 11/28/23 08:59 Last Admin: 10/30/23 08:47 Dose: 50 mg Sodium Bicarbonate (Sodium Bicarbonate 650 Mg Tab) 650 mg PO TID [facility] Stop: 11/28/23 13:59 Last Admin: 10/30/23 08:46 Dose: 650 mg Trazodone HCl (Trazodone Hcl 100 Mg Tab) 200 mg PO HS [facility] Stop: 11/28/23 20:59 Last Admin: 10/29/23 21:05 Dose: 200 mg
[2023-10-30] MEDS: POTASSIUM CHLORIDE CRTAB 20 MEQ TABCR PO STA (11:28)
[2023-10-30] MEDS: bisacodyL 10 MG SUPP PR STA (11:44)
[2023-10-30 11:51] LABS: C Reactive Protein < 0.50 mg/dl (0-0.5)
[2023-10-30] MEDS: oxyCODONE HCL IR 5 MG TAB (IMMEDIATE RELEASE) PO STA (18:26)
[2023-10-30] MEDS: POTASSIUM CHLORIDE CRTAB 20 MEQ TABCR PO SCH (20:21)
[2023-10-31 08:06] LABS: Hematocrit (blood only) 29.2 % (37.0-47.0); Hemoglobin 9.5 g/dl (12.0-16.0); Mean Corpuscular Hemoglobin 30.8 pg (25.0-34.0); Mean Corpuscular Hgb Conc 32.5 g/dL (32.0-36.0); Mean Corpuscular Volume 94.8 fL (80.0-100.0); Mean Platelet Volume 9.3 fL (9.4-12.4); Nucleated RBC # (auto) 0.03 K/uL (0.00-0.12); Nucleated RBC % (auto) 0.4 %; Platelet Count 175 K/uL (130-400); RDW Coefficient of Variation 15.2 % (11.5-14.5); RDW Standard Deviation 52.8 fL (36.4-46.3); Red Blood Count 3.08 M/uL (4.20-5.40); White Blood Count 7.85 K/ul (4.8-10.8)
[2023-10-31 08:08] LABS: Calcium 8.9 mg/dl (8.6-10.3); Creatinine Clr Calc Pharmacy 26.3 ml/min; Est GFR (African American) 27.5 ml/min; Est GFR (Non-African American) 23.8 ml/min; Magnesium 2.3 mg/dl (1.7-2.4); Phosphorus 3.5 mg/dl (2.5-4.9); Potassium 3.7 mmol/L (3.5-5.1)
--- NOTE | 2023-10-31 08:17 | Hospitalist Progress Note ---
Date of Service October 31, 2023 Assessment & Plan (1) Headache: Plan: 68 yo F COPD, granulomatous lung disease, nocturnal hypoxemia on home oxygen, history of dysphagia, history of TONY, CKD stage IIIb, lumbosacral disc disease, bipolar affective disorder, anxiety state, mixed incontinence, tobacco use disorder presents with headache and blurred vision. Patient still has a headache and also blurred vision. She has chronic back pain radiating to both legs. She says can ambulate without support. She lives with her grandson. She states she can eat regular food. States recently she was [facility] looks like she was admitted on September 27. States stayed in the hospital for 3 weeks. As per discharge paperwork she was admitted for acute UTI and back pain and weakness and TONY. Patient hemodynamics currently okay. Denies any runny nose or sore throat. Denies chest pain. She says she is always short of breath because of COPD. No nausea. No abdominal pain. Did not move bowels for last 4 days. Micturating okay. She is following with nephrology for chronic renal disease. Looks like in May 2023 Lasix metformin Neurontin stop because of worsening GFR. Chronic kidney disease was thought from possible use of [place] in the past and possible NSAIDs. nephrology advised to stop omeprazole and take Pepcid twice daily. In July 2023 patient was started on sodium bicarbonate 650 mg 1 tab twice daily as her bicarb was low and also to slow down the kidney function decline. Headache blurred vision CT head - negative pain control MRI brain - No acute intracranial abnormality. Pt reports hx of migraine PICHARDO w/ blurry vision in the past - but not recently Neurology consulted - CTA head and neck obtained - Negative CT angiogram of the head. Negative CTA neck. Ophthalmology consulted - The patient has a basically unremarkable eye exam. Her acuity is almost normal at near with the reading glasses I loaned her. That combined with normal imaging and labs likely rules out any acute ophthalmologic issue that would need further work up as an inpatient. Given the normal labs, normal optic nerves, good acuity, and simultaneous bilateral onset I feel comfortable ruling out GCA as a possibility. However the bedside exam is fundamentally limited due to the lack of equipment needed to do a thorough exam. Her glasses look quite old and probably need to be updated. Her acute change in vision may be related to her headache syndrome and would be typical with migraine. Alternatively, it could be dry eyes and she may benefit from artificial tears prn. If her vision continues to bother her after discharge than a more complete exam in the office can be scheduled. Discussed with neurology - plan for LP - pt is understanding and in agreement. Radiology contacted regarding poss. LP. 10/30 plan for LP today Recent UTI and was admitted in [facility] UA shows trace leukocyte esterase but negative for bacteria TONY on CKD stage III/IV and metabolic acidosis outpatient labs shows baseline creatinine around 2.4 and CO2 13-15 range was started on bicarb tabs creatinine on admission is 2.3 and CO2 is 18 ABG shows pH of .7.21 and bicarb of 12 received 1 amp of sodium bicarb on admission continue home bicarb tablets gentle fluids follow repeat labs and ABG Nephrology consulted - and discussed with - gave 1/2 NS with bicarb prior to CTA and after Nocturnal hypoxemia on oxygen 4 L during nighttime Hx of COPD continue home inhalers Anemia - 6/8 AM labs showing Hgb 9.0. Ordered stool hemeoccult- not collected - Repeat H&H same morning 9.8 - cont. to closely monitor - no signs of bleeding - current Hgb 10.2 Bipolar affective disorder anxiety continue home medications constipation on Linzess GERD placed on Pepcid DVT prophylaxis - SCDs Disposition - telemetry Full code Admission and Anticipated Discharge Date Admission Date: October 28, 2023 Subjective Pt seen in follow up of PICHARDO, blurry vision Recent hospitalization ([facility] for UTI, etc.) MRI brain negative, CTA head and neck negat. Also reported history of migraine headaches, with some blurry vision in the past but not for a very long time. Currently does not follow with neurology. Nephrology, neurology, ophthalmology consulted and discussed with. Pt still complains of blurry vision - plan for LP today. Pt currently walking in hallway, in no acute distress Denies fevers chills chest pain shortness of breath, denies abdominal pain nausea vomiting. Review of Systems Review of Systems: All systems reviewed & are unremarkable except as noted in Subjective Physical Exam Physical Exam: General- WD/WN F in NAD Neck - soft collar applied Head- atraumatic Eyes- PERRL. Lungs- clear to auscultation no wheezing or crackles. Heart- regular rhythm; no murmur Abdomen- normal bowel sounds, soft, nontender, no distension Extremities- no pretibial edema, no erythema seen, moves extremities Neuro- alert, oriented PERRL, no facial palsy; no dysarthria; moves extremities Results & Data Results & Data Vital Signs (Past 12 Hours) Vital Signs Temp Pulse Pulse Pulse Resp BP Pulse Ox 10/31/23 07:47 36.5 C 68 16 96/63 L 96 10/31/23 04:29 108/73 10/31/23 03:36 36.5 C 67 18 94 10/31/23 02:57 95/63 L 10/31/23 00:00 104/78 10/30/23 23:09 36.5 C 66 18 90/54 L 96 10/30/23 22:56 68 10/30/23 20:49 O2 Del Method O2 Flow Rate 10/31/23 07:47 Room Air 10/31/23 04:29 10/31/23 03:36 Nasal Cannula 2 10/31/23 02:57 10/31/23 00:00 10/30/23 23:09 Nasal Cannula 2 10/30/23 22:56 10/30/23 20:49 Room Air Laboratory Results 10/31/23 10/30/23 10/30/23 Range/Units 07:26 10:09 09:10 WBC 7.85 7.95 Cancelled RBC 3.08 L 3.38 L Cancelled Hgb 9.5 L 10.2 L Cancelled Hct 29.2 L 31.9 L Cancelled MCV 94.8 94.4 Cancelled MCH 30.8 30.2 Cancelled MCHC 32.5 32.0 Cancelled RDW Std Deviation 52.8 H 51.7 H Cancelled RDW Coeff of David 15.2 H 15.1 H Cancelled Plt Count 175 180 Cancelled MPV 9.3 L 9.5 Cancelled Absolute Nucleated RBC 0.03 0.03 Cancelled Nucleated RBC % (auto) 0.4 0.4 Cancelled Platelet Estimate Cancelled ESR 6 (0-30) mm/hr Sodium 145 142 (136-145) mmol/L Potassium 3.7 3.2 L (3.5-5.1) mmol/L Chloride 119 H 116 H (98-107) mmol/L Carbon Dioxide 22 18 L (21-32) mmol/L Anion Gap 4 8 (3-11) BUN 23 22 (6-23) mg/dl Creatinine 2.10 H 2.11 H (0.6-1.2) mg/dl Est Cr Clr Drug Dosing 26.3 25.1 ml/min Est GFR ( Amer) 27.5 27.4 ml/min Est GFR (Non-Af Amer) 23.8 23.6 ml/min BUN/Creatinine Ratio 11.0 10.4 (10-20) Glucose 90 180 H (70-99(Fasting)) mg/dl Calcium 8.9 8.7 (8.6-10.3) mg/dl Phosphorus 3.5 D 2.4 L (2.5-4.9) mg/dl Magnesium 2.3 2.1 (1.7-2.4) mg/dl C-Reactive Protein < 0.50 (0-0.5) mg/dl Medications Administered Current Inpatient Medications Acetaminophen (Acetaminophen 325 Mg Tab) 650 mg PO Q4H PRN PRN Reason: Pain or Fever Stop: 11/27/23 23:29 Last Admin: 10/29/23 05:46 Dose: 650 mg Albuterol (Albuterol Hfa 8 Gm Inhaler) 2 puffs INH Q4 PRN PRN Reason: Wheezing Stop: 11/27/23 23:29 Aripiprazole (Aripiprazole 10 Mg Tab) 20 mg PO HS COUNTS INCLUDE 234 BEDS AT THE [facility] Stop: 11/28/23 20:59 Last Admin: 10/30/23 20:22 Dose: 20 mg Aripiprazole (Aripiprazole 5 Mg Tab) 5 mg PO HS [facility] Stop: 11/28/23 20:59 Last Admin: 10/30/23 20:22 Dose: 5 mg Atorvastatin Calcium (Atorvastatin 40 Mg Tab) 40 mg PO DAILY [facility] Stop: 11/28/23 08:59 Last Admin: 10/31/23 08:07 Dose: 40 mg Cetirizine HCl (Cetirizine Hcl 10 Mg Tablet) 5 mg PO DAILY [facility] Stop: 11/28/23 08:59 Last Admin: 10/31/23 08:07 Dose: 5 mg Clonazepam (Clonazepam 0.5 Mg Tab) 0.5 mg PO HS [facility] Stop: 11/28/23 20:59 Last Admin: 10/30/23 20:20 Dose: 0.5 mg Famotidine (Famotidine 20 Mg Tab) 20 mg PO BID [facility] Stop: 11/28/23 08:59 Last Admin: 10/31/23 08:08 Dose: 20 mg Fluticasone/Vilanterol (Fluticasone/Vilanterol 200/25mcg 14 Puffs/Inhaler) 1 puffs INH DAILY COUNTS INCLUDE 234 BEDS AT THE [facility] Stop: 11/28/23 08:59 Last Admin: 10/31/23 08:08 Dose: 1 puffs Gabapentin (Gabapentin 600 Mg Tab) 600 mg PO TID [facility] Stop: 11/28/23 08:59 Last Admin: 10/31/23 08:08 Dose: 600 mg Heparin Sodium (Porcine) (Heparin Sod 5,000 Unit/0.5 Ml Vial) 5,000 units SQ Q12 [facility] Stop: 11/28/23 08:59 Last Admin: 10/29/23 09:07 Dose: Not Given Hydroxyzine HCl (Hydroxyzine Hcl 25 Mg Tab) 50 mg PO AMHS COUNTS INCLUDE 234 BEDS AT THE [facility] Stop: 11/28/23 08:59 Last Admin: 10/31/23 08:07 Dose: 50 mg Lamotrigine (Lamotrigine 100 Mg Tab) 100 mg PO QAM COUNTS INCLUDE 234 BEDS AT THE [facility]; Protocol Stop: 11/28/23 08:59 Last Admin: 10/31/23 08:08 Dose: 100 mg Linaclotide (Linaclotide 145 Mcg Capsule) 145 mcg PO DAILYBB COUNTS INCLUDE 234 BEDS AT THE [facility] Stop: 11/28/23 06:29 Last Admin: 10/30/23 20:35 Dose: 145 mcg Magnesium Oxide (Magnesium Oxide 400 Mg Tab) 400 mg PO BID COUNTS INCLUDE 234 BEDS AT THE [facility] Stop: 11/28/23 08:59 Last Admin: 10/31/23 08:07 Dose: 400 mg Nitroglycerin (Nitroglycerin Sl 0.4 Mg/Tab Tab) 0.4 mg SL Q5M PRN PRN Reason: Chest Pain Stop: 11/27/23 23:29 Nystatin (Nystatin Powder 15gm Btl) 1 appln EXT BID COUNTS INCLUDE 234 BEDS AT THE [facility] Stop: 11/28/23 08:59 Last Admin: 10/31/23 08:09 Dose: 1 appln Polyethylene Glycol (Polyethylene (Miralax) 17 Gm Pack) 17 gm PO DAILY COUNTS INCLUDE 234 BEDS AT THE [facility] Stop: 11/29/23 08:59 Last Admin: 10/30/23 08:48 Dose: 17 gm Potassium Chloride (Potassium Chloride Crtab 20 Meq Tabcr) 40 meq PO BID COUNTS INCLUDE 234 BEDS AT THE [facility] Stop: 11/29/23 20:59 Last Admin: 10/31/23 08:06 Dose: 40 meq Pregabalin (Pregabalin 50 Mg Cap) 50 mg PO BID [facility] Stop: 11/28/23 08:59 Last Admin: 10/31/23 08:06 Dose: 50 mg Risperidone (Risperidone 1 Mg Tablet) [address] [facility] Stop: 11/27/23 23:29 Last Admin: 10/30/23 20:20 Dose: 1 mg Sennosides (Senna 8.6 Mg Tab) 8.6 mg PO QAM COUNTS INCLUDE 234 BEDS AT THE [facility] Stop: 11/28/23 12:29 Last Admin: 10/31/23 08:08 Dose: 8.6 mg Sertraline HCl (Sertraline Hcl 50 Mg Tablet) 50 mg PO QAM COUNTS INCLUDE 234 BEDS AT THE [facility] Stop: 11/28/23 08:59 Last Admin: 10/31/23 08:07 Dose: 50 mg Sodium Bicarbonate (Sodium Bicarbonate 650 Mg Tab) 650 mg PO TID [facility] Stop: 11/28/23 13:59 Last Admin: 10/31/23 08:08 Dose: 650 mg Trazodone HCl (Trazodone Hcl 100 Mg Tab) [address] [facility] Stop: 11/28/23 20:59 Last Admin: 10/30/23 20:20 Dose: 200 mg
[2023-10-31] MEDS: LORazepam 0.5 MG TAB PO STA (09:28)
[2023-10-31 11:13] LABS: Total Protein CSF 102.7 mg/dl (15-45)
[2023-10-31 11:16] LABS: CSF Count Tube # 3
[2023-10-31 11:17] LABS: Appearance CSF Clear; CSF Xanthrochromic No xanthochromia; Color CSF Colorless
[2023-10-31 11:19] LABS: Red Blood Cell CSF Manual 0 (0-); White Blood Cell CSF Manual 0 (0-5)
[2023-10-31 12:19] LABS: Cryptococcus neoformans/ga PCR Not Detected (NotDetected); Cytomegalovirus PCR Not Detected (NotDetected); Enterovirus PCR Not Detected (NotDetected); Escherichia coli K1 PCR Not Detected (NotDetected); Haemophilius influenzae PCR Not Detected (NotDetected); Herpes Simplex Virus 1 PCR Not Detected (NotDetected); Herpes Simplex Virus 2 PCR Not Detected (NotDetected); Human Herpes Virus 6 PCR Not Detected (NotDetected); Human Parechovirus PCR Not Detected (NotDetected); Listeria monocytogenes PCR Not Detected (NotDetected); Neisseria meningitidis PCR Not Detected (NotDetected); Streptococcus agalactiae PCR Not Detected (NotDetected); Streptococcus pneumoniae PCR Not Detected (NotDetected); Varicella Zoster Virus PCR Not Detected (NotDetected)
--- NOTE | 2023-10-31 14:09 | Fluoroscopy Report ---
10/31/2023 10:36 AM IR lumbar puncture diagnostic EXAMINATION: Fluoroscopic-guided lumbar puncture. CLINICAL HISTORY: blurry vision, poss. IIH - Need OPENING PRESSURE PROCEDURE: After the technique, risks, alternatives, and benefits of the procedure were explained to the patient, signed consent was obtained. A confirmatory timeout was performed prior to initiation o f the procedure. A suitable puncture site at the L5-S1 level was obtained using fluoroscopy. The site was then cleaned and prepped in the usual sterile fashion. A total of 9 mL of 1% lidocaine was infu sed into the subcutaneous tissues during the procedure to achieve local anesthesia. Using a 20-gauge 3 1/2 inch spinal needle, the thecal sac was accessed under fluoroscopic guidance with the patient in the prone position. Opening pressure was measured at 29 cm. Approximately 8 mL of clear CSF was cookie ected into four separate vials. The spinal needle with stylet in place was removed and pressure was p laced over the puncture site until hemostasis was achieved. There were no immediate complications. T he patient tolerated the procedure well. IMPRESSION: Fluoroscopic guided lumbar puncture. Approximately 8 mL of clear CSF was collected into f our separate vials. No immediate complications. Opening pressure was 29 cm. ACT 112: Negative or not required by law. Electronically signed by: Vickey Mcintyre M.D. 10/31/2023 2:07 PM
[2023-10-31] MEDS: PNEUMOCOCCAL VACCINE (PCV20) 20-VAL CONJ-DIP CRM/PF 0.5 ML SYR IM ONE (14:11)
[2023-10-31] MEDS: acetaZOLAMIDE 250 MG TAB PO SCH (16:40)
[2023-11-01 08:52] LABS: Hematocrit (blood only) 29.9 % (37.0-47.0); Hemoglobin 9.5 g/dl (12.0-16.0); Mean Corpuscular Hemoglobin 30.7 pg (25.0-34.0); Mean Corpuscular Hgb Conc 31.8 g/dL (32.0-36.0); Mean Corpuscular Volume 96.8 fL (80.0-100.0); Mean Platelet Volume 9.5 fL (9.4-12.4); Nucleated RBC # (auto) 0.02 K/uL (0.00-0.12); Nucleated RBC % (auto) 0.3 %; Platelet Count 154 K/uL (130-400); RDW Coefficient of Variation 15.8 % (11.5-14.5); RDW Standard Deviation 55.1 fL (36.4-46.3); Red Blood Count 3.09 M/uL (4.20-5.40); White Blood Count 7.66 K/ul (4.8-10.8)
[2023-11-01 09:22] LABS: BUN Creatinine Ratio 9.6 (10-20); Calcium 8.9 mg/dl (8.6-10.3); Creatinine Clr Calc Pharmacy 23.9 ml/min; Est GFR (African American) 24.7 ml/min; Est GFR (Non-African American) 21.3 ml/min; Magnesium 2.5 mg/dl (1.7-2.4); Phosphorus 4.1 mg/dl (2.5-4.9); Potassium 3.9 mmol/L (3.5-5.1)
[2023-11-01] MEDS: DOCUSATE SODIUM 100 MG CAP PO ONE (13:09)
[2023-11-01] MEDS: oxyCODONE HCL IR 5 MG TAB (IMMEDIATE RELEASE) PO STA (16:52)
--- NOTE | 2023-11-01 17:39 | Hospitalist Progress Note ---
Date of Service November 01, 2023 Assessment & Plan (1) Headache: Plan: 68 yo F COPD, granulomatous lung disease, nocturnal hypoxemia on home oxygen, history of dysphagia, history of TONY, CKD stage IIIb, lumbosacral disc disease, bipolar affective disorder, anxiety state, mixed incontinence, tobacco use disorder presents with headache and blurred vision. Patient still has a headache and also blurred vision. She has chronic back pain radiating to both legs. She says can ambulate without support. She lives with her grandson. She states she can eat regular food. States recently she was [facility][1] looks like she was admitted on September 27. States stayed in the hospital for 3 weeks. As per discharge paperwork she was admitted for acute UTI and back pain and weakness and TONY. Patient hemodynamics currently okay. Denies any runny nose or sore throat. Denies chest pain. She says she is always short of breath because of COPD. No nausea. No abdominal pain. Did not move bowels for last 4 days. Micturating okay. She is following with nephrology for chronic renal disease. Looks like in May 2023 Lasix metformin Neurontin stop because of worsening GFR. Chronic kidney disease was thought from possible use of [place] in the past and possible NSAIDs. nephrology advised to stop omeprazole and take Pepcid twice daily. In July 2023 patient was started on sodium bicarbonate 650 mg 1 tab twice daily as her bicarb was low and also to slow down the kidney function decline. Headache blurred vision CT head - negative pain control MRI brain - No acute intracranial abnormality. Pt reports hx of migraine PICHARDO w/ blurry vision in the past - but not recently Neurology consulted - CTA head and neck obtained - Negative CT angiogram of the head. Negative CTA neck. Ophthalmology consulted - The patient has a basically unremarkable eye exam. Her acuity is almost normal at near with the reading glasses I loaned her. That combined with normal imaging and labs likely rules out any acute ophthalmologic issue that would need further work up as an inpatient. Given the normal labs, normal optic nerves, good acuity, and simultaneous bilateral onset I feel comfortable ruling out GCA as a possibility. However the bedside exam is fundamentally limited due to the lack of equipment needed to do a thorough exam. Her glasses look quite old and probably need to be updated. Her acute change in vision may be related to her headache syndrome and would be typical with migraine. Alternatively, it could be dry eyes and she may benefit from artificial tears prn. If her vision continues to bother her after discharge than a more complete exam in the office can be scheduled. Discussed with neurology - plan for LP - pt is understanding and in agreement. Radiology contacted regarding poss. LP. 10/30 - underwent LP - opening pressure 29 cm. Discussed w/ neurology , concern for IIH - started acetazolamide 250 bid. After LP she felt well, reported improvement and was walking in hallways in the PM. Today (11/01/23) she reports PICHARDO and does not feel comfortable with discharge. CSF studies pending. Recent UTI and was admitted in [facility][1] UA shows trace leukocyte esterase but negative for bacteria TONY on CKD stage III/IV and metabolic acidosis outpatient labs shows baseline creatinine around 2.4 and CO2 13-15 range was started on bicarb tabs creatinine on admission is 2.3 and CO2 is 18 ABG shows pH of .7.21 and bicarb of 12 received 1 amp of sodium bicarb on admission continue home bicarb tablets gentle fluids follow repeat labs and ABG Nephrology consulted - and discussed with - gave 1/2 NS with bicarb prior to CTA and after Nocturnal hypoxemia on oxygen 4 L during nighttime Hx of COPD continue home inhalers Anemia - 6/8 AM labs showing Hgb 9.0. Ordered stool hemeoccult- not collected - Repeat H&H same morning 9.8 - cont. to closely monitor - no signs of bleeding - current Hgb 10.2 Bipolar affective disorder anxiety continue home medications constipation on Linzess GERD placed on Pepcid DVT prophylaxis - SCDs Disposition - telemetry Full code Admission and Anticipated Discharge Date Admission Date: October 28, 2023 Subjective Pt seen in follow up of PICHARDO, blurry vision Recent hospitalization ([facility] for UTI, etc.) MRI brain negative, CTA head and neck negat. Also reported history of migraine headaches, with some blurry vision in the past but not for a very long time. Currently does not follow with neurology. Nephrology, neurology, ophthalmology consulted and discussed with. Pt still complains of blurry vision, headache comes and go Underwent LP yesterday Later after LP, said she was feeling better and has been walking hallways Today she reports having headache and does not feel comfortable with discharge Denies fevers chills chest pain shortness of breath, denies abdominal pain nausea vomiting. Review of Systems Review of Systems: All systems reviewed & are unremarkable except as noted in Subjective Physical Exam Physical Exam: General- WD/WN F in NAD Neck - soft collar applied Head- atraumatic Eyes- PERRL. Lungs- clear to auscultation no wheezing or crackles. Heart- regular rhythm; no murmur Abdomen- normal bowel sounds, soft, nontender, no distension Extremities- no pretibial edema, no erythema seen, moves extremities Neuro- alert, oriented PERRL, no facial palsy; no dysarthria; moves extremities Results & Data Results & Data Vital Signs (Past 12 Hours) Vital Signs Temp Pulse Pulse Resp BP BP Pulse Ox 11/01/23 15:38 36.3 C L 61 18 114/71 98 11/01/23 12:07 36.3 C L 69 17 106/65 96 11/01/23 10:25 64 11/01/23 07:22 36.4 C L 66 17 94/58 L 95 O2 Del Method 11/01/23 15:38 Room Air 11/01/23 12:07 Room Air 11/01/23 10:25 11/01/23 07:22 Room Air Laboratory Results 11/01/23 11/01/23 Range/Units 08:40 07:28 WBC 7.66 (4.8-10.8) K/ul RBC 3.09 L (4.20-5.40) M/uL Hgb 9.5 L (12.0-16.0) g/dl Hct 29.9 L (37.0-47.0) % MCV 96.8 (80.0-100.0) fL MCH 30.7 (25.0-34.0) pg MCHC 31.8 L (32.0-36.0) g/dL RDW Std Deviation 55.1 H (36.4-46.3) fL RDW Coeff of David 15.8 H (11.5-14.5) % Plt Count 154 (130-400) K/uL MPV 9.5 (9.4-12.4) fL Absolute Nucleated RBC 0.02 (0.00-0.12) K/uL Nucleated RBC % (auto) 0.3 % Sodium 144 (136-145) mmol/L Potassium 3.9 (3.5-5.1) mmol/L Chloride 118 H (98-107) mmol/L Carbon Dioxide 21 (21-32) mmol/L Anion Gap 5 (3-11) BUN 22 (6-23) mg/dl Creatinine 2.30 H (0.6-1.2) mg/dl Est Cr Clr Drug Dosing 23.9 ml/min Est GFR ( Amer) 24.7 ml/min Est GFR (Non-Af Amer) 21.3 ml/min BUN/Creatinine Ratio 9.6 L (10-20) Glucose 108 H (70-99(Fasting)) mg/dl POC Glucose 113 H (70-99) mg/dl Calcium 8.9 (8.6-10.3) mg/dl Phosphorus 4.1 (2.5-4.9) mg/dl Magnesium 2.5 H (1.7-2.4) mg/dl Medications Administered Current Inpatient Medications Acetaminophen (Acetaminophen 325 Mg Tab) 650 mg PO Q4H PRN PRN Reason: Pain or Fever Stop: 11/27/23 23:29 Last Admin: 11/01/23 00:10 Dose: 650 mg Acetazolamide (Acetazolamide 250 Mg Tab) 250 mg PO BID [facility] Stop: 11/30/23 15:39 Last Admin: 11/01/23 07:59 Dose: 250 mg Albuterol (Albuterol Hfa 8 Gm Inhaler) 2 puffs INH Q4 PRN PRN Reason: Wheezing Stop: 11/27/23 23:29 Aripiprazole (Aripiprazole 10 Mg Tab) 20 mg PO HS [facility] Stop: 11/28/23 20:59 Last Admin: 10/31/23 20:17 Dose: 20 mg Aripiprazole (Aripiprazole 5 Mg Tab) 5 mg PO HS [facility] Stop: 11/28/23 20:59 Last Admin: 10/31/23 20:16 Dose: 5 mg Atorvastatin Calcium (Atorvastatin 40 Mg Tab) 40 mg PO DAILY [facility] Stop: 11/28/23 08:59 Last Admin: 11/01/23 07:55 Dose: 40 mg Cetirizine HCl (Cetirizine Hcl 10 Mg Tablet) 5 mg PO DAILY [facility] Stop: 11/28/23 08:59 Last Admin: 11/01/23 07:57 Dose: 5 mg Clonazepam (Clonazepam 0.5 Mg Tab) 0.5 mg PO [facility] Stop: 11/28/23 20:59 Last Admin: 10/31/23 20:13 Dose: 0.5 mg Famotidine (Famotidine 20 Mg Tab) 20 mg PO BID [facility] Stop: 11/28/23 08:59 Last Admin: 11/01/23 07:57 Dose: 20 mg Fluticasone/Vilanterol (Fluticasone/Vilanterol 200/25mcg 14 Puffs/Inhaler) 1 puffs INH DAILY [facility] Stop: 11/28/23 08:59 Last Admin: 11/01/23 07:59 Dose: 1 puffs Gabapentin (Gabapentin 600 Mg Tab) 600 mg PO TID [facility] Stop: 11/28/23 08:59 Last Admin: 11/01/23 13:09 Dose: 600 mg Heparin Sodium (Porcine) (Heparin Sod 5,000 Unit/0.5 Ml Vial) 5,000 units SQ Q12 [facility] Stop: 11/28/23 08:59 Last Admin: 10/29/23 09:07 Dose: Not Given Hydroxyzine HCl (Hydroxyzine Hcl 25 Mg Tab) 50 mg PO [facility] Stop: 11/28/23 08:59 Last Admin: 11/01/23 07:56 Dose: 50 mg Lamotrigine (Lamotrigine 100 Mg Tab) 100 mg PO QAM [facility]; Protocol Stop: 11/28/23 08:59 Last Admin: 11/01/23 07:58 Dose: 100 mg Linaclotide (Linaclotide 145 Mcg Capsule) 145 mcg PO DAILYBB [facility] Stop: 11/28/23 06:29 Last Admin: 11/01/23 06:21 Dose: 145 mcg Magnesium Oxide (Magnesium Oxide 400 Mg Tab) 400 mg PO BID [facility] Stop: 11/28/23 08:59 Last Admin: 11/01/23 07:55 Dose: 400 mg Nitroglycerin (Nitroglycerin Sl 0.4 Mg/Tab Tab) 0.4 mg SL Q5M PRN PRN Reason: Chest Pain Stop: 11/27/23 23:29 Nystatin (Nystatin Powder 15gm Btl) 1 appln EXT BID [facility] Stop: 11/28/23 08:59 Last Admin: 11/01/23 08:00 Dose: 1 appln Polyethylene Glycol (Polyethylene (Miralax) 17 Gm Pack) 17 gm PO DAILY [facility] Stop: 11/29/23 08:59 Last Admin: 11/01/23 08:10 Dose: Not Given Potassium Chloride (Potassium Chloride Crtab 20 Meq Tabcr) 40 meq PO BID [facility] Stop: 11/29/23 20:59 Last Admin: 11/01/23 07:57 Dose: 40 meq Pregabalin (Pregabalin 50 Mg Cap) 50 mg PO BID [facility] Stop: 11/28/23 08:59 Last Admin: 11/01/23 08:10 Dose: 50 mg Risperidone (Risperidone 1 Mg Tablet) 1 mg PO [facility] Stop: 11/27/23 23:29 Last Admin: 10/31/23 20:15 Dose: 1 mg Sennosides (Senna 8.6 Mg Tab) 8.6 mg PO QAM [facility] Stop: 11/28/23 12:29 Last Admin: 11/01/23 07:55 Dose: 8.6 mg Sertraline HCl (Sertraline Hcl 50 Mg Tablet) 50 mg PO QAM [facility] Stop: 11/28/23 08:59 Last Admin: 11/01/23 07:59 Dose: 50 mg Sodium Bicarbonate (Sodium Bicarbonate 650 Mg Tab) 650 mg PO TID [facility] Stop: 11/28/23 13:59 Last Admin: 11/01/23 13:09 Dose: 650 mg Trazodone HCl (Trazodone Hcl 100 Mg Tab) 200 mg PO [facility] Stop: 11/28/23 20:59 Last Admin: 10/31/23 20:15 Dose: 200 mg
[2023-11-02 07:14] LABS: Hematocrit (blood only) 29.8 % (37.0-47.0); Mean Corpuscular Hemoglobin 30.3 pg (25.0-34.0); Mean Corpuscular Hgb Conc 30.2 g/dL (32.0-36.0); Mean Corpuscular Volume 100.3 fL (80.0-100.0); Nucleated RBC # (auto) 0.03 K/uL (0.00-0.12); Nucleated RBC % (auto) 0.4 %; Platelet Count 150 K/uL (130-400); RDW Coefficient of Variation 15.9 % (11.5-14.5); RDW Standard Deviation 58.4 fL (36.4-46.3); Red Blood Count 2.97 M/uL (4.20-5.40); White Blood Count 8.04 K/ul (4.8-10.8)
[2023-11-02 07:51] LABS: Calcium 8.5 mg/dl (8.6-10.3); Magnesium 2.6 mg/dl (1.7-2.4); Potassium 4.2 mmol/L (3.5-5.1)
[2023-11-02 07:57] LABS: BUN Creatinine Ratio 11.7 (10-20); Creatinine Clr Calc Pharmacy 26.1 ml/min; Est GFR (African American) 26.9 ml/min; Est GFR (Non-African American) 23.2 ml/min; Phosphorus 4.5 mg/dl (2.5-4.9)
--- NOTE | 2023-11-02 08:33 | Hospitalist Progress Note ---
Date of Service November 02, 2023 Assessment & Plan (1) Headache: Plan: 68 yo F with PMHx significant for COPD, granulomatous lung disease, nocturnal hypoxemia on home oxygen, history of dysphagia, history of TONY, CKD stage IIIb, lumbosacral disc disease, bipolar affective disorder, anxiety state, mixed incontinence, tobacco use disorder presents with headache and blurred vision. Patient still has a headache and also blurred vision. Headache blurred vision CT head - negative MRI brain - No acute intracranial abnormality. Pt reports hx of migraine PICHARDO w/ blurry vision in the past - but not recently Neurology consulted - CTA head and neck obtained - Negative CT angiogram of the head. Negative CTA neck. Ophthalmology consulted - "The patient has a basically unremarkable eye exam. Her acuity is almost normal at near with the reading glasses I loaned her. That combined with normal imaging and labs likely rules out any acute ophthalmologic issue that would need further work up as an inpatient. Given the normal labs, normal optic nerves, good acuity, and simultaneous bilateral onset I feel comfortable ruling out GCA as a possibility. However the bedside exam is fundamentally limited due to the lack of equipment needed to do a thorough exam. Her glasses look quite old and probably need to be updated. Her acute change in vision may be related to her headache syndrome and would be typical with migraine. Alternatively, it could be dry eyes and she may benefit from artificial tears prn. If her vision continues to bother her after discharge than a more complete exam in the office can be scheduled. " Previous provider discussed with neurology once more - plan for LP - pt is understanding and in agreement. Radiology contacted regarding poss. LP. 10/30 - underwent LP - opening pressure 29 cm. Discussed w/ neurology, concern for IIH - started acetazolamide 250 bid. After LP she felt well, reported improvement and was walking in hallways in the PM. On 11/01/23, she reports PICHARDO and does not feel comfortable with discharge. CSF studies pending. Neurology contacted once more for further recs TONY on CKD stage III/IV and metabolic acidosis outpatient labs shows baseline creatinine around 2.4 and CO2 13-15 range was started on bicarb tabs creatinine on admission is 2.3 and CO2 is 18 ABG shows pH of .7.21 and bicarb of 12 received 1 amp of sodium bicarb on admission continue home bicarb tablets gentle fluids follow repeat labs and ABG Nephrology consulted - and discussed with - gave 1/2 NS with bicarb prior to CTA and after Nocturnal hypoxemia on oxygen 4 L during nighttime Hx of COPD continue home inhalers Anemia - 6/8 AM labs showing Hgb 9.0. Ordered stool hemeoccult- not collected - Repeat H&H same morning 9.8 - cont. to closely monitor - no signs of bleeding AM anemia paneil- iron, b12, folate Bipolar affective disorder anxiety continue home medications constipation on Linzess GERD placed on Pepcid Diet: DMII, HH DVT prophylaxis - SCDs Dispo: PT/OT ordered Admission and Anticipated Discharge Date Admission Date: October 28, 2023 Subjective Pt states having persistent blurry vision and back pain. Otherwise denies acute concerns except for an enema to have a BM. Review of Systems Review of Systems: All systems reviewed & are unremarkable except as noted in Subjective Physical Exam Physical Exam: General: Alert, oriented. No acute distress Skin: No noted rashes or bruises Psych: Appropriate mood and affect Neuro: No gross deficits HEENT: NC/AT CV: RRR Resp: Breath sounds clear bilaterally, no increased effort of breathing. Abdomen:Soft, nontender, nondistended. Extremities: No edema in lower extremities bilaterally. Results & Data Results & Data Vital Signs (Past 12 Hours) Vital Signs Temp Pulse Pulse Resp BP Pulse Ox O2 Del Method 11/02/23 07:44 36.2 C L 76 17 116/70 96 Room Air 11/02/23 07:16 61 11/02/23 03:31 101/54 L 11/02/23 03:22 36.6 C 62 18 90/58 L 98 Room Air 11/01/23 22:25 36.6 C 78 18 109/62 96 Room Air 11/01/23 22:24 80
[2023-11-02] MEDS: SOD PHOSPHATE/SOD BIPHOSPHATE ENEMA 132 ML BTL PR STA (16:36)
--- NOTE | 2023-11-02 19:21 | Communication Note ---
Date of Service: November 02, 2023 MRI reviewed and shows narrow ventricles, right optic disc seem to be. with more convoluted , partial empty sella? recommend acetazolamide 250 mg bid , follow up with neurology as outpatient
[2023-11-03 07:14] LABS: Hematocrit (blood only) 28.6 % (37.0-47.0); Mean Corpuscular Hemoglobin 30.5 pg (25.0-34.0); Mean Corpuscular Hgb Conc 31.5 g/dL (32.0-36.0); Mean Corpuscular Volume 96.9 fL (80.0-100.0); Mean Platelet Volume 9.9 fL (9.4-12.4); Platelet Count 169 K/uL (130-400); RDW Coefficient of Variation 15.3 % (11.5-14.5); RDW Standard Deviation 54.4 fL (36.4-46.3); Red Blood Count 2.95 M/uL (4.20-5.40); White Blood Count 10.86 K/ul (4.8-10.8)
[2023-11-03 07:33] LABS: BUN Creatinine Ratio 12.4 (10-20); Calcium 8.9 mg/dl (8.6-10.3); Creatinine Clr Calc Pharmacy 25.6 ml/min; Est GFR (African American) 26.3 ml/min; Est GFR (Non-African American) 22.7 ml/min; Magnesium 2.6 mg/dl (1.7-2.4); Phosphorus 4.7 mg/dl (2.5-4.9); Potassium 4.4 mmol/L (3.5-5.1)
[2023-11-03 07:48] LABS: Folate (Folic Acid),Ser orPlas 5.65 ng/ml (>5.38)
[2023-11-03 07:52] LABS: Ferritin 63.1 ng/ml (8-388)
[2023-11-03 13:34] LABS: Appearance Urine Clear (Clear); Bacteria Urine Automated None Seen (None Seen); Bilirubin Urine Negative (Negative); Blood Urine Negative (Negative); Cast Urine Automated 0-2 /lpf (0-2); Color Urine Yellow; Glucose Urine UA Negative (Negative); Ketones Urine Negative (Negative); Leukocyte Esterase Urine 2+ (Negative); Nitrite Urine Negative (Negative); Protein Urine Negative (Negative); RBC Urine Automated 0-2 /hpf (0-2); Urobilinogen Urine Negative (Negative)
--- NOTE | 2023-11-03 15:01 | Hospitalist Progress Note ---
Date of Service November 03, 2023 Assessment & Plan (1) Headache: Plan: 68 yo F with PMHx significant for COPD, granulomatous lung disease, nocturnal hypoxemia on home oxygen, history of dysphagia, history of TONY, CKD stage IIIb, lumbosacral disc disease, bipolar affective disorder, anxiety state, mixed incontinence, tobacco use disorder presents with headache and blurred vision. Patient still has a headache and also blurred vision. Headache blurred vision CT head - negative MRI brain - No acute intracranial abnormality. Pt reports hx of migraine PICHARDO w/ blurry vision in the past - but not recently Neurology consulted - CTA head and neck obtained - Negative CT angiogram of the head. Negative CTA neck. Ophthalmology consulted - "The patient has a basically unremarkable eye exam. Her acuity is almost normal at near with the reading glasses I loaned her. That combined with normal imaging and labs likely rules out any acute ophthalmologic issue that would need further work up as an inpatient. Given the normal labs, normal optic nerves, good acuity, and simultaneous bilateral onset I feel comfortable ruling out GCA as a possibility. However the bedside exam is fundamentally limited due to the lack of equipment needed to do a thorough exam. Her glasses look quite old and probably need to be updated. Her acute change in vision may be related to her headache syndrome and would be typical with migraine. Alternatively, it could be dry eyes and she may benefit from artificial tears prn. If her vision continues to bother her after discharge than a more complete exam in the office can be scheduled. " Previous provider discussed with neurology once more - plan for LP - pt is understanding and in agreement. Radiology contacted regarding poss. LP. 10/30 - underwent LP - opening pressure 29 cm. Discussed w/ neurology, concern for IIH - started acetazolamide 250 bid. After LP she felt well, reported improvement and was walking in hallways in the PM. On 11/01/23, she reports PICHARDO and does not feel comfortable with discharge. CSF studies pending. Neurology contacted once more for further recs TONY on CKD stage III/IV and metabolic acidosis outpatient labs shows baseline creatinine around 2.4 and CO2 13-15 range was started on bicarb tabs creatinine on admission is 2.3 and CO2 is 18 ABG shows pH of .7.21 and bicarb of 12 received 1 amp of sodium bicarb on admission continue home bicarb tablets gentle fluids follow repeat labs and ABG Nephrology consulted - and discussed with - gave 1/2 NS with bicarb prior to CTA and after Leukocytosis Slight increase in WBC to 10K UA not suggestive of infection at this time Continue to monitor with AM labs Nocturnal hypoxemia on oxygen 4 L during nighttime Hx of COPD continue home inhalers Anemia - 6/8 AM labs showing Hgb 9.0. Ordered stool hemeoccult- not collected - Repeat H&H same morning 9.8 - cont. to closely monitor - no signs of bleeding AM anemia paneil- iron, b12, folate Bipolar affective disorder anxiety continue home medications constipation on Linzess GERD placed on Pepcid Diet: DMII, HH DVT prophylaxis - SCDs Dispo: PT/OT ordered- recommending acute rehab Admission and Anticipated Discharge Date Admission Date: October 28, 2023 Subjective States headache improved. Denies dysuria. Agreeable to rehab based on PT/OT recs Review of Systems Review of Systems: All systems reviewed & are unremarkable except as noted in Subjective Physical Exam Physical Exam: General: Alert, oriented. No acute distress Skin: No noted rashes or bruises Psych: Appropriate mood and affect Neuro: No gross deficits HEENT: NC/AT CV: RRR Resp: Breath sounds clear bilaterally, no increased effort of breathing. Abdomen:Soft, nontender, nondistended. Extremities: No edema in lower extremities bilaterally. Results & Data Results & Data Vital Signs (Past 12 Hours) Vital Signs Temp Pulse Pulse Resp BP Pulse Ox O2 Del Method 11/03/23 11:16 83 20 102/62 98 Room Air 11/03/23 08:35 69 11/03/23 08:35 Room Air 11/03/23 07:54 36.9 C 73 18 97/59 L 98 Nasal Cannula 11/03/23 03:20 100/56 L O2 Flow Rate 11/03/23 11:16 11/03/23 08:35 11/03/23 08:35 11/03/23 07:54 3.5 11/03/23 03:20
[2023-11-04 06:41] LABS: Hematocrit (blood only) 29.4 % (37.0-47.0); Hemoglobin 9.2 g/dl (12.0-16.0); Mean Corpuscular Hgb Conc 31.3 g/dL (32.0-36.0); Mean Platelet Volume 9.7 fL (9.4-12.4); Platelet Count 166 K/uL (130-400); RDW Coefficient of Variation 15.4 % (11.5-14.5); RDW Standard Deviation 55.5 fL (36.4-46.3); Red Blood Count 2.97 M/uL (4.20-5.40); White Blood Count 9.18 K/ul (4.8-10.8)
[2023-11-04 07:09] LABS: BUN Creatinine Ratio 12.8 (10-20); Creatinine Clr Calc Pharmacy 23.8 ml/min; Est GFR (African American) 24.2 ml/min; Est GFR (Non-African American) 20.8 ml/min; Magnesium 2.7 mg/dl (1.7-2.4); Potassium 4.6 mmol/L (3.5-5.1)
--- NOTE | 2023-11-04 10:26 | Hospitalist Progress Note ---
Date of Service November 04, 2023 Assessment & Plan (1) Headache: Plan: 68 yo F with PMHx significant for COPD, granulomatous lung disease, nocturnal hypoxemia on home oxygen, history of dysphagia, history of TONY, CKD stage IIIb, lumbosacral disc disease, bipolar affective disorder, anxiety state, mixed incontinence, tobacco use disorder presents with headache and blurred vision. Patient still has a headache and also blurred vision. Headache blurred vision CT head - negative MRI brain - No acute intracranial abnormality. Pt reports hx of migraine PICHARDO w/ blurry vision in the past - but not recently Neurology consulted - CTA head and neck obtained - Negative CT angiogram of the head. Negative CTA neck. Ophthalmology consulted - "The patient has a basically unremarkable eye exam. Her acuity is almost normal at near with the reading glasses I loaned her. That combined with normal imaging and labs likely rules out any acute ophthalmologic issue that would need further work up as an inpatient. Given the normal labs, normal optic nerves, good acuity, and simultaneous bilateral onset I feel comfortable ruling out GCA as a possibility. However the bedside exam is fundamentally limited due to the lack of equipment needed to do a thorough exam. Her glasses look quite old and probably need to be updated. Her acute change in vision may be related to her headache syndrome and would be typical with migraine. Alternatively, it could be dry eyes and she may benefit from artificial tears prn. If her vision continues to bother her after discharge than a more complete exam in the office can be scheduled. " Previous provider discussed with neurology once more - plan for LP - pt is understanding and in agreement. Radiology contacted regarding poss. LP. 10/30 - underwent LP - opening pressure 29 cm. Discussed w/ neurology, concern for IIH - started acetazolamide 250 bid. After LP she felt well, reported improvement and was walking in hallways in the PM. On 11/01/23, she reports PICHARDO and does not feel comfortable with discharge. CSF studies pending at that time Neurology contacted once more for further recs, -recommends d/c with acetazolamide and Neurology followup outpt Pt currently stable for discharge Epistaxis Episode on 11/03 Afrin ordered per protocol Continue to monitor TONY on CKD stage III/IV and metabolic acidosis outpatient labs shows baseline creatinine around 2.4 and CO2 13-15 range was started on bicarb tabs creatinine on admission is 2.3 and CO2 is 18 ABG shows pH of .7.21 and bicarb of 12 received 1 amp of sodium bicarb on admission continue home bicarb tablets gentle fluids follow repeat labs and ABG Nephrology consulted -Previous provider discussed with Nephrology - gave 1/2 NS with bicarb prior to CTA and after Stable at this time Leukocytosis Slight increase in WBC to 10K UA not suggestive of infection at this time Continue to monitor with AM labs Currently normal once more Hyperphosphatemia Phos currently elevated Continue to monitor daily Hypermagnesemia Mag levels elevated Discontinued magnesium supplements Continue to monitor Nocturnal hypoxemia on oxygen 4 L during nighttime Hx of COPD continue home inhalers Anemia - 6/8 AM labs showing Hgb 9.0. Ordered stool hemeoccult- not collected - Repeat H&H same morning 9.8 - cont. to closely monitor - no signs of bleeding Anemia panel- iron, b12 and folate levels normal H/H stable Bipolar affective disorder anxiety continue home medications constipation on Linzess GERD placed on Pepcid Diet: DMII, HH DVT prophylaxis - SCDs Dispo: PT/OT ordered- recommending acute rehab, currently awaiting placement Admission and Anticipated Discharge Date Admission Date: October 28, 2023 Subjective pt was seen sitting in chair at bedside, eating breakfast. States she has been having nosebleeds. Notes they are mild and she is not concerned about it. Denied bleeding elsewhere. States that her headaches have improved. Review of Systems Review of Systems: All systems reviewed & are unremarkable except as noted in Subjective Physical Exam Physical Exam: General: Alert, oriented. No acute distress Skin: No noted rashes or bruises Psych: Appropriate mood and affect Neuro: No gross deficits HEENT: NC/AT CV: RRR Resp: Breath sounds clear bilaterally, no increased effort of breathing. Abdomen:Soft, nontender, nondistended. Extremities: No edema in lower extremities bilaterally. Results & Data Results & Data Vital Signs (Past 12 Hours) Vital Signs Temp Pulse Pulse Resp BP BP Pulse Ox 11/04/23 08:40 36.4 C L 75 16 112/79 97 11/04/23 04:05 36.6 C 70 18 102/78 96 11/03/23 22:52 75 11/03/23 22:50 36.6 C 74 18 116/72 98 O2 Del Method 11/04/23 08:40 Room Air 11/04/23 04:05 Nasal Cannula 11/03/23 22:52 11/03/23 22:50 Room Air
[2023-11-04] MEDS: OXYMETAZOLINE 0.05% 30 ML BTL ONE (11:40)
[2023-11-05 06:40] LABS: Hematocrit (blood only) 29.9 % (37.0-47.0); Hemoglobin 9.3 g/dl (12.0-16.0); Mean Corpuscular Hemoglobin 30.8 pg (25.0-34.0); Mean Corpuscular Hgb Conc 31.1 g/dL (32.0-36.0); Platelet Count 189 K/uL (130-400); RDW Coefficient of Variation 15.2 % (11.5-14.5); RDW Standard Deviation 55.6 fL (36.4-46.3); Red Blood Count 3.02 M/uL (4.20-5.40); White Blood Count 9.93 K/ul (4.8-10.8)
[2023-11-05 07:05] LABS: Calcium 9.2 mg/dl (8.6-10.3); Creatinine Clr Calc Pharmacy 24.7 ml/min; Est GFR (African American) 25.2 ml/min; Est GFR (Non-African American) 21.7 ml/min; Phosphorus 5.4 mg/dl (2.5-4.9); Potassium 5.2 mmol/L (3.5-5.1)
[2023-11-05 08:33] LABS: Magnesium 2.7 mg/dl (1.7-2.4)
[2023-11-05] MEDS ORDERED: OXYMETAZOLINE 0.05% 30 ML BTL PRN (10:17)
[2023-11-05] MEDS: NICOTINE 14 MG/24 HR PATCH TD SCH (12:07)
--- NOTE | 2023-11-05 12:43 | Hospitalist Progress Note ---
Date of Service November 05, 2023 Assessment & Plan (1) Headache: Plan: 68 yo F with PMHx significant for COPD, granulomatous lung disease, nocturnal hypoxemia on home oxygen, history of dysphagia, history of TONY, CKD stage IIIb, lumbosacral disc disease, bipolar affective disorder, anxiety state, mixed incontinence, tobacco use disorder presents with headache and blurred vision. Patient still has a headache and also blurred vision. Headache blurred vision CT head - negative MRI brain - No acute intracranial abnormality. Pt reports hx of migraine PICHARDO w/ blurry vision in the past - but not recently Neurology consulted - CTA head and neck obtained - Negative CT angiogram of the head. Negative CTA neck. Ophthalmology consulted - "The patient has a basically unremarkable eye exam. Her acuity is almost normal at near with the reading glasses I loaned her. That combined with normal imaging and labs likely rules out any acute ophthalmologic issue that would need further work up as an inpatient. Given the normal labs, normal optic nerves, good acuity, and simultaneous bilateral onset I feel comfortable ruling out GCA as a possibility. However the bedside exam is fundamentally limited due to the lack of equipment needed to do a thorough exam. Her glasses look quite old and probably need to be updated. Her acute change in vision may be related to her headache syndrome and would be typical with migraine. Alternatively, it could be dry eyes and she may benefit from artificial tears prn. If her vision continues to bother her after discharge than a more complete exam in the office can be scheduled. " Previous provider discussed with neurology once more - plan for LP - pt is understanding and in agreement. Radiology contacted regarding poss. LP. 10/30 - underwent LP - opening pressure 29 cm. Discussed w/ neurology, concern for IIH - started acetazolamide 250 bid. After LP she felt well, reported improvement and was walking in hallways in the PM. On 11/01/23, she reports PICHARDO and does not feel comfortable with discharge. CSF studies pending at that time Neurology contacted once more for further recs, -recommends d/c with acetazolamide and Neurology followup outpt Pt currently stable for discharge Epistaxis Episode on 11/03 Afrin ordered per protocol Continue to monitor TONY on CKD stage III/IV and metabolic acidosis outpatient labs shows baseline creatinine around 2.4 and CO2 13-15 range was started on bicarb tabs creatinine on admission is 2.3 and CO2 is 18 ABG shows pH of .7.21 and bicarb of 12 received 1 amp of sodium bicarb on admission continue home bicarb tablets gentle fluids follow repeat labs and ABG Nephrology consulted -Previous provider discussed with Nephrology - gave 1/2 NS with bicarb prior to CTA and after Stable at this time 11/04- Nephrology contacted once more for further recs Leukocytosis Slight increase in WBC to 10K UA not suggestive of infection at this time Continue to monitor with AM labs Currently normal once more Hyperphosphatemia Phos currently elevated Continue to monitor daily 11/04- Nephrology contacted once more for further recs Hypermagnesemia Mag levels elevated Discontinued magnesium supplements Continue to monitor 11/04- Nephrology contacted once more for further recs Hyperkalemia Potassium supplements discontinued Continue to monitor Nocturnal hypoxemia on oxygen 4 L during nighttime Hx of COPD continue home inhalers Anemia - 6/8 AM labs showing Hgb 9.0. Ordered stool hemeoccult- not collected - Repeat H&H same morning 9.8 - cont. to closely monitor - no signs of bleeding Anemia panel- iron, b12 and folate levels normal H/H stable Bipolar affective disorder anxiety continue home medications constipation on Linzess GERD placed on Pepcid Diet: DMII, HH DVT prophylaxis - SCDs Dispo: PT/OT ordered- recommending acute rehab, currently awaiting placement Admission and Anticipated Discharge Date Admission Date: October 28, 2023 Subjective pt was seen sitting in chair at bedside, states wanted to talk to provider. She is asking about going to acute rehab and when that will occur. States the nosebleeds are improving though still there. Wants a REGULAR diet. States that her headaches have improved. Review of Systems Review of Systems: All systems reviewed & are unremarkable except as noted in Subjective Physical Exam Physical Exam: General: Alert, oriented. No acute distress Skin: No noted rashes or bruises Psych: Appropriate mood and affect Neuro: No gross deficits, collar in place, able to ambulate with walker HEENT: NC/AT CV: RRR Resp: Breath sounds clear bilaterally, no increased effort of breathing. Abdomen:Soft, nontender, nondistended. Extremities: edema in lower extremities bilaterally. Results & Data Results & Data Vital Signs (Past 12 Hours) Vital Signs Temp Pulse Pulse Resp BP Pulse Ox O2 Del Method 11/05/23 11:15 36.5 C 74 18 110/68 97 Room Air 11/05/23 09:30 65 11/05/23 07:57 36.5 C 71 19 92/46 L 93 Room Air
--- NOTE | 2023-11-05 15:01 | Nephrology Progress Note ---
Date of Service November 05, 2023 Assessment & Plan (1) CKD (chronic kidney disease) stage 4, GFR 15-29 ml/min: Plan: Patient admitted with acute kidney on CKD in setting of NSAID use, lithium use in the past and recent pyonephritis. Creatinine is now back to baseline. Creatinine of 2.3 today. She has hyperkalemia of 5.2 due to potassium chloride supplements. I agree with discontinuing potassium chloride. Magnesium and phos are slightly elevated due to CKD. She should be on a renal diet, low phos. i do not think she needs binders at this point but htis can followed up by outpt nephrology. From renal standpoint patient can be discharged with renal follow up (2) Headache: Plan: Continue diamox per Neurology (3) Metabolic acidosis: Plan: Due to CKD. Bicarb is improving. Will reduce her sodium bicarbonate to 650 mg twice daily Admission and Anticipated Discharge Date Admission Date: October 28, 2023 Subjective Seen for acute kidney on CKD. She feels better today. No shortness of breath or leg swelling. She is ambulating. She is eager to be discharged home. Review of Systems 2 Review of Systems: All other systems were reviewed and negative except as noted in HPI Physical Exam 2 Physical Exam: General exam: Appears comfortable, no acute distress HEENT: Pupils are equal and reactive to light Neck: Neck collar Respiratory system: Clear breath sounds bilaterally. Gastrointestinal: Abdomen is soft, non distended, non tender, bowel sounds are present CVS: Regular rate and rhythm. No murmurs, rubs or gallops Musculoskeletal: No joint or muscle tenderness Extremities: Non tender, trace edema, peripheral pulses are present Neuro: Oriented, no tremors, no focal neurological deficits Skin: No rashes Results & Data Vital Signs (Past 12 Hours) Vital Signs Temp Pulse Pulse Resp BP Pulse Ox O2 Del Method 11/05/23 11:15 36.5 C 74 18 110/68 97 Room Air 11/05/23 09:30 65 11/05/23 07:57 36.5 C 71 19 92/46 L 93 Room Air Laboratory Results 11/05/23 05:41 11/05/23 05:41 WBC 9.93 RBC 3.02 L MCV 99.0 MCH 30.8 MCHC 31.1 L RDW Std Deviation 55.6 H RDW Coeff of David 15.2 H Plt Count 189 MPV 10.0 Phosphorus 5.4 H
[2023-11-05] MEDS: SODIUM BICARBONATE 650 MG TAB PO SCH (20:50)
[2023-11-06 06:45] LABS: Basophils # (auto) 0.06 K/uL (0.00-0.20); Basophils % (auto) 0.6 %; Eosinophils # (auto) 0.43 K/uL (0.00-0.50); Eosinophils % (auto) 4.6 %; Hematocrit (blood only) 29.9 % (37.0-47.0); Hemoglobin 9.3 g/dl (12.0-16.0); Immature Granulocytes # (auto) 0.05 K/uL (0.01-0.20); Immature Granulocytes % (auto) 0.5 %; Lymphocytes # (auto) 3.29 K/uL (1.20-3.40); Lymphocytes % (auto) 35.1 %; Mean Corpuscular Hemoglobin 30.7 pg (25.0-34.0); Mean Corpuscular Hgb Conc 31.1 g/dL (32.0-36.0); Mean Corpuscular Volume 98.7 fL (80.0-100.0); Monocytes % (auto) 8.5 %; Neutrophils # (auto) 4.75 K/uL (1.40-6.50); Neutrophils % (auto) 50.7 %; Platelet Count 197 K/uL (130-400); RDW Coefficient of Variation 14.9 % (11.5-14.5); RDW Standard Deviation 54.2 fL (36.4-46.3); Red Blood Count 3.03 M/uL (4.20-5.40); White Blood Count 9.38 K/ul (4.8-10.8)
[2023-11-06 07:03] LABS: BUN Creatinine Ratio 15.9 (10-20); Calcium 9.5 mg/dl (8.6-10.3); Creatinine Clr Calc Pharmacy 24.7 ml/min; Est GFR (African American) 25.2 ml/min; Est GFR (Non-African American) 21.7 ml/min; Magnesium 2.5 mg/dl (1.7-2.4); Phosphorus 5.4 mg/dl (2.5-4.9); Potassium 4.4 mmol/L (3.5-5.1)
--- NOTE | 2023-11-06 14:27 | Hospitalist Progress Note ---
Date of Service November 06, 2023 Assessment & Plan (1) Headache: Plan: 68 yo F with PMHx significant for COPD, granulomatous lung disease, nocturnal hypoxemia on home oxygen, history of dysphagia, history of TONY, CKD stage IIIb, lumbosacral disc disease, bipolar affective disorder, anxiety state, mixed incontinence, tobacco use disorder presents with headache and blurred vision. Patient still has a headache and also blurred vision. Headache blurred vision CT head - negative MRI brain - No acute intracranial abnormality. Pt reports hx of migraine PICHARDO w/ blurry vision in the past - but not recently Neurology consulted - CTA head and neck obtained - Negative CT angiogram of the head. Negative CTA neck. Ophthalmology consulted - "The patient has a basically unremarkable eye exam. Her acuity is almost normal at near with the reading glasses I loaned her. That combined with normal imaging and labs likely rules out any acute ophthalmologic issue that would need further work up as an inpatient. Given the normal labs, normal optic nerves, good acuity, and simultaneous bilateral onset I feel comfortable ruling out GCA as a possibility. However the bedside exam is fundamentally limited due to the lack of equipment needed to do a thorough exam. Her glasses look quite old and probably need to be updated. Her acute change in vision may be related to her headache syndrome and would be typical with migraine. Alternatively, it could be dry eyes and she may benefit from artificial tears prn. If her vision continues to bother her after discharge than a more complete exam in the office can be scheduled. " Previous provider discussed with neurology once more - plan for LP - pt is understanding and in agreement. Radiology contacted regarding poss. LP. 10/30 - underwent LP - opening pressure 29 cm. Discussed w/ neurology, concern for IIH - started acetazolamide 250 bid. After LP she felt well, reported improvement and was walking in hallways in the PM. On 11/01/23, she reports PICHARDO and does not feel comfortable with discharge. CSF studies pending at that time Neurology contacted once more for further recs, -recommends d/c with acetazolamide and Neurology followup outpt Pt currently stable for discharge Epistaxis Episode on 11/03 Afrin ordered per protocol Continue to monitor TONY on CKD stage III/IV and metabolic acidosis outpatient labs shows baseline creatinine around 2.4 and CO2 13-15 range was started on bicarb tabs creatinine on admission is 2.3 and CO2 is 18 ABG shows pH of .7.21 and bicarb of 12 received 1 amp of sodium bicarb on admission continue home bicarb tablets gentle fluids follow repeat labs and ABG Nephrology consulted -Previous provider discussed with Nephrology - gave 1/2 NS with bicarb prior to CTA and after Stable at this time 11/04- Nephrology contacted once more for further recs Leukocytosis Slight increase in WBC to 10K UA not suggestive of infection at this time Continue to monitor with AM labs Currently normal once more Hyperphosphatemia Phos currently elevated Continue to monitor daily 11/04- Nephrology contacted once more for further recs -likely in setting of CKD -renal diet, continue to monitor Hypermagnesemia Mag levels elevated Discontinued magnesium supplements Continue to monitor 11/04- Nephrology contacted once more for further recs -likely in setting of CKD -renal diet, continue to monitor Hyperkalemia Potassium supplements discontinued Continue to monitor Currently resolved Nocturnal hypoxemia on oxygen 4 L during nighttime Hx of COPD continue home inhalers Anemia - 6/8 AM labs showing Hgb 9.0. Ordered stool hemeoccult- not collected - Repeat H&H same morning 9.8 - cont. to closely monitor - no signs of bleeding Anemia panel- iron, b12 and folate levels normal H/H stable Bipolar affective disorder anxiety continue home medications constipation on Linzess GERD placed on Pepcid Diet: DMII, HH DVT prophylaxis - SCDs Dispo: PT/OT ordered- recommending acute rehab, currently awaiting placement Admission and Anticipated Discharge Date Admission Date: October 28, 2023 Subjective pt seen in rm 250-2 Denied acute concerns but wants to know where she is going for rehab. CM made aware, will f/u with pt Review of Systems Review of Systems: All systems reviewed & are unremarkable except as noted in Subjective Physical Exam Physical Exam: General: Alert, oriented. No acute distress Skin: No noted rashes or bruises Psych: Appropriate mood and affect Neuro: No gross deficits, collar in place, able to ambulate with walker HEENT: NC/AT CV: RRR Resp: Breath sounds clear bilaterally, no increased effort of breathing. Abdomen:Soft, nontender, nondistended. Extremities: edema in lower extremities bilaterally. Results & Data Results & Data Vital Signs (Past 12 Hours) Vital Signs Temp Pulse Pulse Resp BP Pulse Ox O2 Del Method 11/06/23 11:32 36.6 C 81 16 119/70 99 Room Air 11/06/23 07:39 37.0 C 69 16 88/45 L 97 Nasal Cannula 11/06/23 07:38 75 11/06/23 02:53 36.9 C 68 18 93/48 L 97 Nasal Cannula O2 Flow Rate 11/06/23 11:32 11/06/23 07:39 4 11/06/23 07:38 11/06/23 02:53 4
[2023-11-07 08:05] LABS: Basophils # (auto) 0.07 K/uL (0.00-0.20); Basophils % (auto) 0.4 %; Eosinophils # (auto) 0.09 K/uL (0.00-0.50); Eosinophils % (auto) 0.5 %; Hemoglobin 9.4 g/dl (12.0-16.0); Immature Granulocytes % (auto) 0.6 %; Lymphocytes % (auto) 13.3 %; Mean Corpuscular Hemoglobin 30.7 pg (25.0-34.0); Mean Corpuscular Hgb Conc 31.3 g/dL (32.0-36.0); Mean Platelet Volume 9.8 fL (9.4-12.4); Monocytes # (auto) 0.81 K/uL (0.11-0.59); Monocytes % (auto) 4.9 %; Neutrophils # (auto) 13.31 K/uL (1.40-6.50); Neutrophils % (auto) 80.3 %; Platelet Count 194 K/uL (130-400); RDW Coefficient of Variation 14.7 % (11.5-14.5); RDW Standard Deviation 53.1 fL (36.4-46.3); Red Blood Count 3.06 M/uL (4.20-5.40); White Blood Count 16.58 K/ul (4.8-10.8)
[2023-11-07 08:38] LABS: BUN Creatinine Ratio 13.6 (10-20); Calcium 9.3 mg/dl (8.6-10.3); Creatinine Clr Calc Pharmacy 23.8 ml/min; Est GFR (Non-African American) 20.7 ml/min; Magnesium 2.4 mg/dl (1.7-2.4); Potassium 4.2 mmol/L (3.5-5.1)
[2023-11-07 11:51] LABS: Appearance Urine Cloudy (Clear); Bacteria Urine Automated None Seen (None Seen); Bilirubin Urine Negative (Negative); Blood Urine Negative (Negative); Cast Urine Automated 0-2 /lpf (0-2); Color Urine Yellow; Glucose Urine UA Negative (Negative); Ketones Urine Negative (Negative); Leukocyte Esterase Urine 2+ (Negative); Nitrite Urine Negative (Negative); Protein Urine Trace (Negative); RBC Urine Automated 0-2 /hpf (0-2); Specific Gravity Urine 1.012 (1.000-1.030); Urobilinogen Urine Negative (Negative); WBC Urine Automated 0-5 /hpf (0-5)
--- NOTE | 2023-11-07 13:00 | Hospitalist Progress Note ---
Date of Service November 07, 2023 Assessment & Plan (1) Headache: Plan: 68 yo F with PMHx significant for COPD, granulomatous lung disease, nocturnal hypoxemia on home oxygen, history of dysphagia, history of TONY, CKD stage IIIb, lumbosacral disc disease, bipolar affective disorder, anxiety state, mixed incontinence, tobacco use disorder presents with headache and blurred vision. Patient still has a headache and also blurred vision. Headache blurred vision CT head - negative MRI brain - No acute intracranial abnormality. Pt reports hx of migraine PICHARDO w/ blurry vision in the past - but not recently Neurology consulted - CTA head and neck obtained - Negative CT angiogram of the head. Negative CTA neck. Ophthalmology consulted - "The patient has a basically unremarkable eye exam. Her acuity is almost normal at near with the reading glasses I loaned her. That combined with normal imaging and labs likely rules out any acute ophthalmologic issue that would need further work up as an inpatient. Given the normal labs, normal optic nerves, good acuity, and simultaneous bilateral onset I feel comfortable ruling out GCA as a possibility. However the bedside exam is fundamentally limited due to the lack of equipment needed to do a thorough exam. Her glasses look quite old and probably need to be updated. Her acute change in vision may be related to her headache syndrome and would be typical with migraine. Alternatively, it could be dry eyes and she may benefit from artificial tears prn. If her vision continues to bother her after discharge than a more complete exam in the office can be scheduled. " Previous provider discussed with neurology once more - plan for LP - pt is understanding and in agreement. Radiology contacted regarding poss. LP. 10/30 - underwent LP - opening pressure 29 cm. Discussed w/ neurology, concern for IIH - started acetazolamide 250 bid. After LP she felt well, reported improvement and was walking in hallways in the PM. On 11/01/23, she reports PICHARDO and does not feel comfortable with discharge. CSF studies pending at that time Neurology contacted once more for further recs, -recommends d/c with acetazolamide and Neurology followup outpt Pt currently stable for discharge Leukocytosis Slight increase in WBC to 10K UA not suggestive of infection at this time Continue to monitor with AM labs 11/06- elevated to 16K once more, pt noting sore throat, fatigue dizziness. Biofire, strep, chest XRAY, UA ordered. Started empirically on po Augmentin Continue to monitor Epistaxis Episode on 11/03 Afrin ordered per protocol Continue to monitor TONY on CKD stage III/IV and metabolic acidosis outpatient labs shows baseline creatinine around 2.4 and CO2 13-15 range was started on bicarb tabs creatinine on admission is 2.3 and CO2 is 18 ABG shows pH of .7.21 and bicarb of 12 received 1 amp of sodium bicarb on admission continue home bicarb tablets gentle fluids follow repeat labs and ABG Nephrology consulted -Previous provider discussed with Nephrology - gave 1/2 NS with bicarb prior to CTA and after Stable at this time 11/04- Nephrology contacted once more for further recs Hyperphosphatemia Phos currently elevated Continue to monitor daily 11/04- Nephrology contacted once more for further recs -likely in setting of CKD -renal diet, continue to monitor Hypermagnesemia Mag levels elevated Discontinued magnesium supplements Continue to monitor 11/04- Nephrology contacted once more for further recs -likely in setting of CKD -renal diet, continue to monitor Hyperkalemia Potassium supplements discontinued Continue to monitor Currently resolved Nocturnal hypoxemia on oxygen 4 L during nighttime Hx of COPD continue home inhalers Anemia - 6/8 AM labs showing Hgb 9.0. Ordered stool hemeoccult- not collected - Repeat H&H same morning 9.8 - cont. to closely monitor - no signs of bleeding Anemia panel- iron, b12 and folate levels normal H/H stable Bipolar affective disorder anxiety continue home medications constipation on Linzess GERD placed on Pepcid Diet: DMII, HH DVT prophylaxis - SCDs Dispo: PT/OT ordered- recommending acute rehab, currently awaiting placement Admission and Anticipated Discharge Date Admission Date: October 28, 2023 Subjective pt seen in rm 250-2 States she is having a sore throat, cough, dizziness, fatigue today. States chest feels tight. Noted leukocytosis as well Review of Systems Review of Systems: All systems reviewed & are unremarkable except as noted in Subjective Physical Exam Physical Exam: General: Alert, oriented. No acute distress Skin: No noted rashes or bruises Psych: Appropriate mood and affect Neuro: No gross deficits, collar in place, able to ambulate with walker HEENT: NC/AT CV: RRR Resp: Breath sounds clear bilaterally, no increased effort of breathing. Abdomen:Soft, nontender, nondistended. Extremities: edema in lower extremities bilaterally. Results & Data Results & Data Vital Signs (Past 12 Hours) Vital Signs Temp Pulse Pulse Resp BP Pulse Ox O2 Del Method 11/07/23 07:47 37.2 C 75 16 97/61 L 97 Nasal Cannula 11/07/23 05:59 76 11/07/23 03:33 36.4 C L 88 16 91/56 L 91 Nasal Cannula O2 Flow Rate 11/07/23 07:47 4 11/07/23 05:59 11/07/23 03:33 4
--- NOTE | 2023-11-07 13:08 | XRay Report ---
SINGLE VIEW CHEST CLINICAL HISTORY: Dyspnea FINDINGS: An AP, portable, upright chest radiograph is compared to study dated 02/11/2006. The patient 's head partially obscures the apices. The cardiomediastinal heart is enlarged noting atherosclerotic calcification of the thoracic aorta. The pulmonary vasculature is noncongested. Chronic interstitial thickening is similar to previous. There is bibasilar scarring/atelectasis. No airspace consolidatio n or large pleural effusion is identified. No pneumothorax is seen. The skeletal structures are osteo penic. The bony thorax is grossly intact. IMPRESSION: Cardiomegaly with no active disease in the chest. ACT 112: Negative or not required by law. Electronically signed by: Adonay Eng M.D. 11/07/2023 1:06 PM
[2023-11-07 13:25] LABS: Adenovirus PCR Not Detected (NotDetected); Bordetella parapertussis PCR Not Detected (NotDetected); Bordetella pertussis PCR Not Detected (NotDetected); Chlamydia pneumoniae PCR Not Detected (NotDetected); Coronavirus 229E PCR Not Detected (NotDetected); Coronavirus CoV-2 (COVID19)PCR Not Detected (NotDetected); Coronavirus HKU1 PCR Not Detected (NotDetected); Coronavirus NL63 PCR Not Detected (NotDetected); Coronavirus OC43PCR Not Detected (NotDetected); Human Metapneumovirus PCR Not Detected (NotDetected); Influenza A PCR Not Detected (NotDetected); Influenza B PCR Not Detected (NotDetected); Mycoplasma pneumoniae PCR Not Detected (NotDetected); Parainfluenza Virus 1 PCR Not Detected (NotDetected); Parainfluenza Virus 2 PCR Not Detected (NotDetected); Parainfluenza Virus 3 PCR Not Detected (NotDetected); Parainfluenza Virus 4 PCR Not Detected (NotDetected); Respiratory Syncytial VirusPCR Not Detected (NotDetected); Rhinovirus/Enterovirus PCR Not Detected (NotDetected)
--- NOTE | 2023-11-08 06:07 | Communication Note ---
Date of Service: November 08, 2023 Patient noted to have decreased responsiveness in a.m. SBP 90s BSG 100s. PPE Obtunded Facial asymmetry during sleep (chronic as per RN) AP Encephalopathy Multiple neuropsychotropic medications likely contributory A.m. labs now CS, lactic acid, procalcitonin given leukocytosis from yesterday's blood work IVF Hold neuropsychotropic medications for now until patient more awake. Consider psychiatry consult for medication management.
[2023-11-08 06:30] LABS: Appearance Urine Clear (Clear); Bilirubin Urine Negative (Negative); Blood Urine Negative (Negative); Color Urine Yellow; Glucose Urine UA Negative (Negative); Ketones Urine Negative (Negative); Leukocyte Esterase Urine Negative (Negative); Nitrite Urine Negative (Negative); Protein Urine Negative (Negative); Specific Gravity Urine 1.008 (1.000-1.030); Urobilinogen Urine Negative (Negative)
[2023-11-08] MEDS: SODIUM CHLORIDE 0.9% 1,000 ML IV ONE (06:43)
[2023-11-08 07:15] LABS: Base Excess VBG -9.7 mEq/L; HCO3 VBG 17 mmol/L; Oxygen Saturation VBG 85.3 %; PCO2 VBG 40 mmHg (38-50); PO2 VBG 52 mmHg; pH VBG 7.24 (7.36-7.41)
[2023-11-08 07:18] LABS: Basophils # (auto) 0.08 K/uL (0.00-0.20); Basophils % (auto) 0.7 %; Eosinophils # (auto) 0.42 K/uL (0.00-0.50); Eosinophils % (auto) 3.8 %; Hematocrit (blood only) 30.9 % (37.0-47.0); Hemoglobin 9.7 g/dl (12.0-16.0); Immature Granulocytes # (auto) 0.07 K/uL (0.01-0.20); Immature Granulocytes % (auto) 0.6 %; Lymphocytes # (auto) 2.97 K/uL (1.20-3.40); Lymphocytes % (auto) 26.7 %; Mean Corpuscular Hemoglobin 30.8 pg (25.0-34.0); Mean Corpuscular Hgb Conc 31.4 g/dL (32.0-36.0); Mean Corpuscular Volume 98.1 fL (80.0-100.0); Mean Platelet Volume 9.4 fL (9.4-12.4); Monocytes % (auto) 7.2 %; Platelet Count 195 K/uL (130-400); RDW Coefficient of Variation 14.7 % (11.5-14.5); Red Blood Count 3.15 M/uL (4.20-5.40); White Blood Count 11.14 K/ul (4.8-10.8)
[2023-11-08 07:34] LABS: Albumin Globulin Ratio 1.3 (0.9-2); Albumin Level 3.7 gm/dl (3.4-5.0); BUN Creatinine Ratio 13.6 (10-20); Bilirubin,Total 0.3 mg/dl (0.2-1.0); Calcium 9.5 mg/dl (8.6-10.3); Creatinine Clr Calc Pharmacy 22.9 ml/min; Est GFR (African American) 23.1 ml/min; Est GFR (Non-African American) 19.9 ml/min; Globulin 2.9 gm/dl (2.5-4.0); Phosphorus 4.1 mg/dl (2.5-4.9); Potassium 3.8 mmol/L (3.5-5.1); Total Protein 6.6 gm/dl (6.0-8.3)
[2023-11-08 08:22] LABS: Thyroid Stimulating Hormone 3.272 uIu/ml (0.300-4.500)
[2023-11-08] MEDS: AMOXICILLIN/CLAVULANATE 500 MG TAB PO SCH (09:35)
--- NOTE | 2023-11-08 11:23 | Nephrology Progress Note ---
Date of Service November 08, 2023 Assessment & Plan (1) CKD (chronic kidney disease) stage 4, GFR 15-29 ml/min: Plan: Patient admitted with acute kidney on CKD in setting of NSAID use, lithium use in the past and recent pyonephritis. Creatinine is now back to baseline. Creatinine of 2.43 today. Patient is requesting regular diet. Okay to change to regular diet so patient can get adequate nutrition. From renal standpoint patient can be discharged with renal follow up once mental status improves (2) Headache: Plan: Continue diamox per Neurology (3) Metabolic acidosis: Plan: Due to CKD. Bicarb is improving. Will reduce her sodium bicarbonate to 650 mg twice daily Admission and Anticipated Discharge Date Admission Date: October 28, 2023 Subjective Seen for acute kidney injury on CKD. Patient had episode of altered mental status last night. She is more awake this morning. No shortness of breath. She is asking for regular diet. Review of Systems 2 Review of Systems: All other systems were reviewed and negative except as noted in HPI Physical Exam 2 Physical Exam: General exam: Appears comfortable, no acute distress HEENT: Pupils are equal and reactive to light Neck: Neck collar Respiratory system: Clear breath sounds bilaterally. Gastrointestinal: Abdomen is soft, non distended, non tender, bowel sounds are present CVS: Regular rate and rhythm. No murmurs, rubs or gallops Musculoskeletal: No joint or muscle tenderness Extremities: Non tender, trace edema, peripheral pulses are present Neuro: Oriented, no tremors, no focal neurological deficits Skin: No rashes Results & Data Vital Signs (Past 12 Hours) Vital Signs Temp Pulse Pulse Resp BP BP Pulse Ox 11/08/23 08:03 36.4 C L 65 18 93/57 L 91 11/08/23 07:35 11/08/23 06:08 63 11/08/23 06:00 71 97/60 L 92 11/08/23 03:22 36.7 C 66 18 96/59 L 95 11/07/23 23:48 36.8 C 68 18 99/61 L 92 O2 Del Method O2 Flow Rate 11/08/23 08:03 Room Air 11/08/23 07:35 Room Air 11/08/23 06:08 11/08/23 06:00 Room Air 11/08/23 03:22 Nasal Cannula 2 11/07/23 23:48 Room Air Laboratory Results 11/08/23 06:54 11/08/23 06:54 WBC 11.14 H RBC 3.15 L MCV 98.1 MCH 30.8 MCHC 31.4 L RDW Std Deviation 53.0 H RDW Coeff of David 14.7 H Plt Count 195 MPV 9.4 Phosphorus 4.1 Albumin 3.7
--- NOTE | 2023-11-08 15:46 | Hospitalist Progress Note ---
Date of Service November 08, 2023 Assessment & Plan (1) Headache: Plan: 68 yo F with PMHx significant for COPD, granulomatous lung disease, nocturnal hypoxemia on home oxygen, history of dysphagia, history of TONY, CKD stage IIIb, lumbosacral disc disease, bipolar affective disorder, anxiety state, mixed incontinence, tobacco use disorder presents with headache and blurred vision. Patient still has a headache and also blurred vision. Headache blurred vision CT head - negative MRI brain - No acute intracranial abnormality. Pt reports hx of migraine PICHARDO w/ blurry vision in the past - but not recently Neurology consulted - CTA head and neck obtained - Negative CT angiogram of the head. Negative CTA neck. Ophthalmology consulted - "The patient has a basically unremarkable eye exam. Her acuity is almost normal at near with the reading glasses I loaned her. That combined with normal imaging and labs likely rules out any acute ophthalmologic issue that would need further work up as an inpatient. Given the normal labs, normal optic nerves, good acuity, and simultaneous bilateral onset I feel comfortable ruling out GCA as a possibility. However the bedside exam is fundamentally limited due to the lack of equipment needed to do a thorough exam. Her glasses look quite old and probably need to be updated. Her acute change in vision may be related to her headache syndrome and would be typical with migraine. Alternatively, it could be dry eyes and she may benefit from artificial tears prn. If her vision continues to bother her after discharge than a more complete exam in the office can be scheduled. " Previous provider discussed with neurology once more - plan for LP - pt is understanding and in agreement. Radiology contacted regarding poss. LP. 10/30 - underwent LP - opening pressure 29 cm. Discussed w/ neurology, concern for IIH - started acetazolamide 250 bid. After LP she felt well, reported improvement and was walking in hallways in the PM. On 11/01/23, she reports PICHARDO and does not feel comfortable with discharge. CSF studies pending at that time Neurology contacted once more for further recs, -recommends d/c with acetazolamide and Neurology followup outpt Pt currently stable for discharge Leukocytosis Acute metabolic/toxic encephalopathy Slight increase in WBC to 10K UA not suggestive of infection at this time Continue to monitor with AM labs 11/06- elevated to 16K once more, pt noting sore throat, fatigue dizziness. Biofire, strep, chest XRAY, UA ordered. Started empirically on po Augmentin 11/07- pt with increased lethargy overnight. Home sedating meds were held. AAO today. Leukocytosis improving. Continue to monitor Epistaxis Episode on 11/03 Afrin ordered per protocol Continue to monitor TONY on CKD stage III/IV and metabolic acidosis outpatient labs shows baseline creatinine around 2.4 and CO2 13-15 range was started on bicarb tabs creatinine on admission is 2.3 and CO2 is 18 ABG shows pH of .7.21 and bicarb of 12 received 1 amp of sodium bicarb on admission continue home bicarb tablets gentle fluids follow repeat labs and ABG Nephrology consulted -Previous provider discussed with Nephrology - gave 1/2 NS with bicarb prior to CTA and after Stable at this time 11/04- Nephrology contacted once more for further recs 11/07 nephrology signing off, recommending regular diet Hyperphosphatemia Phos currently elevated Continue to monitor daily 11/04- Nephrology contacted once more for further recs -likely in setting of CKD -renal diet, continue to monitor Per nephrology on 11/07, regular diet Hypermagnesemia Mag levels elevated Discontinued magnesium supplements Continue to monitor 11/04- Nephrology contacted once more for further recs -likely in setting of CKD -renal diet, continue to monitor Per nephrology on 11/07, regular diet Hyperkalemia Potassium supplements discontinued Continue to monitor Currently resolved Nocturnal hypoxemia on oxygen 4 L during nighttime Hx of COPD continue home inhalers Anemia - 6/8 AM labs showing Hgb 9.0. Ordered stool hemeoccult- not collected - Repeat H&H same morning 9.8 - cont. to closely monitor - no signs of bleeding Anemia panel- iron, b12 and folate levels normal H/H stable Bipolar affective disorder anxiety continue home medications constipation on Linzess GERD placed on Pepcid Diet: DMII, HH DVT prophylaxis - SCDs Dispo: PT/OT ordered- recommending acute rehab, currently awaiting placement Admission and Anticipated Discharge Date Admission Date: October 28, 2023 Subjective Pt was seen sitting at bedside. AAO Asking for a regular diet Review of Systems Review of Systems: All systems reviewed & are unremarkable except as noted in Subjective Physical Exam Physical Exam: General: Alert, oriented. No acute distress Skin: No noted rashes or bruises Psych: Appropriate mood and affect Neuro: No gross deficits, collar in place, able to ambulate with walker HEENT: NC/AT CV: RRR Resp: Breath sounds clear bilaterally, no increased effort of breathing. Abdomen:Soft, nontender, nondistended. Extremities: edema in lower extremities bilaterally. Results & Data Results & Data Vital Signs (Past 12 Hours) Vital Signs Temp Pulse Pulse Resp BP Pulse Ox O2 Del Method 11/08/23 15:35 36.3 C L 76 18 120/72 98 Room Air 11/08/23 14:01 81 11/08/23 11:25 36.3 C L 77 18 102/59 L 94 Room Air 11/08/23 08:03 36.4 C L 65 18 93/57 L 91 Room Air 11/08/23 07:35 Room Air 11/08/23 06:08 63 11/08/23 06:00 71 97/60 L 92 Room Air
[2023-11-09 07:53] LABS: Hematocrit (blood only) 29.3 % (37.0-47.0); Hemoglobin 9.1 g/dl (12.0-16.0); Mean Corpuscular Hemoglobin 30.3 pg (25.0-34.0); Mean Corpuscular Hgb Conc 31.1 g/dL (32.0-36.0); Mean Corpuscular Volume 97.7 fL (80.0-100.0); Mean Platelet Volume 9.7 fL (9.4-12.4); Platelet Count 207 K/uL (130-400); RDW Coefficient of Variation 14.8 % (11.5-14.5); RDW Standard Deviation 53.1 fL (36.4-46.3); White Blood Count 8.46 K/ul (4.8-10.8)
[2023-11-09 08:22] LABS: BUN Creatinine Ratio 12.3 (10-20); Calcium 8.9 mg/dl (8.6-10.3); Creatinine Clr Calc Pharmacy 25.3 ml/min; Est GFR (Non-African American) 22.5 ml/min; Potassium 3.8 mmol/L (3.5-5.1)
--- NOTE | 2023-11-09 10:28 | Nephrology Progress Note ---
Date of Service November 09, 2023 Assessment & Plan (1) CKD (chronic kidney disease) stage 4, GFR 15-29 ml/min: Plan: Patient admitted with acute kidney on CKD4 in setting of NSAID use, past lithium use and recent pyelonephritis. of note, her CKD worsened abruptly in May 2023 w/ eGFR going from about 40 to about 20 ml/min. despite extensive w/u, cause not found. notably her acidosis also emerged around the time of worsened renal function. Creatinine is now back to new baseline which is low to mid 2's. Creatinine of 2.2 today. From renal standpoint patient can be discharged with renal follow up once mental status improves Will sign off. NEPHRO D/C RECS: -hospital d/c appt with Dr Baird her OP eeler w/in 2-4 wks of hospital d/c; may see other provider if Oli not available -needs cbc, CMP, UACM, ACR, prot/creat to be ordered by neph RN and done up to 3 days before neph hosp d/c visit -continue sodium bicarbonate at hospital d/c (2) Headache: Plan: Continue diamox per Neurology; for d/c on this and OP f/u (3) Metabolic acidosis: Plan: NAGMA which emerged early 2023 and progressive since then. Could be from worsening CKD which worsened around same time. >continue reduced sodium bicarbonate to 650 mg twice daily >>note diamoxx will complicate managing this Admission and Anticipated Discharge Date Admission Date: October 28, 2023 Subjective no interval events clinically. pt denies sob, n/v, Results & Data Vital Signs (Past 12 Hours) Vital Signs Temp Pulse Resp BP Pulse Ox O2 Del Method 11/09/23 08:22 36.8 C 67 17 96/58 L 95 Room Air 11/09/23 04:24 36.7 C 80 20 109/68 97 Room Air 11/08/23 23:48 36.7 C 66 18 102/63 94 Room Air Laboratory Results 11/09/23 07:15 11/09/23 07:15
[2023-11-09 11:50] VITALS: BP 110/64; RESP 18; TEMP 97.3; O2SAT 97
[2023-11-09 13:23] LABS: Albumin 3.3 g/dL (3.6-5.1); Albumin, CSF 52.2 mg/dL (8.0-42.0); Cryptococcal Antigen Not Detected (Not Detected); EBV DNA Quant PCR Not Detected copies/mL; EBV DNA Quant Source CSF; IgG CSF 4.8 mg/dL (0.8-7.7); IgG Index, CSF 0.58 (<0.70); IgG Serum 525 mg/dL (600-1540); Lyme DNA PCR CSF or Synovial Not Detected (Not Detected); Lyme DNA Source CSF; Lyme IgG Band Pattern CSF DNR; Lyme IgG CSF NO BANDS DETECTED; Lyme IgM Band Pattern CSF DNR; Lyme IgM CSF NO BANDS DETECTED; Myelin Basic Protein <2.0 mcg/L (<=4.0); Oligoclonal Bands IgG, CSF Absent (Absent); Source Serum; Synthesis Rate, IgG CSF 3.9 mg/24 h (-9.9-3.3); VDRL Qualitative CSF Nonreactive (Nonreactive); West Nile Virus, PCR Source CSF; West Nile Virus, PCR, CSF NOT DETECTED (NOT DETECTED)
--- NOTE | 2023-11-09 14:47 | Discharge Summary ---
Date of Service November 09, 2023 Admission HPI Per Admitting Provider 68-year-old female with past medical history significant for COPD, granulomatous lung disease, nocturnal hypoxemia on home oxygen, history of dysphagia, history of TONY, CKD stage IIIb, lumbosacral disc disease, bipolar affective disorder, anxiety state, mixed incontinence, tobacco use disorder presents with headache and blurred vision starting today. Patient still has a headache all over the head and also blurred vision. She has chronic back pain radiating to both legs. She says can ambulate without support. She lives with her grandson. She states she can eat regular food. States recently she was [facility] looks like she was admitted on September 27. States stayed in the hospital for 3 weeks. As per discharge paperwork she was admitted for acute UTI and back pain and weakness and TONY. Patient hemodynamics currently okay. Denies any runny nose or sore throat. Denies chest pain. She says she is always short of breath because of COPD. No nausea. No abdominal pain. Did not move bowels for last 4 days. Micturating okay. She is following with nephrology for chronic renal disease. Looks like in May 2023 Lasix metformin Neurontin stop because of worsening GFR. Chronic kidney disease was thought from possible use of [place] in the past and possible NSAIDs. nephrology advised to stop omeprazole and take Pepcid twice daily. In July 2023 patient was started on sodium bic arbonate 650 mg 1 tab twice daily as her bicarb was low and also to slow down the kidney function decline. Past medical history. As mentioned above Past surgical history. Left total knee replacement. Cystoscopy. EGD. Injection of lumbosacral spine. [place] appendectomy. Removal of ovaries. Cholecystectomy. Right revision of ulnar nerve at elbow. Total hysterectomy. Social history. . Smokes 1 pack a day For 47 years. No alcohol use. No drug use. Family history. Father has alcoholism. Lung cancer. Mother had stomach cancer. Maternal grandmother had bone cancer. Sister had dementia. Admission Exam Per Admitting Provider General- Not in distress Head- atraumatic Eyes- PERRL. ENT- oropharynx clear Neck- supple, no JVD. Lungs- clear to auscultation no wheezing or crackles. Heart- regular rhythm; no murmur, no gallop. Abdomen- normal bowel sounds, soft, nontender, no distension Extremities- no pretibial edema, no erythema seen Neuro- alert, oriented PERRL, no facial palsy; no dysarthria; motor 3/5 bilaterally; obeys simple commands Principal Diagnosis Headache, blurry vision secondary to likely IIH Discharge Exam General- WD/WN F in NAD Head- atraumatic Eyes- PERRL. Lungs- clear to auscultation no wheezing or crackles. Heart- regular rhythm; no murmur Abdomen- normal bowel sounds, soft, nontender, no distension Extremities- no pretibial edema, no erythema seen, moves extremities Neuro- alert, oriented PERRL, no facial palsy; no dysarthria; moves extremities Discharge Data Allergies Allergy/AdvReac Type Severity Reaction Status Date / Time No Known Allergies Allergy Mild Unverified 07/13/11 21:17 Consultations 10/28/23 19:38 ED Decision to Admit Stat 10/29/23 08:00 Consult Nephrology Routine 10/29/23 12:13 Consult Neurology Routine 10/29/23 13:54 Consult Ophthalmology Routine 11/02/23 18:19 Consult Neurology Routine Ordered Studies 10/28/23 17:19 CT head/brain wo con Stat Findings: The paranasal sinuses and mastoid air cells are clear. The calvarium and skull base are intact. The ventricles and sulci are within normal limits. There is no mass, hematoma, midline shift, or acute infarct. Impression: No acute intracranial abnormality. 10/29/23 13:56 CTA head FINDINGS: The dural venous sinuses are patent. Right internal carotid artery: No acute findings. Intracranial segment is patent with no significant stenosis. No aneurysm. Right anterior cerebral artery: Unremarkable. No occlusion or significant stenosis. No aneurysm. Right middle cerebral artery: Unremarkable. No occlusion or significant stenosis. No aneurysm. Right posterior cerebral artery: Unremarkable. No occlusion or significant stenosis. No aneurysm. Right vertebral artery: Unremarkable as visualized. Left internal carotid artery: No acute findings. Intracranial segment is patent with no significant stenosis. No aneurysm. Left anterior cerebral artery: Unremarkable. No occlusion or significant stenosis. No aneurysm. Left middle cerebral artery: Unremarkable. No occlusion or significant stenosis. No aneurysm. Left posterior cerebral artery: Unremarkable. No occlusion or significant stenosis. No aneurysm. Left vertebral artery: Unremarkable as visualized. Basilar artery: Unremarkable. No occlusion or significant stenosis. No aneurysm. IMPRESSION: Negative CT angiogram of the head. 10/29/23 13:57 CT angio neck with con Urgent FINDINGS: VASCULATURE: Right common carotid artery: Unremarkable. No occlusion or significant stenosis. No dissection. Right internal carotid artery: Unremarkable. Extracranial segment is patent with no occlusion or significant stenosis. No dissection. Right external carotid artery: Unremarkable. No occlusion. Right vertebral artery: Unremarkable. No occlusion or significant stenosis. No dissection. Left common carotid artery: Unremarkable. No occlusion or significant stenosis. No dissection. Left internal carotid artery: Unremarkable. Extracranial segment is patent with no occlusion or significant stenosis. No dissection. Left external carotid artery: Unremarkable. No occlusion. Left vertebral artery: Unremarkable. No occlusion or significant stenosis. No dissection. NECK: Bones/joints: Unremarkable. No acute fracture. Soft tissues: Unremarkable. Lung apices: Clear. CAROTID STENOSIS REFERENCE USING NASCET CRITERIA: % ICA stenosis = (1 - narrowest ICA diameter/diameter of distal cervical ICA) x 100. Mild - <50% stenosis. Moderate - 50-69% stenosis. Severe - 70-94% stenosis. Near occlusion - 95-99% stenosis. Occluded - 100% stenosis. IMPRESSION: Negative CTA neck. 10/29/23 23:30 MR brain wo con Routine FINDINGS: Brain parenchyma: There is minimal microangiopathic change. There is no hemorrhage or mass effect. There is no restricted diffusion to suggest acute ischemia. Montaño-white matter differentiation is preserved. No extra-axial fluid collection is seen. The cerebellar tonsils are normal in configuration. Ventricles, sulci, and cisterns: Normal in configuration. Pituitary and sella: Unremarkable. Intracranial vasculature: Normal flow voids are maintained at the skull base. Orbits: The bony orbits are grossly intact. Orbital contents are normal in appearance. Sinuses and mastoids: Clear. Calvarium: Unremarkable. Cervical cord: Partially visualized cervical spinal cord is normal in morphology and signal intensity. IMPRESSION: No acute intracranial abnormality. 10/31/23 09:30 IR lumbar puncture diagnostic Routine Hospital Course (1) Headache: 68 yo F with PMHx significant for COPD, granulomatous lung disease, nocturnal hypoxemia on home oxygen, history of dysphagia, history of TONY, CKD stage IIIb, lumbosacral disc disease, bipolar affective disorder, anxiety state, mixed incontinence, tobacco use disorder presents with headache and blurred vision. Patient still has a headache and also blurred vision. Headache blurred vision CT head - negative MRI brain - No acute intracranial abnormality. Pt reports hx of migraine PICHARDO w/ blurry vision in the past - but not recently Neurology consulted - CTA head and neck obtained - Negative CT angiogram of the head. Negative CTA neck. Ophthalmology consulted - "The patient has a basically unremarkable eye exam. Her acuity is almost normal at near with the reading glasses I loaned her. That combined with normal imaging and labs likely rules out any acute ophthalmologic issue that would need further work up as an inpatient. Given the normal labs, normal optic nerves, good acuity, and simultaneous bilateral onset I feel comfortable ruling out GCA as a possibility. However the bedside exam is fundamentally limited due to the lack of equipment needed to do a thorough exam. Her glasses look quite old and probably need to be updated. Her acute change in vision may be related to her headache syndrome and would be typical with migraine. Alternatively, it could be dry eyes and she may benefit from artificial tears prn. If her vision continues to bother her after discharge than a more complete exam in the office can be scheduled. " Previous provider discussed with neurology once more - plan for LP - pt is understanding and in agreement. Radiology contacted regarding poss. LP. 10/30 - underwent LP - opening pressure 29 cm. Discussed w/ neurology, concern for IIH - started acetazolamide 250 bid. -recommends d/c with acetazolamide and Neurology followup outpt Pt currently stable for discharge Leukocytosis Acute metabolic/toxic encephalopathy Slight increase in WBC to 10K UA not suggestive of infection at this time Continue to monitor with AM labs 11/06- elevated to 16K, pt noting sore throat, fatigue dizziness. Biofire, strep, chest XRAY, UA ordered. Started empirically on po Augmentin 11/07- pt with increased lethargy overnight. Home sedating meds were held. AAO today. Leukocytosis improving. UA - negative. CXR negative. Blood cultx - negat. so far. WBC normalized (8.4 K on 11/08) 11/08 Pt back to baseline, ambulating hallways and feeling well. Discussed DC with CM and pt and her grandson at the bedside - will DC home w/ grandson today. She will need to follow up as outpt w/ PCP, neuro, nephro, ophthalmology. Epistaxis Episode on 11/03 Afrin ordered per protocol Continue to monitor TONY on CKD stage III/IV and metabolic acidosis outpatient labs shows baseline creatinine around 2.4 and CO2 13-15 range was started on bicarb tabs creatinine on admission is 2.3 and CO2 is 18 ABG shows pH of .7.21 and bicarb of 12 received 1 amp of sodium bicarb on admission continue home bicarb tablets gentle fluids follow repeat labs and ABG Nephrology consulted -Previous provider discussed with Nephrology - gave 1/2 NS with bicarb prior to CTA and after Stable at this time 11/04- Nephrology contacted once more for further recs 11/07 nephrology signing off, recommending regular diet NEPHRO D/C RECS: -hospital d/c appt with Dr Baird her OP shower enclosure installer w/in 2-4 wks of hospital d/c; may see other provider if Oli not available -needs cbc, CMP, UACM, ACR, prot/creat to be ordered by neph RN and done up to 3 days before neph hosp d/c visit -continue sodium bicarbonate at hospital d/c Hyperphosphatemia Phos elevated Continue to monitor daily 11/04- Nephrology contacted once more for further recs -likely in setting of CKD -renal diet, continue to monitor Per nephrology on 11/07, regular diet Hypermagnesemia Mag levels elevated Discontinued magnesium supplements Continue to monitor 11/04- Nephrology contacted once more for further recs -likely in setting of CKD -renal diet, continue to monitor Per nephrology on 11/07, regular diet Hyperkalemia Potassium supplements discontinued Continue to monitor Currently resolved Nocturnal hypoxemia on oxygen 4 L during nighttime Hx of COPD continue home inhalers Anemia - 6/8 AM labs showing Hgb 9.0. Ordered stool hemeoccult- not collected - Repeat H&H same morning 9.8 - cont. to closely monitor - no signs of bleeding Anemia panel- iron, b12 and folate levels normal H/H stable Bipolar affective disorder anxiety continue home medications constipation on Linzess GERD placed on Pepcid Total Time Total Time Spent Total Time Spent (In Minutes): 40 Discharge Plan Discharge Items Patient Disposition: Home - Home Health Services Reason For Visit: HEADACHE, BLURRY VISION, METABOLIC ACIDOSIS Discharge Diagnosis: Headache, blurry vision secondary to likely IIH Activity: Per Instructions section Non-emergency contact: Primary Care Provider, Head Of Strategy, Neurologist and Plastics Scientist Call non-emergency contact if: you have any medication questions and your symptoms worsen Follow-up/Referrals: Annette Jennings PA-C [Physician Keg Washer] - (Date & Time 11/30/2023 11:20 AM Provider Annette Jennings PA-C Department Neurology [facility] ) Tae Baird MD [Surgeon] - (The Nephrology office will contact you for a follow up appointment and labwork. ) Milli Martin PA-C [Primary Care Provider] - 11/14/23 3:40 pm Diet: Regular Addtl Attending Provider Instructions: Follow up with your primary care doctor, neurologist and shower enclosure installer. It is also recommended that you see an labor relations teacher and have an eye exam. Continue taking sodium bicarbonate 650 mg twice a day. You will need blood work - so that your shower enclosure installer can follow up on your kidney function and electrolytes. You were started on a new medication - acetazolamide 250 mg twice a day - by a neurologist for your headache and blurry vision. [place] antibiotic treatment as prescribed. Pending Studies at Discharge: Yes Studies:: final blood cultx Stand-Alone Forms: [facility] Sm[facility] C[facility] Medications and DC Order Prescriptions: New acetazolamide 250 mg Tablet 250 mg PO BID Qty: 60 0RF amoxicillin-pot clavulanate 500-125 mg Tablet 1 tab PO BIDM 4 Days Qty: 8 0RF Continued atorvastatin 40 mg tablet 40 mg PO DAILY omeprazole 40 mg capsule,delayed release(DR/EC) 40 mg PO DAILYBB magnesium oxide 400 mg (241.3 mg magnesium) tablet 400 mg PO DAILY potassium chloride 10 mEq tablet extended release 20 meq PO BID sertraline 50 mg tablet 50 mg PO QAM risperidone 1 mg tablet 1 mg PO HS lamotrigine 100 mg tablet 100 mg PO QAM aripiprazole 20 mg tablet 20 mg PO HS aripiprazole 5 mg tablet 5 mg PO HS budesonide-formoterol [Breyna] 160-4.5 mcg/actuation HFA aerosol inhaler 2 puff INHALATION BID gabapentin 600 mg tablet 600 mg PO TID cetirizine 5 mg tablet 5 mg PO DAILY albuterol sulfate 90 mcg/actuation HFA aerosol inhaler 2 puff INHALATION Q4 PRN (Reason: Wheezing) Linzess 145 mcg capsule 145 mcg PO DAILYBB sodium bicarbonate 650 mg tablet 650 mg PO AMHS pregabalin 50 mg capsule 50 mg PO BID nystatin 100,000 unit/gram powder 1 applic TOPICAL BID Rx Instructions: under breasts Held clonazepam 0.5 mg tablet 0.5 mg PO HS Hold Instructions: Resume on 11/16/23. discuss with your primary care doctor if/ when to resume hydroxyzine pamoate 50 mg capsule 50 mg PO UD Hold Instructions: Resume on 11/16/23. discuss with your primary care doctor if / when to resume this med Rx Instructions: take 1 capsule in the morning and 2 capsules in the pm trazodone 100 mg tablet 200 mg PO HS Hold Instructions: Resume on 11/16/23. discuss with your primary care doctor if/ when to resume this med Discharge Orders: Discharge Order (Routine); Ordered 11/09/23 Ordered By: Pierre Padilla Admission Data Admit Date/Time: 10/28/23 21:37 Attending Provider: Pierre Padilla Admit Provider: Marino Mckenzie Primary Care Provider: Milli Martin Other Providers: Roxanne Contreras; [facility]; Marino Mckenzie; Tae Baird; Annette Jennings; Milind Alegre; Annette Wiley; Abdoulaye Kuo; Manuel Kincaid; Adam Calhoun; Andrew Tello; Ivett Lucia; Dimitry Diallo; Yordan Cortes; Ganga Gerard; Hayley Baltazar; Cate Lu; Andrew Falcon; Reggie Mendenhall; [facility]
[2023-11-09 15:50] VITALS: PULSE 73
== END 2023-11-09 16:15 | disposition home health service (06) | DRG 102 ==
LOC: ED 15:10 → SUATTDRO 21:37 → 2S 21:37 → INTOOBSV 21:37 → 2S 23:31 → 2W 11-05 21:24